=== PATIENT | male | born 1945 | race Caucasian/White ===

== ENCOUNTER 2020-02-19 07:40 | Outpatient (REF) | payer MEDICARE, SELFPAY ==
--- NOTE | 2020-02-19 | XR_ITS ---
EXAMINATION: XR CHEST CLINICAL INFORMATION: SOB on exertion COMPARISON: Chest 08/15/2019 TECHNIQUE: 2 views of the chest were obtained. FINDINGS: Lungs are well-expanded and clear of acute pneumonic process. There is mild bilateral apical pleural thickening Heart size and pulmonary vascularity is normal. There are old healed left posterior fifth and sixth rib fractures. There is mild spondylosis of dorsal spine. XR/XR chest 2V IMPRESSION: Old healed left posterior fifth and sixth rib fractures. No acute cardiopulmonary process seen.
[2020-02-19 11:13] LABS: MANUAL DIFF FLAG NO
[2020-02-19 11:17] LABS: Basophils Percent Auto 0.5 % (0-2); Eosinophils Absolute Auto 0.1 X10*3/uL (0.0-0.4); Eosinophils Percent Auto 2.2 % (0-4); Hematocrit 36.2 % (42-52); Hemoglobin 11.2 g/dl (14.0-18.0); Imm Gran Abs Auto 0.01 X10*3/uL (0.00-0.03); Imm Gran Pct Auto 0.2 % (0.0-0.4); Lymphocytes Absolute Auto 1.2 X10*3/uL (1.2-4.9); Lymphocytes Percent Auto 19.6 % (20-40); Mean Corpuscular HGB Conc 30.9 g/dl (31.0-36.0); Mean Corpuscular Hemoglobin 28.4 pg (27.0-33.0); Mean Corpuscular Volume 91.9 fL (80-98); Mean Platelet Volume 9.4 fL (9.4-12.4); Monocytes Absolute Auto 0.5 X10*3/uL (0.1-1.2); Neutrophils Absolute Auto 4.1 X10*3/uL (2.0-8.3); Neutrophils Percent Auto 69.5 % (45-73); Platelet Count 225 X10*3/uL (160-400); Red Blood Count 3.94 X10*6/uL (4.60-5.80); Red Cell Distribution Width 17.1 % (11.0-16.0); White Blood Count 5.9 X10*3/uL (4.8-10.8)
[2020-02-19 11:24] LABS: Estimated Average Glucose 111 mg/dL; Hemoglobin A1C 108.4023 umol/L; Hemoglobin A1c % 5.5 %
[2020-02-19 11:51] LABS: Glucose Urine UA NEG (NEG); Leukocyte Esterase Urine 2+ (NEG); Nitrite Urine NEG (NEG); Specific Gravity - Urine 1.025 (1.005-1.025); Urine Blood 3+ (NEG); Urine Ketones NEG (NEG); Urine Protein 2+ MG/DL (NEG-TRACE)
[2020-02-19 11:53] LABS: Appearance Urine CLOUDY; Color Urine YELLOW
[2020-02-19 12:02] LABS: Alanine Aminotransferase 26 U/L (0-40); Albumin Level 3.9 g/dL (3.5-5.0); Alkaline Phosphatase 73 U/L (39-117); Anion Gap 13 (12-20); Aspartate Amino Transferase 22 U/L (5-37); Bilirubin Total 0.3 mg/dL (0.0-1.0); Blood Urea Nitrogen 19 mg/dL (9-16); Calcium 9.6 mg/dL (8.4-10.2); Carbon Dioxide 25 mmol/L (22-29); Chloride 100 mmol/L (96-108); Cholesterol 98 mg/dL; Estimated Glomerular Filt Rate 49; Glucose Fasting 79 mg/dL (60-99); HDL Cholesterol 32 mg/dL; LDL Cholesterol Calculated 37 mg/dl; Sodium 134 mmol/L (135-145); Total Protein 6.6 g/dL (6.5-8.0); Triglycerides 149 mg/dL
[2020-02-19 12:17] LABS: PSA,Total (Free>4and<10) 3.86 ng/mL (0.00-4.00)
[2020-02-19 12:21] LABS: Bacteria Urine 2+ /LPF; Squamous Epithelial Cell Urine 1+ /LPF; WBC Urine 50-75 /HPF (0-4)
[2020-02-19 12:22] LABS: Calcium Oxalate Crystals Urine 2+ /LPF
[2020-02-19 12:24] LABS: Thyroid Stimulating Hormone 1.49 uIU/mL (0.32-4.0)
[2020-02-19 12:28] LABS: Creatinine Urine 71.49 mg/dL; Microalbum/Creatinine Ratio Ur 205.6 ug/mg cr
== END 2020-02-19 07:41 | disposition home or self-care (01) ==
LOC: HO.HMGCLDS 07:40
PROVIDERS: Absent Provider Urology; PCP Internal Medicine; Visit Provider Internal Medicine
DX: N40.1 Benign prostatic hyperplasia with lower urinary tract symptoms (principal); R97.20 Elevated prostate specific antigen [PSA]; E11.9 Type 2 diabetes mellitus without complications; E78.00 Pure hypercholesterolemia, unspecified; R06.02 Shortness of breath
CPT/HCPCS: 36415; 71046; 80053; 80061; 81001; 82043; 83036; 84153; 84443; 85025

== ENCOUNTER 2020-04-22 10:23 | Inpatient (IN) | payer MEDICARE, SELFPAY ==
[2020-04-22 10:43] VITALS: BP 108/60; BP 109/60; PULSE 111; PULSE 120; RESP 23; TEMP 36.8; O2SAT 100; BMI 25.0
--- NOTE | 2020-04-22 10:55 | ECG_ITS ---
Test Reason : WEAKNESS Blood Pressure : / mmHG Vent. Rate : 107 BPM Atrial Rate : 107 BPM P-R Int : 160 ms QRS Dur : 084 ms QT Int : 324 ms P-R-T Axes : 063 012 023 degrees QTc Int : 432 ms Sinus tachycardia Otherwise normal ECG When compared with ECG of 03-JUN-2013 10:26, No significant change was found Referred By: Lois Leija Electronically Signed By:Angus Collins
--- NOTE | 2020-04-22 10:55 | XR_ITS ---
EXAMINATION: XR CHEST CLINICAL INFORMATION: Weakness COMPARISON: Previous chest x-ray most recent January 2020 TECHNIQUE: Frontal view of the chest was obtained. FINDINGS: The cardiac and mediastinal contours are normal. The lungs are clear. There is no pleural effusion or pneumothorax. There are old left rib fractures. There are degenerative changes of the spine. XR/XR chest 1V IMPRESSION: No evidence for acute disease in the chest.
--- NOTE | 2020-04-22 10:55 | CT_ITS ---
EXAMINATION: CT HEAD WITHOUT CONTRAST CLINICAL INFORMATION: Garbled speech. COMPARISON: None TECHNIQUE: Contiguous axial imaging was performed from the skull base to vertex without intravenous administration of contrast. This CT examination was performed using dose optimization techniques as appropriate, variously including the following: *Automated exposure control *Adjustment of mA and/or kV according to patient size (this includes techniques or standardized protocols for targeted exams where dose is matched to indication/reason for exam; i.e. extremities or head) *Use of iterative reconstruction technique DLP: 281 mGy-cm FINDINGS: Limited exam due to patient motion. There is no evidence of acute intra-axial, extra-axial bleed, masses or midline shift. There is no acute cortical infarction in evolution. Small lacunar infarction seen in left basal ganglia question age. The lateral ventricles are enlarged but symmetrical and moderately enlarged. The greenwood to white matter differences is maintained normal. Bone windows reveal no calvarial abnormality. There is complete opacification of right maxillary sinus. Rest the paranasal sinuses and mastoid air cells are well-aerated. No scalp soft tissue abnormality seen. CT/CT head/brain wo con IMPRESSION: Small lacunar infarction left basal ganglia of questionable age. No acute parenchymal or extra-axial bleed. Age-related cerebral atrophy with chronic small vessel ischemic changes.
--- NOTE | 2020-04-22 10:57 | ED.WEAKNESS ---
HPI - Weakness General Chief complaint: Weakness Stated complaint: WOKE UP WITH ACUTE ONSET OF WEAKNESS Time Seen by Provider: 04/22/20 10:40 Source: patient and EMS Mode of arrival: EMS History of Present Illness HPI Narrative: 74-year-old male with a past medical history of HTN, DM, hyperlipidemia, BPH, urinary retention, BIBA for generalized weakness noted this morning upon waking up and episode garbled/difficulty speaking which resolved after about a half an hour. Last known well time 10:00 p.m. when patient went to bed. States tried to get out of his recliner but was unable to walk, slid himself out of chair onto floor. At baseline lives at home alone does not use assistive devices. Also reports exertional SOB. Denies headache, vision change, CP, abdominal pain, nausea/vomiting, numbness/tingling. MD Complaint: generalized weakness and difficulty walking Related Data Home Medications Medication Instructions Recorded Confirmed glipizide 1 tab PO BID 04/22/20 04/22/20 lisinopril 1 tab PO BEDTIME 04/22/20 04/22/20 metformin 1 tab PO BID 04/22/20 04/22/20 rosuvastatin 1 tab PO BEDTIME 04/22/20 04/22/20 tamsulosin 1 cap PO BEDTIME 04/22/20 04/22/20 Allergies Allergy/AdvReac Type Severity Reaction Status Date / Time atorvastatin [Lipitor] Allergy Unknown rash Verified 09/06/19 00:00 From LIPITOR Allergy Unknown RASH Uncoded 12/13/19 14:58 Review of Systems Review of Systems: Constitutional: No Weight loss, No Fever, No Chills, No Night Sweats, No Fatigue, No Malaise ENT/Mouth: No Sinus Pain, No Hoarseness, No sore throat, No Rhinorrhea, No Swallowing Difficulty Eyes: No Eye Pain, No Swelling, No Vision Changes Cardiovascular: No Chest Pain, No SOB, +Dyspnea on Exertion, No Orthopnea, No Edema, No Palpitations Respiratory: No Cough, No Sputum, No Dyspnea Gastrointestinal: No Nausea, No Vomiting, No Diarrhea, No Constipation, No Abdominal pain Genitourinary: No irregular bleeding, No Dysuria, No Urinary Frequency, No Hematuria, No Flank Pain, No Hesitancy Musculoskeletal: No joint pain, No Myalgias, No Joint Swelling Skin: No Skin Lesions, No rash Neuro: +Weakness, No Numbness, No Paresthesias, No Loss of Consciousness, No Dizziness, No Headache Yes all other systems are reviewed and are negative Neurologic: Denies Abnormal speech present [facility] Past Medical History Attestation statement: The following information was validated with the patient. Social History Social History Alcohol intake: current Alcohol intake frequency: holidays/special occasions only Smoking Status: Never smoker Use of substances other than those prescribed or required for medical reasons: No Advance Directives: No Advance Directives Information Provided: Yes Physical Exam Vital Signs: Vital Signs: Last Vital Signs Temp 98.2 F 04/22/20 10:43 Pulse 118 H 04/22/20 11:18 Resp 23 H 04/22/20 10:43 BP 103/51 L 04/22/20 11:18 Pulse Ox 100 04/22/20 10:43 Body Mass Index 25.0 Const: General: cooperative, healthy appearing and comfortable Orientation/consciousness: patient oriented x3 Limitations: no limitations HENMT: Head: Yes normal to inspection and Yes atraumatic Ears: hearing grossly normal bilaterally General nose exam: Normal external nose present Face and sinus: Yes normal facial exam Eyes: General: appearance normal, both eyes and all related structures Pupils: Equal, round and reactive pupils present EOM: EOMs intact bilaterally Neck: Neck: Yes normal visual inspection and Yes no meningeal signs Resp: Effort & Inspection: normal respiratory effort Auscultation: clear to auscultation bilaterally, no rales, no rhonchi and no wheezes Cardio: Rate: regular rate Heart sounds: S1 normal heart sound present and S2 normal heart sound present GI: Inspection: Yes normal to inspection Palpation (GI): Soft to palpation, nontender, no guarding and not rigid Skin: Rashes: no rashes Wounds: no wounds Neuro: General: patient oriented x3, gait normal, tone normal, moves all extremities, no meningeal signs, no focal motor deficits and CN's II-XI intact bilaterally Cranial nerves: Yes Equal, round and reactive pupils present Cognition (Neuro): normal cognition Speech: No Abnormal speech present Gait exam (Neuro): Normal gait present Motor exam (neuro): 5/5 motor strength present throughout, Pronator motor function not present and no tremor noted Coordination: [id number] test normal Extrem: General: Yes normal to inspection NIH Stroke Scale Internal: Initial- Upon Arrival Level of Consciousness: Alert Level of Consciousness Questions: Answers both questions correctly Level of Consciousness Commands: Performs both tasks correctly Best Gaze: Normal Visual: No visual loss Facial Palsy: Normal Motor Arm (Right): No drift Motor Arm (Left): No drift Motor Leg (Right): No drift Motor Leg (Left): No drift Limb Ataxia: Absent Sensory: Normal Best Language: No aphasia Dysarthia: Normal Extinction and Inattention: No abnormality Score: 0 Course Course Course Narrative: -H&H slightly lower than baseline 9.3/29, creatinine elevated at 2.1/BUN of 30. Patient's glucose was noted to be 59, is currently eating crackers/drinking juice -AST/ALT elevated. Troponin 8.3 > will obtain 3 hour repeat. CPK 987 likely contributing to renal dysfunction -CXR unremarkable. Head CT showing small lacunar infarct left basal ganglia questionable age MDM - Weakness MDM Narrative Medical decision making narrative: 74-year-old male with a past medical history of HTN, DM, hyperlipidemia, BPH, urinary retention, BIBA for generalized weakness noted this morning upon waking up and episode garbled/difficulty speaking which resolved after about a half an hour. On exam tachycardic, tachypneic, NAD/nontoxic, no focal neuro deficits, ambulating with steady gait, speech WNL. Concern for TIA vs CVA although patient out of the window for tPA, and NIHSS =0 upon arrival to ED. rule out metabolic/infectious etiology including COVID-19. Plan for admission Plan: EKG, labs, UA, CXR, head CT, admission Medical Records Attestation: I reviewed the patient's medical records. Lab Data Attestation: I reviewed the patient's lab results. Result diagrams: 04/22/20 11:10 04/22/20 11:11 Labs: Lab Results 04/22/20 04/22/20 04/22/20 Range/Units 11:05 11:10 11:10 WBC 6.6 (4.8-10.8) X10*3/uL RBC 3.17 L (4.60-5.80) X10*6/uL Hgb 9.3 L (14.0-18.0) g/dl Hct 29.6 L (42-52) % MCV 93.4 (80-98) fL MCH 29.3 (27.0-33.0) pg MCHC 31.4 (31.0-36.0) g/dl RDW 16.6 H (11.0-16.0) % Plt Count 222 (160-400) X10*3/uL MPV 9.1 L (9.4-12.4) fL Immature Gran % (Auto) 0.5 H (0.0-0.4) % Neut % (Auto) 78.8 H (45-73) % Lymph % (Auto) 12.3 L (20-40) % [place] % (Auto) 6.8 (2-11) % Eos % (Auto) 1.1 (0-4) % Baso % (Auto) 0.5 (0-2) % Lymph # (Auto) 0.8 L (1.2-4.9) X10*3/uL [place] # (Auto) 0.5 (0.1-1.2) X10*3/uL Eos # (Auto) 0.1 (0.0-0.4) X10*3/uL Baso # (Auto) 0.0 (0.0-0.2) X10*3/uL Abs Immat Gran (auto) 0.03 (0.00-0.03) X10*3/uL Absolute Neuts (auto) 5.2 (2.0-8.3) X10*3/uL Absolute Nucleated RBC 0.000 (0.0-0.012) X10*3/uL Nucleated RBC % (auto) 0.0 (0.0-0.2) /100WBC PT (10.8-13.0) SEC INR (0.9-1.1) APTT (24.1-38.0) SEC Sodium (135-145) mmol/L Potassium (3.3-5.1) mmol/l Chloride (96-108) mmol/L Carbon Dioxide (22-29) mmol/L Anion Gap (12-20) BUN (9-16) mg/dL Creatinine (0.5-1.4) mg/dL Estim Creat Clear Calc Estimated GFR POC Glucose (60-115) mg/dL Random Glucose (60-115) mg/dL Calcium (8.4-10.2) mg/dL Magnesium (1.6-2.6) mg/dL Total Bilirubin (0.0-1.0) mg/dL Direct Bilirubin (0.0-0.5) mg/dL AST (5-37) U/L ALT (0-40) U/L Alkaline Phosphatase (39-117) U/L Total Creatine Kinase (38-174) U/L Troponin I High Sens 8.3 (<3.5-35.0) ng/L B-Natriuretic Peptide (<100) pg/mL Total Protein (6.5-8.0) g/dL Albumin (3.5-5.0) g/dL COVID-19 (BHASKAR) Negative (Negative) COVID-19 Clin Com See Note 04/22/20 04/22/20 04/22/20 Range/Units 11:10 11:10 11:11 WBC (4.8-10.8) X10*3/uL RBC (4.60-5.80) X10*6/uL Hgb (14.0-18.0) g/dl Hct (42-52) % MCV (80-98) fL MCH (27.0-33.0) pg MCHC (31.0-36.0) g/dl RDW (11.0-16.0) % Plt Count (160-400) X10*3/uL MPV (9.4-12.4) fL Immature Gran % (Auto) (0.0-0.4) % Neut % (Auto) (45-73) % Lymph % (Auto) (20-40) % [place] % (Auto) (2-11) % Eos % (Auto) (0-4) % Baso % (Auto) (0-2) % Lymph # (Auto) (1.2-4.9) X10*3/uL [place] # (Auto) (0.1-1.2) X10*3/uL Eos # (Auto) (0.0-0.4) X10*3/uL Baso # (Auto) (0.0-0.2) X10*3/uL Abs Immat Gran (auto) (0.00-0.03) X10*3/uL Absolute Neuts (auto) (2.0-8.3) X10*3/uL Absolute Nucleated RBC (0.0-0.012) X10*3/uL Nucleated RBC % (auto) (0.0-0.2) /100WBC PT 12.2 (10.8-13.0) SEC INR 1.0 (0.9-1.1) APTT 35.3 (24.1-38.0) SEC Sodium 139 (135-145) mmol/L Potassium 4.4 (3.3-5.1) mmol/l Chloride 106 (96-108) mmol/L Carbon Dioxide 23 (22-29) mmol/L Anion Gap 14 (12-20) BUN 30 H D (9-16) mg/dL Creatinine 2.16 H (0.5-1.4) mg/dL Estim Creat Clear Calc 26.6 Estimated GFR 30 POC Glucose (60-115) mg/dL Random Glucose 59 L* (60-115) mg/dL Calcium 8.8 D (8.4-10.2) mg/dL Magnesium 1.9 (1.6-2.6) mg/dL Total Bilirubin 0.4 (0.0-1.0) mg/dL Direct Bilirubin 0.2 (0.0-0.5) mg/dL AST 64 H (5-37) U/L ALT 73 H (0-40) U/L Alkaline Phosphatase 88 D (39-117) U/L Total Creatine Kinase 987 H (38-174) U/L Troponin I High Sens (<3.5-35.0) ng/L B-Natriuretic Peptide < 10 (<100) pg/mL Total Protein 5.9 L (6.5-8.0) g/dL Albumin 3.4 L (3.5-5.0) g/dL COVID-19 (BHASKAR) (Negative) COVID-19 Clin Com 04/22/20 Range/Units 12:17 WBC (4.8-10.8) X10*3/uL RBC (4.60-5.80) X10*6/uL Hgb (14.0-18.0) g/dl Hct (42-52) % MCV (80-98) fL MCH (27.0-33.0) pg MCHC (31.0-36.0) g/dl RDW (11.0-16.0) % Plt Count (160-400) X10*3/uL MPV (9.4-12.4) fL Immature Gran % (Auto) (0.0-0.4) % Neut % (Auto) (45-73) % Lymph % (Auto) (20-40) % Grant % (Auto) (2-11) % Eos % (Auto) (0-4) % Baso % (Auto) (0-2) % Lymph # (Auto) (1.2-4.9) X10*3/uL [place] # (Auto) (0.1-1.2) X10*3/uL Eos # (Auto) (0.0-0.4) X10*3/uL Baso # (Auto) (0.0-0.2) X10*3/uL Abs Immat Gran (auto) (0.00-0.03) X10*3/uL Absolute Neuts (auto) (2.0-8.3) X10*3/uL Absolute Nucleated RBC (0.0-0.012) X10*3/uL Nucleated RBC % (auto) (0.0-0.2) /100WBC PT (10.8-13.0) SEC INR (0.9-1.1) APTT (24.1-38.0) SEC Sodium (135-145) mmol/L Potassium (3.3-5.1) mmol/l Chloride (96-108) mmol/L Carbon Dioxide (22-29) mmol/L Anion Gap (12-20) BUN (9-16) mg/dL Creatinine (0.5-1.4) mg/dL Estim Creat Clear Calc Estimated GFR POC Glucose 98 (60-115) mg/dL Random Glucose (60-115) mg/dL Calcium (8.4-10.2) mg/dL Magnesium (1.6-2.6) mg/dL Total Bilirubin (0.0-1.0) mg/dL Direct Bilirubin (0.0-0.5) mg/dL AST (5-37) U/L ALT (0-40) U/L Alkaline Phosphatase (39-117) U/L Total Creatine Kinase (38-174) U/L Troponin I High Sens (<3.5-35.0) ng/L B-Natriuretic Peptide (<100) pg/mL Total Protein (6.5-8.0) g/dL Albumin (3.5-5.0) g/dL COVID-19 (BHASKAR) (Negative) COVID-19 Clin Com ECG Data Attestation: I personally reviewed and interpreted this ECG as follows: ECG interpretation date: 04/22/20 ECG interpretation time: 11:12 Prior ECG tracings: available for review Interpretation: EKG sinus tachycardia. Rate 107. Nonischemic. No STEMI. Unchanged from priors Discharge Plan Discharge Clinical Impression: Lacunar infarction, SANDY (acute kidney injury) Patient Disposition: Admitted As Inpatient
[2020-04-22 11:16] VITALS: BP 115/59; PULSE 105
[2020-04-22 11:17] VITALS: BP 102/56; PULSE 110
[2020-04-22 11:18] VITALS: BP 103/51; PULSE 118
[2020-04-22 11:19] LABS: MANUAL DIFF FLAG NO
[2020-04-22 11:21] LABS: Basophils Percent Auto 0.5 % (0-2); Eosinophils Absolute Auto 0.1 X10*3/uL (0.0-0.4); Eosinophils Percent Auto 1.1 % (0-4); Hematocrit 29.6 % (42-52); Hemoglobin 9.3 g/dl (14.0-18.0); Imm Gran Abs Auto 0.03 X10*3/uL (0.00-0.03); Imm Gran Pct Auto 0.5 % (0.0-0.4); Lymphocytes Absolute Auto 0.8 X10*3/uL (1.2-4.9); Lymphocytes Percent Auto 12.3 % (20-40); Mean Corpuscular HGB Conc 31.4 g/dl (31.0-36.0); Mean Corpuscular Hemoglobin 29.3 pg (27.0-33.0); Mean Corpuscular Volume 93.4 fL (80-98); Mean Platelet Volume 9.1 fL (9.4-12.4); Monocytes Absolute Auto 0.5 X10*3/uL (0.1-1.2); Monocytes Percent Auto 6.8 % (2-11); Neutrophils Absolute Auto 5.2 X10*3/uL (2.0-8.3); Neutrophils Percent Auto 78.8 % (45-73); Platelet Count 222 X10*3/uL (160-400); Red Blood Count 3.17 X10*6/uL (4.60-5.80); Red Cell Distribution Width 16.6 % (11.0-16.0); White Blood Count 6.6 X10*3/uL (4.8-10.8)
[2020-04-22 11:27] LABS: Prothrombin Time 12.2 SEC (10.8-13.0)
[2020-04-22 11:30] LABS: Partial Thromboplastin Time 35.3 SEC (24.1-38.0)
[2020-04-22 11:45] LABS: COVID-19 Test Negative (Negative)
[2020-04-22 11:46] LABS: Alanine Aminotransferase 73 U/L (0-40); Albumin Level 3.4 g/dL (3.5-5.0); Alkaline Phosphatase 88 U/L (39-117); Anion Gap 14 (12-20); Aspartate Amino Transferase 64 U/L (5-37); Bilirubin Direct 0.2 mg/dL (0.0-0.5); Bilirubin Total 0.4 mg/dL (0.0-1.0); Blood Urea Nitrogen 30 mg/dL (9-16); Calcium 8.8 mg/dL (8.4-10.2); Carbon Dioxide 23 mmol/L (22-29); Chloride 106 mmol/L (96-108); Creatinine Clr Calc Pharmacy 26.6; Estimated Glomerular Filt Rate 30; Magnesium 1.9 mg/dL (1.6-2.6); Potassium 4.4 mmol/l (3.3-5.1); Sodium 139 mmol/L (135-145); Total Protein 5.9 g/dL (6.5-8.0)
[2020-04-22 11:47] LABS: Glucose Random 59 mg/dL (60-115)
[2020-04-22 11:52] LABS: B Type Natriuretic Peptide < 10 pg/mL (<100); Troponin-I High Sensitivity 8.3 ng/L (<3.5-35.0)
--- NOTE | 2020-04-22 12:14 | PC.NURSE ---
PT able to ambulate about 50 feet with a steady gait and no difficulties. POC low in 50s. PT given juice and snack. Repeat poc improved to 98. More crackers given upon request.
[2020-04-22 13:33] LABS: Glucose, Whole Blood 98 mg/dL (60-115)
[2020-04-22 14:00] VITALS: BP 113/69; PULSE 109; RESP 17; TEMP 35.7; O2SAT 99
[2020-04-22 14:11] LABS: Glucose Urine UA NEG (NEG); Leukocyte Esterase Urine 1+ (NEG); Nitrite Urine NEG (NEG); UACC Culture Trigger YES; Urine Blood 2+ (NEG); Urine Ketones NEG (NEG); Urine Protein 1+ MG/DL (NEG-TRACE)
[2020-04-22 14:13] LABS: Appearance Urine HAZY; Color Urine YELLOW
[2020-04-22 14:18] LABS: WBC Clumps Urine NOTED
[2020-04-22 14:19] LABS: Renal Epithelial Cells Urine 1+ /LPF; Squamous Epithelial Cell Urine 1+ /LPF; WBC Urine TNTC /HPF (0-4)
[2020-04-22 14:20] LABS: Mucus Urine 1+ /LPF
[2020-04-22] MEDS: 0.9 % Sodium Chloride 1,000 ML 999 ML IVCONT ×2 (14:25→17:16)
[2020-04-22 14:46] LABS: Troponin-I High Sensitivity 8.5 ng/L (<3.5-35.0)
--- NOTE | 2020-04-22 15:08 | PM.IMHP ---
History of Present Illness Date of Service: 04/22/20 Chief Complaint: garbled speech 74 year old man presenting with garbled speech and weakness. He reported that this morning he tried to get out of his recliner, that he was sleeping in, and he was unable to lift himself. He felt weak everywhere. He was then trying to talk and had garbled speech. He lives alone and is usually very independent so he called EMS. He denied any symptoms recently. No chest pain, shortness of breath, vision changes, headache. Brain CT showed Small lacunar infarction left basal ganglia of questionable age. He was given aspirin and statin. He will be admitted for further management of TIA vs stroke Review of Systems Review of Systems: Denies any recent fever chills or decrease in appetite respiratory denies any shortness of breath coverage production cardiovascular is adjustment of any PND or edema gastrointestinal denies any dysphagia abdominal pain nausea vomiting or diarrhea genitourinary denies any dysuria frequency or hematuria musculoskeletal denies any joint pain or swelling neuropsych SEE ABOVE all other systems reviewed are negative [facility] Medical History (Updated 04/22/20 @ 15:12 by Beatriz Weeks NP) BPH (benign prostatic hyperplasia) Diabetes mellitus H/O: HTN (hypertension) Social History (Updated 04/22/20 @ 15:13 by Beatriz Weeks NP) Alcohol intake: current Alcohol intake frequency: holidays/special occasions only Smoking Status: Former smoker Smoking Quit Date: 20 YEARS AGO Use of substances other than those prescribed or required for medical reasons: No Advance Directives: No Advance Directives Information Provided: Yes Meds Allergies Allergy/AdvReac Type Severity Reaction Status Date / Time atorvastatin [Lipitor] Allergy Unknown rash Verified 09/06/19 00:00 From LIPITOR Allergy Unknown RASH Uncoded 12/13/19 14:58 Home Medications Medication Instructions Recorded Confirmed Type glipizide 1 tab PO BID 04/22/20 04/22/20 History lisinopril 1 tab PO BEDTIME 04/22/20 04/22/20 History metformin 1 tab PO BID 04/22/20 04/22/20 History rosuvastatin 1 tab PO BEDTIME 04/22/20 04/22/20 History tamsulosin 1 cap PO BEDTIME 04/22/20 04/22/20 History Physical Exam Vital Signs and Narrative: Vital Signs: Last Vital Signs Temp 96.3 F L 04/22/20 14:00 Pulse 109 H 04/22/20 14:00 Resp 17 04/22/20 14:00 BP 113/69 04/22/20 14:00 Pulse Ox 99 04/22/20 14:00 Body Mass Index 25.0 Appearing in no acute distress head is normocephalic atraumatic eyes pupils are PERRLA sclera is anicteric mouth throat mucous membranes are intact and moist neck is supple no lymphadenopathy, no JVD noted lung sounds are clear to auscultation heart regular rate rhythm, clear S1, S2 positive bowel sounds, abdomen is soft, nontender neuro patient is alert x3, no focal deficits Results Labs CBC and Chem 7: 04/22/20 11:10 04/22/20 11:11 Labs: Laboratory Results - last 24 hr 04/22/20 04/22/20 04/22/20 11:05 11:10 11:10 MCV 93.4 MCH 29.3 MCHC 31.4 RDW 16.6 H Plt Count 222 MPV 9.1 L Immature Gran % (Auto) 0.5 H Neut % (Auto) 78.8 H Lymph % (Auto) 12.3 L [place] % (Auto) 6.8 Eos % (Auto) 1.1 Baso % (Auto) 0.5 Lymph # (Auto) 0.8 L [place] # (Auto) 0.5 Eos # (Auto) 0.1 Baso # (Auto) 0.0 Abs Immat Gran (auto) 0.03 Absolute Neuts (auto) 5.2 Absolute Nucleated RBC 0.000 Nucleated RBC % (auto) 0.0 PT INR APTT Anion Gap Estim Creat Clear Calc Estimated GFR POC Glucose Random Glucose Calcium Magnesium Total Bilirubin Direct Bilirubin AST ALT Alkaline Phosphatase Total Creatine Kinase Troponin I High Sens 8.3 B-Natriuretic Peptide Total Protein Albumin Urine Color Urine Appearance Urine pH Ur Specific [place] Urine Protein Urine Glucose (UA) Urine Ketones Urine Blood Urine Nitrite Ur Leukocyte Esterase Urine RBC Urine WBC Urine WBC Clumps Ur Squamous Epith Cells Ur Renal Epithelial Cell Urine Bacteria Granular Casts Urine Mucus COVID-19 (BHASKAR) Negative COVID-19 Clin Com See Note 04/22/20 04/22/20 04/22/20 11:10 11:10 11:11 MCV MCH MCHC RDW Plt Count MPV Immature Gran % (Auto) Neut % (Auto) Lymph % (Auto) [place] % (Auto) Eos % (Auto) Baso % (Auto) Lymph # (Auto) [place] # (Auto) Eos # (Auto) Baso # (Auto) Abs Immat Gran (auto) Absolute Neuts (auto) Absolute Nucleated RBC Nucleated RBC % (auto) PT 12.2 INR 1.0 APTT 35.3 Anion Gap 14 Estim Creat Clear Calc 26.6 Estimated GFR 30 POC Glucose Random Glucose 59 L* Calcium 8.8 D Magnesium 1.9 Total Bilirubin 0.4 Direct Bilirubin 0.2 AST 64 H ALT 73 H Alkaline Phosphatase 88 D Total Creatine Kinase 987 H Troponin I High Sens B-Natriuretic Peptide < 10 Total Protein 5.9 L Albumin 3.4 L Urine Color Urine Appearance Urine pH Ur Specific [place] Urine Protein Urine Glucose (UA) Urine Ketones Urine Blood Urine Nitrite Ur Leukocyte Esterase Urine RBC Urine WBC Urine WBC Clumps Ur Squamous Epith Cells Ur Renal Epithelial Cell Urine Bacteria Granular Casts Urine Mucus COVID-19 (BHASKAR) COVID-19 [email or web address] Com 04/22/20 04/22/20 04/22/20 12:17 14:04 14:04 MCV MCH MCHC RDW Plt Count MPV Immature Gran % (Auto) Neut % (Auto) Lymph % (Auto) [place] % (Auto) Eos % (Auto) Baso % (Auto) Lymph # (Auto) [place] # (Auto) Eos # (Auto) Baso # (Auto) Abs Immat Gran (auto) Absolute Neuts (auto) Absolute Nucleated RBC Nucleated RBC % (auto) PT INR APTT Anion Gap Estim Creat Clear Calc Estimated GFR POC Glucose 98 Random Glucose Calcium Magnesium Total Bilirubin Direct Bilirubin AST ALT Alkaline Phosphatase Total Creatine Kinase Troponin I High Sens 8.5 B-Natriuretic Peptide Total Protein Albumin Urine Color YELLOW Urine Appearance HAZY Urine pH 6.0 Ur Specific [place] 1.020 Urine Protein 1+ H Urine Glucose (UA) NEG Urine Ketones NEG Urine Blood 2+ H Urine Nitrite NEG Ur Leukocyte Esterase 1+ H Urine RBC 15-29 H Urine WBC TNTC H Urine WBC Clumps NOTED Ur Squamous Epith Cells 1+ Ur Renal Epithelial Cell 1+ Urine Bacteria NONE Granular Casts 1-4 Urine Mucus 1+ COVID-19 (BHASKAR) COVID-19 [email or web address] Com Imaging Radiologist's Impressions: Impressions Chest X-Ray 04/22/20 10:55 IMPRESSION: No evidence for acute disease in the chest. Head CT 04/22/20 10:55 IMPRESSION: Small lacunar infarction left basal ganglia of questionable age. No acute parenchymal or extra-axial bleed. Age-related cerebral atrophy with chronic small vessel ischemic changes. Assessment and Plan (1) Lacunar infarction: Status: Acute 74 year old man admitted with TIA Symptoms. CT showed Small lacunar infarction left basal ganglia of questionable age. No hx of stroke in the past. Stroke. Neurology to follow, MRI, Carotid doppler, Echo, PT/OT, aspirin, statin SANDY. Unknown etiology, maybe elevated CK contributing. Will hold Lisinopril and metformin. Fluids. Normocytic anemia. No bleeding. Check iron studies. Diabetes. Sliding scale, ADA diet, hold Metformin due to SANDY and elevated CK. HTN. Hold Lisinopril due to SANDY. Also blood pressures on the softer side. BPH. Tamsulosin. DVT prophylaxis with heparin Discussed with Dr. Torsten sherman
[2020-04-22] MEDS: Acetaminophen 325 MG TABLET 650 MG PO ×2 (15:11→20:28)
[2020-04-22] MEDS: Heparin Sodium,Porcine 5,000 UNIT/ML VIAL 5000 UNIT SUBCUT (15:12)
[2020-04-22 15:44] LABS: Iron 54 mcg/dL (45-160); Percent Iron Saturation 17 % (15-50); Total Iron Binding Capacity 309 mcg/dL (228-428); Unsaturated Iron Binding 255 ug/dL
[2020-04-22 16:03] LABS: Ferritin 37 ng/mL (20-250)
--- NOTE | 2020-04-22 16:04 | PM.EVENT ---
Event Note Date of Service: 04/23/20 Event Note: Patient seen examined case discussed with APC. 74-year-old gentleman with past medical history significant for diabetes mellitus, hypertension and BPH who came to [facility] this morning due to generalized weakness and garbled speech a CT brain showed a small left basal ganglia infarction, is labs revealed a hematocrit of 29.6 that is significantly lower than in last months ago hematocrit of 36.2 patient also found to be in acute renal failure with a creatinine of 2.16 blood sugar lowered 59 patient treated in the ER with IV fluids and aspirin now being admitted for further treatment and evaluation. On examination patient awake alert Neuro speech clear no focal deficit Lacunar infarction left basal ganglia indeterminate age Acute kidney injury Acute on chronic anemia No evidence of UTI will discontinue ceftriaxone agree with above plan.
[2020-04-22 16:28] LABS: Folate 19.5 ng/mL (> or = 4.0); Vitamin B12 206 pg/mL (200-900)
--- NOTE | 2020-04-22 17:14 | PC.NURSE ---
PATIENT'S FAMILY MEMBER CALLS AT THIS TIME TO LEAVE NUMBER FOR CONSULTATION OR TRANSPORTATION. SIGRID
[2020-04-22] MEDS: cefTRIAXone sodium 1 GM in 0.9 % Sodium Chloride 50 ML IV (17:15)
--- NOTE | 2020-04-22 17:19 | PC.NURSE ---
Pt refused MRI. Beatriz ROSEN made aware of this
[2020-04-22 18:15] LABS: Glucose, Whole Blood 192 mg/dL (60-115)
[2020-04-22] MEDS: Insulin Lispro 100 UNIT/ML 3 ML VIAL SUBCUT (18:16)
[2020-04-22] MEDS: 0.9 % Sodium Chloride 1,000 ML 75 ML IVCONT (20:15)
--- NOTE | 2020-04-22 20:45 | PC.NURSE ---
PT C/O HEAD PAIN. PT MEDICATED PER EMAR. PT AWAITING FOR BED ASSIGNMENT.
[2020-04-22] MEDS: glipiZIDE 10 MG TABLET PO (21:00)
[2020-04-22] MEDS: Tamsulosin HCL 0.4 MG CAPSULE PO (21:00)
[2020-04-23] VITALS (9 sets, daily range): BP systolic 118–139; BP diastolic 62–72; PULSE 80–102; RESP 16–20; TEMP 36.2–37.1; O2SAT 98–99
--- NOTE | 2020-04-23 | US_ITS ---
EXAMINATION: US EXTRACRANIAL CAROTID DUPLEX, BILATERAL CLINICAL INFORMATION: This is a 74-year-old male with history of CVA. Carotid artery disease. COMPARISON: None TECHNIQUE: Real-time ultrasound and Doppler techniques (integrating B-mode 2-D vascular images, Doppler spectral analysis and color-flow Doppler imaging) were utilized to interrogate the extracranial carotid arteries, the vertebral arteries and proximal subclavian arteries bilaterally. The degree of stenosis is determined by criteria similar to NASCET. FINDINGS: Right Side: 1. There is minimal atherosclerotic plaque seen in the bifurcation/proximal ICA region. 2. The common carotid artery PSV proximally is 76 cm/s and distally 82 cm/s. 3. The proximal internal carotid artery velocities are 67 cm/s systolic and 17 cm/s diastolic. 4. The proximal external carotid artery PSV is 94 cm/s. 5. The vertebral artery shows antegrade flow. 6. The subclavian artery waveforms are normal. Left Side: 1. There is minimal atherosclerotic plaque seen in the bifurcation/proximal ICA region. 2. The common carotid artery PSV proximally is 101 cm/s and distally 75 cm/s. 3. The proximal internal carotid artery velocities are 57 cm/s systolic and 18 cm/s diastolic. 4. The proximal external carotid artery PSV is 1:15 cm/s. 5. The vertebral artery shows antegrade flow. 6. The subclavian artery waveforms are normal. US/US carotid duplex BI IMPRESSION: 1. RIGHT: Minimal, non-hemodynamically significant stenosis of the proximal right internal carotid artery corresponding to a 0-49% stenosis by velocity criteria. 2. LEFT: Minimal, non-hemodynamically significant stenosis of the proximal left internal carotid artery corresponding to a 0-49% stenosis by velocity criteria.
--- NOTE | 2020-04-23 00:08 | PC.NURSE ---
pt denies any complaints.
[2020-04-23 00:17] LABS: Glucose, Whole Blood 125 mg/dL (60-115)
--- NOTE | 2020-04-23 06:46 | PC.NURSE ---
[facility] UNABLE TO TAKE REPORT AT THIS TIME.
[2020-04-23] MEDS: Heparin Sodium,Porcine 5,000 UNIT/ML VIAL 5000 UNIT SUBCUT ×2 (07:08→14:29)
[2020-04-23 07:40] LABS: Glucose, Whole Blood 98 mg/dL (60-115)
[2020-04-23 07:58] LABS: MANUAL DIFF FLAG NO
[2020-04-23 07:59] LABS: Basophils Percent Auto 0.5 % (0-2); Eosinophils Absolute Auto 0.1 X10*3/uL (0.0-0.4); Eosinophils Percent Auto 1.7 % (0-4); Hematocrit 27.4 % (42-52); Hemoglobin 8.6 g/dl (14.0-18.0); Imm Gran Abs Auto 0.02 X10*3/uL (0.00-0.03); Imm Gran Pct Auto 0.3 % (0.0-0.4); Lymphocytes Absolute Auto 0.9 X10*3/uL (1.2-4.9); Lymphocytes Percent Auto 14.1 % (20-40); Mean Corpuscular HGB Conc 31.4 g/dl (31.0-36.0); Mean Corpuscular Hemoglobin 29.3 pg (27.0-33.0); Mean Corpuscular Volume 93.2 fL (80-98); Monocytes Absolute Auto 0.4 X10*3/uL (0.1-1.2); Monocytes Percent Auto 6.8 % (2-11); Neutrophils Percent Auto 76.6 % (45-73); Platelet Count 217 X10*3/uL (160-400); Red Blood Count 2.94 X10*6/uL (4.60-5.80); Red Cell Distribution Width 16.6 % (11.0-16.0); White Blood Count 6.5 X10*3/uL (4.8-10.8)
[2020-04-23] MEDS: Acetaminophen 325 MG TABLET 650 MG PO ×2 (08:19→20:38)
[2020-04-23 08:26] LABS: Anion Gap 10 (12-20); Blood Urea Nitrogen 24 mg/dL (9-16); Calcium 8.4 mg/dL (8.4-10.2); Carbon Dioxide 23 mmol/L (22-29); Chloride 109 mmol/L (96-108); Cholesterol 89 mg/dL; Creatinine Clr Calc Pharmacy 30.8; Estimated Glomerular Filt Rate 35; Glucose Random 91 mg/dL (60-115); HDL Cholesterol 24 mg/dL; LDL Cholesterol Calculated 26 mg/dl; Potassium 4.1 mmol/l (3.3-5.1); Sodium 138 mmol/L (135-145); Triglycerides 199 mg/dL
--- NOTE | 2020-04-23 09:30 | MHC.CM.PN ---
CM met with Patient at bedside. Patient lives alone in a house and he was completely independent [employer]/CV[employer]. Patient's goal is to return home with a new referral to [facility]; CM has initiated and will follow for dc planning. IMM addressed with Patient and the original has been given to him and a copy has been placed on the chart. PCP is Dr. Claude Churchill.
[2020-04-23] MEDS: Pravastatin Sodium 40 MG TABLET PO (09:38)
[2020-04-23] MEDS: glipiZIDE 10 MG TABLET PO ×2 (09:38→20:41)
[2020-04-23] MEDS: Aspirin Enteric Coated 81 MG TABLET.DR PO (09:38)
[2020-04-23] MEDS: 0.9 % Sodium Chloride Flush 3 ML SYRINGE IVFLUSH ×2 (09:39→16:05)
[2020-04-23] MEDS: 0.9 % Sodium Chloride 1,000 ML 75 ML IVCONT (09:42)
--- NOTE | 2020-04-23 10:16 | PM.NEUROCN ---
History of Present Illness Data of Consult Service Date: 04/23/20 Primary Care Provider: Claude Churchill MD, DO 74 years old man with past medical history of hypertension and diabetes who came to hospital with an episode of garbled speech and generalized weakness. This happened yesterday. This happened when he tried to get up. There was no headache. There was no focal weakness. There was no double vision or loss of vision nausea or vomiting. Review of Systems Review of Systems: No recent cold or flu-like illness or trauma. [facility]LY [facility] Past Medical History Medical History (Updated 04/23/20 @ 10:21 by Stacie Triplett MD) BPH (benign prostatic hyperplasia) Diabetes mellitus H/O: HTN (hypertension) Social History Social History (Updated 04/22/20 @ 15:13 by Beatriz Weeks NP) Household Members: None Housing: House Do you presently have visiting nurse or other home services: No Alcohol intake: current Alcohol intake frequency: holidays/special occasions only Smoking Status: Former smoker Tobacco Type: Cigarette Smoking Quit Date: 25 years Use of substances other than those prescribed or required for medical reasons: No Have you been hit, kicked, punched, or otherwise hurt by someone within the past year? If so, by whom?: No Do you feel safe in your current relationship?: No Is there a partner from a previous relationship who is making you feel unsafe now?: No Are you made to feel afraid or neglected: No Advance Directives: No Advance Directives Information Provided: Yes Advance Directives on File: No Do you have thoughts of harming others: None Do you have a plan to hurt others: No Plan Recently lost weight without trying: Yes service: Yes Current occupational status: retired Meds Allergies Allergy/AdvReac Type Severity Reaction Status Date / Time atorvastatin [Lipitor] Allergy Unknown rash Verified 09/06/19 00:00 From LIPITOR Allergy Unknown RASH Uncoded 12/13/19 14:58 Home Medications Medication Instructions Recorded Confirmed Type glipizide 1 tab PO BID 04/22/20 04/22/20 History lisinopril 1 tab PO BEDTIME 04/22/20 04/22/20 History metformin 1 tab PO BID 04/22/20 04/22/20 History rosuvastatin 1 tab PO BEDTIME 04/22/20 04/22/20 History tamsulosin 1 cap PO BEDTIME 04/22/20 04/22/20 History Physical Exam Vital Signs: Vital Signs: Last Vital Signs Temp 98.4 F 04/23/20 08:00 Pulse 102 H 04/23/20 09:50 Resp 18 04/23/20 08:00 BP 132/66 04/23/20 09:50 Pulse Ox 99 04/23/20 09:50 Body Mass Index 25.0 He was alert and awake with normal spontaneity of speech fluency comprehension and affect. Pupils were equal reactive to light and extraocular muscles were intact. Visual beal are full. Face was symmetrical. There was no pronator drift. Deep tendon reflexes were trace to absent with flexor plantars. Affect was normal. Results Labs CBC & Chem 7: 04/23/20 07:48 04/23/20 07:48 Labs: Short CBC 04/22/20 04/23/20 Range/Units 11:10 07:48 WBC 6.6 6.5 (4.8-10.8) X10*3/uL Hgb 9.3 L 8.6 L (14.0-18.0) g/dl Hct 29.6 L 27.4 L (42-52) % Plt Count 222 217 (160-400) X10*3/uL BMP 04/22/20 04/23/20 11:11 07:48 Sodium 139 138 Potassium 4.4 4.1 Chloride 106 109 H Carbon Dioxide 23 23 BUN 30 H D 24 H Creatinine 2.16 H 1.87 H Calcium 8.8 D 8.4 Cardiac Enzymes 04/22/20 Range/Units 11:11 Total Creatine Kinase 987 H (38-174) U/L Liver Function 04/22/20 Range/Units 11:11 Total Bilirubin 0.4 (0.0-1.0) mg/dL Direct Bilirubin 0.2 (0.0-0.5) mg/dL AST 64 H (5-37) U/L ALT 73 H (0-40) U/L Alkaline Phosphatase 88 D (39-117) U/L Albumin 3.4 L (3.5-5.0) g/dL Urine 04/22/20 Range/Units 14:04 Urine Color YELLOW Urine Appearance HAZY Urine pH 6.0 (5.0-8.0) Ur Specific Stewart 1.020 (1.005-1.025) Urine Protein 1+ H (NEG-TRACE) MG/DL Urine Glucose (UA) NEG (NEG) MG/DL His noncontrast head CT revealed [id number] diffuse cerebral and cerebellar atrophy and mild microvascular ischemic changes. EKG reveals sinus rhythm. Assessment and Plan (1) Encephalopathy: Status: Acute Unclear etiology of his symptoms. Question encephalopathy from UTI. Vascular disease was a possibility but seems less likely. Other consideration would be a seizure but that also seems less likely. At this time, because of underlying microvascular disease, my recommendation is to cover him with statin and anti-platelet agent in control of the vascular risk factors. A CTA of brain and neck is recommended for evaluation of posterior circulation vasculature.
--- NOTE | 2020-04-23 10:23 | P.CNNE_ITS ---
History of Present Illness Data of Consult Service Date: 04/23/20 Primary Care Provider: Claude Churchill MD, DO Because of renal insufficiency, instead of CTA, obtain an MRI and MRA of brain without contrast and carotid ultrasound [facility] Past Medical History Medical History (Updated 04/23/20 @ 10:21 by Stacie Triplett MD) BPH (benign prostatic hyperplasia) Diabetes mellitus H/O: HTN (hypertension) Social History Social History (Updated 04/22/20 @ 15:13 by Beatriz Weeks NP) Household Members: None Housing: House Do you presently have visiting nurse or other home services: No Alcohol intake: current Alcohol intake frequency: holidays/special occasions only Smoking Status: Former smoker Tobacco Type: Cigarette Smoking Quit Date: 25 years Use of substances other than those prescribed or required for medical reasons: No Have you been hit, kicked, punched, or otherwise hurt by someone within the past year? If so, by whom?: No Do you feel safe in your current relationship?: No Is there a partner from a previous relationship who is making you feel unsafe now?: No Are you made to feel afraid or neglected: No Advance Directives: No Advance Directives Information Provided: Yes Advance Directives on File: No Do you have thoughts of harming others: None Do you have a plan to hurt others: No Plan Recently lost weight without trying: Yes service: Yes Current occupational status: retired Meds Allergies Allergy/AdvReac Type Severity Reaction Status Date / Time atorvastatin [Lipitor] Allergy Unknown rash Verified 09/06/19 00:00 From LIPITOR Allergy Unknown RASH Uncoded 12/13/19 14:58 Home Medications Medication Instructions Recorded Confirmed Type glipizide 1 tab PO BID 04/22/20 04/22/20 History lisinopril 1 tab PO BEDTIME 04/22/20 04/22/20 History metformin 1 tab PO BID 04/22/20 04/22/20 History rosuvastatin 1 tab PO BEDTIME 04/22/20 04/22/20 History tamsulosin 1 cap PO BEDTIME 04/22/20 04/22/20 History Physical Exam Vital Signs: Vital Signs: Last Vital Signs Temp 98.4 F 04/23/20 08:00 Pulse 102 H 04/23/20 09:50 Resp 18 04/23/20 08:00 BP 132/66 04/23/20 09:50 Pulse Ox 99 04/23/20 09:50 Body Mass Index 25.0 Results Labs CBC & Chem 7: 04/23/20 07:48 04/23/20 07:48 Labs: Short CBC 04/22/20 04/23/20 Range/Units 11:10 07:48 WBC 6.6 6.5 (4.8-10.8) X10*3/uL Hgb 9.3 L 8.6 L (14.0-18.0) g/dl Hct 29.6 L 27.4 L (42-52) % Plt Count 222 217 (160-400) X10*3/uL BMP 04/22/20 04/23/20 11:11 07:48 Sodium 139 138 Potassium 4.4 4.1 Chloride 106 109 H Carbon Dioxide 23 23 BUN 30 H D 24 H Creatinine 2.16 H 1.87 H Calcium 8.8 D 8.4 Cardiac Enzymes 04/22/20 Range/Units 11:11 Total Creatine Kinase 987 H (38-174) U/L Liver Function 04/22/20 Range/Units 11:11 Total Bilirubin 0.4 (0.0-1.0) mg/dL Direct Bilirubin 0.2 (0.0-0.5) mg/dL AST 64 H (5-37) U/L ALT 73 H (0-40) U/L Alkaline Phosphatase 88 D (39-117) U/L Albumin 3.4 L (3.5-5.0) g/dL Urine 04/22/20 Range/Units 14:04 Urine Color YELLOW Urine Appearance HAZY Urine pH 6.0 (5.0-8.0) Ur Specific [place] 1.020 (1.005-1.025) Urine Protein 1+ H (NEG-TRACE) MG/DL Urine Glucose (UA) NEG (NEG) MG/DL
--- NOTE | 2020-04-23 11:40 | MHC.STROKE ---
[facility] PRE-NOTIFICATION ON 04/22/20 AT 1017, ARRIVED AT 1023. HE HAD RESOLVED SLURRED SPEECH THAT LASTED 30 MINUTES. LAST KNOWN WELL WAS 04/21/20 AT 2200 WHEN HE WENT TO BED. HE WOKE AT 0600 AND NOTICED THE DIFFICULTY WITH HIS SPEECH, THIS LASTED 30 MINUTES. IT WAS RESOLVED UPON ARRIVAL TO THE ED. VITALS STABLE 109/60, HR ELEVATED AT 111. BLOOD SUGAR 59. I WAS NOTIFIED BY ED NORMA WATKINS. HE WAS EXCLUDED FROM THE STROKE PROTOCOL AND TPA BASED ON A NIHSS = 0. HE PASSED HIS SWALLOW SCREEN PRIOR TO PO AT 1221. I MET WITH HIM THIS AM. WE REVIEWED HIS SYMPTOMS, HIS RISKS FACTORS FOR STROKE. I REVIEWED THE PLAN OF CARE. A CAROTID US WAS RECOMMENDED AND ORDERED, DR MORIN THOUGHT ABOUT A CTA H/N BUT DECIDED NOT TO DO THIS DUE TO HIS ADMITTING CR 2.1. A MRA HEAD WAS RECOMMENDED BUT THE PATIENT IS ADAMANTLY REFUSING DUE TO CLAUSTROPHOBIA. I DID RELAY THIS INFORMATION TO DR GRIFFIN WHEN WE ROUNDED. I ANSWERED ALL OF HIS QUESTIONS AND I WILL CONTINUE TO FOLLOW.
[2020-04-23 12:26] LABS: Glucose, Whole Blood 142 mg/dL (60-115)
[2020-04-23] MEDS: Cyanocobalamin (Vitamin B-12) 1,000 MCG/ML VIAL 1000 MCG IM (14:29)
--- NOTE | 2020-04-23 15:05 | CA_ITS ---
Transthoracic Echocardiogram Patient (Last, First, Middle): Joshua Gutierrez A Gender: Male Date of : 1945 Age: 74 Procedure Date: 04/23/2020 Procedure Type: Transthoracic Echocardiogram Location: [place] Height: 167.64 cm Weight: 70.31 kg BSA: 1.79 m2 Heart Rate: bpm BP: 118 / 65 mmHg Church Warden: NAS Referring MD: Beatriz Weeks NP Symptoms: tia vs stroke Conclusions: - Normal left ventricular size, thickness, systolic function, and wall motion. - Normal right ventricular cavity size and systolic function. - Both atria are normal in size. There is no evidence of interatrial shunt by color Doppler. Findings Left Ventricle Normal left ventricular size, thickness, systolic function, and wall motion. The visually estimated ejection fraction is between 60-65%. Abnormal diastolic function is noted. Spectral Doppler is indicative of an impaired relaxation filling pattern. E/E prime ratio is between 8 and 15 consistent with indeterminate filling pressures. Right Ventricle Normal right ventricular cavity size and systolic function. Atria Both atria are normal in size. There is no evidence of interatrial shunt by color Doppler. Aortic Valve Normal aortic valve structure and function. There is no aortic valve stenosis. There is no aortic valve regurgitation. Mitral Valve Normal mitral valve structure and function. There is no mitral valve regurgitation. There is no mitral valve stenosis. Pulmonic Valve Normal pulmonic valve structure and function. There is trace pulmonic valve regurgitation. Tricuspid Valve Normal tricuspid valve structure and function. There is trace tricuspid valve regurgitation. Tricuspid regurgitation envelope is inadequate for calculation of right ventricular systolic pressure. Normal right atrial pressure. Great Vessels All visible segments of the aorta are normal in size. The visualized portions of the pulmonary artery and branches are normal. Venous The inferior vena cava is normal in size and collapses greater than 50% with inspiration. Pericardium/Pleural There is no evidence of pericardial effusion. Prior Study Comparison No prior study available for comparison. Measurements 2D Linear Measurements IVSd: 0.85 0.6-0.9/0.6-1.0 cm LVIDd: 4.15 3.9-5.3/4.2-5.9 cm LVIDd Index: 2.32 2.4-3.2/2.2-3.1 cm/m2 LVIDs: 2.40 2.0-3.6 cm LVPWd: 1.02 0.7-1.1 cm Ao Root: 3.10 2.1-3.5 cm LA Diam: 2.90 2.7-3.8/3.0-4.0 cm LAIDs Index: 1.62 1.5-2.3 cm/m2 LV Mass: 152.45 67-162/88-224 g LV Mass Index: 85.17 43-95/49-115 g/m2 LVOT Diam: 2.10 3.0+(-)1.3 cm 2D Systolic Function EF 4C: 58.40 >55% Mitral Valve MV Pk E: 0.90 MV PK A: 1.11 MV Decel Time: 106.00 E/A: 0.80 E'Lateral: 7.64 E'Medial: 6.77 E/E' Med: 13.20 E/E' Lat: 11.70 PHT: 31.00 MVA PHT: 7.10 Decel [place]: 8.50 Aortic Valve AoV Pk Jt: 1.11 AoV Pk Grad: 5.00 LVOT LVOT Pk Jt: 1.11 LVOT Mn Jt: 0.71 LVOT VTI: 0.24 LVOT Pk Grad: 5.00 LVOT Mn Grad: 2.00 LVOT Diam: 2.10 LVOT Area: 3.46 Diastolic Function MV Pk E: 0.90 MV Pk A: 1.11 E/A: 0.80 E'Medial: 6.77 E/E' Med: 13.20 E' Laterial: 7.64 E/E' Lat: 11.70 Tricuspid Valve TR Pk Jt: 2.19 TR Pk Grad: 19.00 RA Press: 3.00 Great Vessels Aorta Ao Root-2D: 3.10 2.0-3.7 cm Ao Asc: 3.10 2.1-3.4 cm Updated in Other Vendor System with Status of Final Angus Collins MD electronically signed on 04/23/2020 6:20:31 PM with status of Final
[2020-04-23 16:09] LABS: Glucose, Whole Blood 162 mg/dL (60-115)
--- NOTE | 2020-04-23 16:26 | HO.PM.IMPN ---
Subjective Subjective Date of Service: 04/23/20 Interval History: Patient offers no acute complaints, speech is clear denies headache no lightheadedness or dizziness, no acute issues since admission. ROS General no headache, no dizziness, no fever chills. CVS no chest pain, no palpitation. Respiratory no cough, no shortness of breath Gastrointestinal no nausea, no vomiting, no abdominal pain Physical Exam Vital Signs: Vital Signs: Last Vital Signs Temp 97.8 F 04/23/20 15:16 Pulse 93 04/23/20 15:16 Resp 20 04/23/20 15:16 BP 135/66 04/23/20 15:16 Pulse Ox 98 04/23/20 15:16 Body Mass Index 25.0 General patient resting comfortably in no acute distress. Neck is supple no JVD. CVS regular rate rhythm, Respiratory lungs clear to auscultation, no respiratory distress, no wheeze, no rhonchi. Gastrointestinal abdomen soft, nontender, bowel sounds audible, no guarding , no rigidity. Extremities no clubbing cyanosis or edema. Neuro nonfocal, patient moving all 4 extremity, speech clear. Skin no rash Objective Data Current Medications Generic Name Dose Route Start Last Admin Trade Name Freq PRN Reason Stop Dose Admin Acetaminophen 650 mg 04/22/20 15:05 04/23/20 08:19 Acetaminophen 325 Mg Tablet PO 650 mg Q6H PRN Administration Pain, Mild (Pain Scale 1-3) Aspirin 81 mg 04/23/20 09:00 04/23/20 09:38 Aspirin Enteric Coated 81 Mg Tablet. PO 81 mg DAILY TIBURCIO Administration Cyanocobalamin 1,000 mcg 04/23/20 13:20 04/23/20 14:29 Cyanocobalamin (Vitamin B-12) 1,000 Mcg/Ml Vial IM 1,000 mcg DAILY TIBURCIO Administration Glipizide 10 mg 04/22/20 21:00 04/23/20 09:38 Glipizide 10 Mg Tablet PO 10 mg BID TIBURCIO Administration Heparin Sodium (Porcine) 5,000 unit 04/22/20 15:15 04/23/20 14:29 Heparin Sodium,Porcine 5,000 Unit/Ml Vial SUBCUT 5,000 unit Q12H TIBURCIO Administration Insulin Human Lispro 0 unit 04/22/20 16:30 04/23/20 12:34 Insulin Lispro 100 Unit/Ml 3 Ml Vial SUBCUT Not Given QIDACHS [facility] Protocol Ondansetron HCl 4 mg 04/22/20 15:05 Ondansetron Hcl 4 Mg/2 Ml Vial IVPUSH Q8H PRN Nausea and Vomiting Pharmacy Consult 1 each 04/22/20 10:55 Consult Rx Perform Med Rec MISCELLANE ONCE PRN Consult order Sodium Chloride 3 ml 04/23/20 00:00 04/23/20 16:05 0.9 % Sodium Chloride Flush 3 Ml Syringe IVFLUSH 3 ml QSHIFT TIBURCIO Administration Tamsulosin HCl 0.4 mg 04/22/20 21:00 04/22/20 21:00 Tamsulosin Hcl 0.4 Mg Capsule PO 0.4 mg BEDTIME TIBURCIO Administration Labs CBC & Chem 7: 04/23/20 07:48 04/23/20 07:48 Microbiology Microbiology Results: Microbiology 04/22/20 00:00 Urine clean catch - Clean Catch Midstream Urine Culture - Final Assessment and Plan (1) Lacunar infarction: Status: Acute (2) SANDY (acute kidney injury): Status: Acute (3) Acute on chronic anemia: Status: Acute (4) B12 deficiency: Status: Acute Assessment and Plan: 74 year old man presented due to garbled speech and generalized weakness, CT brain showed Small lacunar infarction left basal ganglia of questionable age. No hx of stroke in the past. Lacunar infarction left basal ganglia of questionable age All symptoms of weakness and garbled speech resolved, patient declined MRI study due to claustrophobia, carotid ultrasound showed no significant stenosis echo is pending, LDL 26 and cholesterol of 89 Will discontinue rosuvastatin Patient seen by Physical therapy and they do not recommend PT upon discharge strongly recommend to have good blood sugar and blood pressure control SANDY. Likely pre renal creatinine is trending down status post IV fluid will continue to hold Lisinopril and metformin. Follow BMP at a.m. Elevated creatinine kinase luma due to statin now discontinued due to very low LDL of 26 Acute on chronic anemia, noted to have drop in hematocrit, iron studies stable patient noted to have low B12 of 206, intrinsic antibody obtained, report pending, patient has been started on IM B12 shot Will be discharged on by mouth B12 and will have outpatient follow-up with Hematology case discussed with Dr. Aleman. Diabetes. Blood sugars continue Sliding scale, ADA diet, hold Metformin due to SANDY and elevated CK. HTN. Blood pressure remains stable off Lisinopril , follow BP closely and resume lisinopril if AK resolves and blood pressure allows BPH. Continue Tamsulosin. DVT prophylaxis with heparin
[2020-04-23] MEDS: Insulin Lispro 100 UNIT/ML 3 ML VIAL SUBCUT ×2 (16:35→20:40)
[2020-04-23 20:24] LABS: Glucose, Whole Blood 178 mg/dL (60-115)
[2020-04-23] MEDS: Tamsulosin HCL 0.4 MG CAPSULE PO ×2 (20:39)
[2020-04-24] MEDS: 0.9 % Sodium Chloride Flush 3 ML SYRINGE IVFLUSH ×2 (00:57→07:58)
[2020-04-24] MEDS: Heparin Sodium,Porcine 5,000 UNIT/ML VIAL 5000 UNIT SUBCUT (02:31)
[2020-04-24 03:44] VITALS: BP 131/71; PULSE 98; RESP 18; TEMP 36.1; O2SAT 100
[2020-04-24] MEDS: Acetaminophen 325 MG TABLET 650 MG PO ×2 (04:39→10:51)
[2020-04-24 06:27] LABS: MANUAL DIFF FLAG NO
[2020-04-24 06:47] LABS: Basophils Percent Auto 0.5 % (0-2); Eosinophils Absolute Auto 0.1 X10*3/uL (0.0-0.4); Hematocrit 30.3 % (42-52); Hemoglobin 9.6 g/dl (14.0-18.0); Imm Gran Abs Auto 0.02 X10*3/uL (0.00-0.03); Imm Gran Pct Auto 0.3 % (0.0-0.4); Lymphocytes Absolute Auto 1.1 X10*3/uL (1.2-4.9); Mean Corpuscular HGB Conc 31.7 g/dl (31.0-36.0); Mean Corpuscular Hemoglobin 29.4 pg (27.0-33.0); Mean Corpuscular Volume 92.9 fL (80-98); Mean Platelet Volume 9.3 fL (9.4-12.4); Monocytes Absolute Auto 0.4 X10*3/uL (0.1-1.2); Monocytes Percent Auto 6.3 % (2-11); Neutrophils Absolute Auto 4.4 X10*3/uL (2.0-8.3); Neutrophils Percent Auto 72.9 % (45-73); Platelet Count 259 X10*3/uL (160-400); Red Blood Count 3.26 X10*6/uL (4.60-5.80); Red Cell Distribution Width 16.6 % (11.0-16.0); White Blood Count 6.1 X10*3/uL (4.8-10.8)
[2020-04-24 07:09] LABS: Anion Gap 14 (12-20); Blood Urea Nitrogen 25 mg/dL (9-16); Carbon Dioxide 23 mmol/L (22-29); Chloride 109 mmol/L (96-108); Creatinine Clr Calc Pharmacy 29.8; Estimated Glomerular Filt Rate 34; Glucose Random 68 mg/dL (60-115); Potassium 4.7 mmol/l (3.3-5.1); Sodium 141 mmol/L (135-145)
[2020-04-24 07:19] VITALS: BP 124/66; PULSE 96; RESP 20; TEMP 37.2; O2SAT 98
[2020-04-24 07:21] LABS: Glucose, Whole Blood 79 mg/dL (60-115)
[2020-04-24] MEDS: glipiZIDE 10 MG TABLET PO (07:52)
[2020-04-24] MEDS: Aspirin Enteric Coated 81 MG TABLET.DR PO (07:53)
[2020-04-24] MEDS: Cyanocobalamin (Vitamin B-12) 1,000 MCG/ML VIAL 1000 MCG IM (07:55)
[2020-04-24 11:02] VITALS: BP 140/73; PULSE 100; RESP 20; TEMP 36.6; O2SAT 99
[2020-04-24 11:17] LABS: Glucose, Whole Blood 228 mg/dL (60-115)
[2020-04-24] MEDS: Insulin Lispro 100 UNIT/ML 3 ML VIAL SUBCUT (11:35)
--- NOTE | 2020-04-24 12:26 | MHC.CM.PN ---
Patient has been medically cleared for dc to home today with [facility]. A referral was made to [facility], who has been made aware of today's dc. Last IMM addressed yesterday.
--- NOTE | 2020-04-24 12:36 | PM.DS ---
DS: Providers Provider Date of Service: 05/04/20 Date of admission: 04/22/20 23:13 Primary care physician: Claude Churchill MD, DO Consults: 04/22/20 15:05 Consult to Neurology Routine Consulting Provider: [facility] Reason for consultation: tia vs stroke Has provider been notified: No DS: Diagnosis Discharge Diagnosis (1) Lacunar infarction: Status: Acute (2) SANDY (acute kidney injury): Status: Resolved (3) Acute on chronic anemia: Status: Acute (4) B12 deficiency: Status: Acute DS: Medications Discharge Medications Home Medications: Home Medications Medication Instructions Recorded Confirmed glipizide 1 tab PO BID 04/22/20 04/22/20 lisinopril 1 tab PO BEDTIME 04/22/20 04/22/20 tamsulosin 1 cap PO BEDTIME 04/22/20 04/22/20 Previous Rx's Medication Instructions Recorded aspirin 81 mg PO DAILY #30 tab 04/24/20 mecobalamin (vitamin B12) 1,000 mcg PO DAILY #30 tab 04/24/20 DS: Summary Hospital Course Hospital Course: HPI 74 year old man presenting with garbled speech and weakness. He reported that this morning he tried to get out of his recliner, that he was sleeping in, and he was unable to lift himself. He felt weak everywhere. He was then trying to talk and had garbled speech. He lives alone and is usually very independent so he called EMS. He denied any symptoms recently. No chest pain, shortness of breath, vision changes, headache. Brain CT showed Small lacunar infarction left basal ganglia of questionable age. He was given aspirin and statin. He will be admitted for further management of TIA vs stroke Hospital course 74-year-old male admitted with acute CVA, patient was continued on aspirin, statins were discontinued due to low LDL and cholesterol, patient was seen by Neurology recommended medical management, carotid ultrasound shows no significant stenosis, patient refused MRI, patient was continued on aspirin For acute kidney injury lisinopril and metformin were held, patient received IV fluid, patient's creatinine improved from 2.12 to 1.9, creatinine remains stable, case discussed with nephrology Dr. Saenz, patient will follow-up Nephrology as outpatient, patient will resume his lisinopril next week, patient will have repeat BMP on 04/29/20, Patient was also treated for acute on chronic B12 deficiency anemia, patient was given B12 IM and p.o., patient will follow up Dr. Aleman as outpatient Patient was evaluated by Physical therapy recommended home physical therapy, patient has no deficit on discharge, patient was stable discharged home Time Spent with Patient Time attestation: Total time spent providing and/or coordinating discharge services: Discharge coordination time: Greater than 30 minutes Quality: Stroke Pt Provided Written Stroke Discharge Instructions: Patient given written information Physical Exam Vital Signs: Vital Signs: Last Vital Signs Temp 97.8 F 04/24/20 11:02 Pulse 100 04/24/20 11:02 Resp 20 04/24/20 11:02 BP 140/73 H 04/24/20 11:02 Pulse Ox 99 04/24/20 11:02 Body Mass Index 25.0 DS: Data Data Completed and Pending Labs on day of discharge: Laboratory Tests 04/22/20 04/22/20 04/22/20 11:05 11:10 11:10 WBC 6.6 RBC 3.17 L Hgb 9.3 L Hct 29.6 L MCV 93.4 MCH 29.3 MCHC 31.4 RDW 16.6 H Plt Count 222 MPV 9.1 L Immature Gran % (Auto) 0.5 H Neut % (Auto) 78.8 H Lymph % (Auto) 12.3 L [place] % (Auto) 6.8 Eos % (Auto) 1.1 Baso % (Auto) 0.5 Lymph # (Auto) 0.8 L [place] # (Auto) 0.5 Eos # (Auto) 0.1 Baso # (Auto) 0.0 Abs Immat Gran (auto) 0.03 Absolute Neuts (auto) 5.2 Absolute Nucleated RBC 0.000 Nucleated RBC % (auto) 0.0 PT INR APTT Sodium Potassium Chloride Carbon Dioxide Anion Gap BUN Creatinine Estim Creat Clear Calc Estimated GFR POC Glucose Random Glucose Calcium Magnesium Iron TIBC % Saturation Unsat Iron Binding Ferritin Total Bilirubin Direct Bilirubin AST ALT Alkaline Phosphatase Total Creatine Kinase Troponin I High Sens 8.3 B-Natriuretic Peptide Total Protein Albumin Triglycerides Cholesterol LDL Cholesterol, Calc HDL Cholesterol Vitamin B12 Folate Urine Color Urine Appearance Urine pH Ur Specific [place] Urine Protein Urine Glucose (UA) Urine Ketones Urine Blood Urine Nitrite Ur Leukocyte Esterase Urine RBC Urine WBC Urine WBC Clumps Ur Squamous Epith Cells Ur Renal Epithelial Cell Urine Bacteria Granular Casts Urine Mucus COVID-19 (BHASKAR) Negative COVID-19 Clin Com See Note 04/22/20 04/22/20 04/22/20 11:10 11:10 11:11 WBC RBC Hgb Hct MCV MCH MCHC RDW Plt Count MPV Immature Gran % (Auto) Neut % (Auto) Lymph % (Auto) [place] % (Auto) Eos % (Auto) Baso % (Auto) Lymph # (Auto) [place] # (Auto) Eos # (Auto) Baso # (Auto) Abs Immat Gran (auto) Absolute Neuts (auto) Absolute Nucleated RBC Nucleated RBC % (auto) PT 12.2 INR 1.0 APTT 35.3 Sodium 139 Potassium 4.4 Chloride 106 Carbon Dioxide 23 Anion Gap 14 BUN 30 H D Creatinine 2.16 H Estim Creat Clear Calc 26.6 Estimated GFR 30 POC Glucose Random Glucose 59 L* Calcium 8.8 D Magnesium 1.9 Iron 54 TIBC 309 % Saturation 17 Unsat Iron Binding 255 Ferritin 37 Total Bilirubin 0.4 Direct Bilirubin 0.2 AST 64 H ALT 73 H Alkaline Phosphatase 88 D Total Creatine Kinase 987 H Troponin I High Sens B-Natriuretic Peptide < 10 Total Protein 5.9 L Albumin 3.4 L Triglycerides Cholesterol LDL Cholesterol, Calc HDL Cholesterol Vitamin B12 Folate Urine Color Urine Appearance Urine pH Ur Specific [place] Urine Protein Urine Glucose (UA) Urine Ketones Urine Blood Urine Nitrite Ur Leukocyte Esterase Urine RBC Urine WBC Urine WBC Clumps Ur Squamous Epith Cells Ur Renal Epithelial Cell Urine Bacteria Granular Casts Urine Mucus COVID-19 (BHASKAR) COVID-19 Clin Com 04/22/20 04/22/20 04/22/20 11:11 12:17 14:04 WBC RBC Hgb Hct MCV MCH MCHC RDW Plt Count MPV Immature Gran % (Auto) Neut % (Auto) Lymph % (Auto) [place] % (Auto) Eos % (Auto) Baso % (Auto) Lymph # (Auto) [place] # (Auto) Eos # (Auto) Baso # (Auto) Abs Immat Gran (auto) Absolute Neuts (auto) Absolute Nucleated RBC Nucleated RBC % (auto) PT INR APTT Sodium Potassium Chloride Carbon Dioxide Anion Gap BUN Creatinine Estim Creat Clear Calc Estimated GFR POC Glucose 98 Random Glucose Calcium Magnesium Iron TIBC % Saturation Unsat Iron Binding Ferritin Total Bilirubin Direct Bilirubin AST ALT Alkaline Phosphatase Total Creatine Kinase Troponin I High Sens 8.5 B-Natriuretic Peptide Total Protein Albumin Triglycerides Cholesterol LDL Cholesterol, Calc HDL Cholesterol Vitamin B12 206 Folate 19.5 Urine Color Urine Appearance Urine pH Ur Specific [place] Urine Protein Urine Glucose (UA) Urine Ketones Urine Blood Urine Nitrite Ur Leukocyte Esterase Urine RBC Urine WBC Urine WBC Clumps Ur Squamous Epith Cells Ur Renal Epithelial Cell Urine Bacteria Granular Casts Urine Mucus COVID-19 (BHASKAR) COVID-19 Clin Com 04/22/20 04/22/20 04/22/20 14:04 18:11 23:43 WBC RBC Hgb Hct MCV MCH MCHC RDW Plt Count MPV Immature Gran % (Auto) Neut % (Auto) Lymph % (Auto) [place] % (Auto) Eos % (Auto) Baso % (Auto) Lymph # (Auto) [place] # (Auto) Eos # (Auto) Baso # (Auto) Abs Immat Gran (auto) Absolute Neuts (auto) Absolute Nucleated RBC Nucleated RBC % (auto) PT INR APTT Sodium Potassium Chloride Carbon Dioxide Anion Gap BUN Creatinine Estim Creat Clear Calc Estimated GFR POC Glucose 192 H 125 H Random Glucose Calcium Magnesium Iron TIBC % Saturation Unsat Iron Binding Ferritin Total Bilirubin Direct Bilirubin AST ALT Alkaline Phosphatase Total Creatine Kinase Troponin I High Sens B-Natriuretic Peptide Total Protein Albumin Triglycerides Cholesterol LDL Cholesterol, Calc HDL Cholesterol Vitamin B12 Folate Urine Color YELLOW Urine Appearance HAZY Urine pH 6.0 Ur Specific [place] 1.020 Urine Protein 1+ H Urine Glucose (UA) NEG Urine Ketones NEG Urine Blood 2+ H Urine Nitrite NEG Ur Leukocyte Esterase 1+ H Urine RBC 15-29 H Urine WBC TNTC H Urine WBC Clumps NOTED Ur Squamous Epith Cells 1+ Ur Renal Epithelial Cell 1+ Urine Bacteria NONE Granular Casts 1-4 Urine Mucus 1+ COVID-19 (BHASKAR) COVID-19 Clin Com 04/23/20 04/23/20 04/23/20 07:33 07:48 07:48 WBC 6.5 RBC 2.94 L Hgb 8.6 L Hct 27.4 L MCV 93.2 MCH 29.3 MCHC 31.4 RDW 16.6 H Plt Count 217 MPV 9.0 L Immature Gran % (Auto) 0.3 Neut % (Auto) 76.6 H Lymph % (Auto) 14.1 L [place] % (Auto) 6.8 Eos % (Auto) 1.7 Baso % (Auto) 0.5 Lymph # (Auto) 0.9 L [place] # (Auto) 0.4 Eos # (Auto) 0.1 Baso # (Auto) 0.0 Abs Immat Gran (auto) 0.02 Absolute Neuts (auto) 5.0 Absolute Nucleated RBC 0.000 Nucleated RBC % (auto) 0.0 PT INR APTT Sodium 138 Potassium 4.1 Chloride 109 H Carbon Dioxide 23 Anion Gap 10 L BUN 24 H Creatinine 1.87 H Estim Creat Clear Calc 30.8 Estimated GFR 35 POC Glucose 98 Random Glucose 91 D Calcium 8.4 Magnesium Iron TIBC % Saturation Unsat Iron Binding Ferritin Total Bilirubin Direct Bilirubin AST ALT Alkaline Phosphatase Total Creatine Kinase Troponin I High Sens B-Natriuretic Peptide Total Protein Albumin Triglycerides 199 Cholesterol 89 LDL Cholesterol, Calc 26 HDL Cholesterol 24 D Vitamin B12 Folate Urine Color Urine Appearance Urine pH Ur Specific [place] Urine Protein Urine Glucose (UA) Urine Ketones Urine Blood Urine Nitrite Ur Leukocyte Esterase Urine RBC Urine WBC Urine WBC Clumps Ur Squamous Epith Cells Ur Renal Epithelial Cell Urine Bacteria Granular Casts Urine Mucus COVID-19 (BHASKAR) COVID-19 Traka 04/23/20 04/23/20 04/23/20 12:21 16:04 20:20 WBC RBC Hgb Hct MCV MCH MCHC RDW Plt Count MPV Immature Gran % (Auto) Neut % (Auto) Lymph % (Auto) [place] % (Auto) Eos % (Auto) Baso % (Auto) Lymph # (Auto) [place] # (Auto) Eos # (Auto) Baso # (Auto) Abs Immat Gran (auto) Absolute Neuts (auto) Absolute Nucleated RBC Nucleated RBC % (auto) PT INR APTT Sodium Potassium Chloride Carbon Dioxide Anion Gap BUN Creatinine Estim Creat Clear Calc Estimated GFR POC Glucose 142 H 162 H 178 H Random Glucose Calcium Magnesium Iron TIBC % Saturation Unsat Iron Binding Ferritin Total Bilirubin Direct Bilirubin AST ALT Alkaline Phosphatase Total Creatine Kinase Troponin I High Sens B-Natriuretic Peptide Total Protein Albumin Triglycerides Cholesterol LDL Cholesterol, Calc HDL Cholesterol Vitamin B12 Folate Urine Color Urine Appearance Urine pH Ur Specific [place] Urine Protein Urine Glucose (UA) Urine Ketones Urine Blood Urine Nitrite Ur Leukocyte Esterase Urine RBC Urine WBC Urine WBC Clumps Ur Squamous Epith Cells Ur Renal Epithelial Cell Urine Bacteria Granular Casts Urine Mucus COVID-19 (BHASKAR) COVID-19 Traka 04/24/20 04/24/20 04/24/20 05:38 05:38 07:17 WBC 6.1 RBC 3.26 L Hgb 9.6 L Hct 30.3 L MCV 92.9 MCH 29.4 MCHC 31.7 RDW 16.6 H Plt Count 259 MPV 9.3 L Immature Gran % (Auto) 0.3 Neut % (Auto) 72.9 Lymph % (Auto) 18.0 L [place] % (Auto) 6.3 Eos % (Auto) 2.0 Baso % (Auto) 0.5 Lymph # (Auto) 1.1 L [place] # (Auto) 0.4 Eos # (Auto) 0.1 Baso # (Auto) 0.0 Abs Immat Gran (auto) 0.02 Absolute Neuts (auto) 4.4 Absolute Nucleated RBC 0.000 Nucleated RBC % (auto) 0.0 PT INR APTT Sodium 141 Potassium 4.7 Chloride 109 H Carbon Dioxide 23 Anion Gap 14 BUN 25 H Creatinine 1.93 H Estim Creat Clear Calc 29.8 Estimated GFR 34 POC Glucose 79 Random Glucose 68 Calcium 9.0 D Magnesium Iron TIBC % Saturation Unsat Iron Binding Ferritin Total Bilirubin Direct Bilirubin AST ALT Alkaline Phosphatase Total Creatine Kinase 363 H D Troponin I High Sens B-Natriuretic Peptide Total Protein Albumin Triglycerides Cholesterol LDL Cholesterol, Calc HDL Cholesterol Vitamin B12 Folate Urine Color Urine Appearance Urine pH Ur Specific [place] Urine Protein Urine Glucose (UA) Urine Ketones Urine Blood Urine Nitrite Ur Leukocyte Esterase Urine RBC Urine WBC Urine WBC Clumps Ur Squamous Epith Cells Ur Renal Epithelial Cell Urine Bacteria Granular Casts Urine Mucus COVID-19 (BHASKAR) COVID-19 Clin Com 04/24/20 11:13 WBC RBC Hgb Hct MCV MCH MCHC RDW Plt Count MPV Immature Gran % (Auto) Neut % (Auto) Lymph % (Auto) [place] % (Auto) Eos % (Auto) Baso % (Auto) Lymph # (Auto) [place] # (Auto) Eos # (Auto) Baso # (Auto) Abs Immat Gran (auto) Absolute Neuts (auto) Absolute Nucleated RBC Nucleated RBC % (auto) PT INR APTT Sodium Potassium Chloride Carbon Dioxide Anion Gap BUN Creatinine Estim Creat Clear Calc Estimated GFR POC Glucose 228 H Random Glucose Calcium Magnesium Iron TIBC % Saturation Unsat Iron Binding Ferritin Total Bilirubin Direct Bilirubin AST ALT Alkaline Phosphatase Total Creatine Kinase Troponin I High Sens B-Natriuretic Peptide Total Protein Albumin Triglycerides Cholesterol LDL Cholesterol, Calc HDL Cholesterol Vitamin B12 Folate Urine Color Urine Appearance Urine pH Ur Specific [place] Urine Protein Urine Glucose (UA) Urine Ketones Urine Blood Urine Nitrite Ur Leukocyte Esterase Urine RBC Urine WBC Urine WBC Clumps Ur Squamous Epith Cells Ur Renal Epithelial Cell Urine Bacteria Granular Casts Urine Mucus COVID-19 (BHASKAR) COVID-19 Clin Com Discharge Plan Discharge Anticipated Discharge Date/Time: 04/24/20 12:20 Patient Disposition: Home Health Service Referrals: [facility] [Outside] Mercedes Aleman MD [Physician] - Claude Churchill MD, [Primary Care Provider] - Sb Saenz MD [Physician] - Discharge Medications: New aspirin 81 mg Tablet,Delayed Release (Dr/Ec) 81 mg PO DAILY Qty: 30 RF: 0 mecobalamin (vitamin B12) 1,000 mcg tablet,chewable 1,000 mcg PO DAILY Qty: 30 RF: 0 Continued glipizide 10 mg tablet 1 tab PO BID RF: 0 tamsulosin 0.4 mg capsule 1 cap PO BEDTIME RF: 0 Held lisinopril 5 mg tablet 1 tab PO BEDTIME RF: 0 Hold Instructions: Resume on 05/02/20. Discontinued metformin 1,000 mg tablet 1 tab PO BID RF: 0 rosuvastatin 40 mg tablet 1 tab PO BEDTIME RF: 0 Discharge Orders: Discharge Order (Routine); Ordered 04/24/20 Ordered By: Jim Michael Diet: diabetic diet Activity on Discharge: As tolerated Stand Alone Forms: Patient Portal Discharge page Other Ambulatory Orders: Basic Metabolic Panel (Routine) Timeframe: 20200429 Facility: [facility] - Location: Laboratory Ordered By: Jim Michael Care Plan Goals: see above Health Concerns: b12 deficiency , stroke Plan of Treatment: see above Discharge Date/Time: 04/24/20 16:00
[2020-04-24 15:21] VITALS: BP 145/78; PULSE 96; RESP 18; TEMP 36.8; O2SAT 98
[2020-04-26 20:26] LABS: Intrinsic Factor Antibodies Negative (Negative)
== END 2020-04-24 16:00 | disposition home health service (06) | DRG 65 ==
LOC: HO.ED 13:10 → HO.EDOVER 23:22 → HO.IMC 04-23 06:31
PROVIDERS: Hospitalist; Nurse Practitioner Acute Care; Physician Assistant; Admitting Provider Internal Medicine; Emergency Provider Emergency Medicine; PCP Internal Medicine; Visit Provider Internal Medicine
DX: I63.81 Other cerebral infarction due to occlusion or stenosis of small artery (principal); N17.9 Acute kidney failure, unspecified; I10 Essential (primary) hypertension; N40.1 Benign prostatic hyperplasia with lower urinary tract symptoms; R29.700 NIHSS score 0; R33.8 Other retention of urine; D51.9 Vitamin B12 deficiency anemia, unspecified; E78.5 Hyperlipidemia, unspecified; Z87.891 Personal history of nicotine dependence; E11.9 Type 2 diabetes mellitus without complications; Z20.822 Contact with and (suspected) exposure to COVID-19; Z79.82 Long term (current) use of aspirin; Z79.899 Other long term (current) drug therapy
CPT/HCPCS: 36415; 70450; 71045; 80048; 80061; 80076; 81001; 81003; 82550; 82607; 82728; 82746; 82947; 83540; 83735; 83880; 84484; 85025; 85610; 85730; 86340; 87086; 87635; 93005; 93306; 93880; 96360; 97162; 97165; 99285; J0696

== ENCOUNTER 2020-05-06 12:52 | Outpatient (REF) | payer MEDICARE, SELFPAY ==
[2020-05-06 13:26] LABS: Anion Gap 11 (12-20); Blood Urea Nitrogen 17 mg/dL (9-16); Carbon Dioxide 29 mmol/L (22-29); Chloride 102 mmol/L (96-108); Estimated Glomerular Filt Rate 45; Glucose Random 206 mg/dL (60-115); Potassium 4.4 mmol/L (3.3-5.1); Sodium 138 mmol/L (135-145)
== END 2020-05-06 12:53 | disposition home or self-care (01) ==
LOC: HO.LNP 12:52
PROVIDERS: Visit Provider Internal Medicine
DX: E86.0 Dehydration (principal)
CPT/HCPCS: 80048

== ENCOUNTER 2020-05-12 14:01 | Outpatient (REF) | payer MEDICARE, SELFPAY ==
[2020-05-12 14:50] LABS: Iron 60 mcg/dL (45-160); Percent Iron Saturation 18 % (15-50); Total Iron Binding Capacity 336 mcg/dL (228-428); Unsaturated Iron Binding 276 ug/dL
== END 2020-05-12 14:02 | disposition home or self-care (01) ==
LOC: HO.LAB 14:01
PROVIDERS: PCP Internal Medicine; Visit Provider Psychiatry & Neurology Neurology
DX: D64.9 Anemia, unspecified (principal)
CPT/HCPCS: 36415; 83540

== ENCOUNTER 2020-05-28 11:21 | Outpatient (REF) | payer MEDICARE, SELFPAY ==
[2020-05-28 11:44] LABS: MANUAL DIFF FLAG NO
[2020-05-28 11:50] LABS: Basophils Absolute Auto 0.1 X10*3/uL (0.0-0.2); Basophils Percent Auto 0.8 % (0-2); Eosinophils Absolute Auto 0.2 X10*3/uL (0.0-0.4); Eosinophils Percent Auto 3.3 % (0-4); Hematocrit 32.3 % (42-52); Hemoglobin 9.9 g/dl (14.0-18.0); Imm Gran Abs Auto 0.01 X10*3/uL (0.00-0.03); Imm Gran Pct Auto 0.2 % (0.0-0.4); Lymphocytes Absolute Auto 1.5 X10*3/uL (1.2-4.9); Lymphocytes Percent Auto 24.2 % (20-40); Mean Corpuscular HGB Conc 30.7 g/dl (31.0-36.0); Mean Corpuscular Volume 94.7 fL (80-98); Mean Platelet Volume 9.6 fL (9.4-12.4); Monocytes Absolute Auto 0.5 X10*3/uL (0.1-1.2); Monocytes Percent Auto 7.3 % (2-11); Neutrophils Percent Auto 64.2 % (45-73); Platelet Count 276 X10*3/uL (160-400); Red Blood Count 3.41 X10*6/uL (4.60-5.80); Red Cell Distribution Width 15.5 % (11.0-16.0); White Blood Count 6.2 X10*3/uL (4.8-10.8)
[2020-05-28 12:03] LABS: Estimated Average Glucose 117 mg/dL; Hemoglobin A1c % 5.7 %
[2020-05-28 12:21] LABS: Alanine Aminotransferase 14 U/L (0-40); Albumin Level 3.8 g/dL (3.5-5.0); Alkaline Phosphatase 74 U/L (39-117); Anion Gap 10 (12-20); Aspartate Amino Transferase 16 U/L (5-37); Bilirubin Total 0.4 mg/dL (0.0-1.0); Blood Urea Nitrogen 15 mg/dL (9-16); Calcium 9.7 mg/dL (8.4-10.2); Carbon Dioxide 29 mmol/L (22-29); Chloride 103 mmol/L (96-108); Estimated Glomerular Filt Rate 47; Glucose Random 78 mg/dL (60-115); Potassium 4.1 mmol/L (3.3-5.1); Sodium 138 mmol/L (135-145); Total Protein 6.8 g/dL (6.5-8.0)
== END 2020-05-28 11:22 | disposition home or self-care (01) ==
LOC: HO.LAB 11:21
PROVIDERS: PCP Internal Medicine; Visit Provider Internal Medicine
DX: E11.9 Type 2 diabetes mellitus without complications (principal); D64.9 Anemia, unspecified; Z86.73 Personal history of transient ischemic attack (TIA), and cerebral infarction without residual deficits
CPT/HCPCS: 36415; 80053; 83036; 85025

== ENCOUNTER → 2020-06-27 08:53 | Outpatient (BNVA) | payer MEDICARE, SELFPAY | PROVIDERS: PCP Internal Medicine; Visit Provider Urology | DX: R97.20 Elevated prostate specific antigen [PSA] (principal); Z85.51 Personal history of malignant neoplasm of bladder | CPT/HCPCS: 52000; 81002; 99212 ==

== ENCOUNTER 2020-07-01 07:41 | Outpatient (REF) | payer MEDICARE, SELFPAY ==
--- NOTE | ~2020-07-01 | US_ITS ---
EXAMINATION: US RETROPERITONEAL LIMITED (RENAL ONLY) CLINICAL INFORMATION: Chronic kidney disease. COMPARISON: CT abdomen pelvis September 12, 2015 TECHNIQUE: Grayscale and color Doppler imaging was obtained of the bilateral kidneys. FINDINGS: RIGHT KIDNEY: 11.5 x 5.5 x 5.2 cm (SAG x AP x TRV). The kidney is normal in size, contour, and echogenicity. Renal cortical thickness is normal. No renal calculi or hydronephrosis. There is a 2.2 cm upper pole cyst which has an associated peripheral calcification. LEFT KIDNEY: 10.6 x 4.7 x 4.7 cm (SAG x AP x TRV). The kidney is normal in size, contour, and echogenicity. Renal cortical thickness is normal. 3 mm nonobstructing mid pole calculus. No hydronephrosis. US/US renal BI IMPRESSION: 1. 3 mm nonobstructing left renal calculus. No right renal calculi. No hydronephrosis bilaterally. 2. 2.2 cm right upper pole cyst which is again noted to contain some peripheral calcification.
== END 2020-07-01 07:42 | disposition home or self-care (01) ==
LOC: HO.US 07:41
PROVIDERS: Visit Provider Internal Medicine Nephrology
DX: N18.31 Chronic kidney disease, stage 3a (principal); E11.22 Type 2 diabetes mellitus with diabetic chronic kidney disease; E53.8 Deficiency of other specified B group vitamins; E78.00 Pure hypercholesterolemia, unspecified; R97.20 Elevated prostate specific antigen [PSA]; D64.9 Anemia, unspecified
CPT/HCPCS: 76775

== ENCOUNTER 2020-07-04 09:33 | Outpatient (REF) | payer MEDICARE, SELFPAY ==
[2020-07-04 10:59] LABS: MANUAL DIFF FLAG NO
[2020-07-04 11:04] LABS: Basophils Percent Auto 0.6 % (0-2); Eosinophils Absolute Auto 0.1 X10*3/uL (0.0-0.4); Eosinophils Percent Auto 2.3 % (0-4); Hematocrit 35.8 % (42-52); Hemoglobin 11.3 g/dl (14.0-18.0); Imm Gran Abs Auto 0.01 X10*3/uL (0.00-0.03); Imm Gran Pct Auto 0.2 % (0.0-0.4); Lymphocytes Absolute Auto 1.3 X10*3/uL (1.2-4.9); Lymphocytes Percent Auto 23.9 % (20-40); Mean Corpuscular HGB Conc 31.6 g/dl (31.0-36.0); Mean Corpuscular Hemoglobin 30.1 pg (27.0-33.0); Mean Corpuscular Volume 95.2 fL (80-98); Mean Platelet Volume 9.5 fL (9.4-12.4); Monocytes Absolute Auto 0.4 X10*3/uL (0.1-1.2); Monocytes Percent Auto 8.3 % (2-11); Neutrophils Absolute Auto 3.4 X10*3/uL (2.0-8.3); Neutrophils Percent Auto 64.7 % (45-73); Platelet Count 207 X10*3/uL (160-400); Red Blood Count 3.76 X10*6/uL (4.60-5.80); Red Cell Distribution Width 16.3 % (11.0-16.0); White Blood Count 5.3 X10*3/uL (4.8-10.8)
[2020-07-04 11:44] LABS: Glucose Urine UA 500 MG/DL (NEG); Leukocyte Esterase Urine 3+ (NEG); Nitrite Urine NEG (NEG); Specific Gravity - Urine 1.015 (1.005-1.025); Urine Blood TRACE (NEG); Urine Ketones NEG (NEG); Urine Protein NEG (NEG-TRACE)
[2020-07-04 11:52] LABS: Appearance Urine HAZY; Color Urine YELLOW
[2020-07-04 12:01] LABS: Anion Gap 11 (12-20); Blood Urea Nitrogen 19 mg/dL (9-16); Calcium 9.9 mg/dL (8.4-10.2); Carbon Dioxide 29 mmol/L (22-29); Chloride 103 mmol/L (96-108); Estimated Glomerular Filt Rate 43; Magnesium 2.3 mg/dL (1.6-2.6); Phosphorus 3.5 mg/dL (2.7-4.5); Potassium 4.4 mmol/L (3.3-5.1); Sodium 139 mmol/L (135-145)
[2020-07-04 12:04] LABS: Vitamin D 25-OH Total 41.1 ng/mL (>30)
[2020-07-04 12:08] LABS: Creatinine Urine 79.71 mg/dL; Microalbum/Creatinine Ratio Ur 82.8 ug/mg cr; Total Protein Urine Random 24 mg/dL (<12)
[2020-07-04 12:16] LABS: Bacteria Urine TRACE /LPF; RBC Urine 0-2 /HPF (0); Squamous Epithelial Cell Urine 1+ /LPF
[2020-07-07 13:43] LABS: Calcium (PTHI) 10.3 mg/dL (8.6-10.3); PTHI 21 pg/mL (14-64)
== END 2020-07-04 09:34 | disposition home or self-care (01) ==
LOC: HO.LAB 09:33
PROVIDERS: PCP Internal Medicine; Visit Provider Internal Medicine Nephrology
DX: E11.22 Type 2 diabetes mellitus with diabetic chronic kidney disease (principal); N18.31 Chronic kidney disease, stage 3a; E53.8 Deficiency of other specified B group vitamins; E78.00 Pure hypercholesterolemia, unspecified; R97.20 Elevated prostate specific antigen [PSA]; D64.9 Anemia, unspecified
CPT/HCPCS: 36415; 80051; 81001; 82040; 82043; 82306; 82310; 82565; 83735; 83970; 84100; 84156; 84520; 85025; 87086

== ENCOUNTER 2020-07-07 06:29 | Day surgery (SDC) | payer MEDICARE, SELFPAY ==
--- NOTE | 2020-07-03 15:10 | HO.ANESPROP2 ---
Documented by User: Liliam Pringle 07/03/20 15:12 HPI - Anesthesia Eval Consult details Narrative: 75yo M for Green light Laser Ablation Prostate with bladder stone removal 03/2020 [facility] [place] admit with CVA - no residual PMFSH Active Problems Active Problems: All Active Problems (Updated 06/10/20 @ 09:13 by Mercedes Aleman MD) Lacunar infarction (Acute) Acute on chronic anemia (Acute) B12 deficiency (Acute) Past Medical History Medical History (Updated 07/03/20 @ 15:11 by Liliam Pringle) BPH (benign prostatic hyperplasia) CVA (cerebral vascular accident) Diabetes mellitus H/O: HTN (hypertension) Family History Family History Father Lung cancer Heart attack Surgical History Surgical History H/O inguinal hernia repair Hx of knee surgery Social History Social History Household Members: None Housing: House Alcohol intake: current Alcohol intake frequency: holidays/special occasions only Smoking Status: Never smoker Tobacco Type: Cigarette Packs Per Day: 1.5 Advance Directives: No Advance Directives Information Provided: Yes service: Yes Current occupational status: retired [employer] Allergies Allergy/AdvReac Type Severity Reaction Status Date / Time atorvastatin [Lipitor] Allergy Unknown rash Verified 09/06/19 00:00 From LIPITOR Allergy Unknown RASH Uncoded 12/13/19 14:58 Home Medications Medication Instructions Recorded Confirmed Last Taken Type glipizide 1 tab PO BID 04/22/20 06/10/20 04/21/20 History tamsulosin 1 cap PO BEDTIME 04/22/20 06/10/20 04/21/20 History blood sugar diagnostic #10 ea 06/27/20 Unknown History lisinopril 5 mg tablet 5 mg PO DAILY 06/27/20 Unknown History metformin 1,000 mg tablet 1,000 mg PO BID 06/27/20 Unknown History rosuvastatin 40 mg tablet 40 mg PO DAILY 06/27/20 Unknown History Exam Exam Date and Time: July 03, 2020 1510 Pertinent Lab Results Pertinent Lab Results: Laboratory Tests 06/10/20 06/10/20 09:19 09:19 WBC 4.8 Hgb 9.9 L Hct 32.5 L Plt Count 229 Sodium 140 Potassium 4.2 Chloride 107 Carbon Dioxide 29 BUN 15 Creatinine 1.49 H Assessment and Plan Assessment Anesthesia Assessment: Chart Reviewed Documented by User: Addie Hope 07/07/20 07:25 [facility] Past Medical History Medical History (Updated 07/03/20 @ 15:11 by Liliam Pringle) BPH (benign prostatic hyperplasia) CVA (cerebral vascular accident) Diabetes mellitus H/O: HTN (hypertension) Family History Family History Father Lung cancer Heart attack Surgical History Surgical History H/O inguinal hernia repair Hx of knee surgery Social History Social History Household Members: None Housing: House Alcohol intake: current Alcohol intake frequency: holidays/special occasions only Smoking Status: Never smoker Tobacco Type: Cigarette Packs Per Day: 1.5 Advance Directives: No Advance Directives Information Provided: Yes service: Yes Current occupational status: retired Meds Allergies Allergy/AdvReac Type Severity Reaction Status Date / Time atorvastatin [Lipitor] Allergy Unknown rash Verified 09/06/19 00:00 From LIPITOR Allergy Unknown RASH Uncoded 12/13/19 14:58 Home Medications Medication Instructions Recorded Confirmed Last Taken Type glipizide 1 tab PO BID 04/22/20 06/10/20 04/21/20 History tamsulosin 1 cap PO BEDTIME 04/22/20 06/10/20 04/21/20 History blood sugar diagnostic #10 ea 06/27/20 Unknown History lisinopril 5 mg tablet 5 mg PO DAILY 06/27/20 Unknown History metformin 1,000 mg tablet 1,000 mg PO BID 06/27/20 Unknown History rosuvastatin 40 mg tablet 40 mg PO DAILY 06/27/20 Unknown History Exam Airway Mallampati Class: II (Poor dentition) TM Dist: >3cm Neck ROM: Full Heart: RrR Lungs: CTA Bl Assessment and Plan Assessment Anesthesia Assessment: Anesthesia Plan Discussed and Chart Reviewed Final Anesthetic Review NPO: Yes ASA Class: III Final Preanesthetic Review: No Changes in Pt Med Stat and Consent Obtained/Reviewed Patient Risk: Intermediate Procedure Risk: Intermediate Anesthetic Plan Anesthetic Plan: GA Disposition: Standard PACU
[2020-07-07] VITALS (7 sets, daily range): BP systolic 114–162; BP diastolic 49–82; PULSE 82–92; RESP 16; TEMP 36–36.3; O2SAT 94–98; BMI 25.8
[2020-07-07 07:41] LABS: Glucose, Whole Blood 156 mg/dL (60-115)
[2020-07-07] MEDS: Lactated Ringers 1,000 ML 100 ML IVCONT (07:48)
[2020-07-07] MEDS: levoFLOXacin 500 MG TABLET PO (07:50)
--- NOTE | 2020-07-07 08:33 | MHC.SHP ---
Pre-Procedural Eval Section B Chief Complaint: prostatic hyperplasia Details of Present Illness: Recurrent BPH with calcifications Relevant Family History (Specify if Yes): No Present Medications: see Short Stay Collaborative assessment Medical History: No relevant PMH History of Previous Operations: Relevant previous surgery/procedure and date(s) Allergies: Allergies Allergy/AdvReac Type Severity Reaction Status Date / Time atorvastatin [Lipitor] Allergy Unknown rash Verified 09/06/19 00:00 From LIPITOR Allergy Unknown RASH Uncoded 12/13/19 14:58 Review of Systems Sugical H&P ROS: Negative: Constitution, Cardiovascular, Respiratory, Neurological, Psychiatric, Hem-Onc, Allergic/Immunologic, Gastrointestinal, Genitourinary, Musculoskeletal, Integumentary, Endocrine and Eyes/Ears/Nose/Throat Exam Surgical H&P Exam: Normal: HEENT, Normal: Heart, Normal: Lungs, Normal: Extremities, Normal: Abdomen, Normal: Skin and Normal: Neurological Plan Diagnosis/Plan: Unchanged (Plan for cystoscopy with laser ablation of prostate and removal of bladder stones) I have reviewed the history and physical and performed a pertinent physical examination on my patient. No changes have occurred unless specified.
--- NOTE | 2020-07-07 10:27 | PM.OP ---
Brief Operative Note Date of Service: 07/07/20 Pre-op diagnosis: Bladder stone, recurrent BPH Post-op diagnosis: same Procedure: 1. 2 cm bladder stone litholapaxy 2. Laser enucleation of the prostate Surgeon: He Andersen MD Anesthesia: GLMA Estimated blood loss (mL): 0 Pathology: other Condition: stable Disposition: same day
--- NOTE | 2020-07-07 10:28 | P.OP_ITS ---
Operative Note Operative Note Date of Service: 07/07/20 Narrative: PreOperative Diagnosis: Bladder outlet obstruction, medium-sized bladder stone Post Operative Diagnosis: Bladder outlet obstruction, medium-sized bladder stone Procedure: GreenLight laser enucleation of the prostate, laser of 2 cm bladder stone Surgeon: Dr He Andersen Anesthesia: General Indications for procedure: History of bladder outlet obstruction. Treated with alpha-brady and other medications. Still with symptoms. On cystoscopy in office has tight bladder neck. Recommendation for prostate procedure with laser enucleation of prostate. It has been discussed. Focus was placed on development of retrograde examination which is a normal part of this procedure. Procedure: After informed consent was verified the patient was brought to the operating room and placed in a supine position. Anesthesia was administered per protocol. Patient was placed in modified dorsal lithotomy position and prepped and draped in a sterile fashion. Safety pause time-out was confirmed. Antibiotics have been given. Twenty-four Georgian laser cystoscope was inserted per urethra. No abnormalities found the anterior posterior urethra. The bladder was filled on both ureteric orifices were seen in normal position away from our area of interest. Of note the 2 cm bladder stone was clearly visible. 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 Using a GreenLight laser settings of 80 w incisions were made through the synechia to the neck of the bladder. This released the 2 lobes and there was a large lobe recurrence over to the left side. The GreenLight was used with variable settings to release this large left lateral lobe . We did recreate grooves at approximately the 6 o'clock position and the 5 o'clock position. Firstly the 05:00 o'clock groove was further developed. This was moved in the lateral position to undermine the tissue on the lateral side. Focus was then placed on the laser at the 1 o'clock position in developing a secondary groove down to the level of bladder fibers. The intervening tissue between these 2 grooves was removed with a combination of enucleation ablation working from the apex toward the bladder neck. At this point we took a 500nm holmium laser fiber. The 2 cm stone was broken into small pieces and flushed from the bladder. When this was completed debris and pieces of prostate removed from the bladder. Both ureteric orifices were reviewed again in shown to be patent in away from any areas of energy damage. The apical area was reviewed in any stray ooze was controlled. We did undermine the remaining right lateral lobe at the 6 to 5 o'clock position. We made a decision not to further ablate tissue on the right side is there was already significant enlargement to the prior channel. A 22 Georgian 30 cc balloon Caruso catheter was placed over stylet into the [facility] er. Clear efflux was obtained. 30 cc was placed in the balloon and gentle traction was placed. A snap was used to hold tension once the patient will be moved and transported. Once transportation its finish this novel be removed. A belladonna and opiate suppository was placed for postprocedure pain management. He tolerated procedure well was extubated in the operating and transferred in a stable condition to the recovery area. Pathology: Prostate tissue Drains: Caruso catheter
--- NOTE | 2020-07-07 11:29 | PC.NURSE ---
1120MONITORS AND IVF DCD ASST OOB CH STEADY IV DCD DRESSED SELF AT BS CALL RICH IN REACH, FC PATENT AND PALE PINK TINGED URINE, PLAN TO AMB TO DC AREA
== END 2020-07-07 12:02 | disposition home or self-care (01) ==
PROVIDERS: PCP Internal Medicine; Visit Provider Urology
PROC: 0V507ZZ Destruction of Prostate, Via Natural or Artificial Opening (ICD-10-PCS; CPT 52317; principal; 2020-07-07 08:20)
DX: N21.0 Calculus in bladder (principal); N40.1 Benign prostatic hyperplasia with lower urinary tract symptoms; N13.8 Other obstructive and reflux uropathy; E11.9 Type 2 diabetes mellitus without complications; Z86.73 Personal history of transient ischemic attack (TIA), and cerebral infarction without residual deficits; F17.210 Nicotine dependence, cigarettes, uncomplicated; Z79.84 Long term (current) use of oral hypoglycemic drugs; Z79.82 Long term (current) use of aspirin
CPT/HCPCS: 52317; 52648; 82947; 88305; J1100; J2250; J2405; J3010

== ENCOUNTER → 2020-07-11 08:19 | Outpatient (BNVA) | payer MEDICARE, SELFPAY | PROVIDERS: PCP Internal Medicine; Visit Provider Urology | DX: N40.0 Benign prostatic hyperplasia without lower urinary tract symptoms (principal) | CPT/HCPCS: 51700; 51798; 99212 ==

== ENCOUNTER 2020-07-17 06:11 | Outpatient (REF) | payer MEDICARE, SELFPAY ==
[2020-07-17 11:17] LABS: MANUAL DIFF FLAG NO
[2020-07-17 11:34] LABS: Glucose Urine UA NEG (NEG); Leukocyte Esterase Urine 3+ (NEG); Nitrite Urine NEG (NEG); Urine Blood 3+ (NEG); Urine Ketones NEG (NEG); Urine Protein 1+ MG/DL (NEG-TRACE)
[2020-07-17 11:38] LABS: Appearance Urine CLOUDY; Basophils Percent Auto 0.6 % (0-2); Color Urine YELLOW; Eosinophils Absolute Auto 0.2 X10*3/uL (0.0-0.4); Eosinophils Percent Auto 3.4 % (0-4); Hemoglobin 11.1 g/dl (14.0-18.0); Imm Gran Abs Auto 0.02 X10*3/uL (0.00-0.03); Imm Gran Pct Auto 0.4 % (0.0-0.4); Lymphocytes Absolute Auto 1.3 X10*3/uL (1.2-4.9); Lymphocytes Percent Auto 24.8 % (20-40); Mean Corpuscular HGB Conc 30.8 g/dl (31.0-36.0); Mean Corpuscular Hemoglobin 29.5 pg (27.0-33.0); Mean Corpuscular Volume 95.7 fL (80-98); Mean Platelet Volume 9.6 fL (9.4-12.4); Monocytes Absolute Auto 0.4 X10*3/uL (0.1-1.2); Monocytes Percent Auto 8.3 % (2-11); Neutrophils Absolute Auto 3.3 X10*3/uL (2.0-8.3); Neutrophils Percent Auto 62.5 % (45-73); Platelet Count 275 X10*3/uL (160-400); Red Blood Count 3.76 X10*6/uL (4.60-5.80); Red Cell Distribution Width 15.4 % (11.0-16.0); White Blood Count 5.3 X10*3/uL (4.8-10.8)
[2020-07-17 11:51] LABS: Estimated Average Glucose 143 mg/dL; Hemoglobin A1c % 6.6 %
[2020-07-17 12:19] LABS: Thyroid Stimulating Hormone 1.47 uIU/mL (0.32-4.0); Vitamin D 25-OH Total 44.4 ng/mL (>30)
[2020-07-17 12:24] LABS: Alanine Aminotransferase 15 U/L (0-40); Albumin Level 3.9 g/dL (3.5-5.0); Alkaline Phosphatase 77 U/L (39-117); Anion Gap 14 (12-20); Aspartate Amino Transferase 15 U/L (5-37); Bilirubin Total 0.3 mg/dL (0.0-1.0); Blood Urea Nitrogen 19 mg/dL (9-16); Carbon Dioxide 26 mmol/L (22-29); Chloride 104 mmol/L (96-108); Cholesterol 219 mg/dL; Estimated Glomerular Filt Rate 48; Glucose Fasting 130 mg/dL (60-99); HDL Cholesterol 36 mg/dL; LDL Cholesterol Calculated 141 mg/dl; Potassium 3.9 mmol/L (3.3-5.1); Sodium 140 mmol/L (135-145); Total Protein 6.8 g/dL (6.5-8.0); Triglycerides 212 mg/dL
[2020-07-17 12:26] LABS: Creatinine Urine 67.63 mg/dL; Microalbum/Creatinine Ratio Ur 329.7 ug/mg cr
[2020-07-17 12:56] LABS: Folate > 20.0 ng/mL (> or = 4.0); Vitamin B12 567 pg/mL (200-900)
[2020-07-17 13:15] LABS: Bacteria Urine 1+ /LPF; RBC Urine TNTC /HPF (0); Squamous Epithelial Cell Urine 1+ /LPF; WBC Urine TNTC /HPF (0-4)
[2020-07-17 14:25] LABS: Prostate Specific Antigen 15.47 ng/mL (<0.05-4.0)
== END 2020-07-17 06:12 | disposition home or self-care (01) ==
LOC: HO.HMGCLDS 06:11
PROVIDERS: PCP Internal Medicine; Visit Provider Internal Medicine
DX: E11.9 Type 2 diabetes mellitus without complications (principal); E78.00 Pure hypercholesterolemia, unspecified; N40.0 Benign prostatic hyperplasia without lower urinary tract symptoms; D64.9 Anemia, unspecified; N17.9 Acute kidney failure, unspecified; Z86.73 Personal history of transient ischemic attack (TIA), and cerebral infarction without residual deficits
CPT/HCPCS: 36415; 80053; 80061; 81001; 82043; 82306; 82607; 82746; 83036; 84153; 84443; 85025

== ENCOUNTER → 2020-08-22 08:54 | Outpatient (BNVA) | payer MEDICARE, SELFPAY | PROVIDERS: PCP Internal Medicine; Visit Provider Urology | DX: N40.0 Benign prostatic hyperplasia without lower urinary tract symptoms (principal) | CPT/HCPCS: 51798; 99212 ==

== ENCOUNTER 2020-10-07 06:01 | Outpatient (REF) | payer MEDICARE, SELFPAY ==
[2020-10-07 11:15] LABS: MANUAL DIFF FLAG NO
[2020-10-07 11:23] LABS: Basophils Percent Auto 0.4 % (0-2); Eosinophils Absolute Auto 0.2 X10*3/uL (0.0-0.4); Eosinophils Percent Auto 3.1 % (0-4); Hematocrit 35.6 % (42-52); Hemoglobin 11.6 g/dl (14.0-18.0); Imm Gran Abs Auto 0.01 X10*3/uL (0.00-0.03); Imm Gran Pct Auto 0.2 % (0.0-0.4); Lymphocytes Absolute Auto 1.2 X10*3/uL (1.2-4.9); Lymphocytes Percent Auto 23.8 % (20-40); Mean Corpuscular HGB Conc 32.6 g/dl (31.0-36.0); Mean Corpuscular Hemoglobin 30.5 pg (27.0-33.0); Mean Corpuscular Volume 93.7 fL (80-98); Mean Platelet Volume 10.1 fL (9.4-12.4); Monocytes Absolute Auto 0.4 X10*3/uL (0.1-1.2); Monocytes Percent Auto 7.8 % (2-11); Neutrophils Absolute Auto 3.3 X10*3/uL (2.0-8.3); Neutrophils Percent Auto 64.7 % (45-73); Platelet Count 181 X10*3/uL (160-400); Red Cell Distribution Width 14.6 % (11.0-16.0); White Blood Count 5.1 X10*3/uL (4.8-10.8)
[2020-10-07 11:44] LABS: Estimated Average Glucose 280 mg/dL; Hemoglobin A1c % 11.4 %
[2020-10-07 11:59] LABS: Creatinine Urine 72.63 mg/dL
[2020-10-07 12:01] LABS: Glucose Urine UA >=1000 MG/DL (NEG); Leukocyte Esterase Urine TRACE (NEG); Nitrite Urine NEG (NEG); Specific Gravity - Urine 1.015 (1.005-1.025); Urine Blood TRACE (NEG); Urine Ketones NEG (NEG); Urine Protein TRACE MG/DL (NEG-TRACE)
[2020-10-07 12:07] LABS: Appearance Urine CLEAR; Color Urine YELLOW
[2020-10-07 12:34] LABS: Bacteria Urine TRACE /LPF; RBC Urine 0-2 /HPF (0); WBC Clumps Urine NOTED
[2020-10-07 13:16] LABS: Alanine Aminotransferase 29 U/L (0-40); Albumin Level 3.9 g/dL (3.5-5.0); Alkaline Phosphatase 86 U/L (39-117); Anion Gap 16 (12-20); Aspartate Amino Transferase 21 U/L (5-37); Bilirubin Total 0.6 mg/dL (0.0-1.0); Blood Urea Nitrogen 14 mg/dL (9-16); Calcium 9.7 mg/dL (8.4-10.2); Carbon Dioxide 24 mmol/L (22-29); Chloride 100 mmol/L (96-108); Cholesterol 129 mg/dL; Estimated Glomerular Filt Rate 46; Glucose Fasting 385 mg/dL (60-99); HDL Cholesterol 39 mg/dL; LDL Cholesterol Calculated 53 mg/dl; Sodium 136 mmol/L (135-145); Total Protein 6.9 g/dL (6.5-8.0); Triglycerides 188 mg/dL
[2020-10-08 11:17] LABS: Free Prostate Spec Ag 1.3 ng/mL; Percent Free Prostate Spec Ag 34 % (calc) (>25); Prostate Specific Ag Total 3.8 ng/mL (< OR = 4.0)
== END 2020-10-07 06:02 | disposition home or self-care (01) ==
LOC: HO.HMGCLDS 06:01
PROVIDERS: PCP Internal Medicine; Visit Provider Internal Medicine
DX: Z12.5 Encounter for screening for malignant neoplasm of prostate (principal); E11.9 Type 2 diabetes mellitus without complications; E78.00 Pure hypercholesterolemia, unspecified; N40.0 Benign prostatic hyperplasia without lower urinary tract symptoms
CPT/HCPCS: 36415; 80053; 80061; 81001; 82043; 83036; 84154; 85025

== ENCOUNTER 2020-10-28 06:03 | Outpatient (REF) | payer MEDICARE, SELFPAY ==
[2020-10-28 12:00] LABS: Anion Gap 16 (12-20); Blood Urea Nitrogen 15 mg/dL (9-16); Calcium 9.8 mg/dL (8.4-10.2); Carbon Dioxide 24 mmol/L (22-29); Chloride 101 mmol/L (96-108); Estimated Glomerular Filt Rate 56; Glucose Random 180 mg/dL (60-115); Potassium 4.2 mmol/L (3.3-5.1); Sodium 137 mmol/L (135-145)
== END 2020-10-28 06:04 | disposition home or self-care (01) ==
LOC: HO.HMGCLDS 06:03
PROVIDERS: PCP Internal Medicine; Visit Provider Internal Medicine
DX: E11.9 Type 2 diabetes mellitus without complications (principal)
CPT/HCPCS: 36415; 80048

== ENCOUNTER 2021-01-20 06:12 | Outpatient (REF) | payer MEDICARE, SELFPAY ==
[2021-01-20 11:24] LABS: MANUAL DIFF FLAG NO
[2021-01-20 11:30] LABS: Appearance Urine CLEAR; Color Urine YELLOW; Glucose Urine UA NEG (NEG); Leukocyte Esterase Urine NEG (NEG); Nitrite Urine NEG (NEG); Urine Blood NEG (NEG); Urine Ketones NEG (NEG); Urine Protein TRACE MG/DL (NEG-TRACE)
[2021-01-20 11:32] LABS: Basophils Percent Auto 0.6 % (0-2); Eosinophils Absolute Auto 0.2 X10*3/uL (0.0-0.4); Eosinophils Percent Auto 3.7 % (0-4); Hemoglobin 11.4 g/dl (14.0-18.0); Imm Gran Abs Auto 0.02 X10*3/uL (0.00-0.03); Imm Gran Pct Auto 0.3 % (0.0-0.4); Lymphocytes Absolute Auto 1.5 X10*3/uL (1.2-4.9); Lymphocytes Percent Auto 22.9 % (20-40); Mean Corpuscular HGB Conc 30.8 g/dl (31.0-36.0); Mean Corpuscular Hemoglobin 29.5 pg (27.0-33.0); Mean Corpuscular Volume 95.6 fL (80-98); Mean Platelet Volume 9.6 fL (9.4-12.4); Monocytes Absolute Auto 0.5 X10*3/uL (0.1-1.2); Monocytes Percent Auto 7.8 % (2-11); Neutrophils Absolute Auto 4.1 X10*3/uL (2.0-8.3); Neutrophils Percent Auto 64.7 % (45-73); Platelet Count 221 X10*3/uL (160-400); Red Blood Count 3.87 X10*6/uL (4.60-5.80); Red Cell Distribution Width 15.4 % (11.0-16.0); White Blood Count 6.4 X10*3/uL (4.8-10.8)
[2021-01-20 11:51] LABS: Calcium Oxalate Crystals Urine 4+ /LPF; RBC Urine 0 /HPF (0)
[2021-01-20 11:56] LABS: Microalbum/Creatinine Ratio Ur 31.6 ug/mg cr; Total Protein Urine Random 24 mg/dL (<12)
[2021-01-20 12:06] LABS: Vitamin D 25-OH Total 59.2 ng/mL (>30)
[2021-01-20 12:12] LABS: Albumin Level 4.1 g/dL (3.5-5.0); Anion Gap 13 (12-20); Blood Urea Nitrogen 18 mg/dL (9-16); Calcium 10.2 mg/dL (8.4-10.2); Carbon Dioxide 28 mmol/L (22-29); Chloride 103 mmol/L (96-108); Estimated Glomerular Filt Rate 54; Phosphorus 3.8 mg/dL (2.7-4.5); Potassium 4.7 mmol/L (3.3-5.1); Sodium 139 mmol/L (135-145)
[2021-01-22 01:33] LABS: Calcium (PTHI) 9.9 mg/dL (8.6-10.3); PTHI 15 pg/mL (14-64)
== END 2021-01-20 06:13 | disposition home or self-care (01) ==
LOC: HO.HMGCLDS 06:12
PROVIDERS: PCP Internal Medicine; Visit Provider Internal Medicine Nephrology
DX: N18.31 Chronic kidney disease, stage 3a (principal); E11.22 Type 2 diabetes mellitus with diabetic chronic kidney disease
CPT/HCPCS: 36415; 80051; 81001; 82040; 82043; 82306; 82310; 82565; 83735; 83970; 84100; 84156; 84520; 85025; 87086

== ENCOUNTER 2021-02-02 06:00 | Outpatient (REF) | payer MEDICARE, SELFPAY ==
[2021-02-02 11:24] LABS: MANUAL DIFF FLAG NO
[2021-02-02 11:47] LABS: Basophils Percent Auto 0.3 % (0-2); Eosinophils Absolute Auto 0.2 X10*3/uL (0.0-0.4); Eosinophils Percent Auto 3.7 % (0-4); Hemoglobin 11.1 g/dl (14.0-18.0); Imm Gran Abs Auto 0.02 X10*3/uL (0.00-0.03); Imm Gran Pct Auto 0.3 % (0.0-0.4); Lymphocytes Absolute Auto 1.5 X10*3/uL (1.2-4.9); Lymphocytes Percent Auto 25.7 % (20-40); Mean Corpuscular HGB Conc 30.8 g/dl (31.0-36.0); Mean Corpuscular Hemoglobin 29.2 pg (27.0-33.0); Mean Corpuscular Volume 94.7 fL (80.0-98.0); Mean Platelet Volume 10.1 fL (9.4-12.4); Monocytes Absolute Auto 0.4 X10*3/uL (0.1-1.2); Monocytes Percent Auto 7.3 % (2-11); Neutrophils Absolute Auto 3.7 x10*3/uL (2.0-8.3); Neutrophils Percent Auto 62.7 % (45-73); Platelet Count 197 X10*3/uL (160-400); Red Cell Distribution Width 15.2 % (11.0-16.0); White Blood Count 5.9 X10*3/uL (4.8-10.8)
[2021-02-02 11:50] LABS: Appearance Urine CLEAR; Color Urine YELLOW; Glucose Urine UA NEG (NEG); Leukocyte Esterase Urine NEG (NEG); Nitrite Urine NEG (NEG); Urine Blood 2+ (NEG); Urine Ketones NEG (NEG); Urine Protein NEG (NEG-TRACE)
[2021-02-02 12:08] LABS: Estimated Average Glucose 128 mg/dL; Hemoglobin A1c % 6.1 %
[2021-02-02 12:09] LABS: Calcium Oxalate Crystals Urine 2+ /LPF; WBC Urine 0-2 /HPF (0-4)
[2021-02-02 12:12] LABS: Alanine Aminotransferase 26 U/L (0-40); Albumin Level 3.9 g/dL (3.5-5.0); Alkaline Phosphatase 57 U/L (39-117); Anion Gap 12 (12-20); Aspartate Amino Transferase 21 U/L (5-37); Bilirubin Total 0.6 mg/dL (0.0-1.0); Blood Urea Nitrogen 15 mg/dL (9-16); Calcium 9.1 mg/dL (8.4-10.2); Carbon Dioxide 26 mmol/L (22-29); Chloride 104 mmol/L (96-108); Cholesterol 97 mg/dL; Estimated Glomerular Filt Rate > 60; Glucose Fasting 93 mg/dL (60-99); HDL Cholesterol 30 mg/dL; Iron 40 mcg/dL (45-160); LDL Cholesterol Calculated 37 mg/dl; Percent Iron Saturation 12 % (15-50); Potassium 4.2 mmol/L (3.3-5.1); Sodium 138 mmol/L (135-145); Total Iron Binding Capacity 334 mcg/dL (228-428); Total Protein 6.6 g/dL (6.5-8.0); Triglycerides 152 mg/dL; Unsaturated Iron Binding 294 ug/dL
[2021-02-02 12:29] LABS: Thyroid Stimulating Hormone 2.06 uIU/mL (0.32-4.0); Vitamin D 25-OH Total 53.7 ng/mL (>30)
[2021-02-02 12:48] LABS: Folate 19.7 ng/mL (> or = 4.0); Vitamin B12 713 pg/mL (200-900)
[2021-02-02 13:35] LABS: Ferritin 27 ng/mL (20-250)
[2021-02-02 14:22] LABS: Creatinine Urine 72.41 mg/dL
[2021-02-02 14:29] LABS: Microalbum/Creatinine Ratio Ur 59.3 ug/mg cr
== END 2021-02-02 06:01 | disposition home or self-care (01) ==
LOC: HO.HMGCLDS 06:00
PROVIDERS: PCP Internal Medicine; Visit Provider Internal Medicine
DX: D64.9 Anemia, unspecified (principal); E11.9 Type 2 diabetes mellitus without complications; E78.00 Pure hypercholesterolemia, unspecified; N40.0 Benign prostatic hyperplasia without lower urinary tract symptoms
CPT/HCPCS: 36415; 80053; 80061; 81001; 82043; 82306; 82607; 82728; 82746; 83036; 83540; 84443; 85025

== ENCOUNTER 2021-02-11 09:48 | Outpatient (REF) | payer MEDICARE, SELFPAY ==
[2021-02-11 11:11] LABS: Prostate Specific Antigen 2.88 ng/mL (<0.05-4.0)
== END 2021-02-11 09:49 | disposition home or self-care (01) ==
LOC: HO.LAB 09:48
PROVIDERS: PCP Internal Medicine; Visit Provider Urology
DX: Z12.5 Encounter for screening for malignant neoplasm of prostate (principal); N40.0 Benign prostatic hyperplasia without lower urinary tract symptoms
CPT/HCPCS: 36415; 84153

== ENCOUNTER → 2021-03-06 09:03 | Outpatient (BNVA) | payer MEDICARE, SELFPAY | PROVIDERS: PCP Internal Medicine; Visit Provider Urology | DX: N40.0 Benign prostatic hyperplasia without lower urinary tract symptoms (principal); C67.9 Malignant neoplasm of bladder, unspecified | CPT/HCPCS: 51798; 99212 ==

== ENCOUNTER 2021-07-21 06:03 | Outpatient (REF) | payer MEDICARE, SELFPAY ==
[2021-07-21 11:40] LABS: MANUAL DIFF FLAG NO
[2021-07-21 11:48] LABS: Basophils Percent Auto 0.4 % (0-2); Eosinophils Absolute Auto 0.2 X10*3/uL (0.0-0.4); Hematocrit 36.9 % (42.0-52.0); Hemoglobin 11.5 g/dl (14.0-18.0); Imm Gran Abs Auto 0.02 X10*3/uL (0.00-0.03); Imm Gran Pct Auto 0.3 % (0.0-0.4); Lymphocytes Absolute Auto 1.7 X10*3/uL (1.2-4.9); Mean Corpuscular HGB Conc 31.2 g/dl (31.0-36.0); Mean Corpuscular Hemoglobin 29.6 pg (27.0-33.0); Mean Corpuscular Volume 95.1 fL (80.0-98.0); Mean Platelet Volume 9.5 fL (9.4-12.4); Monocytes Absolute Auto 0.6 X10*3/uL (0.1-1.2); Monocytes Percent Auto 8.1 % (2-11); Neutrophils Percent Auto 66.2 % (45-73); Platelet Count 194 X10*3/uL (160-400); Red Blood Count 3.88 X10*6/uL (4.60-5.80); Red Cell Distribution Width 15.9 % (11.0-16.0); White Blood Count 7.5 X10*3/uL (4.8-10.8)
[2021-07-21 11:55] LABS: Appearance Urine HAZY; Color Urine YELLOW; Glucose Urine UA NEG (NEG); Leukocyte Esterase Urine NEG (NEG); Nitrite Urine NEG (NEG); Urine Blood TRACE (NEG); Urine Ketones NEG (NEG); Urine Protein 1+ MG/DL (NEG-TRACE)
[2021-07-21 12:12] LABS: Alanine Aminotransferase 22 U/L (0-40); Albumin Level 3.8 g/dL (3.5-5.0); Alkaline Phosphatase 59 U/L (39-117); Anion Gap 12 (12-20); Aspartate Amino Transferase 21 U/L (5-37); Bilirubin Total 0.4 mg/dL (0.0-1.0); Blood Urea Nitrogen 22 mg/dL (9-16); Calcium 9.5 mg/dL (8.4-10.2); Carbon Dioxide 27 mmol/L (22-29); Chloride 104 mmol/L (96-108); Cholesterol 103 mg/dL; Estimated Glomerular Filt Rate 52; Glucose Fasting 81 mg/dL (60-99); HDL Cholesterol 31 mg/dL; LDL Cholesterol Calculated 43 mg/dl; Potassium 4.5 mmol/L (3.3-5.1); Sodium 138 mmol/L (135-145); Total Protein 6.6 g/dL (6.5-8.0); Triglycerides 146 mg/dL
[2021-07-21 12:14] LABS: Estimated Average Glucose 117 mg/dL; Hemoglobin A1C 123.3322 umol/L; Hemoglobin A1c % 5.7 %
[2021-07-21 12:22] LABS: Creatinine Urine 98.61 mg/dL; Microalbum/Creatinine Ratio Ur 82.1 ug/mg cr
[2021-07-21 12:35] LABS: Thyroid Stimulating Hormone 2.08 uIU/mL (0.32-4.0); Vitamin D 25-OH Total 62.9 ng/mL (>30)
[2021-07-21 13:11] LABS: Calcium Oxalate Crystals Urine 2+ /LPF; RBC Urine 0-2 /HPF (0); WBC Urine 0-2 /HPF (0-4)
== END 2021-07-21 06:04 | disposition home or self-care (01) ==
LOC: HO.HMGCLDS 06:03
PROVIDERS: Visit Provider Internal Medicine
DX: E11.9 Type 2 diabetes mellitus without complications (principal); E78.00 Pure hypercholesterolemia, unspecified
CPT/HCPCS: 36415; 80053; 80061; 81001; 82043; 82306; 83036; 84443; 85025

== ENCOUNTER 2021-09-01 08:46 | Outpatient (REF) | payer MEDICARE, SELFPAY ==
[2021-09-01 16:43] LABS: Urine Cytology See Pathology rpt
== END 2021-09-01 08:47 | disposition home or self-care (01) ==
LOC: HO.LAB 08:46
PROVIDERS: PCP Internal Medicine; Visit Provider Urology
DX: C67.9 Malignant neoplasm of bladder, unspecified (principal); N40.0 Benign prostatic hyperplasia without lower urinary tract symptoms
CPT/HCPCS: 52000; 88112; 99212

== ENCOUNTER 2021-09-16 06:07 | Outpatient (REF) | payer MEDICARE, SELFPAY ==
[2021-09-16 11:23] LABS: MANUAL DIFF FLAG NO
[2021-09-16 11:26] LABS: Appearance Urine HAZY; Color Urine YELLOW; Glucose Urine UA NEG (NEG); Leukocyte Esterase Urine 2+ (NEG); Nitrite Urine NEG (NEG); PH 5.5 (5.0-8.0); Specific Gravity - Urine 1.025 (1.005-1.025); Urine Blood NEG (NEG); Urine Ketones NEG (NEG); Urine Protein TRACE MG/DL (NEG-TRACE)
[2021-09-16 11:29] LABS: Basophils Percent Auto 0.6 % (0-2); Eosinophils Absolute Auto 0.1 X10*3/uL (0.0-0.4); Eosinophils Percent Auto 1.6 % (0-4); Hematocrit 35.6 % (42.0-52.0); Hemoglobin 11.1 g/dl (14.0-18.0); Imm Gran Abs Auto 0.04 X10*3/uL (0.00-0.03); Imm Gran Pct Auto 0.6 % (0.0-0.4); Lymphocytes Absolute Auto 1.3 X10*3/uL (1.2-4.9); Lymphocytes Percent Auto 18.3 % (20-40); Mean Corpuscular HGB Conc 31.2 g/dl (31.0-36.0); Mean Corpuscular Hemoglobin 29.8 pg (27.0-33.0); Mean Corpuscular Volume 95.4 fL (80.0-98.0); Mean Platelet Volume 9.2 fL (9.4-12.4); Monocytes Absolute Auto 0.5 X10*3/uL (0.1-1.2); Monocytes Percent Auto 6.5 % (2-11); Neutrophils Percent Auto 72.4 % (45-73); Platelet Count 275 X10*3/uL (160-400); Red Blood Count 3.73 X10*6/uL (4.60-5.80); Red Cell Distribution Width 15.5 % (11.0-16.0); White Blood Count 6.9 X10*3/uL (4.8-10.8)
[2021-09-16 11:48] LABS: Albumin Level 3.6 g/dL (3.5-5.0); Anion Gap 10 (12-20); Blood Urea Nitrogen 15 mg/dL (9-16); Calcium 9.5 mg/dL (8.4-10.2); Carbon Dioxide 27 mmol/L (22-29); Chloride 103 mmol/L (96-108); Estimated Glomerular Filt Rate > 60; Magnesium 1.9 mg/dL (1.6-2.6); Potassium 4.4 mmol/L (3.3-5.1); Sodium 136 mmol/L (135-145)
[2021-09-16 11:52] LABS: Bacteria Urine 2+ /LPF; Calcium Oxalate Crystals Urine 4+ /LPF; RBC Urine 0 /HPF (0)
[2021-09-16 11:57] LABS: Creatinine Urine 78.78 mg/dL; Microalbum/Creatinine Ratio Ur 57.1 ug/mg cr; Total Protein Urine Random 24 mg/dL (<12)
[2021-09-16 12:10] LABS: Vitamin D 25-OH Total 63.9 ng/mL (>30)
== END 2021-09-16 06:08 | disposition home or self-care (01) ==
LOC: HO.HMGCLDS 06:07
PROVIDERS: Visit Provider Internal Medicine Nephrology
DX: N18.31 Chronic kidney disease, stage 3a (principal); E11.22 Type 2 diabetes mellitus with diabetic chronic kidney disease; N25.0 Renal osteodystrophy; R82.71 Bacteriuria; B95.2 Enterococcus as the cause of diseases classified elsewhere
CPT/HCPCS: 36415; 80051; 81001; 82040; 82043; 82306; 82310; 82565; 83735; 84100; 84156; 84520; 85025; 87086; 87088; 87186

== ENCOUNTER 2021-10-11 06:38 | Emergency (ER) | payer MEDICARE, SELFPAY ==
--- NOTE | ~2021-10-11 | XR_ITS ---
EXAMINATION: XR CHEST CLINICAL INFORMATION: Weakness COMPARISON: 04/22/2020 TECHNIQUE: Frontal view of the chest was obtained. FINDINGS: No focal consolidation, pulmonary edema, or pleural effusion. Stable cardiomediastinal silhouette. Heavily calcified aortic arch. Remote, healed left-sided rib fractures. XR/XR chest 1V IMPRESSION: No acute cardiopulmonary findings. No change.
[2021-10-11 06:45] VITALS: BP 124/88; PULSE 116; O2SAT 98
[2021-10-11 06:58] LABS: Glucose, Whole Blood 49 mg/dL (60-115)
[2021-10-11 07:08] VITALS: BP 130/61; PULSE 107; RESP 18; TEMP 37.3; O2SAT 97; BMI 26.6
[2021-10-11 07:22] LABS: Glucose, Whole Blood 67 mg/dL (60-115)
--- NOTE | 2021-10-11 07:55 | ECG_ITS ---
Test Reason : weakness Blood Pressure : / mmHG Vent. Rate : 107 BPM Atrial Rate : 107 BPM P-R Int : 180 ms QRS Dur : 080 ms QT Int : 324 ms P-R-T Axes : 078 008 035 degrees QTc Int : 432 ms Sinus tachycardia Otherwise normal ECG When compared with ECG of 22-APR-2020 11:12, No significant change was found Referred By: Maribell Mejia Electronically Signed By:Angus Collins
--- NOTE | 2021-10-11 08:03 | ED.GENADULT ---
HPI - General Adult General Chief complaint: Weakness Stated complaint: leg weakness Time Seen by Provider: 10/11/21 07:54 Source: patient and EMS Mode of arrival: EMS Limitations: no limitations History of Present Illness HPI narrative: 76-year-old male came in by ambulance for evaluation of generalized weakness. Patient normally lives home by himself independently, patient normally sleeps on a recliner at night time when he woke up this morning he felt his legs are weak bilaterally, could not hold him, had to put himself down on the floor, patient is type 2 diabetes controlled with metformin blood sugar was low this morning when EMS checked his blood sugar, patient emergency department has no symptoms, able to move lower extremities bilaterally. Related Data Home Medications Medication Instructions Recorded Confirmed glipizide 10 mg tablet 1 tab PO BID 04/22/20 07/06/21 tamsulosin 0.4 mg capsule 1 cap PO BEDTIME 04/22/20 07/06/21 blood sugar diagnostic #10 ea 06/27/20 01/19/21 lisinopril 5 mg tablet 5 mg PO DAILY 08/22/20 07/06/21 metformin 1,000 mg tablet 1,000 mg PO BID 08/22/20 07/06/21 rosuvastatin 40 mg tablet 40 mg PO DAILY 08/22/20 07/06/21 lboueyjv-szr-bqjwn acid 300 1 tab PO DAILY 01/19/21 07/06/21 mcg-lycopene 600 mcg-lutein 300 mcg tablet (Centrum Silver Men) Previous Rx's Medication Instructions Recorded aspirin 81 mg tablet,delayed 81 mg PO DAILY #30 tabs 04/24/20 release ferrous sulfate 325 mg (65 mg 325 mg PO DAILY #60 tabs 07/06/21 iron) tablet cyanocobalamin (vitamin B-12) 1,000 mcg PO DAILY #90 tabs 07/14/21 1,000 mcg tablet (Vitamin B-12) Allergies Allergy/AdvReac Type Severity Reaction Status Date / Time atorvastatin [Lipitor] Allergy Unknown rash Verified 09/01/21 08:50 From LIPITOR Allergy Unknown RASH Uncoded 09/01/21 08:50 Review of Systems Review of Systems: All other systems are reviewed and are negative Constitutional: Reports as per HPI and Reports no additional constitutional complaints Eyes: Reports as per HPI and Reports no additional eye complaints Reports system reviewed and no additional complaints, except as documented Cardiovascular: Reports as per HPI and Reports no additional cardiovascular complaints Respiratory: Reports as per HPI and Reports no additional respiratory complaints Gastrointestinal: Reports as per HPI and Reports no additional gastrointestinal complaints Genitourinary: Reports no additional female genitourinary complaints Musculoskeletal: Reports no additional musculoskeletal complaints Skin/Breast: Reports system reviewed and no additional complaints, except as docu Psychiatric: Reports no additional psychiatric complaints Endocrine: Reports no additional endocrine complaints Hematologic/Lymphatic: Reports no additional hematologic/lymphatic complaints Allergic/Immunologic: Reports no additional allergic/immunologic complaints Reports system reviewed and no additional complaints, except as documented and Reports Abnormal speech present [facility] Past Medical History Medical History BPH (benign prostatic hyperplasia) CVA (cerebral vascular accident) Diabetes mellitus H/O: HTN (hypertension) Surgical History H/O inguinal hernia repair History of bladder surgery Hx of knee surgery Family History Family History Father Lung cancer Heart attack Social History Social History Household Members: None Housing: House Do you presently have visiting nurse or other home services: No Alcohol intake: current Alcohol intake frequency: does not drink Patient Tobacco Use Status: Former Tobacco user Quit Date: 1995 Tobacco use type: Cigarette Cigarette Packs Per Day: 1.5 Smoked in Last 30 Days: No Use of substances other than those prescribed or required for medical reasons: No Advance Directives: No Advance Directives Information Provided: No service: Yes Current occupational status: retired Physical Exam ED Vital Signs: Vital Signs - 24 hr 10/11/21 07:08 Temperature 99.2 F Pulse Rate 107 H Respiratory Rate 18 Blood Pressure 130/61 Pulse Oximetry 97 Oxygen Delivery Method Room Air BMI result Body Mass Index 26.6 Vital signs have been reviewed as appeared to be correct. Blood pressure normal. Heart rate normal. Respiration rate normal. Temperature normal. Oxygen saturation normal. Appearance: Alert. Oriented X3. No acute distress. Head: Normal external exam. Normocephalic. Atraumatic. No King signs noted. No raccoon eyes noted Eyes: PERRLA. EOMI. Conjunctiva and sclera normal. Eyelids normal. ENT: TM's Normal. Pharynx normal. Uvula midline. Moist mucous membranes. No trismus noted. No drooling noted. No muffled voice noted. Neck: Normal inspection. Neck supple. FROM. No adenopathy. Thyroid Normal. No meningeal signs. No neck mass noted. CVS: Normal heart rate and rhythm. Heart sound normal. No murmurs noted. Pulses normal throughout. Respiratory: No respiratory distress. Painless inspiration. Breath sounds normal. No wheezes/rales/rhonchi noted. Chest nontender. No accessory muscle usage noted or decreased air movement noted. Abdomen: Soft and nontender. Bowel sounds normal in all 4 quadrants. No distention noted. No organomegaly noted. No visible injury noted. Back: No CVA tenderness. Full range of motion noted. Skin: Skin warm and dry. Normal skin color. Normal skin turgor. No rashes/lesions/lacerations noted. Extremities: No lower extremity edema. Extremities exhibit normal range of motion. Extremities nontender. Neuro: Oriented X 3. Cranial nerve exam: II-XII are grossly intact No motor deficit. No sensory deficit. Reflexes normal. Course Course Course Narrative: 76-year-old male who lives home alone functional found to be hypoglycemic at home with no LOC, patient also been having generalized weakness that he could not get out of the recliner this morning, patient now is able to ambulate, unremarkable labs, unremarkable EKG mild tachycardia but no chest pain or shortness of breath. Patient live home with his dog that he takes care off. Medical Decision Making Lab Data Lab results reviewed: Yes I reviewed the patient's lab results. Result diagrams: 10/11/21 08:17 10/11/21 08:17 Labs: Lab Results 10/11/21 10/11/21 10/11/21 Range/Units 06:54 07:18 08:17 WBC 4.3 L (4.8-10.8) X10*3/uL RBC 3.49 L (4.60-5.80) X10*6/uL Hgb 10.3 L (14.0-18.0) g/dl Hct 32.4 L (42.0-52.0) % MCV 92.8 (80.0-98.0) fL MCH 29.5 (27.0-33.0) pg MCHC 31.8 (31.0-36.0) g/dl RDW 16.6 H (11.0-16.0) % Plt Count 129 L D (160-400) X10*3/uL MPV 9.0 L (9.4-12.4) fL Immature Gran % (Auto) 0.5 H (0.0-0.4) % Neut % (Auto) 79.2 H (45-73) % Lymph % (Auto) 11.7 L (20-40) % [place] % (Auto) 8.4 (2-11) % Eos % (Auto) 0.0 (0-4) % Baso % (Auto) 0.2 (0-2) % Lymph # (Auto) 0.5 L (1.2-4.9) X10*3/uL [place] # (Auto) 0.4 (0.1-1.2) X10*3/uL Eos # (Auto) 0.0 (0.0-0.4) X10*3/uL Baso # (Auto) 0.0 (0.0-0.2) X10*3/uL Abs Immat Gran (auto) 0.02 (0.00-0.03) X10*3/uL Absolute Neuts (auto) 3.4 (2.0-8.3) x10*3/uL Absolute Nucleated RBC 0.000 (0.0-0.012) X10*3/uL Nucleated RBC % (auto) 0.0 (0.0-0.2) /100WBC Sodium (135-145) mmol/L Potassium (3.3-5.1) mmol/L Chloride (96-108) mmol/L Carbon Dioxide (22-29) mmol/L Anion Gap (12-20) BUN (9-16) mg/dL Creatinine (0.5-1.4) mg/dL Estim Creat Clear Calc Estimated GFR POC Glucose 49 L* 67 (60-115) mg/dL Random Glucose (60-115) mg/dL Calcium (8.4-10.2) mg/dL Total Bilirubin (0.0-1.0) mg/dL Direct Bilirubin (0.0-0.5) mg/dL AST (5-37) U/L ALT (0-40) U/L Alkaline Phosphatase (39-117) U/L Troponin I High Sens (<3.5-35.0) ng/L B-Natriuretic Peptide (<100) pg/mL Total Protein (6.5-8.0) g/dL Albumin (3.5-5.0) g/dL Lipase (8-78) U/L 10/11/21 10/11/21 Range/Units 08:17 08:17 WBC (4.8-10.8) X10*3/uL RBC (4.60-5.80) X10*6/uL Hgb (14.0-18.0) g/dl Hct (42.0-52.0) % MCV (80.0-98.0) fL MCH (27.0-33.0) pg MCHC (31.0-36.0) g/dl RDW (11.0-16.0) % Plt Count (160-400) X10*3/uL MPV (9.4-12.4) fL Immature Gran % (Auto) (0.0-0.4) % Neut % (Auto) (45-73) % Lymph % (Auto) (20-40) % [place] % (Auto) (2-11) % Eos % (Auto) (0-4) % Baso % (Auto) (0-2) % Lymph # (Auto) (1.2-4.9) X10*3/uL [place] # (Auto) (0.1-1.2) X10*3/uL Eos # (Auto) (0.0-0.4) X10*3/uL Baso # (Auto) (0.0-0.2) X10*3/uL Abs Immat Gran (auto) (0.00-0.03) X10*3/uL Absolute Neuts (auto) (2.0-8.3) x10*3/uL Absolute Nucleated RBC (0.0-0.012) X10*3/uL Nucleated RBC % (auto) (0.0-0.2) /100WBC Sodium 131 L (135-145) mmol/L Potassium 4.3 (3.3-5.1) mmol/L Chloride 101 (96-108) mmol/L Carbon Dioxide 20 L (22-29) mmol/L Anion Gap 14 (12-20) BUN 16 (9-16) mg/dL Creatinine 1.22 (0.5-1.4) mg/dL Estim Creat Clear Calc 45.7 Estimated GFR 58 POC Glucose (60-115) mg/dL Random Glucose 192 H (60-115) mg/dL Calcium 8.4 D (8.4-10.2) mg/dL Total Bilirubin < 0.2 (0.0-1.0) mg/dL Direct Bilirubin < 0.2 (0.0-0.5) mg/dL AST 54 H (5-37) U/L ALT 54 H (0-40) U/L Alkaline Phosphatase 58 (39-117) U/L Troponin I High Sens 6.9 (<3.5-35.0) ng/L B-Natriuretic Peptide < 10 (<100) pg/mL Total Protein 5.9 L (6.5-8.0) g/dL Albumin 3.5 (3.5-5.0) g/dL Lipase 81 H (8-78) U/L Imaging Data Chest x-ray: Attestation: I personally reviewed and interpreted this imaging study as follows: Radiologist's impression: No acute cardiopulmonary finding. ECG Data Attestation: I personally reviewed and interpreted this ECG as follows: Interpretation: Sinus tachycardia at 107 beats per minutes, normal axis deviation, normal intervals no ST-T changes. Discharge Plan Discharge Clinical Impression: Hypoglycemia, Episode of generalized weakness Patient Disposition: Home, Self-Care Instructions: Hypoglycemia in Adolescents with Diabetes (ED) Prescriptions: No Action glipizide 10 mg tablet 1 tab PO BID tamsulosin 0.4 mg capsule 1 cap PO BEDTIME aspirin 81 mg Tablet,Delayed Release (Dr/Ec) 81 mg PO DAILY Qty: 30 0RF Centrum Silver Men 300-600-300 mcg Tablet 1 tab PO DAILY ferrous sulfate 325 mg (65 mg iron) Tablet 325 mg PO DAILY Qty: 60 2RF cyanocobalamin (vitamin B-12) [Vitamin B-12] 1,000 mcg Tablet 1,000 mcg PO DAILY Qty: 90 3RF (DME) blood sugar diagnostic Strip See Rx Instructions Not Applicable DAILY Qty: 10 Rx Instructions: As directed rosuvastatin 40 mg tablet 40 mg PO DAILY lisinopril 5 mg tablet 5 mg PO DAILY metformin 1,000 mg tablet 1,000 mg PO BID Referrals: Physician,Unknown J [Primary Care Provider] -
[2021-10-11 08:22] LABS: MANUAL DIFF FLAG NO
[2021-10-11 08:23] LABS: Basophils Percent Auto 0.2 % (0-2); Hematocrit 32.4 % (42.0-52.0); Hemoglobin 10.3 g/dl (14.0-18.0); Imm Gran Abs Auto 0.02 X10*3/uL (0.00-0.03); Imm Gran Pct Auto 0.5 % (0.0-0.4); Lymphocytes Absolute Auto 0.5 X10*3/uL (1.2-4.9); Lymphocytes Percent Auto 11.7 % (20-40); Mean Corpuscular HGB Conc 31.8 g/dl (31.0-36.0); Mean Corpuscular Hemoglobin 29.5 pg (27.0-33.0); Mean Corpuscular Volume 92.8 fL (80.0-98.0); Monocytes Absolute Auto 0.4 X10*3/uL (0.1-1.2); Monocytes Percent Auto 8.4 % (2-11); Neutrophils Absolute Auto 3.4 x10*3/uL (2.0-8.3); Neutrophils Percent Auto 79.2 % (45-73); Red Blood Count 3.49 X10*6/uL (4.60-5.80); Red Cell Distribution Width 16.6 % (11.0-16.0); White Blood Count 4.3 X10*3/uL (4.8-10.8)
[2021-10-11 08:44] LABS: B Type Natriuretic Peptide < 10 pg/mL (<100); Troponin-I High Sensitivity 6.9 ng/L (<3.5-35.0)
[2021-10-11 08:46] LABS: Platelet Count 129 X10*3/uL (160-400)
[2021-10-11 08:52] LABS: Alanine Aminotransferase 54 U/L (0-40); Albumin Level 3.5 g/dL (3.5-5.0); Alkaline Phosphatase 58 U/L (39-117); Anion Gap 14 (12-20); Aspartate Amino Transferase 54 U/L (5-37); Bilirubin Direct < 0.2 mg/dL (0.0-0.5); Bilirubin Total < 0.2 mg/dL (0.0-1.0); Blood Urea Nitrogen 16 mg/dL (9-16); Calcium 8.4 mg/dL (8.4-10.2); Carbon Dioxide 20 mmol/L (22-29); Chloride 101 mmol/L (96-108); Creatinine Clr Calc Pharmacy 45.7; Estimated Glomerular Filt Rate 58; Glucose Random 192 mg/dL (60-115); Lipase 81 U/L (8-78); Potassium 4.3 mmol/L (3.3-5.1); Sodium 131 mmol/L (135-145); Total Protein 5.9 g/dL (6.5-8.0)
[2021-10-11 10:25] VITALS: BP 133/64; PULSE 108; RESP 18; O2SAT 98
== END 2021-10-11 10:41 | disposition home or self-care (01) ==
PROVIDERS: Emergency Provider Emergency Medicine
DX: E11.649 Type 2 diabetes mellitus with hypoglycemia without coma (principal); R53.1 Weakness; R06.02 Shortness of breath; F17.210 Nicotine dependence, cigarettes, uncomplicated; Z71.6 Tobacco abuse counseling; Z79.899 Other long term (current) drug therapy
CPT/HCPCS: 36415; 71045; 80048; 80076; 82947; 83690; 83880; 84484; 85025; 93005; 99284

== ENCOUNTER 2022-01-20 06:08 | Outpatient (REF) | payer MEDICARE, SELFPAY ==
[2022-01-20 11:17] LABS: MANUAL DIFF FLAG NO
[2022-01-20 11:29] LABS: Appearance Urine Clear; Color Urine Yellow; Glucose Urine UA Negative (Negative); Leukocyte Esterase Urine Negative (Negative); Nitrite Urine Negative (Negative); Specific Gravity - Urine 1.015 (1.005-1.025); Urine Blood Negative (Negative); Urine Ketones Negative (Negative); Urine Protein Negative (Neg-Trace)
[2022-01-20 11:33] LABS: Basophils Percent Auto 0.8 % (0-2); Eosinophils Absolute Auto 0.2 X10*3/uL (0.0-0.4); Eosinophils Percent Auto 4.1 % (0-4); Hematocrit 37.7 % (42.0-52.0); Hemoglobin 12.2 g/dl (14.0-18.0); Imm Gran Abs Auto 0.01 X10*3/uL (0.00-0.03); Imm Gran Pct Auto 0.2 % (0.0-0.4); Lymphocytes Absolute Auto 1.3 X10*3/uL (1.2-4.9); Lymphocytes Percent Auto 26.2 % (20-40); Mean Corpuscular HGB Conc 32.4 g/dl (31.0-36.0); Mean Corpuscular Volume 92.6 fL (80.0-98.0); Mean Platelet Volume 9.6 fL (9.4-12.4); Monocytes Absolute Auto 0.4 X10*3/uL (0.1-1.2); Monocytes Percent Auto 8.2 % (2-11); Neutrophils Absolute Auto 3.1 x10*3/uL (2.0-8.3); Neutrophils Percent Auto 60.5 % (45-73); Platelet Count 152 X10*3/uL (160-400); Red Blood Count 4.07 X10*6/uL (4.60-5.80); Red Cell Distribution Width 15.7 % (11.0-16.0); White Blood Count 5.1 X10*3/uL (4.8-10.8)
[2022-01-20 11:45] LABS: Alanine Aminotransferase 22 U/L (0-40); Albumin Level 3.9 g/dL (3.5-5.0); Alkaline Phosphatase 66 U/L (39-117); Anion Gap 14 (12-20); Aspartate Amino Transferase 20 U/L (5-37); Bilirubin Total 0.3 mg/dL (0.0-1.0); Blood Urea Nitrogen 16 mg/dL (9-16); Calcium 9.3 mg/dL (8.4-10.2); Carbon Dioxide 28 mmol/L (22-29); Chloride 99 mmol/L (96-108); Cholesterol 142 mg/dL; Estimated Average Glucose 166 mg/dL; Estimated Glomerular Filt Rate > 60; Glucose Fasting 196 mg/dL (60-99); HDL Cholesterol 42 mg/dL; Hemoglobin A1c % 7.4 %; Iron 60 mcg/dL (45-160); LDL Cholesterol Calculated 63 mg/dl; Percent Iron Saturation 19 % (15-50); Potassium 4.4 mmol/L (3.3-5.1); Sodium 137 mmol/L (135-145); Total Iron Binding Capacity 318 mcg/dL (228-428); Total Protein 6.5 g/dL (6.5-8.0); Triglycerides 189 mg/dL; Unsaturated Iron Binding 258 ug/dL
[2022-01-20 11:53] LABS: Bacteria Urine None Seen (None Seen); Calcium Oxalate Crystals Urine Present; Hyaline Casts Urine 0-2 /LPF (0-2); RBC Urine 0-2 /HPF (0-2); Squamous Epithelial Cell Urine 0-2 /HPF (0-2); WBC Urine 0-5 /HPF (0-5)
[2022-01-20 12:07] LABS: Ferritin 28 ng/mL (20-250); Thyroid Stimulating Hormone 1.85 uIU/mL (0.32-4.0); Vitamin D 25-OH Total 52.2 ng/mL (>30)
[2022-01-20 12:20] LABS: Creatinine Urine 60.19 mg/dL; Microalbum/Creatinine Ratio Ur 33.2 ug/mg cr
[2022-01-20 12:45] LABS: Vitamin B12 785 pg/mL (200-900)
== END 2022-01-20 06:09 | disposition home or self-care (01) ==
LOC: HO.HMGCLDS 06:08
PROVIDERS: PCP Internal Medicine; Visit Provider Internal Medicine
DX: E11.9 Type 2 diabetes mellitus without complications (principal); E78.00 Pure hypercholesterolemia, unspecified; N40.0 Benign prostatic hyperplasia without lower urinary tract symptoms; D64.9 Anemia, unspecified; Z86.73 Personal history of transient ischemic attack (TIA), and cerebral infarction without residual deficits
CPT/HCPCS: 36415; 80053; 80061; 81001; 82043; 82306; 82607; 82728; 82746; 83036; 83540; 84443; 85025

== ENCOUNTER 2022-04-24 11:12 | Emergency (ER) | payer MEDICARE, SELFPAY ==
--- NOTE | ~2022-04-24 | XR_ITS ---
EXAMINATION: LUMBAR SPINE. PELVIS. CLINICAL INFORMATION: Trauma. COMPARISON: None TECHNIQUE: Lumbar spine 3 views. Pelvis one view. FINDINGS: Pelvis: There is normal symmetry of bilateral hip joints and SI joints. No visible fracture, dislocation or subluxation seen. The soft tissues are normal. Lumbar spine: There is normal lumbar lordosis. The vertebral heights and alignment is normal. There is loss of disc height virtually at every disc level with mild ventral spondylosis L1-L2 through L4-L5 disc level. No aggressive lytic or sclerotic process seen. The paravertebral soft tissues are normal. XR/XR pelvis 1-2V IMPRESSION: 1. Unremarkable AP pelvis exam. 2. Degenerative disc changes with ventral spondylosis throughout lumbar spine. No visible acute fracture or dislocation seen. There is no lytic or sclerotic process.
--- NOTE | ~2022-04-24 | XR_ITS ---
EXAMINATION: LUMBAR SPINE. PELVIS. CLINICAL INFORMATION: Trauma. COMPARISON: None TECHNIQUE: Lumbar spine 3 views. Pelvis one view. FINDINGS: Pelvis: There is normal symmetry of bilateral hip joints and SI joints. No visible fracture, dislocation or subluxation seen. The soft tissues are normal. Lumbar spine: There is normal lumbar lordosis. The vertebral heights and alignment is normal. There is loss of disc height virtually at every disc level with mild ventral spondylosis L1-L2 through L4-L5 disc level. No aggressive lytic or sclerotic process seen. The paravertebral soft tissues are normal. XR/XR lumbar spine 2-3V IMPRESSION: 1. Unremarkable AP pelvis exam. 2. Degenerative disc changes with ventral spondylosis throughout lumbar spine. No visible acute fracture or dislocation seen. There is no lytic or sclerotic process.
[2022-04-24 11:19] VITALS: BP 144/62; BP 175/80; PULSE 112; PULSE 113; RESP 18; TEMP 36.7; O2SAT 97; O2SAT 98; BMI 28.4
--- NOTE | 2022-04-24 11:31 | PC.NURSE ---
pt a&ox4, vss, pt reporting 10/10 pain with ambulation (right lower back radiating through right leg), 2/10 pain at rest, has been taking tylenol with positive effect, but pain was worse this morning. pt reports fall down concrete steps ~2w ago with lower back pain starting a few days after fall. denies head strike/LOC, pt didn't seek medical attention after fall. pt pending ED provider, no new orders at this time.
--- NOTE | 2022-04-24 11:47 | ED_ITS ---
HPI - Fall General Chief Complaint: Fall Stated Complaint: R BACK PAIN TO LEFT LEG S/P FALL 2 WEEKS AGO Time Seen by Provider: 04/24/22 11:42 Source: patient Mode of arrival: EMS Limitations: no limitations History of Present Illness HPI Narrative: This is a 76 years old man presented to the ED with a chief complaint of lower back pain he stated he fell about 2 weeks ago and for the last 2 days the pain is getting worse radiated to the right leg. He has history of diabetes, bladder cancer, BPH he had a lacunar infarct in the past. MD complaint: fall Onset (ago): week(s) (2) Fall from: standing Fall witnessed: no Place fall occurred: home Loss of consciousness: none Location of injury: back Quality: burning Related Data Home Medications Medication Instructions Recorded Confirmed glipizide 10 mg tablet 1 tab PO BID 04/22/20 01/13/22 tamsulosin 0.4 mg capsule 1 cap PO BEDTIME 04/22/20 01/13/22 blood sugar diagnostic #10 ea 06/27/20 01/13/22 lisinopril 5 mg tablet 5 mg PO DAILY 08/22/20 01/13/22 metformin 1,000 mg tablet 1,000 mg PO BID 08/22/20 01/13/22 rosuvastatin 40 mg tablet 40 mg PO DAILY 08/22/20 01/13/22 gccrbqsm-soi-hlqln acid 300 1 tab PO DAILY 01/19/21 01/13/22 mcg-lycopene 600 mcg-lutein 300 mcg tablet (Centrum Silver Men) Previous Rx's Medication Instructions Recorded aspirin 81 mg tablet,delayed 81 mg PO DAILY #30 tabs 04/24/20 release ferrous sulfate 325 mg (65 mg 325 mg PO DAILY #60 tabs 07/06/21 iron) tablet cyanocobalamin (vitamin B-12) 1,000 mcg PO DAILY #90 tabs 07/14/21 1,000 mcg tablet (Vitamin B-12) oxycodone 5 mg capsule 5 mg PO Q8H PRN pain #12 caps 04/24/22 Allergies Allergy/AdvReac Type Severity Reaction Status Date / Time atorvastatin [Lipitor] Allergy Unknown rash Verified 04/24/22 11:19 From LIPITOR Allergy Unknown RASH Uncoded 09/01/21 08:50 Review of Systems Review of Systems: Yes all other systems are reviewed and are negative Constitutional: Constitutional: Reports no additional constitutional complaints Cardiovascular: Cardiovascular: Reports no additional cardiovascular complaints Respiratory: Respiratory: Reports no additional respiratory complaints Neurologic: Reports system reviewed and no additional complaints, except as documented PMFSH Past Medical History Medical History BPH (benign prostatic hyperplasia) CVA (cerebral vascular accident) Diabetes mellitus H/O: HTN (hypertension) Surgical History H/O inguinal hernia repair History of bladder surgery Hx of knee surgery Family History Family History Father Lung cancer Heart attack Social History Social History Household Members: None Housing: House Do you presently have visiting nurse or other home services: No Alcohol intake: never Patient Tobacco Use Status: Former Tobacco user Quit Date: 1995 Tobacco use type: Cigarette Cigarette Packs Per Day: 1.5 Smoked in Last 30 Days: No Use of substances other than those prescribed or required for medical reasons: No Advance Directives: No service: Yes Current occupational status: retired Physical Exam Vital Signs: Vital Signs: Last Vital Signs Temp 98.1 F 04/24/22 11:19 Pulse 113 H 04/24/22 11:19 Resp 18 04/24/22 11:19 BP 144/62 H 04/24/22 11:19 Pulse Ox 97 04/24/22 11:19 O2 Del Method 04/24/22 11:19 BMI result Body Mass Index 28.4 Const: General: cooperative Nutritional Appearance: well nourished Orientation/consciousness: patient oriented x3 Limitations: no limitations HEENT: Head: Yes normal to inspection Face and sinus: Yes normal facial exam Mouth: Normal oral and palatal mucosa present Throat: Yes posterior oropharynx normal Neck: Neck: Yes full ROM Chest: Chest palpation & inspection: normal inspection of the chest Resp: Effort & Inspection: normal respiratory effort Cardio: Jugular venous distension: no JVD Rate: regular rate Rhythm: regular rhythm GI: Inspection: Yes normal to inspection Palpation (GI): Soft to palpation, not firm and nontender Back/Spine/Pelvis: Other: Tenderness in the LS spine full range of motion the hips straight leg test negative Neuro: General: patient oriented x3 Course Reevaluation(s) Reevaluation #1: reexamined able to ambulate w/o problems will d/c home, xray no fx Time: 13:11 Medications Administered Discontinued Medications Generic Name Dose Route Start Last Admin Trade Name Herman PRN Reason Stop Dose Admin Oxycodone HCl 5 mg 04/24/22 11:46 04/24/22 12:04 Oxycodone Hcl Immed Release 5 Mg Tablet PO 04/24/22 11:47 5 mg ONCE ONE Administration Medical Decision Making Medical Decision Making [facility] Narrative: Presented with fall 2 weeks ago and increasing pain with getting imaging pain control reassess Differential Diagnosis Differential Diagnoses: The differential diagnosis associated with the present ation includes fx/DJD/spasm Admission/Observation Consideration of admission/observation: Escalation of care including admissio n/observation considered Independent Interpretation I performed an independent interpretation of an: Plain X-Ray Interpretation: no fx Discharge Plan Discharge Clinical Impression: Back pain Patient Disposition: Home, Self-Care Instructions: Acute Low Back Pain (ED) Additional Instructions: Follow-up with your primary care physician, return if you worse, takes oxycodone as directed. Prescriptions: New oxycodone 5 mg capsule 5 mg PO Q8H PRN (Reason: pain) Qty: 12 0RF Rx Instructions: Partial Fill upon patient request. No Action glipizide 10 mg tablet 1 tab PO BID tamsulosin 0.4 mg capsule 1 cap PO BEDTIME aspirin 81 mg Tablet,Delayed Release (Dr/Ec) 81 mg PO DAILY Qty: 30 0RF Centrum Silver Men 300-600-300 mcg Tablet 1 tab PO DAILY ferrous sulfate 325 mg (65 mg iron) Tablet 325 mg PO DAILY Qty: 60 2RF cyanocobalamin (vitamin B-12) [Vitamin B-12] 1,000 mcg Tablet 1,000 mcg PO DAILY Qty: 90 3RF (DME) blood sugar diagnostic Strip See Rx Instructions Not Applicable DAILY Qty: 10 Rx Instructions: As directed rosuvastatin 40 mg tablet 40 mg PO DAILY lisinopril 5 mg tablet 5 mg PO DAILY metformin 1,000 mg tablet 1,000 mg PO BID Referrals: Calude Churchill DO [Primary Care Provider] - 2 days
[2022-04-24] MEDS: oxyCODONE HCl Immed Release 5 MG TABLET PO (12:04)
--- NOTE | 2022-04-24 12:04 | PC.NURSE ---
medicated per provider order, pt pending XR results.
--- NOTE | 2022-04-24 13:58 | PC.NURSE ---
attempting to coordinate Lyft transportation for pt, pt has no family who can pick him up and his friends who normally get him are out of town. nursing poultry processing supervisor contacted at [phone] - will coordinate transport.
--- NOTE | 2022-04-24 14:55 | PC.NURSE ---
per registration, pt witnessed being escorted out by staff member to [place], pt left w/o discharge paperwork, this nurse assisting w emergent pt.
--- NOTE | 2022-04-24 15:07 | PC.NURSE ---
security camera footage reviewed, pt escorted out by case management to wait for Lyft.
--- NOTE | 2022-04-24 15:22 | PC.NURSE ---
left voicemail on pts home phone reviewing discharge instructions.
--- NOTE | 2022-04-24 15:57 | MHC.CM.ED ---
Received call from RN produce department supervisor requesting assistance with pt Lyft transportation to home. She states pt does not have transportation to home and is medically cleared to leave. No CM consult ordered for pt. Lyft transport arranged: pt waiting in ED waiting lobby for [place] in a [employer]us.
== END 2022-04-24 15:09 | disposition home or self-care (01) ==
PROVIDERS: Emergency Provider Emergency Medicine; PCP Internal Medicine
DX: M54.50 Low back pain, unspecified (principal); E11.9 Type 2 diabetes mellitus without complications; I10 Essential (primary) hypertension; Z85.51 Personal history of malignant neoplasm of bladder; Z86.73 Personal history of transient ischemic attack (TIA), and cerebral infarction without residual deficits; Z87.891 Personal history of nicotine dependence; Z79.84 Long term (current) use of oral hypoglycemic drugs; Z79.899 Other long term (current) drug therapy; Z79.02 Long term (current) use of antithrombotics/antiplatelets; Z79.82 Long term (current) use of aspirin
CPT/HCPCS: 72100; 72170; 99283; 99284

== ENCOUNTER 2022-08-31 08:47 | Outpatient (REF) | payer MEDICARE, SELFPAY ==
[2022-08-31 17:19] LABS: Urine Cytology See Pathology rpt
== END 2022-08-31 08:48 | disposition home or self-care (01) ==
LOC: HO.LAB 08:47
PROVIDERS: PCP Internal Medicine; Visit Provider Urology
DX: C67.9 Malignant neoplasm of bladder, unspecified (principal); N40.0 Benign prostatic hyperplasia without lower urinary tract symptoms
CPT/HCPCS: 52000; 88112; 99212

== ENCOUNTER 2022-09-09 06:09 | Outpatient (REF) | payer MEDICARE, SELFPAY ==
[2022-09-09 09:09] LABS: MANUAL DIFF FLAG NO
[2022-09-09 09:22] LABS: Basophils Percent Auto 0.9 % (0-2); Eosinophils Absolute Auto 0.1 X10*3/uL (0.0-0.4); Eosinophils Percent Auto 1.9 % (0-4); Hematocrit 37.6 % (42.0-52.0); Hemoglobin 12.2 g/dl (14.0-18.0); Imm Gran Abs Auto 0.02 X10*3/uL (0.00-0.03); Imm Gran Pct Auto 0.4 % (0.0-0.4); Lymphocytes Absolute Auto 1.6 X10*3/uL (1.2-4.9); Lymphocytes Percent Auto 35.3 % (20-40); Mean Corpuscular HGB Conc 32.4 g/dl (31.0-36.0); Mean Corpuscular Hemoglobin 30.7 pg (27.0-33.0); Mean Corpuscular Volume 94.7 fL (80.0-98.0); Mean Platelet Volume 9.9 fL (9.4-12.4); Monocytes Absolute Auto 0.3 X10*3/uL (0.1-1.2); Monocytes Percent Auto 7.1 % (2-11); Neutrophils Absolute Auto 2.5 x10*3/uL (2.0-8.3); Neutrophils Percent Auto 54.4 % (45-73); Platelet Count 162 X10*3/uL (160-400); Red Blood Count 3.97 X10*6/uL (4.60-5.80); Red Cell Distribution Width 14.4 % (11.0-16.0); White Blood Count 4.7 X10*3/uL (4.8-10.8)
[2022-09-09 09:28] LABS: Estimated Average Glucose 174 mg/dL; Hemoglobin A1c % 7.7 %
[2022-09-09 09:39] LABS: Alanine Aminotransferase 28 U/L (0-40); Albumin Level 3.9 g/dL (3.5-5.0); Alkaline Phosphatase 64 U/L (39-117); Anion Gap 14 (12-20); Aspartate Amino Transferase 21 U/L (5-37); Bilirubin Total 0.5 mg/dL (0.0-1.0); Blood Urea Nitrogen 12 mg/dL (9-16); Calcium 9.5 mg/dL (8.4-10.2); Carbon Dioxide 26 mmol/L (22-29); Chloride 102 mmol/L (96-108); Estimated Glomerular Filt Rate > 60; Glucose Fasting 174 mg/dL (60-99); Potassium 4.5 mmol/L (3.3-5.1); Sodium 137 mmol/L (135-145); Total Protein 6.7 g/dL (6.5-8.0)
[2022-09-09 10:05] LABS: Prostate Specific Antigen 2.96 ng/mL (<0.05-4.0)
== END 2022-09-09 06:10 | disposition home or self-care (01) ==
LOC: HO.HMGCLDS 06:09
PROVIDERS: Absent Provider Urology; PCP Internal Medicine; Visit Provider Internal Medicine
DX: Z12.5 Encounter for screening for malignant neoplasm of prostate (principal); N13.8 Other obstructive and reflux uropathy; N40.1 Benign prostatic hyperplasia with lower urinary tract symptoms; E11.9 Type 2 diabetes mellitus without complications
CPT/HCPCS: 36415; 80053; 83036; 84153; 85025

== ENCOUNTER 2022-12-24 06:09 | Outpatient (REF) | payer MEDICARE, SELFPAY ==
[2022-12-24 11:09] LABS: MANUAL DIFF FLAG NO
[2022-12-24 11:33] LABS: Estimated Average Glucose 128 mg/dL; Hemoglobin A1c % 6.1 % (<6.0)
[2022-12-24 11:34] LABS: Basophils Percent Auto 0.9 % (0-2); Eosinophils Absolute Auto 0.2 X10*3/uL (0.0-0.4); Eosinophils Percent Auto 5.1 % (0-4); Hematocrit 39.9 % (42.0-52.0); Hemoglobin 12.3 g/dl (14.0-18.0); Imm Gran Abs Auto 0.01 X10*3/uL (0.00-0.03); Imm Gran Pct Auto 0.2 % (0.0-0.4); Lymphocytes Absolute Auto 1.3 X10*3/uL (1.2-4.9); Lymphocytes Percent Auto 28.1 % (20-40); Mean Corpuscular HGB Conc 30.8 g/dl (31.0-36.0); Mean Corpuscular Hemoglobin 29.9 pg (27.0-33.0); Mean Corpuscular Volume 97.1 fL (80.0-98.0); Mean Platelet Volume 9.5 fL (9.4-12.4); Monocytes Absolute Auto 0.4 X10*3/uL (0.1-1.2); Monocytes Percent Auto 7.7 % (2-11); Neutrophils Absolute Auto 2.7 x10*3/uL (2.0-8.3); Platelet Count 199 X10*3/uL (160-400); Red Blood Count 4.11 X10*6/uL (4.60-5.80); Red Cell Distribution Width 15.9 % (11.0-16.0); White Blood Count 4.7 X10*3/uL (4.8-10.8)
[2022-12-24 11:37] LABS: Alanine Aminotransferase 31 U/L (0-40); Albumin Level 3.9 g/dL (3.5-5.0); Alkaline Phosphatase 51 U/L (39-117); Anion Gap 14 (12-20); Aspartate Amino Transferase 25 U/L (5-37); Bilirubin Total 0.4 mg/dL (0.0-1.0); Blood Urea Nitrogen 12 mg/dL (9-16); Calcium 9.4 mg/dL (8.4-10.2); Carbon Dioxide 24 mmol/L (22-29); Chloride 105 mmol/L (96-108); Cholesterol 131 mg/dL (<200); Estimated Glomerular Filt Rate > 60; Glucose Fasting 141 mg/dL (60-99); HDL Cholesterol 43 mg/dL (>40); LDL Cholesterol Calculated 60 mg/dL (<100); Potassium 4.4 mmol/L (3.3-5.1); Sodium 139 mmol/L (135-145); Total Protein 6.7 g/dL (6.5-8.0); Triglycerides 140 mg/dL (<150)
[2022-12-24 11:42] LABS: Appearance Urine Clear; Color Urine Yellow; Glucose Urine UA 250 mg/dL (Negative); Leukocyte Esterase Urine Negative (Negative); Nitrite Urine Negative (Negative); PH 5.5 (5.0-9.0); Urine Blood Negative (Negative); Urine Ketones Negative (Negative); Urine Protein Trace mg/dL (Neg-Trace)
[2022-12-24 12:01] LABS: Bacteria Urine None Seen (None Seen); Calcium Oxalate Crystals Urine Present; Hyaline Casts Urine 0-2 /LPF (0-2); RBC Urine 0-2 /HPF (0-2); Squamous Epithelial Cell Urine 0-2 /HPF (0-2); WBC Urine 0-5 /HPF (0-5)
[2022-12-24 12:07] LABS: Microalbum/Creatinine Ratio Ur 24.4 ug/mg cr (<30)
== END 2022-12-24 06:10 | disposition home or self-care (01) ==
LOC: HO.HMGCLDS 06:09
PROVIDERS: PCP Internal Medicine; Visit Provider Internal Medicine
DX: E11.9 Type 2 diabetes mellitus without complications (principal); E78.00 Pure hypercholesterolemia, unspecified; N40.0 Benign prostatic hyperplasia without lower urinary tract symptoms; D64.9 Anemia, unspecified; Z86.73 Personal history of transient ischemic attack (TIA), and cerebral infarction without residual deficits
CPT/HCPCS: 36415; 80053; 80061; 81001; 82043; 82570; 83036; 85025

== ENCOUNTER 2022-12-30 09:03 | Outpatient (REF) | payer MEDICARE, SELFPAY | END 2022-12-30 09:04 | disposition home or self-care (01) | LOC: HO.HMGCX 09:03 | PROVIDERS: PCP Internal Medicine; Visit Provider Internal Medicine | DX: M23.91 Unspecified internal derangement of right knee (principal); M25.562 Pain in left knee; M79.672 Pain in left foot | CPT/HCPCS: 73560; 73630 ==

== ENCOUNTER 2023-05-11 06:02 | Outpatient (REF) | payer MEDICARE, SELFPAY ==
[2023-05-11 11:30] LABS: Appearance Urine Clear; Color Urine Yellow; Glucose Urine UA >=1000 mg/dL (Negative); Leukocyte Esterase Urine Negative (Negative); Nitrite Urine Negative (Negative); Specific Gravity - Urine >= 1.030 (1.005-1.025); UMIC TRIGGER UA YES; Urine Blood Negative (Negative); Urine Ketones Negative (Negative); Urine Protein Trace mg/dL (Neg-Trace)
[2023-05-11 11:34] LABS: Bacteria Urine None Seen (None Seen); Hyaline Casts Urine 0-2 /LPF (0-2); RBC Urine 0-2 /HPF (0-2); Squamous Epithelial Cell Urine 0-2 /HPF (0-2); WBC Urine 0-5 /HPF (0-5)
[2023-05-11 11:38] LABS: MANUAL DIFF FLAG NO
[2023-05-11 11:50] LABS: Basophils Percent Auto 0.7 % (0-2); Eosinophils Absolute Auto 0.1 X10*3/uL (0.0-0.4); Eosinophils Percent Auto 2.6 % (0-4); Hematocrit 42.5 % (42.0-52.0); Hemoglobin 14.2 g/dl (14.0-18.0); Imm Gran Abs Auto 0.01 X10*3/uL (0.00-0.03); Imm Gran Pct Auto 0.2 % (0.0-0.4); Lymphocytes Absolute Auto 1.3 X10*3/uL (1.2-4.9); Lymphocytes Percent Auto 30.8 % (20-40); Mean Corpuscular HGB Conc 33.4 g/dl (31.0-36.0); Mean Corpuscular Hemoglobin 31.6 pg (27.0-33.0); Mean Corpuscular Volume 94.7 fL (80.0-98.0); Monocytes Absolute Auto 0.4 X10*3/uL (0.1-1.2); Monocytes Percent Auto 8.2 % (2-11); Neutrophils Absolute Auto 2.5 x10*3/uL (2.0-8.3); Neutrophils Percent Auto 57.5 % (45-73); Platelet Count 160 X10*3/uL (160-400); Red Blood Count 4.49 X10*6/uL (4.60-5.80); Red Cell Distribution Width 13.9 % (11.0-16.0); White Blood Count 4.3 X10*3/uL (4.8-10.8)
[2023-05-11 11:55] LABS: Estimated Average Glucose 263 mg/dL; Hemoglobin A1c % 10.8 % (<6.0)
[2023-05-11 12:27] LABS: Alanine Aminotransferase 29 U/L (0-40); Albumin Level 3.8 g/dL (3.5-5.0); Alkaline Phosphatase 83 U/L (39-117); Anion Gap 12 (12-20); Aspartate Amino Transferase 22 U/L (5-37); Bilirubin Total 0.5 mg/dL (0.0-1.0); Blood Urea Nitrogen 20 mg/dL (9-16); Calcium 9.5 mg/dL (8.4-10.2); Carbon Dioxide 28 mmol/L (22-29); Chloride 98 mmol/L (96-108); Cholesterol 180 mg/dL (<200); Estimated Glomerular Filt Rate 49; HDL Cholesterol 36 mg/dL (>40); LDL Cholesterol Calculated 88 mg/dL (<100); Potassium 4.3 mmol/L (3.3-5.1); Sodium 134 mmol/L (135-145); Total Protein 6.8 g/dL (6.5-8.0); Triglycerides 281 mg/dL (<150)
[2023-05-11 12:29] LABS: Microalbum/Creatinine Ratio Ur 29.9 ug/mg cr (<30)
[2023-05-11 13:06] LABS: Glucose Fasting 360 mg/dL (60-99)
== END 2023-05-11 06:03 | disposition home or self-care (01) ==
LOC: HO.HMGCLDS 06:02
PROVIDERS: PCP Internal Medicine; Visit Provider Internal Medicine
DX: E11.9 Type 2 diabetes mellitus without complications (principal); E78.00 Pure hypercholesterolemia, unspecified
CPT/HCPCS: 36415; 80053; 80061; 81001; 82043; 82570; 83036; 85025

== ENCOUNTER 2023-06-20 06:01 | Outpatient (REF) | payer MEDICARE, SELFPAY ==
[2023-06-20 11:18] LABS: MANUAL DIFF FLAG NO
[2023-06-20 11:29] LABS: Basophils Percent Auto 0.7 % (0-2); Eosinophils Absolute Auto 0.1 X10*3/uL (0.0-0.4); Eosinophils Percent Auto 2.2 % (0-4); Hematocrit 42.2 % (42.0-52.0); Hemoglobin 13.7 g/dl (14.0-18.0); Imm Gran Abs Auto 0.01 X10*3/uL (0.00-0.03); Imm Gran Pct Auto 0.2 % (0.0-0.4); Lymphocytes Absolute Auto 1.7 X10*3/uL (1.2-4.9); Lymphocytes Percent Auto 30.1 % (20-40); Mean Corpuscular HGB Conc 32.5 g/dl (31.0-36.0); Mean Corpuscular Hemoglobin 31.4 pg (27.0-33.0); Mean Corpuscular Volume 96.8 fL (80.0-98.0); Mean Platelet Volume 9.3 fL (9.4-12.4); Monocytes Absolute Auto 0.4 X10*3/uL (0.1-1.2); Monocytes Percent Auto 7.2 % (2-11); Neutrophils Absolute Auto 3.3 x10*3/uL (2.0-8.3); Neutrophils Percent Auto 59.6 % (45-73); Platelet Count 173 X10*3/uL (160-400); Red Blood Count 4.36 X10*6/uL (4.60-5.80); Red Cell Distribution Width 14.3 % (11.0-16.0); White Blood Count 5.6 X10*3/uL (4.8-10.8)
[2023-06-20 11:35] LABS: Estimated Average Glucose 229 mg/dL; Hemoglobin A1c % 9.6 % (<6.0)
[2023-06-20 12:13] LABS: Appearance Urine Clear; Color Urine Yellow; Glucose Urine UA >=1000 mg/dL (Negative); Leukocyte Esterase Urine Negative (Negative); Nitrite Urine Negative (Negative); Specific Gravity - Urine >= 1.030 (1.005-1.025); UMIC TRIGGER UA YES; Urine Blood Negative (Negative); Urine Ketones Negative (Negative); Urine Protein 30 (1+) mg/dL (Neg-Trace)
[2023-06-20 12:29] LABS: Bacteria Urine None Seen (None Seen); Calcium Oxalate Crystals Urine Present; RBC Urine 0-2 /HPF (0-2); WBC Urine 0-5 /HPF (0-5)
[2023-06-20 12:49] LABS: Alanine Aminotransferase 25 U/L (0-40); Alkaline Phosphatase 72 U/L (39-117); Anion Gap 12 (12-20); Aspartate Amino Transferase 20 U/L (5-37); Bilirubin Total 0.4 mg/dL (0.0-1.0); Blood Urea Nitrogen 24 mg/dL (9-16); Carbon Dioxide 27 mmol/L (22-29); Chloride 102 mmol/L (96-108); Estimated Glomerular Filt Rate 40; Glucose Fasting 193 mg/dL (60-99); Sodium 137 mmol/L (135-145); Total Protein 6.9 g/dL (6.5-8.0)
== END 2023-06-20 06:02 | disposition home or self-care (01) ==
LOC: HO.HMGCLDS 06:01
PROVIDERS: PCP Internal Medicine; Visit Provider Internal Medicine
DX: E11.9 Type 2 diabetes mellitus without complications (principal); E78.00 Pure hypercholesterolemia, unspecified; N40.0 Benign prostatic hyperplasia without lower urinary tract symptoms; D64.9 Anemia, unspecified
CPT/HCPCS: 36415; 80053; 81001; 83036; 85025

== ENCOUNTER 2023-09-01 08:44 | Outpatient (REF) | payer MEDICARE, SELFPAY | END 2023-09-01 08:45 | disposition home or self-care (01) | LOC: HO.LAB 08:44 | PROVIDERS: PCP Internal Medicine; Visit Provider Urology | DX: C67.9 Malignant neoplasm of bladder, unspecified (principal); N40.0 Benign prostatic hyperplasia without lower urinary tract symptoms | CPT/HCPCS: 52000; 81003; 99212 ==

== ENCOUNTER 2023-09-01 08:44 | Outpatient (AMB) | payer MEDICARE, SELFPAY ==
--- NOTE | 2023-09-01 09:09 | MHC.OFFVIS ---
Intake Visit Reasons: 1Y Cysto Intake Note: Patient is Present for Cystoscopy Urology Med: None Antibiotic Allergy:None Blood Thinner: Aspirin URO- G Disposable Cystoscope lot: [id number] exp:04/28/2026 Allergies atorvastatin [Lipitor] Allergy (Unknown, Verified 09/01/23 09:10) rash From LIPITOR Allergy (Unknown, Uncoded 09/01/23 09:10) RASH HPI Comments Details: Prakash is a pleasant male. He is a patient of Dr. Churchill. He is seen for following urologic conditions - lower urinary tract symptoms - bladder cancer Here for cystoscopy Negative Has regrowth prostate 12m f/u UA 3+ glucose indicative of average sugar over 160 Bladder cancer low-grade Diagnosed in 2015 TURBT low-grade bladder cancer Cystoscopy 09/16 NAD, regrowth prostate mild - 09/17 prostatic regrowth left side, moderate to severe trabeculation, small diverticulum Continues with yearly surveillance cystoscopy Lower urinary tract symptoms Prior TURP Repeat laser prostatectomy 06/15 with removal of bladder stone Elevated PSA 2018 4.6 02/15 2.9, 09/17 3.0 PFSH Medical History CVA (cerebral vascular accident) BPH (benign prostatic hyperplasia) H/O: HTN (hypertension) Diabetes mellitus Surgical History History of bladder surgery Hx of knee surgery H/O inguinal hernia repair Family History Father Lung cancer Heart attack Social History Household Members: None Housing: House Do you presently have visiting nurse or other home services: No Alcohol intake: never Patient Tobacco Use Status: Former Tobacco user Tobacco use type: Cigarette Cigarette Packs Per Day: 1.5 service: Yes Current occupational status: retired Review of Systems Const Denies chills and Denies fever(s) Card Reports no additional complaints and Denies syncope Resp Denies cough GI Denies abdominal pain and Denies heartburn Reports as per HPI and Denies change in libido Neuro Denies syncope Psych Denies change in libido Endo Denies change in libido Physical Exam Const General: cooperative, healthy appearing, comfortable and no acute distress Orientation/consciousness: patient oriented x3 HEENT Face and sinus: Yes normal facial exam Mouth: moist mucous membranes Neck Neck: Yes normal visual inspection, Yes full ROM and Yes trachea midline Chest Chest palpation & inspection: normal inspection of the chest Resp Effort & Inspection: normal respiratory effort, able to speak in complete sentences and no respiratory distress GI Inspection: Yes normal to inspection Back/Spine/Pelvis Cervical Spine: normal cervical lordosis Thoracic/Lumbar Spine: thoracic and lumbar spine normal to inspection Skin General skin exam: no rashes or lesions noted Neuro General: patient oriented x3, gait normal, tone normal and moves all extremities Extrem General: Yes normal to inspection and Yes capillary refill normal Office Procedures Cystoscopy Consent Discussed risk and benefit or proposed procedure with the patient. Information consent for procedure given to the patient. Discussed technical aspects, risks, benefits and alternatives in full. Addressed all of the patient's questions and concerns regarding the procedure. The patient demonstrated knowledge and understanding. They wish to proceed with this procedure. Preparation The patient was prepped in the usual manner. A pipe fitter helper was present and in the room. Genitalia was prepped with betadine solution in a sterile manner. Lidocaine Jelly 2% was placed into the urethra and 16Fr flexible Olympus cystoscope was inserted into the meatus after adequate lubrication. Procedure Cystoscopy performed using a disposable Urovue digital 16 Guamanian cystoscope. Meatus circumcised Urethra anterior-posterior urethra normal Prostatic Urethra regrowth Bladder examination with retroflexion of cystoscope Bladder Orifices normal shape and position Bladder Capacity normal Trabeculations grade 2 Cellule Formation yes Diverticulum Formation - Mucosal Erythema - Bladder Tumor - 43372-Kghrupeafv DISPOSABLE SCOPE URO-G FLEXIBLE SCOPE Procedure code (CPT) selection complete Office Meds lidocaine HCl 2 % mucosal jelly in applicator Performing Provider: He Andersen MD Performing Location: [facility] Administered by: Landon Travis LPN on 09/01/23 09:27 Dose Route Admin Location Dispensed Lot Number Expiration Date [facility] Licensed Nursing Assistant 10 mL intra-urethral 10 mL nitrofurantoin monohydrate/macrocrystals 100 mg capsule Performing Provider: He Andersen MD Performing Location: [facility] Administered by: Landon Travis LPN on 09/01/23 09:27 Dose Route Admin Location Dispensed Lot Number Expiration Date [facility] Licensed Nursing Assistant 100 mg PO 1 cap naproxen 500 mg tablet Performing Provider: He Andersen MD Performing Location: [facility] Administered by: Landon Travis LPN on 09/01/23 09:27 Dose Route Admin Location Dispensed Lot Number Expiration Date [facility] Licensed Nursing Assistant 500 mg PO 1 tab Results AMB Urinalysis, Automated UA Leukoctes 0 Kathrine/uL Last Edit by NAYELI Casey on 09/01/23 09:22 UA Nitrite Negative Last Edit by NAYELI Casey on 09/01/23 09:22 UA Urobilinogen 0.2 mg/dL Last Edit by NAYELI Casey on 09/01/23 09:22 UA Protein 15 mg/dL Last Edit by NAYELI Casey on 09/01/23 09:22 UA pH 5.0 Last Edit by BIJAN CaseyA on 09/01/23 09:22 UA Blood 0 Juan R/uL Last Edit by NAYELI Casey on 09/01/23 09:22 UA Specific Alden 1.015 Last Edit by NAYELI Casey on 09/01/23 09:22 UA Ketone Negative Last Edit by NAYELI Casey on 09/01/23 09:22 UA Bilirubin 0 mg/dL Last Edit by BIJAN CaseyA on 09/01/23 09:22 UA Glucose 1000 mg/dL Last Edit by NAYELI Casey on 09/01/23 09:22 Results Reviewed Results Reviewed: Laboratory Last Values Urine pH (Auto) 5.0 09/01/23 09:10 Specific Alden (Auto) 1.015 09/01/23 09:10 Urine Protein (Auto) 15 mg/dL 09/01/23 09:10 Glucose (UA)(Auto) 1000 mg/dL 09/01/23 09:10 Urine Ketones (Auto) Negative 09/01/23 09:10 Urine Blood (Auto) 0 Juan R/uL 09/01/23 09:10 Urine Nitrite (Auto) Negative 09/01/23 09:10 Urine Bilirubin (Auto) 0 mg/dL 09/01/23 09:10 Urine Urobilinogen (Auto) 0.2 mg/dL 09/01/23 09:10 Leukocyte Esterase (Auto) 0 Kathrine/uL 09/01/23 09:10 Assessment & Plan Assessment & Plan (1) Bladder cancer: Code(s): C67.9 - Malignant neoplasm of bladder, unspecified Category: Medical (2) BPH (benign prostatic hyperplasia): Code(s): N40.0 - Benign prostatic hyperplasia without lower urinary tract symptoms Category: Medical Plan Twelve month follow-up cysto Orders: Orders AMB Urinalysis Automated Today Z13.9 - Encounter for screening, unspecified FISH Bladder Cancer Today C67.9 - Malignant neoplasm of bladder, unspecified AMB Cystoscopy Today C67.9 - Malignant neoplasm of bladder, unspecified Patient Instructions: Imaging studies, laboratory and physical exam results were discussed and reviewed in detail. No major barriers to patient understanding were identified. An opportunity to ask questions regarding the treatment plan was provided. All questions were answered. The patient expressed understanding and agreement with the above treatment plan. The patient is aware they should contact our office by phone for worsening of their current condition or the appearance of new urologic symptoms. Compliance is encouraged with any medications and followup testing that is ordered. It is a privilege to participate in the urologic care of your patient. If you have any questions or concerns regarding treatment for the above conditions, or other urologic issues, please do not hesitate to contact me. The office telephone contact is [phone]. This note is constructed using voice recognition software. While every effort has been made to ensure accuracy chief investment officer errors may have been included. Yours sincerely, Dr He Andersen MD, [facility] - Urology Providers of Expert, Compassionate Care for the Genitourinary System Coding Level of Care Code Est Pt Level 4 (67834) Diagnoses Bladder cancer C67.9 BPH (benign prostatic hyperplasia) N40.0 CPT Codes Cystoscopy - CPT: 42239-Irmgoxggow ([id number])
== END 2023-09-01 09:48 | disposition home or self-care (01) ==
PROVIDERS: PCP Internal Medicine; Visit Provider Urology
DX: C67.9 Malignant neoplasm of bladder, unspecified (principal); N40.0 Benign prostatic hyperplasia without lower urinary tract symptoms; Z13.9 Encounter for screening, unspecified
CPT/HCPCS: 52000; 99213

== ENCOUNTER 2023-09-01 09:59 | Outpatient (REF) | payer MEDICARE, SELFPAY ==
[2023-09-01 11:41] LABS: PSA,Total (Free>4and<10) 3.55 ng/mL (0.00-4.00)
== END 2023-09-01 10:00 | disposition home or self-care (01) ==
LOC: HO.10HDL 09:59
PROVIDERS: Visit Provider Urology
DX: N40.0 Benign prostatic hyperplasia without lower urinary tract symptoms (principal); C67.9 Malignant neoplasm of bladder, unspecified; Z12.5 Encounter for screening for malignant neoplasm of prostate; Z13.9 Encounter for screening, unspecified
CPT/HCPCS: 36415; 84153; 88121

== ENCOUNTER 2023-09-28 06:04 | Outpatient (REF) | payer MEDICARE, SELFPAY ==
[2023-09-28 10:17] LABS: Appearance Urine Clear; Color Urine Yellow; Glucose Urine UA >=1000 mg/dL (Negative); Leukocyte Esterase Urine Negative (Negative); Nitrite Urine Negative (Negative); Specific Gravity - Urine 1.015 (1.005-1.025); UMIC TRIGGER UA YES; Urine Blood Negative (Negative); Urine Ketones Negative (Negative); Urine Protein Negative (Neg-Trace)
[2023-09-28 10:22] LABS: Bacteria Urine None Seen (None Seen); Hyaline Casts Urine 0-2 /LPF (0-2); RBC Urine 0-2 /HPF (0-2); Squamous Epithelial Cell Urine 0-2 /HPF (0-2); WBC Urine 0-5 /HPF (0-5)
[2023-09-28 10:46] LABS: Estimated Average Glucose 309 mg/dL; Hemoglobin A1c % 12.4 % (<6.0)
[2023-09-28 11:05] LABS: Alanine Aminotransferase 25 U/L (0-40); Albumin Level 3.9 g/dL (3.5-5.0); Alkaline Phosphatase 76 U/L (39-117); Anion Gap 10 (12-20); Aspartate Amino Transferase 18 U/L (5-37); Bilirubin Total 0.5 mg/dL (0.0-1.0); Blood Urea Nitrogen 17 mg/dL (9-16); Carbon Dioxide 27 mmol/L (22-29); Chloride 99 mmol/L (96-108); Estimated Glomerular Filt Rate 51; Glucose Fasting 313 mg/dL (60-99); Potassium 4.1 mmol/L (3.3-5.1); Sodium 132 mmol/L (135-145); Total Protein 6.6 g/dL (6.5-8.0)
[2023-09-28 11:16] LABS: Creatinine Urine 72.66 mg/dL; Microalbum/Creatinine Ratio Ur 20.6 ug/mg cr (<30)
--- NOTE | 2023-10-20 14:17 | PM.CNNEP ---
History of Present Illness Reason for Consult Consult date: 10/20/23 Reason for consult: CKD 3, DM, HTN Chief Complaint Chief complaint: E11.9 History of Present Illness Narrative: [facility] renal PT that I hae been seeing for years with stable CKD 3a Full note in our office Any renal ques call my office or TTex me [facility] Past Medical History Medical History CVA (cerebral vascular accident) BPH (benign prostatic hyperplasia) H/O: HTN (hypertension) Diabetes mellitus Family History Family History Father Lung cancer Heart attack Surgical History Surgical History History of bladder surgery Hx of knee surgery H/O inguinal hernia repair Social History Social History Household Members: None Housing: House Do you presently have visiting nurse or other home services: No Alcohol intake: never Patient Tobacco Use Status: Former Tobacco user Tobacco use type: Cigarette Cigarette Packs Per Day: 1.5 service: Yes Current occupational status: retired Meds Allergies Allergy/AdvReac Type Severity Reaction Status Date / Time atorvastatin [Lipitor] Allergy Unknown rash Verified 09/01/23 09:10 From LIPITOR Allergy Unknown RASH Uncoded 09/01/23 09:10 Home Medications ?Medication ?Instructions ?Recorded ?Confirmed ?Last Taken ?Type glipizide 10 mg tablet 1 tab PO BID 04/22/20 07/14/22 04/21/20 History tamsulosin 0.4 mg capsule 1 cap PO BEDTIME 04/22/20 07/14/22 04/21/20 History blood sugar diagnostic #10 ea 06/27/20 07/14/22 Unknown History lisinopril 5 mg tablet 5 mg PO DAILY 08/22/20 07/14/22 Unknown History metformin 1,000 mg tablet 1,000 mg PO BID 08/22/20 07/14/22 Unknown History rosuvastatin 40 mg tablet 40 mg PO DAILY 08/22/20 07/14/22 Unknown History zrrqjxld-ep-ecitl 300 mcg-K 60 1 tab PO DAILY 10/25/21 04/19/23 Unknown History mcg-lycop 600 mcg-lutein 300 mcg tablet (Centrum Silver Men) Results Lab Results 09/28/23 06:21 Procedures Date of Service Date of Service: 10/20/23
== END 2023-09-28 06:05 | disposition home or self-care (01) ==
LOC: HO.HMGCLDS 06:04
PROVIDERS: PCP Internal Medicine; Visit Provider Internal Medicine
DX: E11.9 Type 2 diabetes mellitus without complications (principal)
CPT/HCPCS: 36415; 80053; 81001; 82043; 82570; 83036

== ENCOUNTER 2024-03-16 06:03 | Outpatient (REF) | payer MEDICARE, SELFPAY ==
[2024-03-16 10:54] LABS: Appearance Urine Clear; Color Urine Yellow; Glucose Urine UA 500 mg/dL (Negative); Leukocyte Esterase Urine Negative (Negative); Nitrite Urine Negative (Negative); PH 5.5 (5.0-9.0); Urine Blood Negative (Negative); Urine Ketones Negative (Negative); Urine Protein Negative (Neg-Trace)
[2024-03-16 10:55] LABS: MANUAL DIFF FLAG NO
[2024-03-16 11:03] LABS: Basophils Absolute Auto 0.1 X10*3/uL (0.0-0.2); Eosinophils Absolute Auto 0.3 X10*3/uL (0.0-0.4); Eosinophils Percent Auto 5.7 % (0-4); Hematocrit 40.7 % (42.0-52.0); Hemoglobin 12.9 g/dl (14.0-18.0); Imm Gran Abs Auto 0.01 X10*3/uL (0.00-0.03); Imm Gran Pct Auto 0.2 % (0.0-0.4); Lymphocytes Absolute Auto 1.1 X10*3/uL (1.2-4.9); Lymphocytes Percent Auto 23.2 % (20-40); Mean Corpuscular HGB Conc 31.7 g/dl (31.0-36.0); Mean Corpuscular Hemoglobin 29.5 pg (27.0-33.0); Mean Corpuscular Volume 93.1 fL (80.0-98.0); Mean Platelet Volume 9.3 fL (9.4-12.4); Monocytes Absolute Auto 0.5 X10*3/uL (0.1-1.2); Monocytes Percent Auto 9.2 % (2-11); Neutrophils Percent Auto 60.7 % (45-73); Platelet Count 199 X10*3/uL (160-400); Red Blood Count 4.37 X10*6/uL (4.60-5.80); Red Cell Distribution Width 14.9 % (11.0-16.0); White Blood Count 4.9 X10*3/uL (4.8-10.8)
[2024-03-16 11:06] LABS: Bacteria Urine None Seen (None Seen); Calcium Oxalate Crystals Urine Present; Hyaline Casts Urine 0-2 /LPF (0-2); RBC Urine 0-2 /HPF (0-2); Squamous Epithelial Cell Urine 0-2 /HPF (0-2); WBC Urine 0-5 /HPF (0-5)
[2024-03-16 11:41] LABS: Alanine Aminotransferase 36 U/L (0-40); Albumin Level 3.9 g/dL (3.5-5.0); Alkaline Phosphatase 77 U/L (39-117); Anion Gap 12 (12-20); Aspartate Amino Transferase 31 U/L (5-37); Bilirubin Total 0.5 mg/dL (0.0-1.0); Blood Urea Nitrogen 22 mg/dL (9-16); Calcium 10.1 mg/dL (8.4-10.2); Carbon Dioxide 28 mmol/L (22-29); Chloride 105 mmol/L (96-108); Cholesterol 153 mg/dL (<200); Estimated Glomerular Filt Rate 58; Glucose Fasting 155 mg/dL (60-99); HDL Cholesterol 35 mg/dL (>40); LDL Cholesterol Calculated 82 mg/dL (<100); Potassium 4.3 mmol/L (3.3-5.1); Sodium 141 mmol/L (135-145); Thyroid Stimulating Hormone 2.55 uIU/mL (0.32-4.0); Total Protein 7.2 g/dL (6.5-8.0); Triglycerides 182 mg/dL (<150)
[2024-03-16 11:53] LABS: Creatinine Urine 92.37 mg/dL; Microalbum/Creatinine Ratio Ur 18.4 ug/mg cr (<30)
[2024-03-16 12:31] LABS: Estimated Average Glucose 192 mg/dL; Hemoglobin A1C 224.8949 umol/L; Hemoglobin A1c % 8.3 % (<6.0); Total Hemoglobin (HGBA1C) 3350.1403 umol/L
== END 2024-03-16 06:04 | disposition home or self-care (01) ==
LOC: HO.HMGCLDS 06:03
PROVIDERS: PCP Internal Medicine; Visit Provider Internal Medicine
DX: E11.65 Type 2 diabetes mellitus with hyperglycemia (principal); E78.00 Pure hypercholesterolemia, unspecified; N40.0 Benign prostatic hyperplasia without lower urinary tract symptoms; Z86.73 Personal history of transient ischemic attack (TIA), and cerebral infarction without residual deficits; D64.9 Anemia, unspecified
CPT/HCPCS: 36415; 80053; 80061; 81001; 82043; 82570; 83036; 84443; 85025

== ENCOUNTER → 2024-05-02 10:29 | Outpatient (BNVA) | payer MEDICARE, SELFPAY | PROVIDERS: PCP Internal Medicine; Visit Provider Physician Assistant Medical | DX: R00.0 Tachycardia, unspecified (principal); R06.02 Shortness of breath; E11.9 Type 2 diabetes mellitus without complications; I63.81 Other cerebral infarction due to occlusion or stenosis of small artery; N40.0 Benign prostatic hyperplasia without lower urinary tract symptoms; C67.9 Malignant neoplasm of bladder, unspecified; E53.8 Deficiency of other specified B group vitamins; D64.9 Anemia, unspecified; E55.9 Vitamin D deficiency, unspecified; E78.00 Pure hypercholesterolemia, unspecified; N20.0 Calculus of kidney; K21.9 Gastro-esophageal reflux disease without esophagitis; M54.12 Radiculopathy, cervical region; M50.90 Cervical disc disorder, unspecified, unspecified cervical region; D36.9 Benign neoplasm, unspecified site | CPT/HCPCS: 99202 ==

== ENCOUNTER 2024-06-06 09:26 | Outpatient (AMB) | payer MEDICARE, SELFPAY ==
--- NOTE | 2024-06-06 09:33 | MHC.OFFWIV ---
Intake Vital Signs 06/06/24 09:34 Weight 180 lb BP 120/72 Blood Pressure Location Lt brachial Position Sitting Pulse 102 H Pulse Source Pulse Oximeter Pulse Oximetry (%) 96 Oxygen Delivery Method Room Air Intake Visit Reasons: EP-?b/l ears block Intake Note: Patient here for bilat ears blocked. Patient Tobacco Use Status: Former Tobacco user Allergies atorvastatin [Lipitor] Allergy (Unknown, Verified 06/06/24 09:45) rash From LIPITOR Allergy (Unknown, Uncoded 06/06/24 09:45) RASH Do you need a note to return to daycare/school/sports/work: No HPI HPI Comments History of Present Illness Details Pt is a 78yo M who presents with ear blockage Ongoing x weeks No pain, 0/10 Hx of cerumen impaction No other complaints Tried to since himself without relief PFSH Medical History Sinus tachycardia Shortness of breath on exertion Multiple rib fractures Cervical radiculopathy Cervical disc disease Tubular adenoma Leukopenia GERD (gastroesophageal reflux disease) Renal lithiasis Hypotestosteronism Vitamin D deficiency Mild hypercholesterolemia Type 2 diabetes mellitus CVA (cerebral vascular accident) BPH (benign prostatic hyperplasia) H/O: HTN (hypertension) Diabetes mellitus Surgical History History of bladder surgery Hx of knee surgery H/O inguinal hernia repair Family History Father Lung cancer Heart attack Social History Household Members: None Housing: House Do you presently have visiting nurse or other home services: No Alcohol intake: never Patient Tobacco Use Status: Former Tobacco user Tobacco use type: Cigarette Cigarette Packs Per Day: 1.5 service: Yes Current occupational status: retired Review of Systems Const Denies chills and Denies fever(s) ENT Denies otalgia (+ blocked), Denies nasal congestion and Denies sore throat Resp Denies cough Physical Exam Vital Signs: Last Vital Signs Pulse 102 H 06/06/24 09:34 BP 120/72 06/06/24 09:34 Pulse Ox 96 06/06/24 09:34 Oxygen Delivery Method Room Air 06/06/24 09:34 Office Procedures Cerumen Removal Details: verbal consent obtained. Curette first used to remove cerumen Then both sides were irrigated. Canals clear. Pt tolerated well without complication. No TM erythema or perforation From which ear canal was the cerumen removed: bilateral Removal: otoscope w/curette and cerumen loop/spoon Notes: patient tolerated procedure well [id number] Irrigation/Lavage Assessment & Plan Assessment & Plan (1) Impacted cerumen of both ears: Code(s): H61.23 - Impacted cerumen, bilateral Plan: see procedure note Pt tolerated well without complication We discussed monthly use of debrox to help Coding Level of Care Code Est Pt Level 3 (43911) Diagnoses Impacted cerumen of both ears H61.23 CPT Codes Office Procedure - CPT: 45624-Don Irrigation/Lavage ([id number])
[2024-06-06 09:34] VITALS: BP 120/72; PULSE 102; O2SAT 96
--- OUTSIDE RECORDS SUMMARY | 2024-06-06 10:17 | XMS_ITS | Clinical Summary ---
Author Organization [facility] Address [address] [facility] [address] [place] [address] Phone Care Team Providers Care Journeyman Carpenter Name Role Phone Claude Churchill DO Primary Care Provider Allergies Active Allergy Reactions Criticality Noted Date Comments Atorvastatin Rash,Other (see comments) Low 06/14/19 21 Medications tamsulosin (FLOMAX) 0.4 MG 24 hr capsule 1 Active rosuvastatin (CRESTOR) 40 MG tablet 1 Active metFORMIN (GLUCOPHAGE) 1000 MG tablet 2 (two) times a day with meals 1 Active lisinopril (PRINIVIL,ZESTR IL) 5 MG tablet 1 Active OneTouch Ultra test strip 1 Active glipiZIDE (GLUCOTROL) 10 MG tablet 5 mg in the morning and 5 mg in the evening. 1 Active Cyanocobalamin (B-12) 1000 MCG sublingual tablet Take 1 tablet by mouth 1 (one) time each day 1 Active aspirin (ST GUILHERME) 81 MG EC tablet Take 81 mg by mouth 1 (one) time each day Active ferrous sulfate 325 (65 Fe) MG tablet Take 325 mg by mouth 1 (one) time each day with breakfast Active Active Problems Problem Noted Date Diagnosed Date Stage 3a chronic kidney disease 10/20/2023 Type 2 diabetes mellitus without complication Dyspnea 09/29/2022 Benign prostatic hyperplasia without outflow obs truction 09/29/2022 History of cerebrovascular a ccident without residual deficits 09/29/2022 Chronic kidney disease, stage 2 (mild) 3 Renal osteodystrophy 01/28/2021 Acute nontraumatic kidney injury 06/13/2020 Anemia 06/13/2020 Vitamin B12 deficiency 06/13/2020 Type 2 diabetes mellitus wit h diabetic autonomic (poly)neuropathy 06/13/2020 Hypercholesterolemia 06/13/2020 Elevated prostate specific antigen (PSA) 021 Stage 3a chronic kidney disease 06/13/2020 Type 2 diabetes mellitus wit h diabetic chronic kidney disease 06/13/2020 Immunizations Name Administration Dates Next Due Influenza Split High Dose Pr eservative Free IM 12/18/2018,12/29/2017,12/02/2016,01/15,12/25/2014 Influenza, Quadrivalent, Pre servative Free 12/11/2019 Influenza, Unspecified 12/16/2013,2012,12/14/2011,12/24 Pfizer SARS-COV-2 08/12/2020,07/22/2020 Pneumococcal Polysaccharide 06/14/2012, 0 Td 06/14/2012 Zoster 12/31/2012 Family History Medical History Relation Comments Cancer Father Relation Status Comments Father Social History Tobacco Use Types Packs/Day Years Used Date Smoking Tobacco: Never Smokeless Tobacco: Never Tobacco Cessation:Counseling Given: Not Answered Alcohol Use Standard Drinks/Week Comments Yes 0 (1 standard drink = 0.6 oz pur e alcohol) occationally Sex and Gender Information Value Date Recorded Sex Assigned at Not on file Legal Sex Male 3:43 PM EST Gender Identity Not on file Sexual Orientation Not on file Last Filed Vital Signs Vital Sign Reading Time Taken Comments Blood Pressure 118/62 10/20/2023 11:17 AM EDT Pulse 102 10/20/2023 11:17 AM EDT Temperature - - Respiratory Rate - - Oxygen Saturation 98% 09/29/2022 12:45 PM EDT Inhaled Oxygen Concentration - - Weight 77.6 kg (171 lb) 10/20/2023 11:17 AM EDT Height - - Body Mass Index - - Plan of Treatment Upcoming Encounters Date Type Department Care Team (Late st Contact Info) Description 10/16/2024 1:00 PM EDT Office Visit [facility] [address] [address] Sb Saenz MD [address] [address] Health Maintenance Due Date Last Done Comments Pneumococcal Vaccine: 65+ Years (3 of 3 - PCV) 06/14/2013 06/14/2012, 08/03/1999 Diabetes: Hemoglobin A1C 06/13/2020 Diabetes: Ophthalmology Exam 06/13/2020 Diabetes: Pedal Pulse Checked 06/13/2020 Diabetes: Sensory Foot Exam 06/13/2020 Diabetes: Visual Foot Exam 06/13/2020 Influenza Vaccine (#1) 2023 0, 12/18/2018, 12/29/2017, Additional history exists Hepatitis B Vaccine Aged Out No longe r eligible based on patient's age to complete this topic Insurance [facility] Member Subscriber Plan / Payer (Ef fective 2020-Present) Name:Joshua Gutierrez Relation to Subscriber:Self Name:Joshua Gutierrez Payer ID:[id number] (NAIC) Type:Not on file Address: [place] [id number] [facility] MEDIC[facility] Care Teams Journeyman Carpenter Relationship Specialty Start Date End Date Claude Churchill DO [address] [place] [address] PCP - General Internal Medicine 05/01/20
--- OUTSIDE RECORDS SUMMARY | 2024-06-06 10:17 | XMS_ITS | Continuity of Care Document ---
Author Organization [facility] [address] [place] [address] Phone [phone] Care Team Providers Care Hostage Negotiator Name Role Phone Claude Churchill M.D. Care Team Information Recei francisco j [phone] Problems Active Problems Provider Date Benign prostatic hyperplasia Kaiden Retana M.D. Onset: 10/25/2023 Gastroesophageal reflux disease Kaiden anne M.D. Onset: 10/25/2023 History of malignant neoplasm of bladder Kaiden jordan M.D. Onset: 10/25/2023 Vitamin D deficiency Kaiden Retana M.D. Ons et: 10/25/2023 Type 2 diabetes mellitus Kaiden Retana M.D. Onset: 10/25/2023 Hypotestosteronism Kaiden Retana M.D. Onset : 10/25/2023 Leukopenia Kaiden Retana M.D. Onset: 0 10/25/2023 Social History Type Date Description Comments Sex Unknown ETOH Use Rarely consumes alcohol Tobacco Use Start: Unknown End: Unknown Patient is a former smoker Allergies and adverse reactions Active Allergies Criticality Reaction Severity Comments Date Lipitor Unable to assess criticality 10/25/2023 Medications Active Medications SIG Qnty Indications Ordering Provider Date Toujeo Xgajevdl932Dnws/ML Solution Pen-Inject inject 20 units under the skin once daily in am dx: e11.8 13.5ml Kaiden Retana M.D. 11/02/2023 Advocate Insulin Pen Oxly 29GX12.7mm29G X 12.7mm Misc inject daily 100units Kaiden Retana M.D. 11/02/2023 Freestyle Mirella 3/Sensor/Glucose Monitoring Pyuovd0Qseyeg Misc as directed 3units Kaiden Retana M.D. 11/02/2023 Freestyle Mirella 3/[place]/Glucose Monitoring Lnodqe5Mcjoik Device use with sensors to check blood sugar dx:e11.9 1units Kaiden Retana M.D. 11/02/2023 Timolol Maleate0.5% Solution Instill 1 Drop In Right Eye Every Morning Arvin Leung M.D Kpdyyjmnu13hb Tablets Take 1 Tablet By Mouth Twice A Day 30 Minutes Before Meals Claude Churchill M.D. Metformin RIZ2648wi Tablets Take 1 Tablet By Mouth Twice A Day With A Meal For 90 Days 180tabs Kaiden Retana M.D. Vxnljvbwkc3ob Tablets Take 1 Tablet By Mouth Every Day For 90 Days Claude Churchill M.D. Ferrous Ztgswpt798(65Fe) mg Tablets Take 1 Tablet By Mouth Every Day Ap Negron Rosuvastatin Yfrmrik28gf Tablets Anish Churchill M.D. Tamsulosin HCL0.4mg Capsules 1 cap by mouth every night 90caps Claude Churchill M.D. Vital Signs Date Vital Result Comment 10/25/2023 2:56pm BP Systolic 130 mmHg BP Diastolic 70 mmHg Height 66 inches 5'6 Weight 172.00 lb BMI (Body Mass Index) 27.8 kg/m2 Results Test Acquired Date Facility Test Result H/L Range N ote Glucose Fingerstick 10/25/2023 Inhouse Glucose Fingerstick 587 Procedures Date Code Description Status 10/25/2023 65598 Glucose Monitori ng From Interstital Tissue Fluid Minimum 72 Hours Completed Medical Devices Description No Information Available Encounters Type Date Location Provider Dx Diagnosis Office Visit 10/25/2023 3:15p Main Office Kaiden Retana M.D. E11.9 Type 2 diabetes mellitus without complications Assessments Date Code Description Provider 10/25/2023 E11.9 Type 2 diabetes mellitus without complications Kaiden Retana M.D. Plan of Treatment No Information Available Functional Status Description No Information Available Mental Status Description No Information Available Referrals Description No Information Available
--- OUTSIDE RECORDS SUMMARY | 2024-06-06 10:17 | XMS_ITS ---
Author Organization [facility] Address [address] [place] [address] Care Team Providers Care Prepress Stripper Name Role Phone Claude Churchill MD Primary Care Provider Unavail Oz Nicholson Unavailable [phone] REASON FOR VISIT same day Encounters Encounter Location Date Provider Diagnosis [facility] [address] [place] [address] 11/08/2023 Oz Poe Plan Of Treatment No Information Progress Notes * Joshua GUTIERREZ ADOB: [birth year] (78 yo M)Acc No.[id number]:11/08/2023 Patient:?Joshua Gutierrez :1945???Age:78 Y???Sex:Male Address:[address] [facility] [address] [place] [address], [address] * true * Date:? Generated for Printi parth/Lorelei/eTransmitting on:?06/06/2024 10:17 AM EDT
--- OUTSIDE RECORDS SUMMARY | 2024-06-06 10:17 | XMS_ITS ---
Author Organization [facility] Address [address] [place] [address] Care Team Providers Care Powder Mill Operator Name Role Phone Claude Churchill MD Primary Care Provider Unavail able Oz Poe Unavailable [phone] REASON FOR VISIT cx 07/20 - pt Encounters Encounter Location Date Provider Diagnosis [facility] [address] [place] [address] 05/09/2024 Oz Poe Plan Of Treatment No Information Progress Notes * Joshua PAYNE ADOB: [birth year] (78 yo M)Acc No.[id number]:05/09/2024 Patient:?Joshua PAYNE :1945???Age:78 Y???Sex:Male Address:[address] [place] [address], [address], [place], [address] * true * Date:? Generated for Holl[place] parth/Lorelei/eTransmitting on:?06/06/2024 10:17 AM EDT
--- OUTSIDE RECORDS SUMMARY | 2024-06-06 10:17 | XMS_ITS | Patient Health Record ---
Author Organization [facility] Address [address] [place] [address] Care Team Providers Care Pet Counselor Name Role Phone Claude Churchill MD Primary Care Provider Unavail able Oz Poe Unavailable [phone] Allergies Allergen (clinical drug ingredient) Drug/Non Drug Allergy documented on EMR Reaction Allergy Type Onset Date Status atorvastatin Lipitor rash Drug Allergy Acti ve Reason For Referral No Information Medications Medication SIG (Take, Route, Frequency, Duration) Notes Start Date End Date Status Advil 200 MG 1 tablet as needed Orally every 6 hrs for 30 days PRN 06/29/2011 Not-Taking Vitamin D Not-Taking Tylenol PRN Active Vitamin B12 Active Metformin & Diet Manage Prod 500 mg 3 tablets qd Active Multivitamin Active Extra Depth Orthopedic Shoes (1 Pair) with Customized Heat Molded Multidensity Innersoles (3 Pair) as directed Dx: NIDDM/Polyneuropathy (E11.42), Hammertoe Foot Deformity (M20.41,M20.42), Preulcerative Skin Lesion(s) (L85.1 11/08/2023 Active iron Active Lisinopril 5 MG 0.5 tablet Orally On ce a day for 30 day(s) Active Centrum Active Aspirin 81 Active Zocor Not-Taking Crestor 40 MG 1 tablet Orally Once a day for 30 day(s) Active Immunizations Vaccine Route Administration Date Status Comme nts Pneumococcal Unknown 05/31/2017 Refused Influenza Unknown 12/04/2014 Administered Influenza Unknown 01/12/2016 Administered Influenza Unknown 12/10/2016 Administered Influenza Unknown 12/29/2017 Administered Influenza Unknown 12/18/2018 Administered Influenza Unknown 12/04/2020 Administered Influenza Unknown 11/25/2022 Administered COVID-19 Pfizer BioNTech Vaccine Unknown 08/12/2020 Administered 1st 07/22/2020 Social History Tobacco Use: Social History Observation Description Date Details (start date - stop date) Former Smoker NA - NA Tobacco Use/Smoking Question Answer Notes Are you a: former smoker Additional Findings: Tobacco Non-User Current no n-smoker Alcohol Screen Question Answer Notes Did you have a drink containing alcohol in the p ast year? No Points 0 Interpretation Negative Tobacco use other than smoking: Question Answer Notes Are you an other tobacco user? No Problems Problem Type SNOMED Code ICD Code Onset Dates Problem Status W/U Status Risk Notes Problem Acquired hammer toe of right foot (5690974409749456 ) Other hammer toe(s) (acquired), right foot (M20.41) Active confirmed Problem Acquired hammer toe of left foot (6588393478968514 ) Other hammer toe(s) (acquired), left foot (M20.42) Active confirmed Problem Polyneuropathy due to type 2 diabetes mellitus (219030004) Type 2 diabetes mellitus with diabetic polyneuropathy (E11.42) Active confirmed Vital Signs Blood pressure diastolic 63 mm Hg 11/08/2023 Height 5 ft 6 in in 11/08/2023 Blood pressure systolic 126 mm Hg 11/08/2023 Weight 160 lbs 11/08/2023 BMI 25.82 kg/m2 11/08/2023 Procedures Procedure Date Ordered Date Performed Result Body Sit e 11744-PCLHNVB NAIL, 6 OR MORE 11/08/2023 N/A 51181-Scmiradl Plate 11/08/2023 N/A 75916-NOXD SKIN LESIONS, OVER 4 11/08/2023 N/A Encounters Encounter Location Date Provider [facility] [address] 11/08/2023 Oz Poe Type 2 diabetes mellitus with diabetic polyneuropathy E11.42 ; Onychomycosis B35.1 ; Other hammer toe(s) (acquired), right foot M20.41 ; Other hammer toe(s) (acquired), left foot M20.42 and Ingrown nail L60.[address] [address] 11/01/2023 [facility]oe [facility] [address] 11/08/2023 Oz Poe [facility] [address] [place] [address] 05/09/2024 Oz Poe Assessments Encounter Date Diagnosis (ICD Code) Assessment Notes Treatment Notes Treatment Clinical Notes Section Notes 11/08/2023 Type 2 diabetes mellitus with diabetic polyneuropathy (ICD-10 - E11.42) 11/08/2023 Onychomycosis (ICD-10 - B35.1) 11/08/2023 Other hammer toe(s) (acquired), right foot (ICD-10 - M20.41) Patient Educated with: DIABETIC FOOT CARE INSTRUCTIONS. pdf (DIABETIC FOOT CARE INSTRUCTIONS. pdf) 11/08/2023 Other hammer toe(s) (acquired), left foot (ICD-10 - M20.42) 11/08/2023 Ingrown nail (ICD-10 - L60.0) Plan Of Treatment Pending Test Test Name Order Date Hemoglobin A1c 04/29/2015 X ray : Foot, left 3V 06/29/2011 15685-NXVPZTY NAIL, 6 OR MORE 08/17/2011 15580-OHBDKZQ NAIL, 6 OR MORE 11/05/2011 75952-BSOATNW NAIL, 6 OR MORE 02/01/2012 01211-ORHNORD NAIL, 6 OR MORE 04/14/2012 37256-AEICAKR NAIL, 6 OR MORE 12/15/2010 50551-TINVRRO NAIL, 6 OR MORE 03/09/2011 74791-JAJGLNU NAIL, 6 OR MORE 05/18/2011 22011-VYDFAWB NAIL, 6 OR MORE 06/29/2011 50193-OGJKSGB NAIL, 6 OR MORE 06/30/2012 96822-BORUUXM NAIL, 6 OR MORE 10/10/2012 87927-KPYMNDS NAIL, 6 OR MORE 12/26/2012 91080-BOAZRYF NAIL, 6 OR MORE 04/10/2013 39948-ICYDGPE NAIL, 6 OR MORE 2013 02495-XWHGKKG NAIL, 6 OR MORE 10/09/2013 80836-KPNBAYS NAIL, 6 OR MORE 01/15/2014 31502-JGCUSMD NAIL, 6 OR MORE 04/19/2014 45986-ZMRIUGZ NAIL, 6 OR MORE 07/23/2014 51253-OCDEXKU NAIL, 6 OR MORE 08/05/2015 08264-LLBGBFH NAIL, 6 OR MORE 04/29/2015 65766-MZTDMLP NAIL, 6 OR MORE 10/25/2014 41437-KVBCGYW NAIL, 6 OR MORE 01/28/2015 38807-VNPOSTC NAIL, 6 OR MORE 11/04/2015 83735-BCCHAXX NAIL, 6 OR MORE 02/03/2016 57875-XLARYDE NAIL, 6 OR MORE 05/11/2016 89265-VQGMFDB NAIL, 6 OR MORE 08/17/2016 77472-SOBFAJX NAIL, 6 OR MORE 11/30/2016 37511-XTNNNXA NAIL, 6 OR MORE 03/01/2017 11862-XAGLHOY NAIL, 6 OR MORE 05/31/2017 25130-FCTKZRZ NAIL, 6 OR MORE 08/30/2017 03283-GULKECA NAIL, 6 OR MORE 12/30/2017 31988-ITZOGPK NAIL, 6 OR MORE 04/11/2018 06445-WMMEZGY NAIL, 6 OR MORE 07/11/2018 42802-CJSDHCA NAIL, 6 OR MORE 10/10/2018 65762-LNZFVXW NAIL, 6 OR MORE 01/16/2019 22141-NXOCIQE NAIL, 6 OR MORE 04/24/2019 44760-GAPVUFV NAIL, 6 OR MORE 11/23/2019 86064-HYMBCRP NAIL, 6 OR MORE 04/04/2020 86170-XCVBCDF NAIL, 6 OR MORE 07/04/2020 95117-YXONXQY NAIL, 6 OR MORE 10/07/2020 15395-WTMYUMJ NAIL, 6 OR MORE 01/06/2021 98696-GXCBPZO NAIL, 6 OR MORE 04/14/2021 83462-NKYJDJK NAIL, 6 OR MORE 07/14/2021 98197-IHTQWVY NAIL, 6 OR MORE 11/03/2021 24856-TQNKCBK NAIL, 6 OR MORE 02/02/2022 42766-BRUIRTV NAIL, 6 OR MORE 06/22/2022 31062-ZQDLOBG NAIL, 6 OR MORE 10/05/2022 87799-PBADQLJ NAIL, 6 OR MORE 01/25/2023 40576-SUMGGAA NAIL, 6 OR MORE 05/20/2023 21117-RYORLSY NAIL, 6 OR MORE 11/08/2023 78376-Rfny Destruction, 1-04/19/2014 51449-Sgju Destruction, 1-14 10/25/2014 66978-Tunb Destruction, 04-1001/28/2015 59743-Bwmw Destruction, 04-1007/23/2014 94394-Vsoj Destruction, 04-1001/15/2014 84048-Uhjq Destruction, 04-1010/09/2013 37120-Nklc Destruction, 04-1007/03/2013 01629-Ebgh Destruction, 04-1004/10/2013 59058-Saua Destruction, 04-1012/26/2012 34837-Szjv Destruction, 04-1010/10/2012 58951-Ubvx Destruction, 04-1006/30/2012 37657-Uxuv Destruction, 04-1006/29/2011 36468-Qnkc Destruction, 04-1005/18/2011 33906-Cnhd Destruction, 04-1012/15/2010 47839-Iopx Destruction, 04-1003/09/2011 11590-Hscj Destruction, 04-1004/14/2012 94426-Avil Destruction, 04-1002/01/2012 39782-Xjyr Destruction, 04-1011/05/2011 87121-Elzi Destruction, 04-1008/17/2011 31289-Cqzypnrq Plate 08/17/2011 16231-Wkbzdjro Plate 11/05/2011 96301-Mtlosiiw Plate 02/01/2012 10336-Lbkukllo Plate 04/14/2012 25305-Zzsizsma Plate 03/09/2011 04997-Hpctwnnu Plate 12/15/2010 59847-Gecvengx Plate 05/18/2011 53094-Bxkyppbs Plate 06/29/2011 70449-Pteicdar Plate 06/30/2012 59587-Dbtkeync Plate 10/10/2012 00085-Cvoakakk Plate 12/26/2012 32120-Pmoaqhdu Plate 04/10/2013 23493-Fsbzgavz Plate 10/09/2013 07981-Wuvqrdlo Plate 01/15/2014 82126-Fzdjldfl Plate 04/19/2014 69138-Jtzijapa Plate 07/23/2014 37416-Qacjizfr Plate 04/29/2015 94642-Zxmwwkas Plate 10/25/2014 67902-Bbynajht Plate 01/28/2015 48306-Voljikms Plate 03/01/2017 92482-Ozwhxmkr Plate 11/30/2016 23091-Qzygptlb Plate 05/11/2016 08715-Udifmida Plate 08/17/2016 01862-Egontluo Plate 04/24/2019 54158-Nsilkmez Plate 01/16/2019 83978-Docyujra Plate 10/10/2018 86173-Cynwyoma Plate 07/11/2018 51356-Runxalgu Plate 04/11/2018 03553-Fyeriuos Plate 12/30/2017 29591-Glqyhpec Plate 08/30/2017 61007-Vxkvigds Plate 05/31/2017 50804-Ayxyjxpb Plate 11/08/2023 04664-Tgetufxu Plate 01/25/2023 06600-Mvnldarf Plate 10/05/2022 84208-Ofcrwdmk Plate 02/02/2022 88566-Vcudwvck Plate 11/03/2021 77234-Ixhwrbmq Plate 07/14/2021 31371-Woicumrd Plate 04/14/2021 36799-Mkipkzpl Plate 01/06/2021 29267-Lmronpxo Plate 10/07/2020 39513-Cxoybrsd Plate 07/04/2020 64310-Rkpuprdu Plate 04/04/2020 53178-Aavllpdg Plate 11/23/2019 28251-Vmqsmexa Plate Each Additional 10/2020 19157-Htzkqeyi Plate Each Additional 11/2020 74795-Volmtuvi Plate Each Additional 37900-Smsyllxv Plate Each Additional 02/2021 30945-Wyvmzgax Plate Each Additional 72250-Nhcgibmv Plate Each Additional 36144-Jzkrhveo Plate Each Additional 11/2021 28903-Xsuylctf Plate Each Additional 10/2021 59680-Cczacvzb Plate Each Additional 08/2017 46375-Rngzlbul Plate Each Additional 07/2017 10359-Ybtvrwcu Plate Each Additional 07/2017 81611-Hzfhtssi Plate Each Additional 29029-Kgocxdzc Plate Each Additional 47295-Rcysisuo Plate Each Additional 40611-Wqymbqmj Plate Each Additional 45400-Oaeolwrn Plate Each Additional 15637-Xneuuclt Plate Each Additional 07/2016 95068-Yacgrfdd Plate Each Additional 07/2016 86370-Ofaobuwv Plate Each Additional 05/2014 64202-Gssvfynt Plate Each Additional 27921-Csnctxqv Plate Each Additional 04/2015 44556-Ilqtwvdd Plate Each Additional 52999-Cfphxcdw Plate Each Additional 35537-Nuqglvug Plate Each Additional 37188-Jdomjerl Plate Each Additional 62755-Aeunswgv Plate Each Additional 10991-Fyjjlfmy Plate Each Additional 03/2012 65060-Gxygkafa Plate Each Additional 49388-Cqvebivv Plate Each Additional 07/2012 98504-Ptqkvqhi Plate Each Additional 05/2011 75686-Xvmzcore Plate Each Additional 24085-Xhowqpqt Plate Each Additional 17792-Qcgawmjg Plate Each Additional 08/2011 69756-Asxaungk Plate Each Additional 12/2011 73465-Phqwtgcx Plate Each Additional 07797 I&D ABSCESS- SIMPLE,SINGLE 020 46371-KWUN SKIN LESIONS, OVER 4 11/23/19 20 29285-LQUA SKIN LESIONS, OVER 4 04/04/19 21 60228-JUND SKIN LESIONS, OVER 4 10/08/19 21 82082-QZBI SKIN LESIONS, OVER 4 07/05/19 21 13752-BUMA SKIN LESIONS, OVER 4 11/04/19 22 80096-VRYD SKIN LESIONS, OVER 4 07/15/19 22 19388-YTTH SKIN LESIONS, OVER 4 04/14/19 22 32729-RLFO SKIN LESIONS, OVER 4 01/07/20 21 89055-VCUW SKIN LESIONS, OVER 4 02/03/20 22 68236-CEYZ SKIN LESIONS, OVER 4 10/06/19 23 47792-BOUC SKIN LESIONS, OVER 4 06/23/19 23 77525-NPBO SKIN LESIONS, OVER 4 01/26/20 23 26126-OQYW SKIN LESIONS, OVER 4 05/20/19 24 14891-AWJF SKIN LESIONS, OVER 4 08/17/19 12 25977-QUSX SKIN LESIONS, OVER 4 11/08/19 24 50195-MXPO SKIN LESIONS, OVER 4 11/05/19 12 12475-NOKJ SKIN LESIONS, OVER 4 02/01/20 12 47135-IYTO SKIN LESIONS, OVER 4 04/14/19 13 73106-KCRL SKIN LESIONS, OVER 4 05/18/19 12 39864-IVTZ SKIN LESIONS, OVER 4 12/16/19 11 27587-MUUU SKIN LESIONS, OVER 4 03/09/20 11 88439-MSVM SKIN LESIONS, OVER 4 07/01/19 13 80785-NNXL SKIN LESIONS, OVER 4 10/11/19 13 09950-DELN SKIN LESIONS, OVER 4 12/27/19 13 27908-LTKS SKIN LESIONS, OVER 4 04/10/19 14 29449-JLGS SKIN LESIONS, OVER 4 07/04/19 14 28763-XONH SKIN LESIONS, OVER 4 08/05/19 16 37770-WJAY SKIN LESIONS, OVER 4 04/29/19 16 09112-ZLXB SKIN LESIONS, OVER 4 03/01/20 17 08463-WEWT SKIN LESIONS, OVER 4 12/01/19 17 02258-CXXH SKIN LESIONS, OVER 4 08/18/19 17 00650-BKHQ SKIN LESIONS, OVER 4 05/11/19 17 79161-VATP SKIN LESIONS, OVER 4 02/03/20 16 71819-IBNK SKIN LESIONS, OVER 4 11/04/19 16 47501-JZHE SKIN LESIONS, OVER 4 04/24/19 20 10471-SDWG SKIN LESIONS, OVER 4 01/17/20 19 90996-YHWB SKIN LESIONS, OVER 4 10/11/19 19 77822-OFAH SKIN LESIONS, OVER 4 07/12/19 19 78115-WSCM SKIN LESIONS, OVER 4 04/11/19 19 62652-RPIY SKIN LESIONS, OVER 4 12/31/19 18 73551-HVFB SKIN LESIONS, OVER 4 08/31/19 18 40593-IXEP SKIN LESIONS, OVER 4 06/01/19 18 25065-EYMI SKIN LESIONS, 2 TO 4 01/29/20 15 04300-JBJE SKIN LESIONS, 2 TO 4 10/26/19 15 59763-MHKG SKIN LESIONS, 2 TO 4 04/19/19 15 94467-NBOD SKIN LESIONS, 2 TO 4 10/10/19 14 10293-IBPX SKIN LESIONS, 2 TO 4 01/16/20 14 74877-MBEH SKIN LESIONS, 2 TO 4 07/24/19 15 81479-MCGD SKIN LESIONS, 2 TO 4 06/29/19 12 02767,W0442-VVB TENDON SHEATH/LIGAMENT 0 08/17/2011 Insurance Providers Payer Name Payer Address Payer Phone Subscriber Number Group Number Insured Name Patient Relationship to Insured Coverage Start Date Coverage End Date [employer] Medicare Complete [address] [address] [place] [address] [id number] Joshua chung Self - patient is the insured Medical (General) History Medical History History ICD Code mumps measles chicken pox Cholesterol hypertension type I diabetes Surgical History Surgery Date(Month/Year) knee surgery 1956 hernia repair 1977 colonoscopy 03/01/12 Hospitalization History Reason Date(Month/Year) Patient has been in [facility] ER twice for uri nary issues. 12/07,01/06 Patient went to [facility] ER for a severe cold . 06/03/2013 [facility] operation neuretha 09/2015 [facility] see for fall pt had. [facility] Fall From dog Fractured 3 ribs 2019 [facility]-Stroke 3 days 05/2020 [facility]- Low BS 55 1 day 10/25/21
--- OUTSIDE RECORDS SUMMARY | 2024-06-06 10:17 | XMS_ITS | Encounter Summary ---
Author Organization [facility] Address [address] [facility] [address] [place] [address] Phone Care Team Providers Care Credit Operations Processor Name Role Phone Claude Churchill Primary Care Provider Encounter Details Date Type Department Care Team (Late st Contact Info) Description 06/27/2020 Orders Only [facility] [address] [facility] [address] [place] [address] Sb Saenz MD [address] [address] Type 2 diabetes mellitus with diabetic chronic kidney disease (HCC); Stage 3a chronic kidney disease (HCC); Vitamin B12 deficiency; Hypercholesterolemia, not otherwise specified; Elevated prostate specific antigen (PSA); Anemia, not otherwise specified Social History Tobacco Use Types Packs/Day Years Used Date Smoking Tobacco: Never Assessed Alcohol Use Standard Drinks/Week Comments Never 0 (1 standard drink = 0.6 oz pur e alcohol) Sex and Gender Information Value Date Recorded Sex Assigned at Not on file Legal Sex Male 3:43 PM EST Gender Identity Not on file Sexual Orientation Not on file COVID-19 Exposure Response Date Recorded In the last month, have you been in contact with someone who was confirmed or suspected to have Coronavirus / COVID-19? No / Unsure 06/13/2020 2:34 PM EDT documented as of this encounter Plan of Treatment Upcoming Encounters Date Type Department Care Team (Late st Contact Info) Description 10/16/2024 1:00 PM EDT Office Visit [facility] [address] [facility] [address] [place] [address] Sb Saenz MD [address] [address] documented as of this encounter Visit Diagnoses Diagnosis Type 2 diabetes mellitus with diabetic chronic kidney disease (HCC) Stage 3a chronic kidney disease (HCC) Vitamin B12 deficiency Hypercholesterolemia, not otherwise specified Elevated prostate specific antigen (PSA) Anemia, not otherwise specified documented in this encounter Care Teams Credit Operations Processor Relationship Specialty Start Date End Date Claude Churchill DO [address] [place] [address] PCP - General Internal Medicine 05/01/20 documented as of this encounter
--- OUTSIDE RECORDS SUMMARY | 2024-06-06 10:17 | XMS_ITS ---
Author Organization [facility] [place] Address [address] [place] [address] Care Team Providers Care Dairy Products Maker Name Role Phone Claude Churchill MD Primary Care Provider Unavail able Oz Poe Unavailable [phone] Allergies Allergen (clinical drug ingredient) Drug/Non Drug Allergy documented on EMR Reaction Allergy Type Onset Date Status atorvastatin Lipitor rash Drug Allergy Acti ve REASON FOR VISIT At Risk Footcare, Toe Irritation, Ingrown Nail Medications Medication SIG (Take, Route, Frequency, Duration) Notes Start Date End Date Status Advil 200 MG 1 tablet as needed Orally every 6 hrs for 30 days PRN 06/29/2011 Not-Taking Vitamin D Not-Taking Tylenol PRN Active Vitamin B12 Active Zocor Not-Taking Metformin & Diet Manage Prod 500 mg 3 tablets qd Active Multivitamin Active Extra Depth Orthopedic Shoes (1 Pair) with Customized Heat Molded Multidensity Innersoles (3 Pair) as directed Dx: NIDDM/Polyneuropathy (E11.42), Hammertoe Foot Deformity (M20.41,M20.42), Preulcerative Skin Lesion(s) (L85.1 11/08/2023 Active iron Active Lisinopril 5 MG 0.5 tablet Orally On ce a day for 30 day(s) Active Centrum Active Aspirin 81 Active Crestor 40 MG 1 tablet Orally Once a day for 30 day(s) Active Social History Tobacco Use: Social History Observation [...] Are you an other tobacco user? No Vital Signs Height 5 ft 6 in in 11/08/2023 Weight 160 lbs 11/08/2023 BMI 25.82 kg/m2 11/08/2023 Blood pressure systolic 126 mm Hg 11/08/19 24 Blood pressure diastolic 63 mm Hg 024 Procedures Procedure Date Ordered Date Performed Result Body Sit e 42958-DDFPHLA NAIL, 6 OR MORE 11/08/2023 N/A 73336-Ynmasoeh Plate 11/08/2023 N/A 01528-QQAY SKIN LESIONS, OVER 4 11/08/2023 N/A Encounters Encounter Location Date Provider Diagnosis [facility] [place] [address] [place] [address] 11/08/2023 Oz Poe Type 2 diabetes mellitus with diabetic polyneuropathy E11.42 ; Onychomycosis B35.1 ; Other hammer toe(s) (acquired), right foot M20.41 ; Other hammer toe(s) (acquired), left foot M20.42 and Ingrown nail L60.0 Assessments Encounter Date Diagnosis (ICD Code) Assessment [...] nail (ICD-10 - L60.0) Plan Of Treatment Medication Medication Name Sig Start Date Stop Date Notes Extra Depth Orthopedic Shoes (1 Pair) with Customized Heat Molded Multidensity Innersoles (3 Pair) as directed Dx: NIDDM/Polyneuropathy (E11.42), Hammertoe Foot Deformity (M20.41,M20.42), Preulcerative Skin Lesion(s) (L85.1 11/08/2023 Treatment Notes Assessment Notes Other hammer toe(s) (acquired), right fo ot Patient Educated with: DIABETIC FOOT CARE INSTRUCTIONS.pdf (DIABETIC FOOT CARE INSTRUCTIONS.pdf) Pending Test Test Name Order Date 98476-XVISXVG NAIL, 6 OR MORE 11/08/2023 79463-Jwzhhvrl Plate 11/08/2023 24102-EAEA SKIN LESIONS, OVER 4 11/08/19 24 Next Appt Details Follow Up: prn, Reason: Procedure Notes * Category Sub-Category Detail Notes Nail Avulsion Procedure A fine sterile e levator was placed between the eponychium, nail fold, and nail plate to separate the structures. A sterile nail splitter, and/or sterile 316 blade, was then used to longitudinally section the nail along its entire length through the eponychium to the area under the nail fold. The offending portion of nail was from the nail bed with a rolling action and then removed with a hemostat. No underlying bone was identified. There was minimal bleeding as hemostasis was achieved through the temporary use of either a digital tourniquet or the aforementioned local with epinephrine. A bacitracin sterile dressing was applied. Local wound aftercare instructions were discussed and dispensed. The patient was informed of both conservative and future surgical procedures to prevent recurrence. Tylenol or Motrin was recommended for pain or discomfort (34344) , DIABETES: Pt was advised as to the risk of delayed or nonhealing due to diabetes. Pt is to call the office with any questions, concerns, or complications Anesthesia was deferred - NEURO LAURY: patient has medically documented neuropathic condition affecting sensation Location Lateral nail border, TA Debride Nail 6-10 Nail debridement Nail debridem ent performed extensively to reduce/remove overall nail length, girth, thickness, subungual debris, and necrotic tissue, by manual and electrical means through the use of a nail nipper and/or dremel, to more viable healthy nail plate or bed tissue 6-10. Silver nitrate used for any petechial bleeding as necessary. Patient chooses, no pharmaceutical tx (71357) Keratoma Treatment Parring or Cutting o f Benign Hyperkeratotic Lesion(s) 71494 ( >4 Lesions) - The Benign hyperkeratotic lesions, as described above were pared, and/or cut utilizing a sterile #15 blade, tissue nippers, and/or dremel Progress Notes * Joshua GUTIERREZ ADOB: [birth year] (78 yo M)Acc No.[id number]:11/08/2023 Progress Note Patient:?Joshua Gutierrez Provider:?Oz Poe DPM :1945???Age:78 Y???Sex:Male Samuel e:11/08/2023 Address:[address] [place], [place] [id number] Pcp:Claude Churchill MD Subjective: * Chief Complaints: * ???At Risk FootcareToe Irrit ationIngrown Nail * HPI: ???At Risk footcare:?Pt States Last PCP Visit:?Date?09/23/2023 ???Toe pain:?Location:?B/L feet.?Duration:?several years.?Course:?worse.?Aggravated by:?shoes, any pressure.?Treatments:?change in shoes.? * ROS:?General/Constitutional:?Nausea?denies.?Vomiting?denies.?Hunger Thirst?denies.?Loss appetite?denies.?Chills?denies.?Fatigue?denies.?Fever?denies.?Night Sweats?denies.?Unexplained weight loss?denies.?Ophthalmologic:?Blurred vision?denies.?Red eye?denies.?HEENTM:?Dentures?denies.?Dizziness?denies.?Glasses/contacts?admits.?Retinopathy?de nies.?Blurred/double vision?denies.?TMJ?denies.?Discharge/drainage?denies.?Implants?denies.?Hard of hearing denies.?Difficulty chewing/swallowing/speaking?denies.?Nose bleeds?denies.?Sore mouth?denies.?Swollen glands?denies.?Respiratory:?On Oxygen?denies.?Pneumonia/pleurisy?denies.?Bronchitis?denies.?Emphysema?denies.?C oughing?denies.?Cough blood?denies.?Shortness of breath?denies.?Wheezing?denies.?Cardiovascular:?Pacemaker?denies.?MVP?denies.?WPW?denies.?CHF?denies.?Heart attack?denies.?Septal defect?denies.?Rapid beat?denies.?Chest pain ?denies.?Atrial Fib.?denies.?Murmur/Palpitations?denies.?Gastrointestinal:?Hemorrhoids?denies.?Stomach/Abdominal pain?denies.?Dark blood stool?denies.?Irritable bowel ?denies.?Constipation?denies.?Diarrhea?denies.?Vomiting?denies.?Hematology:?Swelling?admits.?Bruising?admits, on aspirin.?Bleeding problem?admits, on anticoagulants.?Genitourinary:?Blood urine?denies.?Frequent/Painfu/urination/bladder control?denies.?Kidney stones?denies.?Infection (UTI)?denies.?Nephropathy?denies.?Musculoskeletal:?Hammertoes?admits.?Bunions?admits.?Scoliosis/kyphosis?denies.?Muscle cramps / walking?denies.?Generalized aches and pains?denies.?Weakness?denies.?Integ.:?Khoury?denies.?Scars?denies.?Corns/calluses?admits.?Ingrown nails?admits.?Painful nails?denies.?Rashes?denies.?Neurologic:?Difficulty sleeping?denies.?Bipolar?denies.?Brain disorder?denies.?Balance trouble?denies.?Confusion?denies.?Fainting/blackouts?denies.?Headache?denies.?Tr emors?denies.? * Medical History:? * Surgical History:?knee surge ry 2001, 1956hernia repair 1978colonoscopy 03/01/12 * Hospitalization/Major Diagno stic Procedure:?Patient has been in [facility] twice for urinary issues. 12/07,atient went to [facility] ER for a severe cold. 06/03/2013[facility] operation neuretha 09/2015[facility] see for fall pt had. 01/2018[facility] Fall From dog Fractured 3 ribs 2019[facility]-Stroke 3 days 05/2020[facility]- Low BS 55 1 day 10/25/21 * Family History:?Mother: jorge booth, foot problems, diagnosed with Family history of arthritis.?Father: , diagnosed with Other malignant neoplasm of unspecified site, Unspecified cerebral artery occlusion with cerebral infarction.? * Social History:?Tobacco Use:?Tobacco Use/Smoking?Are you a:?former smoker ?Additional Findings: Tobacco Non-User?Current non-smoker ?Tobacco use other than smoking?Are you an other tobacco user??No ???Miscellaneous:?Caffeine: yes, frequency:, 1-2 cups per day. ?Children: yes. ?Exercise: yes, walking. ?Marital status: . ?Occupation: Retired- [employer]. * Medications:?TakingAspirin 8 1 Crestor 40 MG Tablet 1 tablet Orally Once a dayCentrum iron Lisinopril 5 MG Tablet 0.5 tablet Orally Once a dayMetformin & Diet Manage Prod 500 mg 3 tablets qdMultivitamin Tylenol , Notes: PRNVitamin B12 Taking Aspirin 81 Taking Crestor 40 MG Tablet 1 tablet Orally Once a dayTaking Centrum Taking iron Taking Lisinopril 5 MG Tablet 0.5 tablet Orally Once a dayTaking Metformin & Diet Manage Prod 500 mg 3 tablets qdTaking Multivitamin Taking Tylenol , Notes: PRNTaking Vitamin B12 Not-Taking/PRNAdvil 200 MG Tablet 1 tablet as needed Orally every 6 hrs, Notes: PRNVitamin D Zocor Medication List reviewed and reconciled with the patientNot-Taking/PRN Advil 200 MG Tablet 1 tablet as needed Orally every 6 hrs, Notes: PRNNot-Taking/PRN Vitamin D Not-Taking/PRN Zocor Medication List reviewed and reconciled with the patient * Allergies:?Lipitor: rashyes[ Allergies Verified] Objective: * Vitals:?Ht: 5 ft 6 in, Wt:16 0, BMI:25.82, Shoe size:9W, BP:126/63 mm Hg, BS:400. * ???Past Orders: ???Lab:HEMOGLOBIN A1C (GLYCO HEMOGLOBIN) (Order Date - 05/20/2023) (Collection Date - 05/17/2023) ? Value Reference Range ?HEMOGLOBIN A1C % (HH) 7.0 * Examination: ???Neurological: ?SENSORY:? Neurological exam demonstrates, reduced light touch sensation, reduced sharp/dull pin prick discrimination , reduced vibration sensation, plantar aspects, B/L, 5.07 monofilament test performed at plantar aspects of 5 varied sites per foot shows sensation, reduced, B/L.?Nails: ?NAILS are:?Elongated, overgrown, dystrophic, lytic, greater than 3mm thick, discolored and friable with crumbly malodorous subungual debris, 1-5 B/L.?Ingrown Nail: ?INSPECTION:?Reveals nail incurvation, dull pain on palpation due to neuropathy, groove hypertrophy , Lateral nail border , TA.?Dermatologic: ?SKIN FINDINGS:?Skin exam reveals Keratotic lesion(s) located at, Medial plantar, IPJ, TA, Plantar, Lateral, T2, Medial plantar, IPJ, T5, SUB MET (s), 2 Right , SUB MTH (s), 3 Right, SUB MTH (s), 5 B/L, Heel(s), B/L .?Orthopedic: ?MUSCLE STRENGTH:?5/5 all groups in a symmetrical fashion , B/L.?FOOT MORPHOLOGY:?Pes Planus structure, No Charcot collapse/destruction noted at MTJ.?DIGITAL DEFORMITIES:?Digital contracture, PIPJ, 2-5 B/L, incompl- nonreducible to push-up test, no over, nor underlapping, with evidence of shoe producing skin irritation.?FOOTWEAR:?worn, OT were inspected and noted to be severely worn , in poor condition not giving proper support at the present time , shoe gear properties exacerbate patients foot/toe deformity.?Vascular: ?DP PULSES:?03/31, B/L.?PT PULSES:?05/01, B/L.?CAPILLARY FILL TIME:?4 secs. per digit, B/L.?SKIN TEMPERTURE GRADIENT OF THE LOWER EXTERMITIES:?decreased, cool to cool, proximal to distal.?HAIR GROWTH/TEXTURE/ELASTICITY/TURGOR:?decreased, B/L.?PIGMENTATION:?pale, B/L.?EDEMA:?03/31, non-pitting, without aching pain, B/L.?CLAUDICATION:?denies, B/L.?REST PAIN:?denies, B/L.?Ophthalmology Referral: ?DIABETES EYE EXAM?Diabetic Retinopathy Screening:?Yes ?Findings of Diabetic Eye Exam:?no retinopathy?General Examination: ?GENERAL APPEARANCE:?Reveals a pleasant, alert, well nourished, well- developed, well hydrated individual, who demonstrates proper attention to hygiene/body habitus, and is in no acute distress , Pt serves as own historian for office visit today.?ORIENTED:?person, place, and time.?FOOT EXAM:?Lower Extremity Neurological Exam performed:?Yes ?Footwear Evaluation?Footwear Evaluation performed:?Yes??? Assessment: * Assessment: 1.?Type 2 diabetes mellitus with diabetic polyneuropathy - E11.42 (Primary)?2.?Onychomycosis - B35.1?3.?Other hammer toe(s) (acquired), right foot - M20.41, Chronic problem, Worse (4),Rx Management (4)?4.?Other hammer toe(s) (acquired), left foot - M20.42, Chronic problem, Worse (4),Rx Management (4)?5.?Ingrown nail - L60.0, Lateral border, TA? Plan: * Treatment: 2.?Other hammer toe(s) (acqu ired), right foot? Start Extra Depth Orthopedic Shoes (1 Pair) with Customized Heat Molded Multidensity Innersoles (3 Pair), as directed, Dx: NIDDM/Polyneuropathy (E11.42), Hammertoe Foot Deformity (M20.41,M20.42), Preulcerative Skin Lesion(s) (L85.1, 1, Refills 0.?? Notes: Patient Educated with: DIABETIC FOOT CARE INSTRUCTIONS.pdf (DIABETIC FOOT CARE INSTRUCTIONS.pdf)?? 3.?Ingrown nail?Procedure: 51124-Xwflzodj Plate * Procedures:?Debride Nail 6-10:?Nail debridement?Nail debridement performed extensively to reduce/remove overall nail length, girth, thickness, subungual debris, and necrotic tissue, by manual and electrical means through the use of a nail nipper and/or dremel, to more viable healthy nail plate or bed tissue 6-10. Silver nitrate used for any petechial bleeding as necessary. Patient chooses, no pharmaceutical tx (82199) .?Keratoma Treatment:?Parring or Cutting of Benign Hyperkeratotic Lesion(s)?04467 ( >4 Lesions) - The Benign hyperkeratotic lesions, as described above were pared, and/or cut utilizing a sterile #15 blade, tissue nippers, and/or dremel.?Nail Avulsion:?Location?Lateral nail border, TA.?Anesthesia?was deferred - NEUROPATHY: patient has medically documented neuropathic condition affecting sensation.?Procedure?A fine sterile elevator was placed between the eponychium, nail fold, and nail plate to separate the structures. A sterile nail splitter, and/or sterile 316 blade, was then used to longitudinally section the nail along its entire length through the eponychium to the area under the nail fold. The offending portion of nail was from the nail bed with a rolling action and then removed with a hemostat. No underlying bone was identified. There was minimal bleeding as hemostasis was achieved through the temporary use of either a digital tourniquet or the aforementioned local with epinephrine. A bacitracin sterile dressing was applied. Local wound aftercare instructions were discussed and dispensed. The patient was informed of both conservative and future surgical procedures to prevent recurrence. Tylenol or Motrin was recommended for pain or discomfort (96524) , DIABETES: Pt was advised as to the risk of delayed or nonhealing due to diabetes. Pt is to call the office with any questions, concerns, or complications.? * Procedure Codes:?52243 DEBRI DE NAIL, 6 OR MORE, Modifiers: XS 41174 Avulsion Plate, Modifiers: XS , [id number] TRIM SKIN LESIONS, OVER 4, Modifiers: XS * Preventive Medicine:? ??Counseling:?Discussion:?-14: Office or other outpatient visit for the evaluation and management of an established patient, which required a medically appropriate history and/or examination and MODERATE level of DECISION MAKING for: 1 OR MORE CHRONIC PROBLEM(S) THATS WORSENING, 2 STABLE CHRONIC PROBLEMS, A NEWLY DIAGNOSED PROBLEM WITH UNCERTAIN PROGNOSIS, AN ACUTE COMPLICATED INJURY WITH MULTIPLE TREATMENT OPTIONS, OR AN ACUTE PROBLEM WITH ACCOMPANYING SYSTEMIC SYMPTOMS, THAT POSE(S) A MODERATE RISK OF MORBIDITY. THIS CONDITION MAY ALSO INCLUDE RX DRUG MANAGEMENT, OR A DECISON FOR MINOR SURGERY. The visit on the day of the encounter encompassed interpreting the data and educating the patient as to the nature of their condition, treatment options available according to their individual PMH, meds, allergies, and overall health/living conditions, as well as any potential risks or complications that may occur from a failure to adhere to, and participate in, the recommended course of therapy. The discussion included a complete verbal, and/or written explanation of the examination results, any x-rays taken, the proposed diagnosis, and outline of the treatment plan. A schedule for future care needs was also explained. The patient verbalized an understanding of the instructions at this time and agreed to be an active participant in their treatment. If the patient should think of any questions or concerns after the visit, I have encouraged the patient to call the office.?Digital Surgery:?Digital surgery was discussed with the patient, We elected to try conservative treatment at the present time, due to the patients medical history and increased asssociated post-operative risks.?Digital Treatment:?HT- I explained to the patient the possible etiologies of Hammertoes, including genetics/foot type/shoegear/activity level/exercise routine and the risks/benefits of all the different treatment options for their pain including: No treatment at all, Rest, Ice, New/supportive/wider/deeper Shoegear, Digital Padding/Strapping/Taping/Bracing/Gel protective sleeves, Foot/Ankle AFO Bracing, Stretching exercises, Deep Tissue Massage, Arch support/shoe inserts with splay metatarsal padding, and Custom orthoses. I insisted that any digital devices be removed daily and not worn overnight for safety. The patient is to carefully examine the toes daily for any skin irritation while using any splinting or padding device. The advantages and disadvantages of each option were discussed and the patients questions re: shoegear, padding, custom vs prefabricated inserts, activity level, and consistency in home treatment regimens for optimal success were answered to their verbally confirmed satisfaction.?Shoe Gear Counseling:?SHOE Rx - The patient was counseled in great detail on their muscoloskeletal foot and toe deformities which coincided with the dermatological presentations visualized on exam. We discussed how their deformities put the integrity of their feet at risk for potential pedal complications which makes the accomidative diabetic shoes and cutomizable inserts medically necessary. We discussed the different shoe and insert treatment types and options, as well as the important advantages for adhering to regularly wearing these accomidative devices daily. The patient was made aware of the fact that a failure to abide by these recommedations may be deleterious to their foot health as they are able to prevent many pedal complications such as skin irritation, skin ulceration, infection, and even loss of toe/foot/leg/or life. Time was also spent with the patient dispensing and discussing proper diabetic footcare techniques including daily skin moisturization, daily foot inspection for any interruption in skin integrity including open lesions, or sign of infection such as redness/malodor/drainage/swelling. Also discussed and recommended were procedures regarding daily shoe inspection for the presence of internal foreign bodies as well as any visualized irregular shoe or insert wear. Patient questions re: shoes, inserts, and self foot inspections were answered to their satisfaction as the patient verbally confirmed a full understanding of the above information. A Rx for Extra Depth Orthopedic Shoes with 3 pair of custom heat-molded inserts was dispensed.? ??Screening/Special Tests:?Fall Risk?Assessment:?Performed ?Plan of Care:?Documented ?Screening:?No falls in the past year ?FALLS: Screening for Future Fall Risk?Have you had any falls with injury in the past year??No * Follow Up:?prn * Images: * Sign off status: Completed true * Provider:?Oz Poe DPM Date:?2023 Generated for Rachel alba/Lorelei/Radhaitting on:?06/06/2024 10:17 AM EDT History and Physical Notes * HPI (History of Present Illness) Category Sub-Category Detail Notes Category Not es Toe pain Location: B/L feet Duration: several years Course: worse Aggravated by: shoes, any pressure Treatments: change in shoes At Risk footcare Pt States Last PCP Visit: Date: 4 Examination Category Sub-Category Detail Notes Category Not es Ingrown Nail INSPECTION: Reveals nail inc urvation, dull pain on palpation due to neuropathy, groove hypertrophy , Lateral nail border , TA Neurological SENSORY: Neurological exa m demonstrates, reduced light touch sensation, reduced sharp/dull pin prick discrimination , reduced vibration sensation, plantar aspects, B/L, 5.07 monofilament test performed at plantar aspects of 5 varied sites per foot shows sensation, reduced, B/L Dermatologic SKIN FINDINGS: Skin exam reveal s Keratotic lesion(s) located at, Medial plantar, IPJ, TA, Plantar, Lateral, T2, Medial plantar, IPJ, T5, SUB MET (s), 2 Right , SUB MTH (s), 3 Right, SUB MTH (s), 5 B/L, Heel(s), B/L VERRUCA: Orthopedic FOOT MORPHOLOGY: Pes Planus stru cture, No Charcot collapse/destruction noted at MTJ FOOTWEAR: worn, OT were inspec gayla and noted to be severely worn , in poor condition not giving proper support at the present time , shoe gear properties exacerbate patients foot/toe deformity DIGITAL DEFORMITIES: Digital contracture , PIPJ, 2-5 B/L, incompl-nonreducible to push-up test, no over, nor underlapping, with evidence of shoe producing skin irritation MUSCLE STRENGTH: 5/5 all groups in a symmetrical fashion , B/L General Examination GENERAL APPEARANCE: Reveals a pleasant, alert, well nourished, well-developed, well hydrated individual, who demonstrates proper attention to hygiene/body habitus, and is in no acute distress , Pt serves as own historian for office visit today FOOT EXAM: Lower Extremity Neurological Exa m performed:: Yes ORIENTED: person, place, and t charlie Footwear Evaluation Footwear Evaluation performe d:: Yes Ophthalmology Referral DIABETES EYE EXAM Diabetic Retinopa thy Screening:: Yes Findings of Diabetic Eye Exam:: no retin opathy Vascular DP PULSES (B): 1/4, B/L PT PULSES (B): 2/4, B/L CAPILLARY FILL TIME: 4 secs. per digit, B/L TEMPERTURE GRADIENT (C): decreased, cool to cool, proximal to distal TROPHIC CONDITION-TEXTURE/ELASTICITY/TURGOR/HAIR GROWTH (B): decreased, B/L EDEMA (C): 1/4, non-pitting, wi thout aching pain, B/L CLAUDICATION (C): denies, B/L REST PAIN: denies, B/L PIGMENTATION: pale, B/L Nails NAILS are: Elongated, overg rown, dystrophic, lytic, greater than 3mm thick, discolored and friable with crumbly malodorous subungual debris, 1-5 B/L
== END 2024-06-06 10:15 | disposition home or self-care (01) ==
PROVIDERS: PCP Internal Medicine; Visit Provider Physician Assistant
DX: H61.23 Impacted cerumen, bilateral (principal)

== ENCOUNTER → 2024-06-06 09:26 | Outpatient (BNVA) | payer MEDICARE, SELFPAY | PROVIDERS: PCP Internal Medicine; Visit Provider Physician Assistant | DX: H61.23 Impacted cerumen, bilateral (principal) | CPT/HCPCS: 69210; 99212 ==

== ENCOUNTER 2024-07-23 06:07 | Outpatient (REF) | payer MEDICARE, SELFPAY ==
--- OUTSIDE RECORDS SUMMARY | 2024-07-23 06:09 | XMS_ITS ---
Author Organization [facility] Address [address] [place] [address] Care Team Providers Care Roll Operator Name Role Phone Kerline PIEDRA, Claude Primary Care Provider Unavail Oz Nicholson Unavailable [phone] REASON FOR VISIT misbooked Encounters Encounter Location Date Provider Diagnosis [facility] [address] [place] [address] 07/20/2024 Oz Poe Plan Of Treatment No Information Progress Notes * Joshua GUTIERREZ ADOB: (79 yo M)Acc No.[id number]:07/20/2024 Progress Note Patient:?Joshua GUTIERREZ Provider:?Oz Peo DPM :1945???Age:79 Y???Sex:Male Samuel e:07/20/2024 Address:[address] [place] [address], [address], [place], [place] Pcp:Claude Churchill MD Subjective: * Chief Complaints: * ???1. Misbooked. * Medical History:? Objective: * Vitals:? Assessment: Plan: * Treatment: * Images: * The named appointment provid er may or may not be the originator of this progress note, and it is not deemed complete until electronically signed by the appointment provider. Sign off status: Pending * Provider:?Oz Poe DPM Date:?2024 Generated for Printi ng/Faxing/eTransmitting on:?07/23/2024 06:09 AM EDT
--- OUTSIDE RECORDS SUMMARY | 2024-07-23 06:09 | XMS_ITS | Patient Health Record ---
[facility] Organization [facility] Address [address] [place] [address] Care Team Providers Care Allergy Specialist Name Role Phone Claude Churchill MD Primary Care Provider Unavail able Oz Poe Unavailable [phone] Allergies Allergen (clinical drug ingredient) Drug/Non Drug [...] Vaccine Route Administration Date Status Comme nts COVID-19 Pfizer BioNTech Vaccine Unknown 08/12/2020 Administered 1st 07/22/2020 Influenza Unknown 12/04/2014 Administered Influenza Unknown 01/12/2016 Administered Influenza Unknown 12/10/2016 Administered Influenza Unknown 12/29/2017 Administered Influenza Unknown 12/18/2018 Administered Influenza Unknown 12/04/2020 Administered Influenza Unknown 11/25/2022 Administered Pneumococcal Unknown 05/31/2017 Refused Social History Tobacco Use: Social History Observation [...] Problem Acquired hammer toe of right foot (6826114059417139 ) Other hammer toe(s) (acquired), right foot (M20.41) Active confirmed Problem Acquired hammer toe of left foot (5729099707612553 ) Other hammer toe(s) (acquired), left foot (M20.42) Active confirmed Problem Polyneuropathy due to type 2 diabetes mellitus (791163831) Type 2 diabetes mellitus with diabetic polyneuropathy (E11.42) Active confirmed Vital Signs Blood pressure diastolic 63 mm Hg 11/08/2023 Height 5 ft 6 in in 11/08/2023 Blood pressure systolic 126 mm Hg 11/08/2023 Weight 160 lbs 11/08/2023 BMI 25.82 kg/m2 11/08/2023 Procedures Procedure Date Ordered Date Performed Result Body Sit e 26506-HSLFDAF NAIL, 6 OR MORE 11/08/2023 N/A 89252-Mdwhgufx Plate 11/08/2023 N/A 34595-IZWG SKIN LESIONS, OVER 4 11/08/2023 N/A Encounters Encounter Location Date Provider [facility] [address] 11/08/2023 Oz Poe Type 2 diabetes mellitus with diabetic polyneuropathy E11.42 ; Onychomycosis B35.1 ; Other hammer toe(s) (acquired), right foot M20.41 ; Other hammer toe(s) (acquired), left foot M20.42 and Ingrown nail L60.[address] [address] 11/01/2023 Oz Poe [facility] [address] 11/08/2023 Oz Poe [facility] [place] [address] [place] [address] 05/09/2024 Oz Poe Assessments Encounter Date Diagnosis [...] X ray : Foot, left 3V 06/29/2011 49475-PMFYUDP NAIL, 6 OR MORE 08/17/2011 05903-IUVFTTR NAIL, 6 OR MORE 11/05/2011 33342-KQEPYLL NAIL, 6 OR MORE 02/01/2012 32546-KOQQXJU NAIL, 6 OR MORE 04/14/2012 74804-DVUZTSY NAIL, 6 OR MORE 12/15/2010 15929-EHOUHAT NAIL, 6 OR MORE 03/09/2011 33637-EYSELMI NAIL, 6 OR MORE 05/18/2011 50514-ATRDQRS NAIL, 6 OR MORE 06/29/2011 99421-UJLUXGR NAIL, 6 OR MORE 06/30/2012 12582-NWFSOMF NAIL, 6 OR MORE 10/10/2012 07287-ZKYQOKO NAIL, 6 OR MORE 12/26/2012 60357-BZIWYHN NAIL, 6 OR MORE 04/10/2013 24193-QYSWINM NAIL, 6 OR MORE 2013 67645-QERGJKO NAIL, 6 OR MORE 10/09/2013 85462-ICFJUKY NAIL, 6 OR MORE 01/15/2014 39293-WWWNMET NAIL, 6 OR MORE 04/19/2014 17213-KSEBAUY NAIL, 6 OR MORE 07/23/2014 15661-LOCULCR NAIL, 6 OR MORE 08/05/2015 22627-FHCKIGB NAIL, 6 OR MORE 04/29/2015 39451-WNUIORS NAIL, 6 OR MORE 10/25/2014 04109-FTOVMRT NAIL, 6 OR MORE 01/28/2015 83190-EWENERI NAIL, 6 OR MORE 11/04/2015 72936-ZMHCKEZ NAIL, 6 OR MORE 02/03/2016 94464-UDXVCLU NAIL, 6 OR MORE 05/11/2016 06334-IDJECWE NAIL, 6 OR MORE 08/17/2016 35285-WJUPRCH NAIL, 6 OR MORE 11/30/2016 08384-EQLNWPZ NAIL, 6 OR MORE 03/01/2017 52590-RTIZDQX NAIL, 6 OR MORE 05/31/2017 62763-OWPOSWG NAIL, 6 OR MORE 08/30/2017 50759-RQSDQHI NAIL, 6 OR MORE 12/30/2017 13133-QGCMDCW NAIL, 6 OR MORE 04/11/2018 02728-FSLATCM NAIL, 6 OR MORE 07/11/2018 77602-JTZVOSI NAIL, 6 OR MORE 10/10/2018 14220-OPGSUHX NAIL, 6 OR MORE 01/16/2019 08595-OTKLHYR NAIL, 6 OR MORE 04/24/2019 95083-MJLZUXD NAIL, 6 OR MORE 11/23/2019 28512-IQVNJLR NAIL, 6 OR MORE 04/04/2020 84403-JCKGRUD NAIL, 6 OR MORE 07/04/2020 25351-TZWWFVY NAIL, 6 OR MORE 10/07/2020 69967-BNSZAYW NAIL, 6 OR MORE 01/06/2021 54212-HLMZKOD NAIL, 6 OR MORE 04/14/2021 48648-TAYYTOB NAIL, 6 OR MORE 07/14/2021 51339-KFWIUJJ NAIL, 6 OR MORE 11/03/2021 45500-CRFWKND NAIL, 6 OR MORE 02/02/2022 74857-BTKTCEE NAIL, 6 OR MORE 06/22/2022 21681-RZBKPLR NAIL, 6 OR MORE 10/05/2022 70190-XWOSPNA NAIL, 6 OR MORE 01/25/2023 87707-ICNDLYO NAIL, 6 OR MORE 05/20/2023 09487-WVABRCX NAIL, 6 OR MORE 11/08/2023 85745-Rbih Destruction, 1-04/19/2014 42052-Nnll Destruction, 1-14 10/25/2014 67378-Astt Destruction, 04-1001/28/2015 46914-Nsbr Destruction, 04-1007/23/2014 49344-Ipqa Destruction, 04-1001/15/2014 29092-Sbyj Destruction, 04-1010/09/2013 70295-Fwgr Destruction, 04-1007/03/2013 29510-Uljf Destruction, 04-1004/10/2013 53450-Yjht Destruction, 04-1012/26/2012 07690-Bsqf Destruction, 04-1010/10/2012 63951-Cozf Destruction, 04-1006/30/2012 18032-Vhcx Destruction, 04-1006/29/2011 30004-Bxhv Destruction, 04-1005/18/2011 12256-Klgh Destruction, 04-1012/15/2010 56532-Tike Destruction, 04-1003/09/2011 11012-Xkya Destruction, 04-1004/14/2012 57067-Tqau Destruction, 04-1002/01/2012 75380-Znlz Destruction, 04-1011/05/2011 00323-Nbrm Destruction, 04-1008/17/2011 75872-Bjpfgpuv Plate 08/17/2011 49849-Ankzlocw Plate 11/05/2011 34231-Bhnvqicg Plate 02/01/2012 12074-Vmgcmepn Plate 04/14/2012 66022-Kkslrcvw Plate 03/09/2011 09512-Yhnvkwjk Plate 12/15/2010 99556-Krspkdbi Plate 05/18/2011 35297-Dujoorzp Plate 06/29/2011 93143-Ilkqywom Plate 06/30/2012 90126-Hmmjutde Plate 10/10/2012 13049-Vbviqhax Plate 12/26/2012 65072-Qgyieypx Plate 04/10/2013 28133-Isdvnxed Plate 10/09/2013 33559-Cvodqqke Plate 01/15/2014 39898-Lupeirsb Plate 04/19/2014 50051-Ovwyidjo Plate 07/23/2014 36053-Qlvrizyr Plate 04/29/2015 84608-Unlbfqmb Plate 10/25/2014 40613-Arwkykge Plate 01/28/2015 65844-Qybluazr Plate 03/01/2017 27163-Visyhfjx Plate 11/30/2016 70123-Vchtzitr Plate 05/11/2016 90782-Bpwbpcjk Plate 08/17/2016 93527-Lfgsrvfp Plate 04/24/2019 04244-Mfgeapbf Plate 01/16/2019 62552-Fgtnnxte Plate 10/10/2018 74591-Wnmuacji Plate 07/11/2018 87180-Ffzpjweq Plate 04/11/2018 35740-Adgwmrjf Plate 12/30/2017 71041-Ifhahnhy Plate 08/30/2017 63793-Abongnxe Plate 05/31/2017 77272-Iulexcis Plate 11/08/2023 38516-Xfqolhch Plate 01/25/2023 83720-Napryubg Plate 10/05/2022 60197-Kytkgymt Plate 02/02/2022 07956-Jpkzgujx Plate 11/03/2021 31768-Fagdljfv Plate 07/14/2021 22013-Vzsghuoz Plate 04/14/2021 34886-Atopgddw Plate 01/06/2021 85516-Orxmptlu Plate 10/07/2020 19120-Aemlncyu Plate 07/04/2020 98554-Lavnwrmm Plate 04/04/2020 39691-Krkrofdg Plate 11/23/2019 17287-Hznyjurl Plate Each Additional 10/2020 07985-Ywfqfomz Plate Each Additional 11/2020 02919-Qaqfnmlb Plate Each Additional 68231-Ysgdgtwp Plate Each Additional 02/2021 49320-Usmwfaqf Plate Each Additional 61151-Gvapgozk Plate Each Additional 75232-Ikqhujpk Plate Each Additional 11/2021 48588-Xxjlhjev Plate Each Additional 10/2021 33609-Xgibuuds Plate Each Additional 08/2017 23858-Pwsgcglj Plate Each Additional 07/2017 24004-Ywyukemz Plate Each Additional 07/2017 13293-Oqlwqktp Plate Each Additional 20947-Gxdodkpo Plate Each Additional 07358-Vooljmrg Plate Each Additional 19457-Gyreekef Plate Each Additional 84304-Rrfatcoo Plate Each Additional 50607-Tuihwoqs Plate Each Additional 07/2016 09043-Yknvjgxd Plate Each Additional 07/2016 48288-Vushktxc Plate Each Additional 05/2014 45179-Xmqeoztn Plate Each Additional 00631-Pffxdqsw Plate Each Additional 04/2015 93987-Cooywrme Plate Each Additional 98233-Tlntcarb Plate Each Additional 65139-Jdsqgovb Plate Each Additional 53588-Zecowljm Plate Each Additional 11347-Mndnbjfh Plate Each Additional 91571-Tugdvvdm Plate Each Additional 03/2012 22509-Xafyxzxi Plate Each Additional 31145-Osixxdck Plate Each Additional 07/2012 44336-Gzomealw Plate Each Additional 05/2011 66139-Qodunuvn Plate Each Additional 36072-Uftcbmtl Plate Each Additional 35105-Ouktrejk Plate Each Additional 08/2011 79846-Jvwjmwop Plate Each Additional 12/2011 40230-Czaanosg Plate Each Additional 94311 I&D ABSCESS- SIMPLE,SINGLE 020 56934-TDYO SKIN LESIONS, OVER 4 11/23/19 20 89565-PLRJ SKIN LESIONS, OVER 4 04/04/19 21 60304-OJHA SKIN LESIONS, OVER 4 10/08/19 21 63895-ZSRP SKIN LESIONS, OVER 4 07/05/19 21 33780-AENU SKIN LESIONS, OVER 4 11/04/19 22 01954-SCGP SKIN LESIONS, OVER 4 07/15/19 22 68013-NJKI SKIN LESIONS, OVER 4 04/14/19 22 77378-SUCY SKIN LESIONS, OVER 4 01/07/20 21 05864-PYSM SKIN LESIONS, OVER 4 02/03/20 22 68522-RJQQ SKIN LESIONS, OVER 4 10/06/19 23 63316-IHXG SKIN LESIONS, OVER 4 06/23/19 23 77925-UAIW SKIN LESIONS, OVER 4 01/26/20 23 58160-CCWS SKIN LESIONS, OVER 4 05/20/19 24 53901-CFKJ SKIN LESIONS, OVER 4 08/17/19 12 90362-OHTM SKIN LESIONS, OVER 4 11/08/19 24 39362-FHWR SKIN LESIONS, OVER 4 11/05/19 12 70888-CQKP SKIN LESIONS, OVER 4 02/01/20 12 02865-EXTD SKIN LESIONS, OVER 4 04/14/19 13 64388-TZJM SKIN LESIONS, OVER 4 05/18/19 12 81424-EJOM SKIN LESIONS, OVER 4 12/16/19 11 46232-MFEU SKIN LESIONS, OVER 4 03/09/20 11 50524-AUSE SKIN LESIONS, OVER 4 07/01/19 13 15826-SUNN SKIN LESIONS, OVER 4 10/11/19 13 66835-EAEN SKIN LESIONS, OVER 4 12/27/19 13 58974-IZQX SKIN LESIONS, OVER 4 04/10/19 14 49085-TVAM SKIN LESIONS, OVER 4 07/04/19 14 14401-GXRV SKIN LESIONS, OVER 4 08/05/19 16 35904-ISXY SKIN LESIONS, OVER 4 04/29/19 16 20116-PDBP SKIN LESIONS, OVER 4 03/01/20 17 51529-BAED SKIN LESIONS, OVER 4 12/01/19 17 94578-KCHM SKIN LESIONS, OVER 4 08/18/19 17 07767-KKYY SKIN LESIONS, OVER 4 05/11/19 17 54697-OQUX SKIN LESIONS, OVER 4 02/03/20 16 97834-NGSZ SKIN LESIONS, OVER 4 11/04/19 16 26903-JKIE SKIN LESIONS, OVER 4 04/24/19 20 06151-QLUI SKIN LESIONS, OVER 4 01/17/20 19 93104-ACHG SKIN LESIONS, OVER 4 10/11/19 19 36301-JITC SKIN LESIONS, OVER 4 07/12/19 19 98295-MSFP SKIN LESIONS, OVER 4 04/11/19 19 43758-JENK SKIN LESIONS, OVER 4 12/31/19 18 22115-DHXC SKIN LESIONS, OVER 4 08/31/19 18 12936-PLSP SKIN LESIONS, OVER 4 06/01/19 18 58454-YZYY SKIN LESIONS, 2 TO 4 01/29/20 15 78289-FGTD SKIN LESIONS, 2 TO 4 10/26/19 15 53935-JPVM SKIN LESIONS, 2 TO 4 04/19/19 15 03977-JCJU SKIN LESIONS, 2 TO 4 10/10/19 14 66772-CFMN SKIN LESIONS, 2 TO 4 01/16/20 14 45554-OXVP SKIN LESIONS, 2 TO 4 07/24/19 15 25613-YTDR SKIN LESIONS, 2 TO 4 06/29/19 12 39007,D5698-TXO TENDON SHEATH/LIGAMENT 0 08/17/2011 Insurance Providers Payer Name Payer Address Payer Phone Subscriber Number Group Number Insured Name Patient Relationship to Insured Coverage Start Date Coverage End Date [employer] Medicare Complete [address] [address] [place] [address] [phone] [id number] Joshua chung Self - patient is the insured Medical (General) History Medical History History ICD Code mumps measles chicken pox Cholesterol hypertension type I diabetes Surgical History Surgery Date(Month/Year) knee surgery 1956 hernia repair 1977 colonoscopy 03/01/12 Hospitalization History Reason Date(Month/Year) Patient has been in [facility] ER twice for uri nary issues. 12/07,01/06 Patient went to [facility] ER for a severe cold . 06/03/2013 [facility] operation neuretha 09/2015 [facility] see for fall pt had. [facility] Fall From dog Fractured 3 ribs 2019 [facility]-Stroke 3 days 05/2020 [facility]- Low BS 55 1 day 10/25/21
--- OUTSIDE RECORDS SUMMARY | 2024-07-23 06:09 | XMS_ITS | Encounter Summary ---
Author Organization [facility] Address [address] [facility] [address] [place] [address] Phone Care Team Providers Care Mini Baccarat Dealer Name Role Phone Claude Churchill Primary Care Provider Encounter Details Date Type Department Care Team (Late st Contact Info) Description 06/27/2020 Orders Only [facility] [address] [facility] [address] [place] [address] Sb Saenz MD [address] [address] Type 2 diabetes mellitus with [...] Office Visit [facility] [address] [facility] [address] [place] [address] Sb Saenz MD [address] [address] documented as of this encounter Visit Diagnoses Diagnosis Type 2 diabetes mellitus with diabetic chronic kidney disease (HCC) Stage 3a chronic kidney disease (HCC) Vitamin B12 deficiency Hypercholesterolemia, not otherwise specified Elevated prostate specific antigen (PSA) Anemia, not otherwise specified documented in this encounter Care Teams Mini Baccarat Dealer Relationship Specialty Start Date End Date Claude Churchill DO [address] [place] [address] PCP - General Internal Medicine 05/01/20 documented as of this encounter
--- OUTSIDE RECORDS SUMMARY | 2024-07-23 06:09 | XMS_ITS ---
Author Organization [facility] [place] Address [address] [place] [address] Care Team Providers Care Bottom Bleacher Name Role Phone Claude Churchill MD Primary Care Provider Unavail able Oz Poe Unavailable [phone] Allergies Allergen (clinical drug ingredient) Drug/Non Drug [...] Ordered Date Performed Result Body Sit e 13302-XKYXGLR NAIL, 6 OR MORE 11/08/2023 N/A 08351-Jxcvcdwg Plate 11/08/2023 N/A 77725-GCOR SKIN LESIONS, OVER 4 11/08/2023 N/A Encounters Encounter Location Date Provider Diagnosis [facility] [address] [place] [address] 11/08/2023 Oz Poe Type 2 diabetes mellitus [...] INSTRUCTIONS.pdf) Pending Test Test Name Order Date 63215-HEDAQYX NAIL, 6 OR MORE 11/08/2023 09569-Oemogzec Plate 11/08/2023 99186-YUHO SKIN LESIONS, OVER 4 11/08/19 24 Next [...] Motrin was recommended for pain or discomfort (45659) , DIABETES: Pt was advised as to [...] as necessary. Patient chooses, no pharmaceutical tx (51842) Keratoma Treatment Parring or Cutting o f Benign Hyperkeratotic Lesion(s) 22289 ( >4 Lesions) - The Benign hyperkeratotic lesions, as described above were pared, and/or cut utilizing a sterile #15 blade, tissue nippers, and/or dremel Progress Notes * Joshua GUTIERREZ ADOB: 5 (78 yo M)Acc No.[id number]:11/08/2023 Progress Note Patient:?Joshua Gutierrez Provider:?Oz Poe DPM :1945???Age:78 Y???Sex:Male Samuel e:11/08/2023 Address:[address] [place], [place] [id number] Pcp:Claude Churchill MD Subjective: * Chief Complaints: [...] Hospitalization/Major Diagno stic Procedure:?Patient has been in [facility] twice for urinary issues. 12/07,atient went to [facility] for a severe cold. 06/03/2013[facility] operation neuretha 09/2015[facility] see for fall pt had. 01/2018[facility] Fall From dog Fractured 3 ribs 2019[facility]Stroke 3 days 05/2020[facility]- Low BS 55 1 day 10/25/21 * [...] yes, walking. ?Marital status: . 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 * Medications:?TakingAspirin 8 1 Crestor 40 MG [...] INSTRUCTIONS.pdf (DIABETIC FOOT CARE INSTRUCTIONS.pdf)?? 3.?Ingrown nail?Procedure: 49542-Puvfajdq Plate * Procedures:?Debride Nail 6-10:?Nail debridement?Nail debridement performed extensively to reduce/remove overall nail length, girth, thickness, subungual debris, and necrotic tissue, by manual and electrical means through the use of a nail nipper and/or dremel, to more viable healthy nail plate or bed tissue 6-10. Silver nitrate used for any petechial bleeding as necessary. Patient chooses, no pharmaceutical tx (26930) .?Keratoma Treatment:?Parring or Cutting of Benign Hyperkeratotic Lesion(s)?42131 ( >4 Lesions) - The Benign hyperkeratotic [...] Motrin was recommended for pain or discomfort (18082) , DIABETES: Pt was advised as to the risk of delayed or nonhealing due to diabetes. Pt is to call the office with any questions, concerns, or complications.? * Procedure Codes:?18045 DEBRI DE NAIL, 6 OR MORE, Modifiers: XS 11379 Avulsion Plate, Modifiers: XS , GR92802 TRIM SKIN LESIONS, OVER 4, Modifiers: XS [...] Poe DPM Date:?2023 Generated for Rachel alba/Lorelei/Radhaitting on:?07/23/2024 06:09 AM EDT History and Physical Notes * HPI (History of Present Illness) Category Sub-Category Detail Notes Category Not es Toe pain Location: B/L feet Duration: several years Course: worse Aggravated by: shoes, any pressure Treatments: change in shoes At Risk footcare Pt States Last PCP Visit: Date: Examination Category Sub-Category Detail Notes Category Not [...] cture, No Charcot collapse/destruction noted at [facility] FOOTWEAR EVALUATION: worn, OT were inspe cted and noted to be severely worn , [...]
--- OUTSIDE RECORDS SUMMARY | 2024-07-23 06:10 | XMS_ITS ---
Author Organization [facility] Address [address] [place] [address] Care Team Providers Care Rustic Terrazzo Setter Name Role Phone Claude Churchill MD Primary Care Provider Unavail able Oz Poe Unavailable [phone] REASON FOR VISIT cx 07/20 - pt Encounters Encounter Location Date Provider Diagnosis [facility] [address] [place] [address] 05/09/2024 Oz Poe Plan Of Treatment No Information Progress Notes * Joshua PAYNE ADOB: 5 (78 yo M)Acc No.[id number]:05/09/2024 Patient:?Joshua PAYNE :1945???Age:78 Y???Sex:Male Address:[address] [place] [address], [address], [place], [address] * true * Date:? Generated for Printi parth/Lorelei/eTransmitting on:?07/23/2024 06:09 AM EDT
--- OUTSIDE RECORDS SUMMARY | 2024-07-23 06:10 | XMS_ITS | Clinical Summary ---
Author Organization [facility] Address [address] [facility] [address] [place] [address] Phone Care Team Providers Care Senior Planning Analyst Name Role Phone Claude Churchill DO Primary [...] h diabetic chronic kidney disease 06/13/2020 Immunizations Immunization Administration Dates Next Due Influenza Split High [...] Visit [facility] P.. [address] [address] Sb Saenz MD [address] [address] Health Maintenance Due Date Last Done Comments Pneumococcal Vaccine: 50+ Years (3 of 3 - PCV) 06/14/2013 06/14/2012, 08/03/1999 Diabetes: Hemoglobin A1C 06/13/2020 Diabetes: Ophthalmology Exam 06/13/2020 Diabetes: Pedal Pulse Checked 06/13/2020 Diabetes: Sensory Foot Exam 06/13/2020 Diabetes: Visual Foot Exam 06/13/2020 Influenza Vaccine (Season Ended) 2024 12/11/2019, 12/18/2018, 12/29/2017, Additional history exists Pneumococcal Vaccine: Peds (0 to 5 Years) and At-Risk Patients (6 to 49 Years) Discontinued 06/14/2012, 08/03/1999 Hepatitis B Vaccine Aged Out No longe r eligible based on patient's age to complete this topic Insurance [facility] Medicare [facility] Medicare Care Teams Senior Planning Analyst Relationship Specialty Start Date End Date Claude Churchill DO [address] [place] [address] PCP - General Internal Medicine 05/01/20
--- OUTSIDE RECORDS SUMMARY | 2024-07-23 06:10 | XMS_ITS ---
Continuity of Care Document (CCD) Created on: July 23, 2024 Joshua Gutierrez External Reference #: [id number] : 1945 Sex: Male Author Organization [facility] [address] [place] [address] Phone [phone] Care Team Providers Care Software Engineering Project Manager Name Role Phone Claude Churchill M.D. Care Team Information Recei francisco j [phone] Problems Active Problems Provider Date Benign prostatic [...] SIG Qnty Indications Ordering Provider Date Toujeo Wcyvycxl085Pfzj/ML Solution Pen-Inject inject 20 units under the skin once daily in am dx: e11.8 13.5ml Kaiden Retana M.D. 11/02/2023 [facility] Insulin Pen [place] 29GX12.7mm29G X 12.7mm Misc inject daily 100units Kaiden Retana M.D. 11/02/2023 Freestyle Mirella 3/Sensor/Glucose Monitoring Rhszzk4Twvexy Misc as directed 3units Kaiden Retana M.D. 11/02/2023 Freestyle Mirella 3/[place]/Glucose Monitoring Fkbyju2Rlkbqm Device use with sensors to check blood sugar dx:e11.9 1units Kaiden Retana M.D. 11/02/2023 Timolol Maleate0.5% Solution Instill 1 Drop In Right Eye Every Morning Arvin Leung M.D Tqaanzeef78jv Tablets Take 1 Tablet By Mouth Twice A Day 30 Minutes Before Meals Claude Churchill M.D. Metformin PSR9973rf Tablets Take 1 Tablet By Mouth Twice A Day With A Meal For 90 Days 180tabs Kaiden Retana M.D. Njrbwhmtau6ir Tablets Take 1 Tablet By Mouth Every Day For 90 Days Claude Churchill M.D. Ferrous Lkwdrow964(65Fe) mg Tablets Take 1 Tablet By Mouth Every Day Ap Negron Rosuvastatin Cbzteyu56um Tablets Anish Churchill M.D. Tamsulosin HCL0.4mg Capsules [...] 587 Procedures Date Code Description Status 10/25/2023 48769 Glucose Monitori ng From Interstital Tissue Fluid [...]
[2024-07-23 07:53] LABS: B Type Natriuretic Peptide < 10 pg/mL (<100)
[2024-07-23 10:03] LABS: MANUAL DIFF FLAG NO
[2024-07-23 10:12] LABS: Basophils Percent Auto 0.5 % (0-2); Eosinophils Absolute Auto 0.2 X10*3/uL (0.0-0.4); Eosinophils Percent Auto 3.4 % (0-4); Hemoglobin 13.9 g/dl (14.0-18.0); Imm Gran Abs Auto 0.01 X10*3/uL (0.00-0.03); Imm Gran Pct Auto 0.2 % (0.0-0.4); Lymphocytes Absolute Auto 1.6 X10*3/uL (1.2-4.9); Lymphocytes Percent Auto 27.8 % (20-40); Mean Corpuscular HGB Conc 32.3 g/dl (31.0-36.0); Mean Corpuscular Hemoglobin 30.2 pg (27.0-33.0); Mean Corpuscular Volume 93.3 fL (80.0-98.0); Monocytes Absolute Auto 0.4 X10*3/uL (0.1-1.2); Monocytes Percent Auto 7.2 % (2-11); Neutrophils Absolute Auto 3.5 x10*3/uL (2.0-8.3); Neutrophils Percent Auto 60.9 % (45-73); Platelet Count 210 X10*3/uL (160-400); Red Blood Count 4.61 X10*6/uL (4.60-5.80); Red Cell Distribution Width 15.6 % (11.0-16.0); White Blood Count 5.8 X10*3/uL (4.8-10.8)
[2024-07-23 10:36] LABS: Alanine Aminotransferase 22 U/L (0-40); Albumin Level 3.7 g/dL (3.5-5.0); Alkaline Phosphatase 83 U/L (39-117); Anion Gap 12 (12-20); Aspartate Amino Transferase 22 U/L (5-37); Bilirubin Direct 0.1 mg/dL (0.0-0.5); Bilirubin Total 0.4 mg/dL (0.0-1.0); Blood Urea Nitrogen 17 mg/dL (9-16); Calcium 9.9 mg/dL (8.4-10.2); Carbon Dioxide 28 mmol/L (22-29); Chloride 103 mmol/L (96-108); Cholesterol 186 mg/dL (<200); Estimated Glomerular Filt Rate > 60; Glucose Fasting 154 mg/dL (60-99); HDL Cholesterol 38 mg/dL (>40); LDL Cholesterol Calculated 100 mg/dL (<100); Magnesium 1.8 mg/dL (1.6-2.6); Potassium 4.1 mmol/L (3.3-5.1); Sodium 139 mmol/L (135-145); Total Protein 7.1 g/dL (6.5-8.0); Triglycerides 241 mg/dL (<150)
[2024-07-23 10:46] LABS: Estimated Average Glucose 212 mg/dL; Hemoglobin A1C 272.6294 umol/L; Total Hemoglobin (HGBA1C) 3622.8801 umol/L
[2024-07-23 10:53] LABS: TSH reflex Free T4 1.91 uIU/mL (0.32-4.0); Vitamin D 25-OH Total 57.7 ng/mL (>30)
[2024-07-23 10:56] LABS: Folate 10.5 ng/mL (> or = 4.0); Vitamin B12 1087 pg/mL (200-900)
[2024-07-23 10:58] LABS: Creatinine Urine 128.18 mg/dL; Microalbum/Creatinine Ratio Ur 17.9 ug/mg cr (<30)
== END 2024-07-23 06:08 | disposition home or self-care (01) ==
LOC: HO.HMGCLDS 06:07
PROVIDERS: PCP Internal Medicine; Visit Provider Physician Assistant Medical
DX: Z00.00 Encounter for general adult medical examination without abnormal findings (principal); R60.0 Localized edema; E11.9 Type 2 diabetes mellitus without complications
CPT/HCPCS: 36415; 80053; 80061; 80076; 82043; 82248; 82306; 82570; 82607; 82746; 83036; 83735; 83880; 84443; 85025

== ENCOUNTER 2024-08-03 10:19 | Outpatient (AMB) | payer MEDICARE, SELFPAY ==
--- OUTSIDE RECORDS SUMMARY | 2024-08-03 10:47 | XMS_ITS | Patient Health Record ---
Author Organization [facility] Address [address] [place] [address] Care Team Providers Care Commercial Lending Assistant Name Role Phone Claude Churchill MD Primary Care Provider Unavail able Oz Poe Unavailable [phone] Allergies Allergen (clinical drug ingredient) Drug/Non Drug [...] Problem Acquired hammer toe of right foot (5268965331747085 ) Other hammer toe(s) (acquired), right foot (M20.41) Active confirmed Problem Acquired hammer toe of left foot (0383445018659946 ) Other hammer toe(s) (acquired), left foot (M20.42) Active confirmed Problem Polyneuropathy due to type 2 diabetes mellitus (760588436) Type 2 diabetes mellitus with diabetic polyneuropathy (E11.42) Active confirmed Vital Signs Blood pressure diastolic 63 mm Hg 11/08/2023 Height 5 ft 6 in in 11/08/2023 Blood pressure systolic 126 mm Hg 11/08/2023 Weight 160 lbs 11/08/2023 BMI 25.82 kg/m2 11/08/2023 Procedures Procedure Date Ordered Date Performed Result Body Sit e 51561-INVBMXT NAIL, 6 OR MORE 11/08/2023 N/A 85871-Gjgvyvjn Plate 11/08/2023 N/A 64898-IPAX SKIN LESIONS, OVER 4 11/08/2023 N/A Encounters Encounter Location Date [facility] [address] 11/08/2023 Oz Poe Type 2 diabetes mellitus with diabetic polyneuropathy E11.42 ; Onychomycosis B35.1 ; Other hammer toe(s) (acquired), right foot M20.41 ; Other hammer toe(s) (acquired), left foot M20.42 and Ingrown nail L60.[address] [address] 11/01/2023 [facility] [address] 11/08/2023 Oz Poe [facility] [address] [place] [address] 05/09/2024 Oz Poe Assessments Encounter Date Diagnosis [...] X ray : Foot, left 3V 06/29/2011 36196-MSLWEKJ NAIL, 6 OR MORE 08/17/2011 59688-SKVYOPJ NAIL, 6 OR MORE 11/05/2011 90387-PNSIFNR NAIL, 6 OR MORE 02/01/2012 51142-ENGRYRY NAIL, 6 OR MORE 04/14/2012 98938-LKJIWKD NAIL, 6 OR MORE 12/15/2010 73040-JSHGLPU NAIL, 6 OR MORE 03/09/2011 89936-NVELEYN NAIL, 6 OR MORE 05/18/2011 86693-UJOQNVD NAIL, 6 OR MORE 06/29/2011 32838-JGOTFTV NAIL, 6 OR MORE 06/30/2012 05024-SSIWWEH NAIL, 6 OR MORE 10/10/2012 42176-LZQVLTD NAIL, 6 OR MORE 12/26/2012 23845-LIQMCFA NAIL, 6 OR MORE 04/10/2013 97640-BNSTECU NAIL, 6 OR MORE 2013 95420-SDHRXWC NAIL, 6 OR MORE 10/09/2013 99137-ZPKNITW NAIL, 6 OR MORE 01/15/2014 38725-ECNMLCB NAIL, 6 OR MORE 04/19/2014 39602-PIYPKQG NAIL, 6 OR MORE 07/23/2014 48852-JQSSBXS NAIL, 6 OR MORE 08/05/2015 95033-ZLCAATQ NAIL, 6 OR MORE 04/29/2015 93748-ZVJZJCK NAIL, 6 OR MORE 10/25/2014 17627-RRTYCPB NAIL, 6 OR MORE 01/28/2015 86255-ENSEEIP NAIL, 6 OR MORE 11/04/2015 12077-NLRAAOZ NAIL, 6 OR MORE 02/03/2016 46455-MLQPQJF NAIL, 6 OR MORE 05/11/2016 98184-TLTJXWS NAIL, 6 OR MORE 08/17/2016 11913-ESKQOVG NAIL, 6 OR MORE 11/30/2016 36911-TEDIKUV NAIL, 6 OR MORE 03/01/2017 29953-HRZBPGH NAIL, 6 OR MORE 05/31/2017 20571-OAQAPAJ NAIL, 6 OR MORE 08/30/2017 61020-PQQXRDY NAIL, 6 OR MORE 12/30/2017 51805-JLHSLQP NAIL, 6 OR MORE 04/11/2018 66327-ORYCMUJ NAIL, 6 OR MORE 07/11/2018 91371-MDDJROR NAIL, 6 OR MORE 10/10/2018 05580-GOTTFID NAIL, 6 OR MORE 01/16/2019 71207-OMGHGTK NAIL, 6 OR MORE 04/24/2019 61536-LNGZXNJ NAIL, 6 OR MORE 11/23/2019 83312-HYHGDAD NAIL, 6 OR MORE 04/04/2020 51753-IILFEYE NAIL, 6 OR MORE 07/04/2020 83004-LPXZRIT NAIL, 6 OR MORE 10/07/2020 65496-DXNGMQL NAIL, 6 OR MORE 01/06/2021 43739-NAMCTVU NAIL, 6 OR MORE 04/14/2021 03502-NAMEHUR NAIL, 6 OR MORE 07/14/2021 18317-JVOWHST NAIL, 6 OR MORE 11/03/2021 44807-EAQZTTL NAIL, 6 OR MORE 02/02/2022 11371-JRJWPAS NAIL, 6 OR MORE 06/22/2022 38392-OIMYEOP NAIL, 6 OR MORE 10/05/2022 16314-KVDQKDH NAIL, 6 OR MORE 01/25/2023 56737-IPFKUYD NAIL, 6 OR MORE 05/20/2023 13289-UJPUPCD NAIL, 6 OR MORE 11/08/2023 86226-Dhbg Destruction, 1-04/19/2014 71400-Flhi Destruction, 1-14 10/25/2014 97063-Jqtk Destruction, 04-1001/28/2015 28350-Toza Destruction, 04-1007/23/2014 70162-Orlu Destruction, 04-1001/15/2014 72539-Ftde Destruction, 04-1010/09/2013 20947-Rgxx Destruction, 04-1007/03/2013 13068-Vtpt Destruction, 04-1004/10/2013 25858-Uckw Destruction, 04-1012/26/2012 65952-Qora Destruction, 04-1010/10/2012 44373-Urlo Destruction, 04-1006/30/2012 88862-Bvqi Destruction, 04-1006/29/2011 57820-Mvpj Destruction, 04-1005/18/2011 74585-Ivyv Destruction, 04-1012/15/2010 58314-Pvdr Destruction, 04-1003/09/2011 11551-Mmax Destruction, 04-1004/14/2012 57289-Pttg Destruction, 04-1002/01/2012 35926-Erpr Destruction, 04-1011/05/2011 89847-Jzsc Destruction, 04-1008/17/2011 63227-Urthfsao Plate 08/17/2011 60332-Wukvppts Plate 11/05/2011 18643-Qcwopxvr Plate 02/01/2012 59656-Vbsjymoq Plate 04/14/2012 05008-Wqjddlge Plate 03/09/2011 03707-Ovxivsjn Plate 12/15/2010 32550-Bjtxppba Plate 05/18/2011 39030-Gdovfulr Plate 06/29/2011 49101-Qnkmwzip Plate 06/30/2012 33197-Gkcqgeew Plate 10/10/2012 64954-Ihkrfhrf Plate 12/26/2012 71600-Uczbhrpb Plate 04/10/2013 35933-Kkwcpnmv Plate 10/09/2013 69700-Ttmwhtit Plate 01/15/2014 96522-Ucbzlofm Plate 04/19/2014 16549-Nomfgqkf Plate 07/23/2014 19244-Sstqghlf Plate 04/29/2015 36187-Sjhkiuwu Plate 10/25/2014 11839-Wshhqfen Plate 01/28/2015 19112-Djcifaqv Plate 03/01/2017 80891-Dajpruvn Plate 11/30/2016 39722-Bfsqdqhw Plate 05/11/2016 03867-Kvkabudy Plate 08/17/2016 88121-Ljgaevmf Plate 04/24/2019 30942-Uentwryb Plate 01/16/2019 23110-Qnlmjbsm Plate 10/10/2018 50543-Dkiilaiu Plate 07/11/2018 00400-Jrbnubko Plate 04/11/2018 16431-Poozbpqw Plate 12/30/2017 23820-Qczudzpv Plate 08/30/2017 47834-Juhiiuvx Plate 05/31/2017 70091-Izglfcra Plate 11/08/2023 35745-Ntxaqief Plate 01/25/2023 66577-Ddswvsnu Plate 10/05/2022 25589-Djmwxygs Plate 02/02/2022 03662-Tnnotoim Plate 11/03/2021 28601-Srbaupla Plate 07/14/2021 43851-Euxdgwqt Plate 04/14/2021 49567-Sssaphht Plate 01/06/2021 92735-Pdoncgzj Plate 10/07/2020 22026-Pqxdwlzb Plate 07/04/2020 15037-Mbubirfm Plate 04/04/2020 97292-Chbhhpun Plate 11/23/2019 89377-Zxpqsjcl Plate Each Additional 10/2020 03356-Wapzfviq Plate Each Additional 11/2020 52146-Itvtrxxb Plate Each Additional 46475-Maqgzcjq Plate Each Additional 02/2021 84972-Joxmkadx Plate Each Additional 77988-Jcosqqin Plate Each Additional 19162-Ffsyiduo Plate Each Additional 11/2021 74346-Crvxarci Plate Each Additional 10/2021 31791-Qhoyclpc Plate Each Additional 08/2017 57218-Udkesapz Plate Each Additional 07/2017 05520-Eevaaoye Plate Each Additional 07/2017 24179-Mnfruafr Plate Each Additional 71974-Zxaazrcd Plate Each Additional 87466-Fvuthxxk Plate Each Additional 48486-Zucgdqxm Plate Each Additional 04638-Gkxqofdi Plate Each Additional 30215-Xmgcuhvz Plate Each Additional 07/2016 36338-Llkvhmym Plate Each Additional 07/2016 90023-Uyqkdhux Plate Each Additional 05/2014 90332-Zyzhihaw Plate Each Additional 53317-Kinzpnlo Plate Each Additional 04/2015 38487-Rjahcmjy Plate Each Additional 77335-Slcgbesp Plate Each Additional 07405-Cpazzhvt Plate Each Additional 15870-Aohvhjip Plate Each Additional 55780-Zeviwzin Plate Each Additional 67807-Nhwnmkic Plate Each Additional 03/2012 20864-Djqpodal Plate Each Additional 18043-Gtgsjnpv Plate Each Additional 07/2012 77397-Jjevlxin Plate Each Additional 05/2011 68696-Emdqwqrb Plate Each Additional 21437-Bklcezga Plate Each Additional 30654-Ndluhnpa Plate Each Additional 08/2011 58305-Pcosogva Plate Each Additional 12/2011 96055-Spvnnxqw Plate Each Additional 71928 I&D ABSCESS- SIMPLE,SINGLE 020 23827-DUSB SKIN LESIONS, OVER 4 11/23/19 20 24832-YOXX SKIN LESIONS, OVER 4 04/04/19 21 15856-HUCH SKIN LESIONS, OVER 4 10/08/19 21 35008-GCXN SKIN LESIONS, OVER 4 07/05/19 21 14748-UQYW SKIN LESIONS, OVER 4 11/04/19 22 97510-YLRF SKIN LESIONS, OVER 4 07/15/19 22 21571-KAMO SKIN LESIONS, OVER 4 04/14/19 22 23338-GGPE SKIN LESIONS, OVER 4 01/07/20 21 89029-CAFV SKIN LESIONS, OVER 4 02/03/20 22 46165-POOF SKIN LESIONS, OVER 4 10/06/19 23 14220-TFDT SKIN LESIONS, OVER 4 06/23/19 23 94486-VOCU SKIN LESIONS, OVER 4 01/26/20 23 08588-KMSB SKIN LESIONS, OVER 4 05/20/19 24 73587-RSKB SKIN LESIONS, OVER 4 08/17/19 12 00584-TYHN SKIN LESIONS, OVER 4 11/08/19 24 74570-YUDW SKIN LESIONS, OVER 4 11/05/19 12 20889-BWNS SKIN LESIONS, OVER 4 02/01/20 12 94533-RBUK SKIN LESIONS, OVER 4 04/14/19 13 94199-UVDB SKIN LESIONS, OVER 4 05/18/19 12 88215-JTLI SKIN LESIONS, OVER 4 12/16/19 11 27645-IOUZ SKIN LESIONS, OVER 4 03/09/20 11 75900-LMSC SKIN LESIONS, OVER 4 07/01/19 13 11164-NVLT SKIN LESIONS, OVER 4 10/11/19 13 02910-BKZQ SKIN LESIONS, OVER 4 12/27/19 13 35237-ULLT SKIN LESIONS, OVER 4 04/10/19 14 24613-JRTS SKIN LESIONS, OVER 4 07/04/19 14 34712-NNKT SKIN LESIONS, OVER 4 08/05/19 16 72389-CFXT SKIN LESIONS, OVER 4 04/29/19 16 29104-JYDK SKIN LESIONS, OVER 4 03/01/20 17 85574-QHNH SKIN LESIONS, OVER 4 12/01/19 17 00580-PTXW SKIN LESIONS, OVER 4 08/18/19 17 02220-YEYF SKIN LESIONS, OVER 4 05/11/19 17 61772-TXYV SKIN LESIONS, OVER 4 02/03/20 16 83838-LTRW SKIN LESIONS, OVER 4 11/04/19 16 61377-AZWB SKIN LESIONS, OVER 4 04/24/19 20 90212-SOSK SKIN LESIONS, OVER 4 01/17/20 19 35535-ZGTZ SKIN LESIONS, OVER 4 10/11/19 19 64527-QSTY SKIN LESIONS, OVER 4 07/12/19 19 95940-FBJT SKIN LESIONS, OVER 4 04/11/19 19 38692-OPRW SKIN LESIONS, OVER 4 12/31/19 18 10522-RNNW SKIN LESIONS, OVER 4 08/31/19 18 31316-ZXXN SKIN LESIONS, OVER 4 06/01/19 18 40076-YMWM SKIN LESIONS, 2 TO 4 01/29/20 15 81722-DNOV SKIN LESIONS, 2 TO 4 10/26/19 15 05003-CGAP SKIN LESIONS, 2 TO 4 04/19/19 15 43474-CVVQ SKIN LESIONS, 2 TO 4 10/10/19 14 22869-QVKO SKIN LESIONS, 2 TO 4 01/16/20 14 09569-ODOF SKIN LESIONS, 2 TO 4 07/24/19 15 15655-RIXJ SKIN LESIONS, 2 TO 4 06/29/19 12 81108,G6224-BRC TENDON SHEATH/LIGAMENT 0 08/17/2011 Insurance Providers Payer Name Payer Address Payer Phone Subscriber Number Group Number Insured Name Patient Relationship to Insured Coverage Start Date Coverage End Date [employer] Medicare Complete [address] [address] [place] [address] [phone] [id number] Joshua chung Self - patient is the insured Medical (General) History Medical History History ICD Code mumps measles chicken pox Cholesterol hypertension type I diabetes Surgical History Surgery Date(Month/Year) knee surgery 1956 hernia repair 1977 colonoscopy 03/01/12 Hospitalization History Reason Date(Month/Year) Patient has been in [facility] ER twice for uri nary issues. 12/07,01/06 Patient went to [facility] ER for a severe cold . 06/03/2013 [facility] operation neuretha 09/[address] [facility] see for fall pt had. [facility] Fall From dog Fractured 3 ribs 2019 [facility]-Stroke 3 days 05/2020 [facility]- Low BS 55 1 day 10/25/21
--- OUTSIDE RECORDS SUMMARY | 2024-08-03 10:47 | XMS_ITS ---
Author Organization [facility] Address [address] [place] [address] Care Team Providers Care Nursing Center Tutor Name Role Phone Claude Churchill MD Primary Care Provider Unavail able Oz Poe Unavailable [phone] REASON FOR VISIT cx 07/20 - pt Encounters Encounter Location Date Provider Diagnosis [facility] [address] [place] [address] 05/09/2024 Oz Poe Plan Of Treatment No Information Progress Notes * Joshua PAYNE ADOB: [birth year] (78 yo M)Acc No.[id number]:05/09/2024 Patient:?Joshua PAYNE :1945???Age:78 Y???Sex:Male Address:[address] [place] [address], [address], [place], [address] * true * Date:? Generated for Hollisi parth/Lorelei/eTransmitting on:?08/03/2024 10:47 AM EDT
--- OUTSIDE RECORDS SUMMARY | 2024-08-03 10:47 | XMS_ITS | Continuity of Care Document ---
Author Organization [facility] [address] [place] [address] Phone [phone] Care Team Providers Care Corporate Security Manager Name Role Phone Claude Churchill M.D. Care Team Information Recei francisco j [phone] Problems Active Problems Provider Date Benign prostatic [...] SIG Qnty Indications Ordering Provider Date Toujeo Yggsilyj316Jdfj/ML Solution Pen-Inject inject 20 units under the skin once daily in am dx: e11.8 13.5ml Kaiden Retana M.D. 11/02/2023 Advocate Insulin Pen Brandeis 29GX12.7mm29G X 12.7mm Misc inject daily 100units Kaiden Retana M.D. 11/02/2023 Freestyle Mirella 3/Sensor/Glucose Monitoring Aidqnc8Rohzoi Misc as directed 3units Kaiden Retana M.D. 11/02/2023 Freestyle Mirella 3/Santee/Glucose Monitoring Itcbtc0Eboehj Device use with sensors to check blood sugar dx:e11.9 1units Kaiden Retana M.D. 11/02/2023 Timolol Maleate0.5% Solution Instill 1 Drop In Right Eye Every Morning Arvin Leung M.D Fxterxfsg72zs Tablets Take 1 Tablet By Mouth Twice A Day 30 Minutes Before Meals Claude Churchill M.D. Metformin JKZ6525zu Tablets Take 1 Tablet By Mouth Twice A Day With A Meal For 90 Days 180tabs Kaiden Retana M.D. Lltvpbpezb5on Tablets Take 1 Tablet By Mouth Every Day For 90 Days Claude Churchill M.D. Ferrous Qoduacf595(65Fe) mg Tablets Take 1 Tablet By Mouth Every Day Ap Negron Rosuvastatin Eliuopl59ew Tablets Anish Churchill M.D. Tamsulosin HCL0.4mg Capsules [...] 587 Procedures Date Code Description Status 10/25/2023 90858 Glucose Monitori ng From Interstital Tissue Fluid [...]
--- OUTSIDE RECORDS SUMMARY | 2024-08-03 10:47 | XMS_ITS | Clinical Summary ---
Author Organization [facility] Address [address] [facility] [address] [place] [address] Phone Care Team Providers Care Senior Living Sales Counselor Name Role Phone Claude Churchill DO Primary Care Provider [phone] Allergies Active Allergy Reactions Criticality Noted Date [...] Visit [facility] P.. [address] [address] Sb Saenz MD [address] [address] Health Maintenance Due Date Last Done Comments [...] patient's age to complete this topic Insurance [facility] Medicare [facility] Medicare Care Teams Senior Living Sales Counselor Relationship Specialty Start Date End Date Claude Churchill DO [address] [place] [address] PCP - General Internal Medicine 05/01/20
--- OUTSIDE RECORDS SUMMARY | 2024-08-03 10:47 | XMS_ITS | Encounter Summary ---
Author Organization [facility] Address [address] [facility] [address] [place] [address] Phone Care Team Providers Care Iron Assorter Name Role Phone Claude Churchill Primary Care Provider Encounter Details Date Type Department Care Team (Late st Contact Info) Description 06/27/2020 Orders Only [facility] [address] [facility] [address] [place] [address] Sb Saenz MD [address] [address] Type 2 diabetes mellitus with [...] Office Visit [facility] [address] [facility] [address] [place] [address] Sb Saenz MD [address] [address] documented as of this encounter Visit Diagnoses Diagnosis Type 2 diabetes mellitus with diabetic chronic kidney disease (HCC) Stage 3a chronic kidney disease (HCC) Vitamin B12 deficiency Hypercholesterolemia, not otherwise specified Elevated prostate specific antigen (PSA) Anemia, not otherwise specified documented in this encounter Care Teams Iron Assorter Relationship Specialty Start Date End Date Claude Churchill DO [address] [place] [address] PCP - General Internal Medicine 05/01/20 documented as of this encounter
--- OUTSIDE RECORDS SUMMARY | 2024-08-03 10:47 | XMS_ITS ---
Author Organization [facility] Address [address] [facility] [place] [address] Care Team Providers Care Civil Engineer'S Aide Name Role Phone Claude Churchill MD Primary Care Provider Unavail able Oz Poe Unavailable [phone] Allergies Allergen (clinical drug ingredient) Drug/Non Drug [...] Ordered Date Performed Result Body Sit e 29530-SDPZHKL NAIL, 6 OR MORE 11/08/2023 N/A 16813-Haocbnvh Plate 11/08/2023 N/A 90320-WFDR SKIN LESIONS, OVER 4 11/08/2023 N/A Encounters Encounter Location Date Provider Diagnosis [facility] [address] [place] [address] 11/08/2023 Oz Poe Type 2 diabetes mellitus [...] INSTRUCTIONS.pdf) Pending Test Test Name Order Date 08567-FPJDWGC NAIL, 6 OR MORE 11/08/2023 30782-Gukpwcix Plate 11/08/2023 19932-CJJS SKIN LESIONS, OVER 4 11/08/19 24 Next [...] Motrin was recommended for pain or discomfort (26156) , DIABETES: Pt was advised as to [...] as necessary. Patient chooses, no pharmaceutical tx (75907) Keratoma Treatment Parring or Cutting o f Benign Hyperkeratotic Lesion(s) 87740 ( >4 Lesions) - The Benign hyperkeratotic lesions, as described above were pared, and/or cut utilizing a sterile #15 blade, tissue nippers, and/or dremel Progress Notes * Joshua GUTIERREZ ADOB: [birth year] (78 yo M)Acc No.[id number]:11/08/2023 Progress Note Patient:?Joshua Gutierrez Provider:?Oz Poe DPM :1945???Age:78 Y???Sex:Male Samuel e:11/08/2023 Address:[address] [place], [place] [id number] Pcp:Claude Churchill MD Subjective: * Chief Complaints: [...] Hospitalization/Major Diagno stic Procedure:?Patient has been in [facility] ER twice for urinary issues. 12/07,atient went to [facility] for a severe cold. 06/03/2013[facility] operation neuretha 09/2015[facility] see for fall pt had. 01/2018[facility] Fall From dog Fractured 3 ribs 2019[facility]Stroke 3 days 05/2020[facility]- Low BS 55 1 day 10/25/21 * [...] yes, walking. ?Marital status: . 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 * Medications:?TakingAspirin 8 1 Crestor 40 MG [...] INSTRUCTIONS.pdf (DIABETIC FOOT CARE INSTRUCTIONS.pdf)?? 3.?Ingrown nail?Procedure: 41579-Fliptcaj Plate * Procedures:?Debride Nail 6-10:?Nail debridement?Nail debridement performed extensively to reduce/remove overall nail length, girth, thickness, subungual debris, and necrotic tissue, by manual and electrical means through the use of a nail nipper and/or dremel, to more viable healthy nail plate or bed tissue 6-10. Silver nitrate used for any petechial bleeding as necessary. Patient chooses, no pharmaceutical tx (11565) .?Keratoma Treatment:?Parring or Cutting of Benign Hyperkeratotic Lesion(s)?26659 ( >4 Lesions) - The Benign hyperkeratotic [...] Motrin was recommended for pain or discomfort (89230) , DIABETES: Pt was advised as to the risk of delayed or nonhealing due to diabetes. Pt is to call the office with any questions, concerns, or complications.? * Procedure Codes:?16000 DEBRI DE NAIL, 6 OR MORE, Modifiers: XS 96621 Avulsion Plate, Modifiers: XS , [id number] TRIM SKIN LESIONS, OVER 4, Modifiers: XS [...] Poe DPM Date:?2023 Generated for Rachel alba/Lorelei/Radhaitting on:?08/03/2024 10:47 AM EDT History and Physical Notes * [...]
--- OUTSIDE RECORDS SUMMARY | 2024-08-03 10:47 | XMS_ITS ---
Author Organization [facility] Address [address] [place] [address] Care Team Providers Care Fence Installer Foreman Name Role Phone Kerline PIEDRA, Claude Primary Care Provider Unavail Oz Nicholson Unavailable [phone] REASON FOR VISIT misbooked Encounters Encounter Location Date Provider Diagnosis [facility] [address] [place] [address] 07/20/2024 Oz Poe Plan Of Treatment No Information Progress Notes * Joshua GUTIERREZ ADOB: (79 yo M)Acc No.[id number]:07/20/2024 Progress Note Patient:?Joshua GUTIERREZ Provider:?Oz Poe DPM :1945???Age:79 Y???Sex:Male Samuel e:07/20/2024 Address:[address] [place] [address], [address], [place], [place] Pcp:Claude Churchill MD Subjective: * Chief Complaints: [...] Provider:?Oz Poe DPM Date:?2024 Generated for Printi ng/Faannmarieg/eTransmitting on:?08/03/2024 10:46 AM EDT
--- NOTE | 2024-08-03 10:52 | A.OFFVIS_ITS ---
Intake Vital Signs 08/03/24 10:56 Height 5 ft 4 in Weight 174 lb BMI 29.9 BP 139/62 Respiration 16 Pulse 104 H Pulse Source Pulse Oximeter Temp 97.6 F Temp Source Temporal Artery Scan Pulse Oximetry (%) 96 Oxygen Delivery Method Room Air Intake Visit Reasons: physical Personal Lines Sales Executive Required: No Accompanied by: Self / Same As Patient Allergies atorvastatin [Lipitor] Allergy (Unknown, Verified 08/03/24 11:17) rash From LIPITOR Allergy (Unknown, Uncoded 08/03/24 11:17) RASH Medication List - Last Reconciled 08/03/24 by Richelle Cason PA-C acetaminophen ER (Tylenol Arthritis Pain) 650 mg PO Q12H aspirin 81 mg PO DAILY blood sugar diagnostic (Amootoon Ultra Test strips) As directed cyanocobalamin (vitamin B-12) (Vitamin B-12) 1,000 mcg PO DAILY empagliflozin (Jardiance) 25 mg PO DAILY ferrous sulfate 325 mg PO DAILY insulin glargine U-300 conc (Toujeo SoloStar U-300 Insulin) 30 units subcut BEDTIME lisinopril 5 mg PO DAILY metformin 1,000 mg PO BID [id number] [id number] mcg (Centrum Silver Men) 1 tab PO DAILY rosuvastatin 40 mg PO DAILY tamsulosin 1 cap PO BEDTIME HPI physical HPI Details The patient is an 79-year-old male presenting for an annual physical examination with no specific complaints. He denies symptoms such as dizziness, chest pain, or abdominal discomfort. The patient does not report any significant changes in his health since his last visit, maintaining his physical and cognitive abilities typical for his age. 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 He acknowledges experiencing seasonal weight fluctuations, which are normal for him. While he has no immediate family nearby, he feels secure in his living situation. His history reflects consistent annual screenings and vaccination updates, such as the flu and shingles vaccines, completed as per guidelines. The patient prefers not to have life-prolonging interventions in severe health scenarios. Social History - Lives independently and feels safe at home. 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 - No nearby family support; no immediate family members alive. - Reports managing all ADLs and IADLs in dependently, including driving. - Prefers no CPR or intubation if life-t hreatening events occur. HPI Comments History of Present Illness Details Patient is here for an Annual Wellness Visit today. List of all patient's Health Care Provider's PCP- Dr. Esquivel Nephrologists-Dr. Saenz Urologist-Dr. Andersen Reviewed past medical history- yes Reviewed surgical / hospitalization history- yes Reviewed family history- yes Reviewed current medications- yes Review all current providers patient is actively being followed by- yes [facility] Medical History (Updated 08/03/24 @ 14:40 by Richelle Cason PA-C) Chronic anemia DNI (do not intubate) DNR (do not resuscitate) discussion Encounter for annual wellness exam in Medicare patient Sinus tachycardia Shortness of breath on exertion Multiple rib fractures Cervical radiculopathy Cervical disc disease Tubular adenoma Leukopenia GERD (gastroesophageal reflux disease) Renal lithiasis Hypotestosteronism Vitamin D deficiency Mild hypercholesterolemia Type 2 diabetes mellitus CVA (cerebral vascular accident) BPH (benign prostatic hyperplasia) H/O: HTN (hypertension) Diabetes mellitus Surgical History History of bladder surgery Hx of knee surgery H/O inguinal hernia repair Family History Father Lung cancer Heart attack Social History Household Members: None Housing: House Do you presently have visiting nurse or other home services: No Alcohol intake: never Patient Tobacco Use Status: Former Tobacco user Tobacco use type: Cigarette Cigarette Packs Per Day: 1.5 service: Yes Current occupational status: retired Questionnaire Medicare Wellness Checkup What is your age?: 79 or older What gender do you identify with?: male During the past 4 weeks, how much have you been bothered by emotional problems such as feeling anxious, depressed, irritable, sad or downhearted, and blue?: not at all During the past 4 weeks, has your physical & emotional health limited your social activities with family, friends, neighbors, or groups?: not at all During the past 4 weeks, how much bodily pain have you generally had?: very mild pain During the past 4 weeks, was someone available to help you if you needed & wanted help?: no, not at all During the past 4 weeks, what was the hardest physical activity you could do for at least 2 minutes?: light Can you get to places out of walking distance without help? (For eg., can you travel alone on buses, taxis or drive your car?): Yes Can you go shopping for groceries or clothes without someone's help?: Yes Can you prepare your own meals?: Yes Can you do your housework without help?: Yes Because of any health problems, do you need the help of another person with your personal care needs such as eating, bathing, dressing or getting around the house?: No Can you handle your own money without help?: Yes During the past 4 weeks, how would you rate your health in general?: very good During the past 4 weeks how have things been going for you?: pretty well Are you having difficulties driving your car?: no Do you always fasten your seat belt when you are in a car?: yes, usually During past 4 weeks, have you been bothered by the following: never: Falling or dizzy when standing up, Sexual problems?, Trouble eating well?, Teeth or denture problems? and Problems using the telephone? Have you fallen 2 or more times in the past year?: No Are you afraid of falling?: Yes Are you a smoker?: no During the past 4 weeks, how many drinks of wine, beer, or other alcoholic beverages did you have?: 1 drink or less per week Do you exercise for about 20 minutes 3 or more times a week?: yes, most of the time Have you been given information to help with the following?: no: Hazards in your house that might hurt you? and no: Keeping track of your medications? How often do you have trouble taking medicines the way you have been told to take them?: I always take medicine as prescribed How confident are you that you can control & manage most of your health problems?: very confident What is your race?: White Mini Mental State Exam (MMSE) Orientation What is the (year) (season) (date) (day) (month)?: year, season, date, day and month Where are we (state) (county) (town or city) (hospital) (floor)?: state, county, town or city, hospital/clinic and floor Registration Name of 3 unrelated objects clearly and slowly, then ask patient to repeat all 3 of them. (1st repeat determines score. Make sure they can repeat all three): object 1, object 2 and object 3 Attention & Calculation (CHOOSE ONE) Ask pt to begin with 100 & count backward by 7. Stop after 5 repeats. If pt cannot ask them to spell the word WORLD backward.: 93, 86, 79, 72 and 65 Spell WORLD backwards (DLROW): 5 letters Recall Ask patient to repeat the 3 items from question #3.: object 1, object 2 and object 3 Language Show patient a wristwatch & ask what it is. Repeat for pencil.: watch and pencil Ask the patient to repeat the phrase 'No ifs, ands, or buts' after you.: correct Ask the patient to 'take a piece of paper with their right hand' 'fold paper in half' 'place paper on floor': take paper in right hand, fold paper in half and place paper on floor Print the sentence 'CLOSE YOUR EYES' on a piece. If patient actually closes eyes then score.: followed written direction Give patient a blank piece of paper & ask to write a sentence. Score if it contains a noun & verb.: sentence contains subject and verb Ask patient to copy figure of intersecting pentagons exactly. Score if all 10 angles & 2 intersects are included.: all 10 angles present & 2 are intersected Score Score: 35 Activity of Daily Living Bathing - sponge bath, tub bath or shower: receives no assistance (gets in/out by self, if usual bathing means Dressing - getting clothes from closets & drawers, including inner/outer garments & fasteners.: gets clothes & gets completely dressed without help Toileting - going to the 'toilet room' for urine/bowel elimination & cleaning self/arranging clothes: goes to toilet room, cleans self, arranges clothes without help Transfer: moves in & out of bed and chair without help (may use support object) Continence: controls urination/bowel movements completely by self Feeding: feeds self without help Total Score: 0 Information obtained from: patient Using telephone: independent Traveling: independent Shopping: independent Preparing meals: independent Housework: independent Taking medicine: independent Managing money: independent PHQ-9 Over the last 2 weeks, how often have you been bothered by any of the following problems? 1. Little interest or pleasure in doing things: not at all 2. Feeling down, depressed, or hopeless: not at all 3. Trouble falling or staying asleep, or sleeping too much: not at all 4. Feeling tired or having little energy: not at all 5. Poor appetite or overeating: not at all 6. Feeling bad about yourself - or that you are a failure or have let yourself or your family down: not at all 7. Trouble concentrating on things, such as reading the newspaper or watching television: not at all 8. Moving or speaking so slowly that other people could have noticed. Or the opposite - being so fidgety or restless that you have been moving around a lot more than usual: not at all 9. Thoughts that you would be better off or of hurting yourself in some way: not at all Total score: 0 Depression Screening Interpretation: Negative Depression Screening Done: Yes 25586 - PHQ-9 Billing: Yes Source: Developed by Drs. Claude Jimenez, Lillian Farrell, Blair Sepulveda and colleagues, with an educational claudia from [employer]. Review of Systems Const Details: - Constitutional: Denies weight loss, fever, or fatigue. - Eyes: Reports regular check-ups with an eye doctor. - Cardiovascular: Denies chest pain, and no recent falls. - Respiratory: Denies shortness of breath or cough. - Gastrointestinal: Denies abdominal pain or diarrhea. - Genitourinary: Denies urinary incontinence. - Musculoskeletal: Denies joint pain or leg swelling. - Neurological: Denies dizziness or cognitive impairment. - Psychiatric: Denies depression or anxiety. - Endocrine: Seasonal weight fluctuations reported. - Hematologic/Lymphatic: No known issues reported. - Immunologic: Updated on vaccinations. All systems reviewed & are unremarkable except as noted in HPI and below Physical Exam Vital Signs: Last Vital Signs Temp 97.6 F 08/03/24 10:56 Pulse 104 H 08/03/24 10:56 Resp 16 08/03/24 10:56 BP 139/62 08/03/24 10:56 Pulse Ox 96 08/03/24 10:56 Oxygen Delivery Method Room Air 08/03/24 10:56 BMI result Body Mass Index 29.9 Const Other: Appearance: Alert. Oriented X3. No acute distress. Head: Normal external exam. Normocephalic. Atraumatic. Eyes: Pupils are equal, round, and reactive to light. Extraocular movements intact. Conjunctiva and sclera normal. Eyelids normal. Ears: External auditory canal normal. Tympanic membranes normal. No wax noted. Throat: Pharynx normal. Uvula midline. Moist mucous membranes. Neck: Normal inspection. Neck supple. Full range of motion. No adenopathy. Thyroid Normal. No meningeal signs. No neck mass noted. Cardiovascular: Normal heart rate and rhythm. Heart sound normal. No murmurs noted. Pulses normal throughout. Respiratory: No respiratory distress. Painless inspiration. Breath sounds normal. No wheezes/rales/rhonchi noted. Chest nontender. No accessory muscle usage noted or decreased air movement noted. Abdomen: Soft and nontender. Bowel sounds normal in all 4 quadrants. No distention noted. No organomegaly noted. No visible injury noted. Back: No costovertebral angle tenderness. Full range of motion noted. Skin: Skin warm and dry. Normal skin color. Normal skin turgor. No rashes/lesions/lacerations noted. Extremities: No lower extremity edema. Extremities exhibit normal range of motion. Extremities nontender. Neuro: Oriented X 3. No motor deficit. No sensory deficit. Reflexes normal. Good balance noted. No urinary incontinence. HEENT Other: Hearing screening Whisper test- normal hearing exam Eyes Other: vision screening- normal Other: urinary incontinence? Patient wears a brief/pad due to occasional dribble on himself Neuro Other: balance normal balance exam Romberg- normal Romberg test tandem walk test- normal tandem walk test walk-in turned test- normal walk and turn test rise from sit to stand- normal rise from upr-al-qmtwp test Results Reviewed Results Reviewed: - Labs: Lipid panel completed on 07/03/24. - Vaccinations: UTD with flu, shingles, and pneumococcal. - Tests: Reports having had a colonoscopy, although specific date not recalled. Assessment & Plan Assessment & Plan (1) Encounter for annual wellness exam in Medicare patient: Code(s): Z00.00 - Encounter for general adult medical examination without abnormal findings (2) DNR (do not resuscitate) discussion: Comment: Filled out on 08/03/24 Code(s): Z71.89 - Other specified counseling (3) DNI (do not intubate): Comment: Filled out on 08/03/24 Code(s): Z78.9 - Other specified health status (4) Type 2 diabetes mellitus: Code(s): E11.9 - Type 2 diabetes mellitus without complications Plan: Continue Toujeo SoloStar Solution Pen-injector, 300 UNIT/ML, 20 units, Subcutaneous, Once a day Continue OneTouch Ultra Strip, -, as directed, In Vitro, Once a day Continue metFORMIN HCl Tablet, 1000 MG, 1 tablet with a meal, Orally, Twice a day Continue glipiZIDE Tablet, 10 MG, 1 tablet 30 minutes before a meal, Orally, Twice a day Continue Lisinopril Tablet, 5 MG, 1 tablet, Orally, Once a day ? Previous HbA1c was reduced from 12.4% in September 2023 to 8.3% in February 2024 ? Condition is chronic and stable continue to monitor. (5) Lacunar infarction: Code(s): I63.81 - Other cerebral infarction due to occlusion or stenosis of small artery Plan: Patient currently on 81 mg of aspirin daily. Condition is chronic and stable continue to monitor. (6) BPH (benign prostatic hyperplasia): Code(s): N40.0 - Benign prostatic hyperplasia without lower urinary tract symptoms Plan: Patient currently on tamsulosin 0.4 mg daily. Condition is chronic and stable continue to monitor. (7) Bladder cancer: Code(s): C67.9 - Malignant neoplasm of bladder, unspecified Plan: Condition is chronic and stable continue to monitor. (8) B12 deficiency: Code(s): E53.8 - Deficiency of other specified B group vitamins Plan: Patient currently on B12 1000 mcg tablet daily. Condition is chronic and stable continue to monitor. (9) Chronic anemia: Code(s): D64.9 - Anemia, unspecified Plan: Patient currently on ferrous sulfate 325 mg daily. Condition is chronic and stable continue to monitor. (10) Mild hypercholesterolemia: Code(s): E78.00 - Pure hypercholesterolemia, unspecified Plan: Patient currently on rosuvastatin 40 mg daily. Condition is chronic and stable continue to monitor. Plan Plan Patient was informed and verbally consented to the use of an ambient scribe for clinic note documentation during this visit. During the visit, we discussed the patient's excellent current health status, confirming no acute medical issues or concerns. We reviewed his current approach to health maintenance, including managing ADLs and maintaining regular health screenings. We addressed his clear advance directives and shared his preferences for end-of-life care, including declining resuscitation and intubation. His routine check-ups with his eye care provider and updates on vaccinations were noted. We briefly discussed the importance of regular monitoring of his condition given the seasonal weight changes. Orders: Orders C Reactive Protein Today Z00.00 - Encounter for general adult medical examination without abnormal findings Erythrocyte Sedimentation Rate Today Z00.00 - Encounter for general adult medical examination without abnormal findings Magnesium Today Z00.00 - Encounter for general adult medical examination without abnormal findings Vitamin B12 and Folate Today Z00.00 - Encounter for general adult medical examination without abnormal findings TSH reflex Free T4 Today Z00.00 - Encounter for general adult medical examination without abnormal findings Complete Blood Count Auto Diff Today Z00.00 - Encounter for general adult medical examination without abnormal findings Comprehensive Bracey. Panel Fast Today Z00.00 - Encounter for general adult medical examination without abnormal findings Lipid Panel Today Z00.00 - Encounter for general adult medical examination without abnormal findings Liver Panel Today Z00.00 - Encounter for general adult medical examination without abnormal findings Vitamin D 25-OH Total Today Z00.00 - Encounter for general adult medical examination without abnormal findings PSA,Total (Free>4and<10) Today Z00.00 - Encounter for general adult medical examination without abnormal findings Hemoglobin A1c Today Z00.00 - Encounter for general adult medical examination without abnormal findings Microalbumin, Random (w Creat) Today E11.9 - Type 2 diabetes mellitus without complications Patient Instructions: - Continue with your regular health maintenance routine, including attending scheduled medical screenings. - Maintain independence with daily activities and house management. - Adhere to your vaccination schedule. - Ensure seasonal weight management if any changes occur that deviate from your normal pattern. - Keep all health directives updated as preferred. - Attend next follow-up in three months, and complete prescheduled blood work prior. Quality Reporting (2019) Depression/Bipolar (159/160/161/177) PHQ-9: Total score: 0 Coding Level of Care Code Medicare First (G0438) Est Pt Level 4 (51613) Diagnoses Encounter for annual wellness exam in Medicare patient Z00.00 DNR (do not resuscitate) discussion Z71.89 DNI (do not intubate) Z78.9 Type 2 diabetes mellitus E11.9 Lacunar infarction I63.81 BPH (benign prostatic hyperplasia) N40.0 Bladder cancer C67.9 B12 deficiency E53.8 Chronic anemia D64.9 Mild hypercholesterolemia E78.00 CPT Codes Advance Care Planning - Time spent: 1-15 minutes, on File ([id number]) Additional Codes PHQ-9 - 44062 - PHQ-9 Billing: Yes ([id number]) Time Spent (min) 60 Advance Care Planning Advance Care Planning discussion: Completed/Scanned Date of discussion: 08/03/24 Who was present: Patient, SHIRIN Leslie and Richelle Cason PA-C Forms completed: ASIM Time spent: 1-15 minutes, on File Actual minutes spent: 15 Did not discuss due to Cultural/Spiritual beliefs: No
[2024-08-03 10:56] VITALS: BP 139/62; PULSE 104; RESP 16; TEMP 36.4; O2SAT 96; BMI 29.9
== END 2024-08-03 11:40 | disposition home or self-care (01) ==
LOC: HO.HMCSH 10:19
PROVIDERS: PCP Internal Medicine; Visit Provider Physician Assistant Medical
DX: Z00.00 Encounter for general adult medical examination without abnormal findings (principal); E11.9 Type 2 diabetes mellitus without complications; I63.81 Other cerebral infarction due to occlusion or stenosis of small artery; C67.9 Malignant neoplasm of bladder, unspecified; Z71.89 Other specified counseling; Z78.9 Other specified health status; N40.0 Benign prostatic hyperplasia without lower urinary tract symptoms; E53.8 Deficiency of other specified B group vitamins; D64.9 Anemia, unspecified; E78.00 Pure hypercholesterolemia, unspecified

== ENCOUNTER → 2024-08-03 10:19 | Outpatient (BNVA) | payer MEDICARE, SELFPAY | PROVIDERS: PCP Internal Medicine; Visit Provider Physician Assistant Medical | DX: Z00.00 Encounter for general adult medical examination without abnormal findings (principal); E11.9 Type 2 diabetes mellitus without complications; I63.81 Other cerebral infarction due to occlusion or stenosis of small artery; N40.0 Benign prostatic hyperplasia without lower urinary tract symptoms; C67.9 Malignant neoplasm of bladder, unspecified; E53.8 Deficiency of other specified B group vitamins; D64.9 Anemia, unspecified; E78.00 Pure hypercholesterolemia, unspecified; Z71.89 Other specified counseling; Z78.9 Other specified health status | CPT/HCPCS: 96127; 99212 ==

== ENCOUNTER 2024-08-10 06:01 | Outpatient (REF) | payer MEDICARE, SELFPAY ==
--- OUTSIDE RECORDS SUMMARY | 2024-08-10 06:03 | XMS_ITS | Encounter Summary ---
Author Organization [facility] Address [address] [place] [address] Phone Care Team Providers Care Feed Research Aide Name Role Phone Claude Churchill Primary Care Provider Encounter Details Date Type Department Care Team (Late st Contact Info) Description 06/27/2020 Orders Only [facility] [address] [place] [address] Sb Saenz MD [address] [address] Type 2 diabetes mellitus with [...] Office Visit [facility] [address] [facility] [address] [place] [address] Sb Saenz MD [address] [address] documented as of this encounter Visit Diagnoses Diagnosis Type 2 diabetes mellitus with diabetic chronic kidney disease (HCC) Stage 3a chronic kidney disease (HCC) Vitamin B12 deficiency Hypercholesterolemia, not otherwise specified Elevated prostate specific antigen (PSA) Anemia, not otherwise specified documented in this encounter Care Teams Feed Research Aide Relationship Specialty Start Date End Date Claude Churchill DO [address] [place] [address] PCP - General Internal Medicine 05/01/20 documented as of this encounter
--- OUTSIDE RECORDS SUMMARY | 2024-08-10 06:03 | XMS_ITS | Clinical Summary ---
Author Organization [facility] Address [address] [facility] [address] [place] [address] Phone Care Team Providers Care Varnish Dipper Name Role Phone Claude Churchill DO Primary Care Provider [phone] Allergies Active Allergy Reactions Criticality Noted Date [...] Visit [facility] P.. [address] [address] Sb Saenz MD [address] [address] Health Maintenance Due Date Last Done Comments [...] patient's age to complete this topic Insurance [facility] Medicare [facility] Medicare Care Teams Varnish Dipper Relationship Specialty Start Date End Date Claude Churchill DO [address] [place] [address] PCP - General Internal Medicine 05/01/20
--- OUTSIDE RECORDS SUMMARY | 2024-08-10 06:03 | XMS_ITS | Continuity of Care Document ---
Author Organization [facility] [address] [place] [address] Phone [phone] Care Team Providers Care Director Of Business Applications Name Role Phone Claude Churchill M.D. Care Team Information Recei francisco j [phone] Problems Active Problems Provider Date Benign prostatic [...] SIG Qnty Indications Ordering Provider Date Toujeo Yesnytdb690Sucu/ML Solution Pen-Inject inject 20 units under the skin once daily in am dx: e11.8 13.5ml Kaiden Retana M.D. 11/02/2023 Advocate Insulin Pen [place] 29GX12.7mm29G X 12.7mm Misc inject daily 100units Kaiden Retana M.D. 11/02/2023 Freestyle Mirella 3/Sensor/Glucose Monitoring [id number] Misc as directed 3units Kaiden Retana M.D. 11/02/2023 Freestyle Mirella 3/[place]/Glucose Monitoring Rcqhuf0Dfkdbr Device use with sensors to check blood sugar dx:e11.9 1units Kaiden Retana M.D. 11/02/2023 Timolol Maleate0.5% Solution Instill 1 Drop In Right Eye Every Morning Arvin Leung M.D Lbfwozkmq63fu Tablets Take 1 Tablet By Mouth Twice A Day 30 Minutes Before Meals Claude Churchill M.D. Metformin INN2905eh Tablets Take 1 Tablet By Mouth Twice A Day With A Meal For 90 Days 180tabs Kaiden Retana M.D. Ljajwvkvqm6ch Tablets Take 1 Tablet By Mouth Every Day For 90 Days Claude Churchill M.D. Ferrous Bpsrzwf668(65Fe) mg Tablets Take 1 Tablet By Mouth Every Day Ap Negron Rosuvastatin Zxahxdv15xj Tablets Anish Churchill M.D. Tamsulosin HCL0.4mg Capsules [...] 587 Procedures Date Code Description Status 10/25/2023 16725 Glucose Monitori ng From Interstital Tissue Fluid [...]
[2024-08-10 10:21] LABS: MANUAL DIFF FLAG NO
[2024-08-10 10:27] LABS: Basophils Absolute Auto 0.1 X10*3/uL (0.0-0.2); Basophils Percent Auto 0.7 % (0-2); Eosinophils Absolute Auto 0.2 X10*3/uL (0.0-0.4); Eosinophils Percent Auto 2.5 % (0-4); Hematocrit 42.1 % (42.0-52.0); Hemoglobin 13.8 g/dl (14.0-18.0); Imm Gran Abs Auto 0.03 X10*3/uL (0.00-0.03); Imm Gran Pct Auto 0.4 % (0.0-0.4); Lymphocytes Absolute Auto 2.1 X10*3/uL (1.2-4.9); Lymphocytes Percent Auto 29.6 % (20-40); Mean Corpuscular HGB Conc 32.8 g/dl (31.0-36.0); Mean Corpuscular Hemoglobin 30.5 pg (27.0-33.0); Mean Corpuscular Volume 93.1 fL (80.0-98.0); Mean Platelet Volume 9.5 fL (9.4-12.4); Monocytes Absolute Auto 0.5 X10*3/uL (0.1-1.2); Monocytes Percent Auto 7.1 % (2-11); Neutrophils Absolute Auto 4.3 x10*3/uL (2.0-8.3); Neutrophils Percent Auto 59.7 % (45-73); Platelet Count 194 X10*3/uL (160-400); Red Blood Count 4.52 X10*6/uL (4.60-5.80); Red Cell Distribution Width 15.7 % (11.0-16.0); White Blood Count 7.2 X10*3/uL (4.8-10.8)
[2024-08-10 10:45] LABS: Estimated Average Glucose 197 mg/dL; Hemoglobin A1C 247.7625 umol/L; Hemoglobin A1c % 8.5 % (<6.0); Total Hemoglobin (HGBA1C) 3579.8898 umol/L
[2024-08-10 11:15] LABS: Alanine Aminotransferase 21 U/L (0-40); Albumin Level 3.9 g/dL (3.5-5.0); Alkaline Phosphatase 70 U/L (39-117); Anion Gap 12 (12-20); Aspartate Amino Transferase 26 U/L (5-37); Bilirubin Direct 0.1 mg/dL (0.0-0.5); Bilirubin Total 0.4 mg/dL (0.0-1.0); Blood Urea Nitrogen 21 mg/dL (9-16); C Reactive Protein 0.23 mg/dL (< or = 0.50); Calcium 10.2 mg/dL (8.4-10.2); Carbon Dioxide 27 mmol/L (22-29); Chloride 104 mmol/L (96-108); Cholesterol 143 mg/dL (<200); Estimated Glomerular Filt Rate > 60; Glucose Fasting 76 mg/dL (60-99); HDL Cholesterol 37 mg/dL (>40); LDL Cholesterol Calculated 71 mg/dL (<100); Magnesium 1.9 mg/dL (1.6-2.6); Sodium 139 mmol/L (135-145); Total Protein 7.2 g/dL (6.5-8.0); Triglycerides 179 mg/dL (<150)
[2024-08-10 11:18] LABS: TSH reflex Free T4 2.34 uIU/mL (0.32-4.0)
[2024-08-10 11:33] LABS: PSA,Total (Free>4and<10) 3.78 ng/mL (0.00-4.00)
[2024-08-10 11:36] LABS: Folate > 20.0 ng/mL (> or = 4.0); Vitamin B12 1204 pg/mL (200-900)
[2024-08-10 11:37] LABS: Erythrocyte Sedimentation Rate 25 MM/HR (0-15)
== END 2024-08-10 06:02 | disposition home or self-care (01) ==
LOC: HO.HMGCLDS 06:01
PROVIDERS: PCP Internal Medicine; Visit Provider Physician Assistant Medical
DX: Z00.00 Encounter for general adult medical examination without abnormal findings (principal); Z12.5 Encounter for screening for malignant neoplasm of prostate; Z13.1 Encounter for screening for diabetes mellitus; Z13.29 Encounter for screening for other suspected endocrine disorder; Z13.220 Encounter for screening for lipoid disorders; Z13.0 Encounter for screening for diseases of the blood and blood-forming organs and certain disorders involving the immune mechanism
CPT/HCPCS: 36415; 80053; 80061; 80076; 82248; 82306; 82607; 82746; 83036; 83735; 84153; 84443; 85025; 85652; 86140

== ENCOUNTER 2024-08-30 08:46 | Outpatient (AMB) | payer MEDICARE, SELFPAY ==
--- NOTE | 2024-08-30 08:53 | MHC.OFFVIS ---
Intake Visit Reasons: cysto Intake Note: Patient is present for Cystoscopy Urology Medication:VITAMIN B12,TAMSULOSIN Antibiotic Allergy:NONE Blood Thinner:ASPIRIN Lot:[id number] Exp:08/03/26 Electronic Warfare Operator Required: No Allergies atorvastatin [Lipitor] Allergy (Unknown, Verified 08/30/24 08:55) rash From LIPITOR Allergy (Unknown, Uncoded 08/30/24 08:55) RASH HPI Comments Details: Prakash is a pleasant male. He is a patient of Dr. Churchill. He is seen for following urologic conditions - lower urinary tract symptoms - bladder cancer Here for yearly cystoscopy Negative Has regrowth prostate - effective emptying 12m f/u Continues with poor sugar control UA 3+ glucose indicative of average sugar over 160 HbA1c 8.5 Bladder cancer low-grade Diagnosed in 2015 TURBT low-grade bladder cancer Cystoscopy 09/16 NAD, regrowth prostate mild - 09/17 prostatic regrowth left side, moderate to severe trabeculation, small diverticulum , 09/19 Continues with yearly surveillance cystoscopy Lower urinary tract symptoms Prior TURP Repeat laser prostatectomy 06/15 with removal of bladder stone Elevated PSA 2018 4.6 02/15 2.9, 09/17 3.0, 09/19 3.8 [facility] Medical History (Updated 08/03/24 @ 14:40 by Richelle Cason PA-C) Chronic anemia DNI (do not intubate) DNR (do not resuscitate) discussion Encounter for annual wellness exam in Medicare patient Sinus tachycardia Shortness of breath on exertion Multiple rib fractures Cervical radiculopathy Cervical disc disease Tubular adenoma Leukopenia GERD (gastroesophageal reflux disease) Renal lithiasis Hypotestosteronism Vitamin D deficiency Mild hypercholesterolemia Type 2 diabetes mellitus CVA (cerebral vascular accident) BPH (benign prostatic hyperplasia) H/O: HTN (hypertension) Diabetes mellitus Surgical History History of bladder surgery Hx of knee surgery H/O inguinal hernia repair Family History Father Lung cancer Heart attack Social History Household Members: None Housing: House Do you presently have visiting nurse or other home services: No Alcohol intake: never Patient Tobacco Use Status: Former Tobacco user Tobacco use type: Cigarette Cigarette Packs Per Day: 1.5 service: Yes Current occupational status: retired Review of Systems Const Denies chills and Denies fever(s) Card Reports no additional complaints and Denies syncope Resp Denies cough GI Denies abdominal pain and Denies heartburn Reports as per HPI and Denies change in libido Neuro Denies syncope Psych Denies change in libido Endo Denies change in libido Physical Exam Const General: cooperative, healthy appearing, comfortable and no acute distress Orientation/consciousness: patient oriented x3 HEENT Face and sinus: Yes normal facial exam Mouth: moist mucous membranes Neck Neck: Yes normal visual inspection, Yes full ROM and Yes trachea midline Chest Chest palpation & inspection: normal inspection of the chest Resp Effort & Inspection: normal respiratory effort, able to speak in complete sentences and no respiratory distress GI Inspection: Yes normal to inspection Back/Spine/Pelvis Cervical Spine: normal cervical lordosis Thoracic/Lumbar Spine: thoracic and lumbar spine normal to inspection Skin General skin exam: no rashes or lesions noted Neuro General: patient oriented x3, gait normal, tone normal and moves all extremities Extrem General: Yes normal to inspection and Yes capillary refill normal Office Procedures Cystoscopy Consent Discussed risk and benefit or proposed procedure with the patient. Information consent for procedure given to the patient. Discussed technical aspects, risks, benefits and alternatives in full. Addressed all of the patient's questions and concerns regarding the procedure. The patient demonstrated knowledge and understanding. They wish to proceed with this procedure. Preparation The patient was prepped in the usual manner. A ore crusher was present and in the room. Genitalia was prepped with betadine solution in a sterile manner. Lidocaine Jelly 2% was placed into the urethra and 16Fr flexible Olympus cystoscope was inserted into the meatus after adequate lubrication. Procedure Cystoscopy performed using a disposable Urovue digital 16 Icelandic cystoscope. Meatus circumcised Urethra anterior and posterior urethra normal Prostatic Urethra prostatic regrowth prior procedure Bladder examination with retroflexion of cystoscope Bladder Orifices normal shape and position Bladder Capacity Normal Trabeculations grade 2/3 Cellule Formation yes Diverticulum Formation multiple small posterior wall Mucosal Erythema None Bladder Tumor None [id number] DISPOSABLE SCOPE URO-G FLEXIBLE SCOPE Procedure code (CPT) selection complete Office Meds lidocaine HCl 2 % mucosal jelly in applicator Performing Provider: He Andersen MD [facility] Administered by: Maryana Isaac RN on 08/30/24 09:15 Dose Route Admin Location Dispensed Lot Number Expiration Date ND Tourist Information Assistant 10 mL intra-urethral 10 mL nitrofurantoin monohydrate/macrocrystals 100 mg capsule Performing Provider: He Andersen MD Performing Location: [facility] Administered by: Maryana Isaac RN on 08/30/24 09:15 Dose Route Admin Location Dispensed Lot Number Expiration Date ND Tourist Information Assistant 100 mg PO 1 cap Results AMB Urinalysis, Automated UA Leukoctes 0 Kathrine/uL Last Edit by MAE Cortés on 08/30/24 09:09 UA Nitrite Negative Last Edit by MAE Cortés on 08/30/24 09:09 UA Urobilinogen 0.2 mg/dL Last Edit by MAE Cortés on 08/30/24 09:09 UA Protein 0 mg/dL Last Edit by MAE Cortés on 08/30/24 09:09 UA pH 6.0 Last Edit by Phyllis Campbell CCM on 08/30/24 09:09 UA Blood 0 Juanr /uL Last Edit by MAE Cortés on 08/30/24 09:09 UA Specific [place] 1.015 Last Edit by MAE Cortés on 08/30/24 09:09 UA Ketone Negative Last Edit by MAE Cortés on 08/30/24 09:09 UA Bilirubin 0 mg/dL Last Edit by MAE Cortés on 08/30/24 09:09 UA Glucose 1000 mg/dL Last Edit by Phyllis Campbell CCM on 08/30/24 09:09 Results Reviewed Results Reviewed: Laboratory Last Values Urine pH (Auto) 6.0 08/30/24 09:09 Specific [place] (Auto) 1.015 08/30/24 09:09 Urine Protein (Auto) 0 mg/dL 08/30/24 09:09 Glucose (UA)(Auto) 1000 mg/dL 08/30/24 09:09 Urine Ketones (Auto) Negative 08/30/24 09:09 Urine Blood (Auto) 0 Juan R/uL 08/30/24 09:09 Urine Nitrite (Auto) Negative 08/30/24 09:09 Urine Bilirubin (Auto) 0 mg/dL 08/30/24 09:09 Urine Urobilinogen (Auto) 0.2 mg/dL 08/30/24 09:09 Leukocyte Esterase (Auto) 0 Kathrine/uL 08/30/24 09:09 Assessment & Plan Assessment & Plan (1) Bladder cancer: Code(s): C67.9 - Malignant neoplasm of bladder, unspecified Category: Medical (2) Elevated PSA: Code(s): R97.20 - Elevated prostate specific antigen [PSA] Category: Medical (3) BPH (benign prostatic hyperplasia): Code(s): N40.0 - Benign prostatic hyperplasia without lower urinary tract symptoms Category: Medical Plan Twelve month follow-up check cysto office Orders: Orders AMB Urinalysis Automated Today Z13.9 - Encounter for screening, unspecified AMB Cystoscopy Today C67.9 - Malignant neoplasm of bladder, unspecified FISH Bladder Cancer Today C67.9 - Malignant neoplasm of bladder, unspecified Patient Instructions: This note is constructed using voice recognition software. While every effort has been made to ensure accuracy environmental aide errors may have been included. Imaging studies, laboratory and physical exam results were discussed and reviewed in detail. No major barriers to patient understanding were identified. An opportunity to ask questions regarding the treatment plan was provided. All questions were answered. The patient expressed understanding and agreement with the above treatment plan. The patient is aware they should contact our office by phone for worsening of their current condition or the appearance of new urologic symptoms. Compliance is encouraged with any medications and followup testing that is ordered. It is a privilege to participate in the urologic care of your patient. If you have any questions or concerns regarding treatment for the above conditions, or other urologic issues, please do not hesitate to contact me. The office telephone contact is [phone]. Sincerely, Dr He Andersen MD, [facility] - Urology Compassionate Specialist Care for the Genitourinary System Coding Level of Care Code Est Pt Level 4 (40474) Complex EM visit Add On G2211 Diagnoses Bladder cancer C67.9 Elevated PSA R97.20 BPH (benign prostatic hyperplasia) N40.0 CPT Codes Cystoscopy - CPT: 06162-[id number] ([id number])
--- OUTSIDE RECORDS SUMMARY | 2024-08-30 09:17 | XMS_ITS | Encounter Summary ---
Author Organization [facility] Address [address] [facility] [address] [place] [address] Phone Care Team Providers Care Coal Getter Name Role Phone Claude Churchill Primary Care Provider Encounter Details Date Type Department Care Team (Late st Contact Info) Description 06/27/2020 Orders Only [facility] [address] [facility] [address] [place] [address] Sb Saenz MD [address] [address] Type 2 diabetes mellitus with [...] Office Visit [facility] [address] [facility] [address] [place] [address] Sb Saenz MD [address] [address] documented as of this encounter Visit Diagnoses Diagnosis Type 2 diabetes mellitus with diabetic chronic kidney disease (HCC) Stage 3a chronic kidney disease (HCC) Vitamin B12 deficiency Hypercholesterolemia, not otherwise specified Elevated prostate specific antigen (PSA) Anemia, not otherwise specified documented in this encounter Care Teams Coal Getter Relationship Specialty Start Date End Date Claude Churchill DO [address] [place] [address] PCP - General Internal Medicine 05/01/20 documented as of this encounter
== END 2024-08-30 09:30 | disposition home or self-care (01) ==
LOC: HO.HUSH 08:47
PROVIDERS: PCP Internal Medicine; Visit Provider Urology
DX: C67.9 Malignant neoplasm of bladder, unspecified (principal); R97.20 Elevated prostate specific antigen [PSA]; N40.0 Benign prostatic hyperplasia without lower urinary tract symptoms; Z13.9 Encounter for screening, unspecified
CPT/HCPCS: 52000; 99214

== ENCOUNTER 2024-08-30 08:46 | Outpatient (REF) | payer MEDICARE, SELFPAY | END 2024-08-30 08:47 | disposition home or self-care (01) | LOC: HO.LAB 08:46 | PROVIDERS: PCP Internal Medicine; Visit Provider Urology | DX: C67.9 Malignant neoplasm of bladder, unspecified (principal); R97.20 Elevated prostate specific antigen [PSA]; N40.0 Benign prostatic hyperplasia without lower urinary tract symptoms; Z13.9 Encounter for screening, unspecified | CPT/HCPCS: 52000; 81003; 88121; 99212 ==

== ENCOUNTER 2024-10-04 06:04 | Outpatient (REF) | payer MEDICARE, SELFPAY ==
--- OUTSIDE RECORDS SUMMARY | 2024-10-04 06:06 | XMS_ITS | Encounter Summary ---
Author Organization [facility] Address [address] [facility] [address] [place] [address] Phone Care Team Providers Care Java Engineer Name Role Phone Claude Churchill Primary Care Provider Encounter Details Date Type Department Care Team (Late st Contact Info) Description 06/27/2020 Orders Only [facility] [address] [facility] [address] [place] [address] Sb Saenz MD [address] [address] Type 2 diabetes mellitus with [...] Office Visit [facility] [address] [facility] [address] [place] [address] Sb Saenz MD [address] [address] documented as of this encounter Visit Diagnoses Diagnosis Type 2 diabetes mellitus with diabetic chronic kidney disease (HCC) Stage 3a chronic kidney disease (HCC) Vitamin B12 deficiency Hypercholesterolemia, not otherwise specified Elevated prostate specific antigen (PSA) Anemia, not otherwise specified documented in this encounter Care Teams Java Engineer Relationship Specialty Start Date End Date Claude Churchill DO [address] [place] [address] PCP - General Internal Medicine 05/01/20 documented as of this encounter
--- OUTSIDE RECORDS SUMMARY | 2024-10-04 06:06 | XMS_ITS | Continuity of Care Document ---
Author Organization [facility] [address] [place] [address] Phone [phone] Care Team Providers Care Line Repairer Tower Name Role Phone Claude Churchill M.D. Care Team Information Recei francisco j [phone] Problems Active Problems Provider Date Benign prostatic [...] Social History Type Date Description Comments Sex Male Sex Unknown ETOH Use Rarely consumes alcohol Tobacco Use Start: Unknown End: Unknown Patient is a former smoker Allergies and adverse reactions Active Allergies Criticality Reaction Severity Comments Date Lipitor Unable to assess criticality 10/25/2023 Medications Active Medications SIG Qnty Indications Ordering Provider Date Toujeo Tteurzsl756Orjv/ML Solution Pen-Inject inject 20 units under the skin once daily in am dx: e11.8 13.5ml Kaiden Retana M.D. 11/02/2023 Advocate Insulin Pen [place] 29GX12.7mm29G X 12.7mm Misc inject daily 100units Kaiden Retana M.D. 11/02/2023 Freestyle Mirella 3/Sensor/Glucose Monitoring Tierqh3Ldanak Misc as directed 3units Kaiden Retana M.D. 11/02/2023 Freestyle Mirella 3/[place]/Glucose Monitoring Jbsxod0Dexatz Device use with sensors to check blood sugar dx:e11.9 1units Kaiden Retana M.D. 11/02/2023 Timolol Maleate0.5% Solution Instill 1 Drop In Right Eye Every Morning Arvin Leung M.D Ueecyhfic58ue Tablets Take 1 Tablet By Mouth Twice A Day 30 Minutes Before Meals Claude Churchill M.D. Metformin [id number] Tablets Take 1 Tablet By Mouth Twice A Day With A Meal For 90 Days 180tabs Kaiden Retana M.D. Jejinvubeh1ic Tablets Take 1 Tablet By Mouth Every Day For 90 Days Claude Churchill M.D. Ferrous Juypyew975(65Fe) mg Tablets Take 1 Tablet By Mouth Every Day Ap Negron Rosuvastatin Zikpkgk67xh Tablets Anish Churchill M.D. Tamsulosin HCL0.4mg Capsules [...] 587 Procedures Date Code Description Status 10/25/2023 63096 Glucose Monitori ng From Interstital Tissue Fluid [...]
[2024-10-04 10:22] LABS: MANUAL DIFF FLAG NO
[2024-10-04 10:46] LABS: Hematocrit 43.4 % (42.0-52.0); Hemoglobin 13.7 g/dl (14.0-18.0); Imm Gran Abs Auto 0.01 X10*3/uL (0.00-0.03); Imm Gran Pct Auto 0.2 % (0.0-0.4); Lymphocytes Absolute Auto 1.5 X10*3/uL (1.2-4.9); Mean Corpuscular HGB Conc 31.6 g/dl (31.0-36.0); Mean Corpuscular Hemoglobin 29.4 pg (27.0-33.0); Mean Corpuscular Volume 93.1 fL (80.0-98.0); NRBC Abs Auto 0.000 X10*3/uL (0.0-0.012); NRBC Pct Auto 0.0 /100WBC (0.0-0.2); Platelet Count 208 X10*3/uL (160-400); Red Blood Count 4.66 X10*6/uL (4.60-5.80); White Blood Count 4.7 X10*3/uL (4.8-10.8)
[2024-10-04 11:07] LABS: Albumin Level 3.7 g/dL (3.5-5.0); Anion Gap 10 (12-20); Blood Urea Nitrogen 19 mg/dL (9-16); Calcium 9.3 mg/dL (8.4-10.2); Carbon Dioxide 28 mmol/L (22-29); Chloride 104 mmol/L (96-108); Estimated Glomerular Filt Rate > 60; Magnesium 2.0 mg/dL (1.6-2.6); Potassium 3.9 mmol/L (3.3-5.1); Sodium 138 mmol/L (135-145)
[2024-10-04 11:10] LABS: Parathyroid Hormone Intact 38.4 pg/mL (8.7-77.1)
[2024-10-04 11:42] LABS: Microalbum/Creatinine Ratio Ur 169.7 ug/mg cr (<30); Protein/Creatinine Ratio, Ur 0.43 (<0.2); Total Protein Urine Random 43 mg/dL (<12)
[2024-10-04 12:24] LABS: Appearance Urine Turbid; Glucose Urine UA >=1000 mg/dL (Negative); PH 6.0 (5.0-9.0); Specific Gravity - Urine >= 1.030 (1.005-1.025); UMIC TRIGGER UA YES
== END 2024-10-04 06:05 | disposition home or self-care (01) ==
LOC: HO.HMGCLDS 06:04
PROVIDERS: PCP Internal Medicine; Visit Provider Internal Medicine Nephrology
DX: Z13.89 Encounter for screening for other disorder (principal)
CPT/HCPCS: 36415; 80051; 81001; 82040; 82043; 82306; 82310; 82565; 82570; 83735; 83970; 84100; 84156; 84520; 85025

== ENCOUNTER 2024-11-19 13:51 | Outpatient (AMB) | payer MEDICARE, SELFPAY ==
[2024-11-19 13:52] VITALS: BP 129/64; PULSE 97; RESP 16; TEMP 36.2; O2SAT 98; BMI 29.0
--- NOTE | 2024-11-19 13:52 | A.OFFPC_ITS ---
Vital Signs 11/19/24 13:52 Height 5 ft 4 in Weight 169 lb BMI 29.0 BP 129/64 Blood Pressure Location Rt femoral Position Sitting Respiration 16 Pulse 97 Pulse Source Pulse Oximeter Temp 97.1 F Temp Source Temporal Artery Scan Pulse Oximetry (%) 98 Oxygen Delivery Method Room Air Intake Visit Reasons: 3 month f/u Oncology Physician Assistant Required: No Accompanied by: Self / Same As Patient Allergies atorvastatin (Lipitor) Allergy (Unknown, Verified 11/19/24 14:12) rash From LIPITOR Allergy (Unknown, Uncoded 11/19/24 14:12) RASH Medication List - Last Reconciled 11/19/24 by Richelle Cason PA-C acetaminophen ER (Tylenol Arthritis Pain) 650 mg PO Q12H aspirin 81 mg PO DAILY blood sugar diagnostic ([employer] Ultra Test strips) As directed cyanocobalamin (vitamin B-12) (Vitamin B-12) 1,000 mcg PO DAILY empagliflozin (Jardiance) 25 mg PO DAILY ferrous sulfate 325 mg PO DAILY insulin glargine U-300 conc (Toujeo SoloStar U-300 Insulin) 30 units (0.1 mL) subcut BEDTIME lisinopril 5 mg PO DAILY metformin 1,000 mg PO BID [id number] mcg (Centrum Silver Men) 1 tab PO DAILY rosuvastatin 40 mg PO DAILY tamsulosin 1 cap PO BEDTIME Tobacco use date assessed: 11/19/24 HPI 3 month f/u HPI Details The patient is an 79-year-old male presenting for a follow-up visit. The patient reports a history of urinary tract infection, initially treated with ciprofloxacin for six days, which provided temporary relief. However, symptoms of cloudy urine with particles returned shortly after completing the antibiotic course. He denies any fever, abdominal pain, nausea, vomiting, or hematuria. The patient has a history of type 2 diabetes mellitus, with a recent A1c increase from 8.5 to 9.2, indicating suboptimal glycemic control. He is cur rently on Jardiance, glargine, and metformin for diabetes management. The patient admits to occasional non-adherence to his medication regimen. The patient also has a history of glaucoma, managed with timolol eye drops, and hypertension, managed with lisinopril. He reports no recent changes in his vision or blood pressure control. Additionally, the patient has chronic anemia with a white blood cell count of 4.7, but no recent symptoms suggestive of acute exacerbation. Social History - Housing: Lives alone [facility] Medical History (Updated 11/19/24 @ 15:31 by Richelle Cason PA-C) Anemia Hypertension Glaucoma UTI (urinary tract infection) Dysuria Chronic anemia DNI (do not intubate) DNR (do not resuscitate) discussion Encounter for annual wellness exam in Medicare patient Sinus tachycardia Shortness of breath on exertion Multiple rib fractures Cervical radiculopathy Cervical disc disease Tubular adenoma Leukopenia GERD (gastroesophageal reflux disease) Renal lithiasis Hypotestosteronism Vitamin D deficiency Mild hypercholesterolemia Type 2 diabetes mellitus CVA (cerebral vascular accident) BPH (benign prostatic hyperplasia) H/O: HTN (hypertension) Diabetes mellitus Surgical History History of bladder surgery Hx of knee surgery H/O inguinal hernia repair Family History Father Lung cancer Heart attack Social History Household Members: None Housing: House Do you presently have visiting nurse or other home services: No Alcohol intake: never Patient Tobacco Use Status: Former Tobacco user Tobacco use type: Cigarette Cigarette Packs Per Day: 1.5 service: Yes Current occupational status: retired Questionnaire PHQ-9 Over the last 2 weeks, how often have you been bothered by any of the following problems? 1. Little interest or pleasure in doing things: not at all 2. Feeling down, depressed, or hopeless: not at all 3. Trouble falling or staying asleep, or sleeping too much: not at all 4. Feeling tired or having little energy: not at all 5. Poor appetite or overeating: not at all 6. Feeling bad about yourself - or that you are a failure or have let yourself or your family down: not at all 7. Trouble concentrating on things, such as reading the newspaper or watching television: not at all 8. Moving or speaking so slowly that other people could have noticed. Or the opposite - being so fidgety or restless that you have been moving around a lot more than usual: not at all 9. Thoughts that you would be better off or of hurting yourself in some way: not at all Total score: 0 Depression Screening Interpretation: Negative Depression Screening Done: Yes 69885 - PHQ-9 Billing: Yes Source: Developed by Drs. Claude Jimenez, Lillian Farrell, Blair Sepulveda and colleagues, with an educational claudia from [employer] Thrive Questionnaire Date Thrive assessed: 11/19/24 I am a: Patient What is your living situation today?: I have a steady place to live Within the past 12 months, did the food you bought not last and you didn't have the money to get more?: Never true Within the past 12 months, did you worry whether your food would run out before you got money to buy more?: Never true Do you have trouble paying for medicines?: No Do you have trouble getting transportation to medical appointments?: No Do you have trouble paying your heating and electricity bill?: No Do you have trouble taking care of your child, family member or friend?: No Do you have trouble with day-to-day activities such as bathing, preparing meals, shopping, managing finances, etc.?: No Are you currently unemployed and looking for a job?: No Are you interested in more education?: No Please select the resources that you would like help with: None THRIVE Score: 0 AUDIT C Alcohol Use Questionnaire (AUDIT-C) 1. How often do you have a drink containing alcohol?: Never 3. How often do you have six or more drinks on one occasion?: Never Total Score: 0 Score Reviewed/Action Taken: No ESA-7 AMB Questionnaire ESA-7 Date ESA - 7 assessed: 11/19/24 Feeling nervous, anxious, or on edge: 0 = Not at all Not being able to stop or control worryin = Not at all Worrying too much about different things: 0 = Not at all Trouble relaxin = Not at all Being so restless that it is hard to sit still: 0 = Not at all Becoming easily annoyed or irritable: 0 = Not at all Feeling afraid as if something awful might happen: 0 = Not at all Total ESA-7 score (0-4 normal; 5-9 mild; 10-14 moderate; 15-21 severe): 0 Source: Developed by Drs. Claude Jimenez, Lillian Farrell, Blair Sepulveda and colleagues, with an educational claudia from [employer], [employer]. ESA-7 Assessment Billing ESA-7 Assessment Tool: ESA-7 Assessment 45535 Review of Systems Const Details: - General: Denies fever - Gastrointestinal: Denies abdominal pain, nausea, vomiting - Genitourinary: Reports cloudy urine with particles, denies hematuria - Musculoskeletal: Denies falls All systems reviewed & are unremarkable except as noted in HPI and below Physical exam (Primary Care) Vital Signs: Last Vital Signs Temp 97.1 F 11/19/24 13:52 Pulse 97 11/19/24 13:52 Resp 16 11/19/24 13:52 BP 129/64 11/19/24 13:52 Pulse Ox 98 11/19/24 13:52 Oxygen Delivery Method Room Air 11/19/24 13:52 Care Plan Goal for BP management: <140/90 at Goal BMI result Body Mass Index 29.0 BMI Assessment/Plan discussion: High BMI High, discussed plan: lifestyle, weight reduction, dietary, physical activity, alcohol moderation and other Tobacco/Smoking Status: Tobacco use Status Tobacco use date assessed 11/19/24 11/19/24 13:54 Patient Tobacco Use Status Former Tobacco user 11/19/24 13:54 Tobacco use type Cigarette 11/19/24 13:54 PHQ-9: PHQ-9 Score PHQ-9: Total score 0 11/19/24 14:30 Depression Screening Interpretation: Negative Thrive Assessment: Date of Thrive Assessment Date Thrive assessed 11/19/24 11/19/24 13:54 Const Other: Appearance: Alert. Oriented X3. No acute distress. Head: Normal external exam. Normocephalic. Atraumatic. Eyes: Pupils are equal, round, and reactive to light. Extraocular movements intact. Conjunctiva and sclera normal. Eyelids normal. Throat: Pharynx normal. Uvula midline. Moist mucous membranes. Neck: Normal inspection. Neck supple. Full range of motion. Cardiovascular: Normal heart rate and rhythm. Heart sound normal. No murmurs noted. Pulses normal throughout. Respiratory: No respiratory distress. Painless inspiration. Breath sounds normal. No wheezes/rales/rhonchi noted. Chest nontender. No accessory muscle usage noted or decreased air movement noted. Back: Full range of motion noted. Skin: Skin warm and dry. Normal skin color. Normal skin turgor. No rashes/lesions/lacerations noted. Extremities: No lower extremity edema. Extremities exhibit normal range of motion. Neuro: Oriented X 3. No motor deficit. No sensory deficit. Reflexes normal. Results AMB Hemoglobin A1c AMB Hemoglobin A1c 9.2 % Last Edit by NAYELI Abdullahi on 11/19/24 14:31 Results Reviewed Results Reviewed: Laboratory Last Values Hgb A1c (Clinic) 9.2 % (4.0-6.0) H 11/19/24 14:22 - Labs: White blood cell count 4.7, indicating chronic low count; A1c increased from 8.5 to 9.2 - Kidney function: BUN 19, GFR 60, creatinine 1.15, indicating stable renal function Coding Level of Care Code Est Pt Level 4 (94961) Complex EM visit Add On G2211 Diagnoses UTI (urinary tract infection) N39.0 Type 2 diabetes mellitus E11.9 Glaucoma H40.9 Hypertension I10 Anemia D64.9 Additional Codes ESA-7 Assessment Billing - ESA-7 Assessment Tool: ESA-7 Assessment 73380 ([id number]) PHQ-9 - 27654 - PHQ-9 Billing: Yes ([id number]) Assessment & Plan Assessment & Plan (1) UTI (urinary tract infection): Code(s): N39.0 - Urinary tract infection, site not specified Category: Medical Plan: The patient will undergo a repeat urinalysis and urine culture to confirm the presence of a urinary tract infection and determine appropriate antibiotic therapy. Treatment with ciprofloxacin was previously administered but symptoms recurred, indicating the need for further evaluation. (2) Type 2 diabetes mellitus: Code(s): E11.9 - Type 2 diabetes mellitus without complications Category: Medical Plan: The patient's diabetes management plan includes the addition of Humalog insulin, 10 units twice daily, to improve glycemic control. The patient is advised to continue current medications, including Jardiance, glargine, and metformin, with a focus on adherence to the regimen. Follow-up in one month is recommended to assess the effectiveness of the new insulin regimen. (3) Glaucoma: Code(s): H40.9 - Unspecified glaucoma Category: Medical Plan: The patient is advised to continue using timolol eye drops daily and to follow up with the burr machine operator as scheduled. (4) Hypertension: Code(s): I10 - Essential (primary) hypertension Category: Medical Plan: The patient is to continue lisinopril 5 mg daily and monitor blood pressure regularly. (5) Anemia: Code(s): D64.9 - Anemia, unspecified Category: Medical Plan: The patient's anemia is noted, with a chronic low white blood cell count, but no acute intervention is planned at this time. Plan Plan Patient was informed and verbally consented to the use of an ambient scribe for clinic note documentation during this visit. 1. Urinary Tract Infection The patient will undergo a repeat urinalysis and urine culture to confirm the presence of a urinary tract infection and determine appropriate antibiotic therapy. Treatment with ciprofloxacin was previously administered but symptoms recurred, indicating the need for further evaluation. 2. Type 2 Diabetes Mellitus The patient's diabetes management plan includes the addition of Humalog insulin, 10 units twice daily, to improve glycemic control. The patient is advised to continue current medications, including Jardiance, glargine, and metformin, with a focus on adherence to the regimen. Follow-up in one month is recommended to assess the effectiveness of the new insulin regimen. 3. Glaucoma The patient is advised to continue using timolol eye drops daily and to follow up with the burr machine operator as scheduled. 4. Hypertension The patient is to continue lisinopril 5 mg daily and monitor blood pressure regularly. 5. Anemia The patient's anemia is noted, with a chronic low white blood cell count, but no acute intervention is planned at this time. I discussed with the patient the need for a repeat urinalysis and urine culture to evaluate the recurrence of urinary symptoms and determine the appropriate antibiotic therapy. We also reviewed the diabetes management plan, including the addition of Humalog insulin to improve glycemic control, and emphasized the importance of medication adherence. The patient was advised to continue current treatments for glaucoma and hypertension and to follow up with specialists as scheduled. Orders: Orders UA CC w/rflx Micro + Cult Today R30.0 - Dysuria AMB Hemoglobin A1c Today E11.9 - Type 2 diabetes mellitus without complications Medications: New insulin lispro (Humalog U-100 Insulin) 10 units (0.1 mL) subcut BID 18 mL 0RF 3 months E11.9 - Type 2 diabetes mellitus without complications Patient Instructions: - Go to the lab for a urine test and culture as soon as possible. - Take Humalog insulin 10 units twice daily, in the morning and afternoon. - Continue taking Jardiance, glargine, and metformin as prescribed. - Monitor blood pressure regularly and continue lisinopril. - Use timolol eye drops daily and follow up with the eye doctor as scheduled. - Return for a follow-up appointment in one month.
--- OUTSIDE RECORDS SUMMARY | 2024-11-19 15:11 | XMS_ITS | Continuity of Care Document ---
Author Organization [facility] [address] [place] [address] Phone [phone] Care Team Providers Care Mat Sewer Name Role Phone Claude Churchill M.D. Care Team Information Recei francisco j [phone] Problems Active Problems Provider Date Benign prostatic [...] SIG Qnty Indications Ordering Provider Date Toujeo [id number] Solution Pen-Inject inject 20 units under the skin once daily in am dx: e11.8 13.5ml Kaiden Retana M.D. 11/02/2023 Advocate Insulin Pen [place] [id number] X 12.7mm Misc inject daily 100units Kaiden Retana M.D. 11/02/2023 Freestyle Mirella 3/Sensor/Glucose Monitoring [id number] Misc as directed 3units Kaiden Retana M.D. 11/02/2023 Freestyle Mirella 3/Dagmar/Glucose Monitoring [id number] Device use with sensors to check blood sugar dx:e11.9 1units Kaiden Retana M.D. 11/02/2023 Timolol Maleate0.5% Solution Instill 1 Drop In Right Eye Every Morning Arvin Leung M.D [id number] Tablets Take 1 Tablet By Mouth Twice A Day 30 Minutes Before Meals Claude Churchill M.D. Metformin [id number] Tablets Take 1 Tablet By Mouth Twice A Day With A Meal For 90 Days 180tabs Kaiden Retana M.D. Dyegrnteab2ul Tablets Take 1 Tablet By Mouth Every Day For 90 Days Claude Churchill M.D. Ferrous [place]177(65Fe) mg Tablets Take 1 Tablet By Mouth Every Day Ap Negron Rosuvastatin Hmkgkmf53mm Tablets Anish Churchill M.D. Tamsulosin HCL0.4mg Capsules [...] 587 Procedures Date Code Description Status 10/25/2023 71933 Glucose Monitori ng From Interstital Tissue Fluid [...]
--- OUTSIDE RECORDS SUMMARY | 2024-11-19 15:11 | XMS_ITS | Clinical Summary ---
Author Organization [facility] Address [address] [facility] [place] [address] Phone Care Team Providers Care [employer] Name Role Phone Tim Ji MD Primary Care Provider + Allergies Active Allergy Reactions Criticality Noted Date Comments Atorvastatin Rash,Other (see comments) Low 06/14/19 21 Medications tamsulosin (FLOMAX) 0.4 MG 24 hr capsule 1 Active rosuvastatin (CRESTOR) 40 MG tablet 1 Active metFORMIN (GLUCOPHAGE) 1000 MG tablet 2 (two) times a day with meals 1 Active lisinopril (PRINIVIL,ZEST RIL) 5 MG tablet 1 Active OneTouch Ultra [...] (one) time each day with breakfast Active Toujeo SoloStar 300 UNIT/ML solution pen-injector INJECT 30 UNITS SUBCUTANEOUSLY BEDTIME 5 Active Active Problems Problem Noted Date Diagnosed Date Hyperglycemia due to type 2 diabetes mellitus Stage 3a chronic kidney disease 10/20/2023 Type [...] wit h diabetic chronic kidney disease 06/13/2020 Encounters Date Type Department Care Team Description 10/16/2024 1:00 PM EDT Office Visit [facility] P. [address] [address] Sb Saenz MD Stage 3a chronic kidney disease (HCC) (Primary Dx); Type 2 diabetes mellitus with diabetic chronic kidney disease (HCC) 10/04/2024 Orders Only [facility][1]. [address] [address] Sb Saenz MD from Last 3 Months Immunizations Immunization Administration Dates Next Due Influenza [...] Sign Reading Time Taken Comments Blood Pressure 138/80 10/16/2024 12:49 PM EDT Pulse 95 10/16/2024 12:49 PM EDT Temperature - - Respiratory Rate - - Oxygen Saturation 97% 10/16/2024 12:49 PM EDT Inhaled Oxygen Concentration - - Weight 77.4 kg (170 lb 9.6 oz) 10/16/2024 12:49 PM EDT Height - - Body Mass Index - - Plan of Treatment Upcoming Encounters Date Type Department Care Team (Late st Contact Info) Description 10/16/2025 1:15 PM EDT Office [facility] [address] [address] Sb Saenz MD [address] [address] Health Maintenance Due Date Last Done Comments Pneumococcal Vaccine: 50+ Years (3 of 3 - PCV) 06/14/2013 06/14/2012, 08/03/1999 Diabetes: Hemoglobin A1C 06/13/2020 Diabetes: Ophthalmology Exam 06/13/2020 Diabetes: Pedal Pulse Checked 06/13/2020 Diabetes: Sensory Foot Exam 06/13/2020 Diabetes: Visual Foot Exam 06/13/2020 Influenza Vaccine (#1) 2024 0, 12/18/2018, 12/29/2017, Additional history exists Pneumococcal Vaccine: Peds (0 to 5 Years) and At-Risk Patients (6 to 49 Years) Discontinued 06/14/2012, 08/03/1999 Hepatitis B Vaccine Aged Out No longe r eligible based on patient's age to complete this topic Procedures Procedure Name Priority Date/Time Associated Diagnosis Comments URINALYSIS WITH MICROSCOPIC Routine 10/04/2024 10:51 AM EDT PROTEIN / CREATININE RATIO, URINE Routine 10/04/2024 10:51 AM EDT ALBUMIN, URINE, RANDOM Routine 10/04/2024 10:51 AM EDT PTH, INTACT (HC) Routine 10/04/2024 10:2 8 AM EDT VITAMIN D 25 HYDROXY Routine 10/04/2024 10:23 AM EDT ALBUMIN Routine 10/04/2024 10:23 AM EDT MAGNESIUM Routine 10/04/2024 10:23 AM EDT PHOSPHATE ( PHOSPHORUS) Routine 10/04/2024 10:23 AM EDT CALCIUM Routine 10/04/2024 10:23 AM EDT CREATININE, BLOOD Routine 10/04/2024 10: 23 AM EDT BUN Routine 10/04/2024 10:23 AM EDT ELECTROLYTE PANEL Routine 10/04/2024 10: 23 AM EDT CBC AND DIFFERENTIAL Routine 10/04/2024 10:15 AM EDT from Last 3 Months Results * (ABNORMAL) Protein, Total, Random Urine w/Creatinine (Protein/Creat Ratio) (10/04/2024 10:51 AM EDT) Protein Urine Random 43(H) <12 mg/dL See order comments Protein/Creati nine Ratio, Urine 0.43(H) <0.2 See order comments Comment: The spot urine protein:creatinine ratio may increase to 0.3 during normal . 10/04/2024 10:5 1 AM EDT 10/04/2024 10:51 AM EDT us Sb Saenz MD LAB URINE ORDERABLES Final Re sult [place] See order comments [place] [address] * (ABNORMAL) Albumin, urine, random (10/04/2024 10:51 AM EDT) Creatinine, Urine 98.94 mg/dL Se e order comments Urine Microalbumin 168.0 mg/L See order comments Microalbumin/Crea tinine Ratio 169.7(H) <30 ug/mg cr See order comments Comment: Albumin/Creatinine Ratio Reference Ranges: Normal: < 30 ug/mg creatinine Microalbuminuria: 30 - 300 ug/mg creatinine Clinical Albuminuria: > 300 ug/mg creatinine 10/04/2024 10:5 1 AM EDT 10/04/2024 10:51 AM EDT Sb Saenz MD LAB URINE ORDERABLES Final Re sult Performing Organization Address [facility] de Phone Number [place] See order comments [place] [address] * (ABNORMAL) Urinalysis with microscopic (10/04/2024 10:51 AM EDT) Pathologist [facility] Color Urine Yellow See orde r comments Appearance Urine Turbid See order comments pH Urine 6.0 5.0 - 9.0 See order comments Glucose Urine >=1000(A) Negative mg/dL See order comments Blood, Urine Large (3+)(A) Negative See order comments Specific [place] Urine >=1.030(H) 1.005 - 1.025 See order comments Protein Urine 30 (1+)(A) Neg-Trace mg/dL See order comments Ketones, Urine Negative Negative mg/dL See order comments Nitrite, Urine Positive(A) Negative See order comments Leukocyte Esterase Urine Moderate (2+)(A) Negative See order comments RBC, Urine 3-5(A) 0 - 2 /HPF See orde r comments WBC >50(A) 0 - 5 /HPF See order comments WBC Clumps, Urine Present See order comments Squamous Epithelial, Urine 0-2 0 - 2 /HPF See order comments Bacteria, Urine 4+ None Seen See order comments Hyaline Casts, Urine 0-2 0 - 2 /LPF See order comments 10/04/2024 10:5 1 AM EDT 10/04/2024 10:51 AM EDT Sb Saenz MD LAB URINE ORDERABLES Final Re sult Performing Organization Address [facility]/ZIP Co de Phone Number [place] See order comments [place] [address] * PTH, Intact (10/04/2024 10:28 AM EDT) Parathyroid Hormone, Intact 38.4 8.7 - 77.1 pg/mL See order comments 10/04/2024 10:2 8 AM EDT 10/04/2024 10:28 AM EDT Sb Saenz MD LAB [id number] SOLICITED RESULTS Final Result Performing Organization Address [facility] de Phone Number [place] See order comments [place] [address] * Creatinine (10/04/2024 10:23 AM EDT) Creatinine Serum 1.15 0.5 - 1.4 mg/dL See order comments eGFR (Calc) >60 See orde r comments Comment: Chronic Kidney Disease: Estimated GFR < 60 mL/min/1.73m2 Severe Kidney Disease: Estimated GFR < 15 mL/min/1.73m2 10/04/2024 10:2 3 AM EDT 10/04/2024 10:23 AM EDT Sb Saenz MD LAB BLOOD ORDERABLES Final Re sult Performing Organization Address [facility] de Phone Number [place] See order comments [place] [address] * Vitamin D 25 Hydroxy (10/04/2024 10:23 AM EDT) Vitamin D, 25-Hydroxy 54.9 >30 ng/mL See order comments Comment: Health Based Reference Values* < 20 ng/mL Deficient 20-30 ng/mL Insufficient > 30 ng/mL Sufficient *Cali STONER. N Engl J Med. 2007;357:266-280 There is no well-established upper level of normal vitamin D levels. Some laboratories use 50 ng/mL as an upper limit of normal. However, toxicity is patient-dependent and may occur at any level. Careful correlation with the patient's presentation is necessary and, if there is concern for vitamin D toxicity, treatment should be considered irrespective of the serum level. Care must be taken in interpreting Vitamin D results from different laboratories and methodologies. Published data demonstrated that results from patients undergoing hemodialysis may show a negative bias when tested with various automated 25-OH vitamin D assays when compared to LC-MS/MS. When testing samples from patients whose predominant form of Vitamin D is Vitamin D2, such as patients receiving Vitamin D2 supplementation, results that are subtherapeutic should be confirmed with another method such as LC-MS/MS. 10/04/2024 10:2 3 AM EDT 10/04/2024 10:23 AM EDT us Sb Saenz MD LAB BLOOD ORDERABLES Final Re sult Performing Organization Address [facility] Phone Number [facility] See order comments [place] [address] * (ABNORMAL) BUN (10/04/2024 10:23 AM EDT) BUN 19(H) 9 - 16 mg/dL See order comments 10/04/2024 10:2 3 AM EDT 10/04/2024 10:23 AM EDT us Sb Saenz MD LAB BLOOD ORDERABLES Final Re sult Performing Organization Address [facility] Phone Number [facility] See order comments [place] [address] * Phosphorus (10/04/2024 10:23 AM EDT) Phosphorus, Serum 2.8 2.7 - 4.5 mg/dL See order comments 10/04/2024 10:2 3 AM EDT 10/04/2024 10:23 AM EDT us Sb Saenz MD LAB BLOOD ORDERABLES Final Re sult Performing Organization Address [facility] Phone Number [place] See order comments [place] [address] * Magnesium (10/04/2024 10:23 AM EDT) Magnesium 2.0 1.6 - 2.6 mg/dL See order comments 10/04/2024 10:2 3 AM EDT 10/04/2024 10:23 AM EDT us Sb Saenz MD LAB BLOOD ORDERABLES Final Re sult Performing Organization Address [facility] Phone Number [place] See order comments [place] [address] * Calcium (10/04/2024 10:23 AM EDT) Calcium 9.3 8.4 - 10.2 mg/dL See order comments 10/04/2024 10:2 3 AM EDT 10/04/2024 10:23 AM EDT us Sb Saenz MD LAB BLOOD ORDERABLES Final Re sult Performing Organization Address [facility] Phone Number [place] See order comments [place] [address] * Albumin (10/04/2024 10:23 AM EDT) Albumin 3.7 3.5 - 5.0 g/dL See order comments 10/04/2024 10:2 3 AM EDT 10/04/2024 10:23 AM EDT us Sb Saenz MD LAB BLOOD ORDERABLES Final Re sult Performing Organization Address [facility] Phone Number [place] See order comments [place] [address] * (ABNORMAL) Electrolyte panel (10/04/2024 10:23 AM EDT) Sodium 138 135 - 145 mmol/L See order comments Potassium 3.9 3.3 - 5.1 mmol/L See order comments Chloride 104 96 - 108 mmol/L See order comments Bicarbonate (CO2) 28 22 - 29 mmol/L See order comments Anion Gap 10(L) 12 - 20 See order comments 10/04/2024 10:2 3 AM EDT 10/04/2024 10:23 AM EDT us Sb Saenz MD LAB BLOOD ORDERABLES Final Re sult [place] See order comments [place] [address] * (ABNORMAL) CBC and Differential (10/04/2024 10:15 AM EDT) WBC 4.7(L) 4.8 - 10.8 X10*3/uL See order comments RBC 4.66 4.60 - 5.80 X10*6/uL See order comments Hgb 13.7(L) 14.0 - 18.0 g/dl See order comments Hematocrit 43.4 42.0 - 52.0 % See order comments MCV 93.1 80.0 - 98.0 fL See order comments MCH 29.4 27.0 - 33.0 pg See order comments MCHC 31.6 31.0 - 36.0 g/dl See order comments RDW 15.9 11.0 - 16.0 % See order comments Platelets 208 160 - 400 X10*3/uL See order comments MPV 9.5 9.4 - 12.4 fL See order comments Neutrophils % Auto 53.4 45 - 73 % See order comments Immature Granulocytes 0.2 0.0 - 0.4 % See order comments Lymphocytes Relative 32.1 20 - 40 % See order comments Monocytes 9.9 2 - 11 % See order comments Eosinophils Relative 3.6 0 - 4 % See order comments Basophils Relative 0.8 0 - 2 % See order comments nRBC Count 0.0 0.0 - 0.2 /100WBC See order comments Neutrophils Absolute 2.5 2.0 - 8.3 x10*3/uL See order comments Immature Grans (Absolute) 0.01 0.00 - 0.03 X10*3/uL See order comments Lymphocytes Absolute 1.5 1.2 - 4.9 X10*3/uL See order comments Monocytes Absolute 0.5 0.1 - 1.2 X10*3/uL See order comments Eosinophils Absolute 0.2 0.0 - 0.4 X10*3/uL See order comments Basophils Absolute 0.0 0.0 - 0.2 X10*3/uL See order comments NRBC Absolute 0.000 0.0 - 0.012 X10*3/uL See order comments 10/04/2024 10:1 5 AM EDT 10/04/2024 10:15 AM EDT us Sb Saenz MD LAB BLOOD ORDERABLES Final Re sult [place] See order comments [place] [address] from Last 3 Months Insurance [facility] Medicare [facility] Medicare Care Teams [employer] Owner Relationship Specialty Start Date End Date Tim Ji MD [address] [place] [address] [place] [address] PCP - General Internal Medicine 10/16/24
--- OUTSIDE RECORDS SUMMARY | 2024-11-19 15:11 | XMS_ITS | Encounter Summary ---
Author Organization [facility] Address [address] [facility] [address] [place] [address] Phone Care Team Providers Care Associate Producer Name Role Phone Tim Ji MD Primary Care Provider + Encounter Details Date Type Department Care Team (Late st Contact Info) Description 06/27/2020 Orders Only [facility] [address] [facility] [address] [place] [address] Sb Saenz MD [address] [address] Type 2 diabetes mellitus with [...] Visit [facility] [place] [place] [facility] [address] [facility] [address] [place] [phone] Sb Saenz MD [address] [address] documented as of this encounter Visit Diagnoses Diagnosis Type 2 diabetes mellitus with diabetic chronic kidney disease (HCC) Stage 3a chronic kidney disease (HCC) Vitamin B12 deficiency Hypercholesterolemia, not otherwise specified Elevated prostate specific antigen (PSA) Anemia, not otherwise specified documented in this encounter Care Teams Associate Producer Relationship Specialty Start Date End Date Tim Ji MD [address] [facility] [address] [place] [address] PCP - General Internal Medicine 10/16/24 documented as of this encounter
== END 2024-11-19 14:38 | disposition home or self-care (01) ==
LOC: HO.HMCSH 13:51
PROVIDERS: PCP Internal Medicine; Visit Provider Physician Assistant Medical
DX: N39.0 Urinary tract infection, site not specified (principal); E11.9 Type 2 diabetes mellitus without complications; H40.9 Unspecified glaucoma; I10 Essential (primary) hypertension; D64.9 Anemia, unspecified

== ENCOUNTER → 2024-11-19 13:51 | Outpatient (BNVA) | payer MEDICARE, SELFPAY | PROVIDERS: PCP Internal Medicine; Visit Provider Physician Assistant Medical | DX: N39.0 Urinary tract infection, site not specified (principal); E11.9 Type 2 diabetes mellitus without complications; I10 Essential (primary) hypertension; D64.9 Anemia, unspecified; H40.9 Unspecified glaucoma | CPT/HCPCS: 83036; 96127; 99212 ==

== ENCOUNTER 2024-11-20 07:57 | Outpatient (REF) | payer MEDICARE, SELFPAY ==
--- OUTSIDE RECORDS SUMMARY | 2024-11-20 08:02 | XMS_ITS | Clinical Summary ---
Author Organization [facility] Address [address] [facility] [address] [place] [address] Phone Care Team Providers Care Wheel Cutter Name Role Phone Tim Ji MD Primary [...] Office Visit [facility] P. [address] [address] Sb Saenz MD Stage 3a chronic kidney disease (HCC) (Primary Dx); Type 2 diabetes mellitus with diabetic chronic kidney disease (HCC) 10/04/2024 Orders Only [facility] [address] [address] Sb Saenz MD from Last 3 Months [...] Office [facility] [address] [address] Sb Saenz MD [address] [address] Health Maintenance Due Date Last [...] order comments [place] [address] * (ABNORMAL) Albumin, urine, random (10/04/2024 10:51 [...] ORDERABLES Final Re sult Performing Organization Address [facility] de Phone Number [place] See order comments [place] [address] * (ABNORMAL) Urinalysis with microscopic (10/04/2024 10:51 AM EDT) Pathologist [facility] Color Urine Yellow See orde r comments Appearance Urine Turbid See order comments pH Urine 6.0 5.0 - 9.0 See order comments Glucose Urine >=1000(A) Negative mg/dL See order comments Blood, Urine Large (3+)(A) Negative See order comments Specific [place] Urine >=1.030(H) 1.005 - 1.025 See order [...] ORDERABLES Final Re sult Performing Organization Address [facility]/ZIP Co de Phone Number [place] See order comments [place] [address] * PTH, Intact (10/04/2024 10:28 AM EDT) Parathyroid Hormone, Intact 38.4 8.7 - 77.1 pg/mL See order comments 10/04/2024 10:2 8 AM EDT 10/04/2024 10:28 AM EDT Sb Saenz MD LAB [id number] SOLICITED RESULTS Final Result Performing Organization Address [facility] de Phone Number [place] See order comments [place] [address] * Creatinine (10/04/2024 10:23 AM EDT) Creatinine Serum 1.15 0.5 - 1.4 mg/dL See order comments eGFR (Calc) >60 See orde r comments Comment: Chronic Kidney Disease: Estimated GFR < 60 mL/min/1.73m2 Severe Kidney Disease: Estimated GFR < 15 mL/min/1.73m2 10/04/2024 10:2 3 AM EDT 10/04/2024 10:23 AM EDT Sb Saenz MD LAB BLOOD ORDERABLES Final Re sult Performing Organization Address [facility] de Phone Number [place] See order comments [place] [address] * Vitamin D 25 Hydroxy (10/04/2024 10:23 [...] ORDERABLES Final Re sult Performing Organization Address [facility] Phone [facility] See order comments [place] [address] * (ABNORMAL) BUN (10/04/2024 10:23 AM EDT) BUN 19(H) 9 - 16 mg/dL See order comments 10/04/2024 10:2 3 AM EDT 10/04/2024 10:23 AM EDT us Sb Saenz MD LAB BLOOD ORDERABLES Final Re sult Performing Organization Address [facility] Phone Number [facility] See order comments [place] [address] * Phosphorus (10/04/2024 10:23 AM EDT) Phosphorus, Serum 2.8 2.7 - 4.5 mg/dL See order comments 10/04/2024 10:2 3 AM EDT 10/04/2024 10:23 AM EDT us Sb Saenz MD LAB BLOOD ORDERABLES Final Re sult Performing Organization Address [facility] Phone Number [place] See order comments [place] [address] * Magnesium (10/04/2024 10:23 AM EDT) Magnesium 2.0 1.6 - 2.6 mg/dL See order comments 10/04/2024 10:2 3 AM EDT 10/04/2024 10:23 AM EDT us Sb Saenz MD LAB BLOOD ORDERABLES Final Re sult Performing Organization Address [facility] Phone Number [place] See order comments [place] [address] * Calcium (10/04/2024 10:23 AM EDT) Calcium 9.3 8.4 - 10.2 mg/dL See order comments 10/04/2024 10:2 3 AM EDT 10/04/2024 10:23 AM EDT us Sb Saenz MD LAB BLOOD ORDERABLES Final Re sult Performing Organization Address [facility] Phone Number [place] See order comments [place] [address] * Albumin (10/04/2024 10:23 AM EDT) Albumin 3.7 3.5 - 5.0 g/dL See order comments 10/04/2024 10:2 3 AM EDT 10/04/2024 10:23 AM EDT us Sb Saenz MD LAB BLOOD ORDERABLES Final Re sult Performing Organization Address [facility] Phone Number [place] See order comments [place] [address] * (ABNORMAL) Electrolyte panel (10/04/2024 10:23 AM [...] order comments [place] [address] * (ABNORMAL) CBC and Differential (10/04/2024 10:15 [...] order comments [place] [address] from Last 3 Months Insurance [facility] Medicare [facility] Medicare Care Teams Wheel Cutter Relationship Specialty Start Date End Date Tim Ji MD [address] [place] [address] [place] [address] PCP - General Internal Medicine 10/16/24
--- OUTSIDE RECORDS SUMMARY | 2024-11-20 08:02 | XMS_ITS | Encounter Summary ---
Author Organization [facility] Address [address] [facility] [address] [place] [address] Phone Care Team Providers Care Ross Carrier Driver Name Role Phone Tim iJ MD Primary Care Provider + Encounter Details Date Type Department Care Team (Late Contact Info) Description 06/27/2020 Orders Only [facility] [address] [facility] [address] [place] [address] Sb Saenz MD [address] [address] Type 2 diabetes mellitus with [...] Visit [facility] [address] [facility] [address] [place] [phone] Sb Saenz MD [address] [address] documented as of this encounter Visit Diagnoses Diagnosis Type 2 diabetes mellitus with diabetic chronic kidney disease (HCC) Stage 3a chronic kidney disease (HCC) Vitamin B12 deficiency Hypercholesterolemia, not otherwise specified Elevated prostate specific antigen (PSA) Anemia, not otherwise specified documented in this encounter Care Teams Ross Carrier Driver Relationship Specialty Start Date End Date Tim Ji MD [address] [facility] [address] [place] [address] PCP - General Internal Medicine 10/16/24 documented as of this encounter
--- OUTSIDE RECORDS SUMMARY | 2024-11-20 08:02 | XMS_ITS | Continuity of Care Document ---
Author Organization [facility] [address] [place] [address] Phone [phone] Care Team Providers Care Infection Control Preventionist Name Role Phone Claude Churchill M.D. Care Team Information Recei francisco j [phone] Problems Active Problems Provider Date Benign prostatic [...] SIG Qnty Indications Ordering Provider Date Toujeo [id number]/ML Solution Pen-Inject inject 20 units under the skin once daily in am dx: e11.8 13.5ml Kaiden Retana M.D. 11/02/2023 Advocate Insulin Pen [place] 29GX12.7mm29G X 12.7mm Misc inject daily 100units Kaiden Retana M.D. 11/02/2023 Freestyle Mirella 3/Sensor/Glucose Monitoring [place]8Okekvd Misc as directed 3units Kaiden Retana M.D. 11/02/2023 Freestyle Mirella 3/[place]/Glucose Monitoring Ezhbss5Xxaoek Device use with sensors to check blood sugar dx:e11.9 1units Kaiden Retana M.D. 11/02/2023 Timolol Maleate0.5% Solution Instill 1 Drop In Right Eye Every Morning Arvin Leung M.D Edtaeohju06fv Tablets Take 1 Tablet By Mouth Twice A Day 30 Minutes Before Meals Claude Churchill M.D. Metformin [id number] Tablets Take 1 Tablet By Mouth Twice A Day With A Meal For 90 Days 180tabs Kaiden Retana M.D. Ctiwnnlkti1ax Tablets Take 1 Tablet By Mouth Every Day For 90 Days Claude Churchill M.D. Ferrous Mkhtfpg096(65Fe) mg Tablets Take 1 Tablet By Mouth Every Day Ap Negron Rosuvastatin Ofyetbv35nh Tablets Anish Churchill M.D. Tamsulosin HCL0.4mg Capsules 1 cap by mouth every night 90caps Calude Churchill M.D. Vital Signs Date Vital Result Comment 10/25/2023 2:56pm BP Systolic 130 mmHg BP Diastolic 70 mmHg Height 66 inches 5'6 Weight 172.00 lb BMI (Body Mass Index) 27.8 kg/m2 Results Test Acquired Date Facility Test Result H/L Range N ote Glucose Fingerstick 10/25/2023 Inhouse Glucose Fingerstick 587 Procedures Date Code Description Status 10/25/2023 13740 Glucose Monitori ng From Interstital Tissue Fluid [...]
[2024-11-20 10:53] LABS: Appearance Urine Turbid; Glucose Urine UA >=1000 mg/dL (Negative); PH 5.5 (5.0-9.0); Specific Gravity - Urine >= 1.030 (1.005-1.025); UMIC TRIGGER UACC YES
[2024-11-20 11:09] LABS: UACC Culture Trigger YES
[2024-11-20 11:35] LABS: Microalbum/Creatinine Ratio Ur 416.7 ug/mg cr (<30)
== END 2024-11-20 07:58 | disposition home or self-care (01) ==
LOC: HO.HMGCLDS 07:57
PROVIDERS: Visit Provider Physician Assistant Medical
DX: E11.9 Type 2 diabetes mellitus without complications (principal); R30.0 Dysuria
CPT/HCPCS: 81001; 82043; 82570; 87086

== ENCOUNTER 2025-02-02 17:34 | Inpatient (IN) | payer OTHER, SELFPAY ==
[2025-02-02] VITALS (8 sets, daily range): BP systolic 90–122; BP diastolic 44–63; PULSE 100–122; RESP 20–28; TEMP 38–38.1; O2SAT 95–97; BMI 26.9
--- NOTE | 2025-02-02 | ECG_ITS ---
Test Reason : SEPSIS ALERT Blood Pressure : */* mmHG Vent. Rate : 118 BPM Atrial Rate : 118 BPM P-R Int : 144 ms QRS Dur : 88 ms QT Int : 306 ms P-R-T Axes : 62 3 4 degrees QTcB Int : 428 ms Sinus tachycardia with frequent Premature ventricular complexes Inferior infarct , age undetermined Cannot rule out Anterior infarct , age undetermined Abnormal ECG When compared with ECG of 11-Oct-2021 09:38, Premature ventricular complexes are now Present Inferior infarct is now Present Referred By: Generic ED Physician Electronically Signed By: Angus Collins
--- NOTE | ~2025-02-02 | CT_ITS ---
CLINICAL HISTORY: fall CT cervical spine without contrast Comparison: None provided Findings: Vertebral alignment is within normal limits. No significant degenerative change. Mild osteopenia. Visualized intracranial contents are unremarkable. Soft tissues of the neck are normal. Lung apices are clear. C5-6 and C6-7: Mild DJD. IMPRESSION: 1. Mild degenerative joint disease at C5-6 and C6-7. 2. Mild osteopenia. 3. No acute osseous injury. This document has been electronically signed by: Michael Anne MD on 02/02/2025 20:23:12
--- NOTE | ~2025-02-02 | CT_ITS ---
CLINICAL HISTORY: persistent tachycardia, hypoxia, elevated d-dimer CT angiography chest with contrast. 3D Postprocessing. Comparison: None provided Findings: No central or segmental pulmonary arterial embolus. Motion degraded exam at the lung bases limits assessment for distal pulmonary arterial emboli. Normal cardiac morphology. Moderate coronary artery calcification. Aortic root calcifications. Normal aortic caliber. Mid to distal esophageal thickening. No consolidation or effusion. No pneumothorax. Lingular and left lower lobe patchy airspace opacities. Bibasilar atelectasis. Right upper lobe scarring with cystic change and surrounding ground-glass, appears chronic. Mild emphysema. No acute abnormality in the upper abdomen. Radiodensity in the gastric lumen, likely ingested material. Gynecomastia. No acute fracture or dislocation. Multilevel chronic left-sided rib fracture deformities. IMPRESSION: No central or segmental pulmonary arterial embolus. Motion degraded exam at the lung bases limits assessment for distal pulmonary arterial emboli. Mid to distal esophageal thickening, which can be seen with esophagitis, but underlying lesion not excluded. Lingular and left lower lobe patchy opacities may represent infection. Biapical emphysema and parenchymal scarring. Additional chronic changes as above. This document has been electronically signed by: Bob Israel MD on 02/08/2025 22:55:36
--- NOTE | ~2025-02-02 | CT_ITS ---
CLINICAL HISTORY: fall; uti CT abdomen and pelvis without contrast Comparison: None provided Findings: Hiatal hernia. Gynecomastia. Cholelithiasis. The liver and spleen are homogeneous in attenuation. Bilateral hydronephrosis and hydroureter. No nephroliths identified. The bladder demonstrates asymmetric mural thickening with ventral diverticula, 1.3 cm, 1.7 cm. Right renal upper pole exophytic hyperattenuating lesion with subcentimeter partly calcified rim, 1.9 cm. The pancreas is homogeneous in attenuation. No bowel obstruction, pneumoperitoneum, or pneumatosis. Calcified coronary atherosclerotic disease. Partial mineralization of the aortic valve. Moderate to severe calcified atherosclerotic disease of the abdominal aorta. The appendix is within normal limits. Diverticulosis. The prostate is hypertrophic, 5.7 cm. Bilateral inguinal hernias with adipose tissue in lumen, right 2 x 2 x 12 cm and left 1.8 x 2.4 x [address] evidence incarceration or strangulation. No acute fracture. Moderate osteopenia. IMPRESSION: 1. Bilateral hydronephrosis and hydroureter with bladder wall thickening and diverticula, suggestive of chronic bladder outlet obstruction from hypertrophic prostate. 2. Cholelithiasis. 3. Bilateral inguinal hernias, larger on the right without CT evidence incarceration or strangulation. 4. Prostatic hypertrophy. 5. Moderate to severe calcified atherosclerotic disease of the abdominal aorta. 6. Right renal upper pole exophytic 1.9 cm complex cyst. Renal ultrasound correlation suggested. This document has been electronically signed by: Michael Anne MD on 02/03/2025 00:18:37
--- NOTE | ~2025-02-02 | CT_ITS ---
CLINICAL HISTORY: fall CT head without contrast Comparison: None provided Findings: No intra-axial mass, midline shift, hydrocephalus, or acute hemorrhage. Heterogeneous low attenuation in the periventricular white matter. There is no sinus or mastoid fluid. The orbits are within normal limits. There is no acute fracture. Hyperostosis frontalis interna. IMPRESSION: 1. Periventricular white matter hypodensities, likely representing chronic small vessel ischemic changes. 2. Hyperostosis frontalis interna. 3. No acute intracranial findings. This document has been electronically signed by: Michael Anne MD on 02/02/2025 20:43:39
--- NOTE | ~2025-02-02 | XR_ITS ---
CLINICAL HISTORY: cough fever --- Additional Notes or Special Instructions: Pt getting echo @1620, will return in 45 min 1 view chest x-ray. Comparison: 02/02/2025 Findings: There appears to be mild patchy consolidative opacity within left midlung and left lung base. No other focal consolidation. No gross pleural effusions. Cardiac and mediastinal contours appear stable. Bones unremarkable. Impression: 1. Mild patchy left lung consolidative opacities. This document has been electronically signed by: Jae Galaes MD on 02/07/2025 18:25:56
--- NOTE | ~2025-02-02 | US_ITS ---
CLINICAL HISTORY: leg pain Bilateral lower extremity venous duplex ultrasound. Comparison: None Technique: Real time sonographic imaging, including color-flow imaging and spectral analysis, was performed by the instrumental music teacher. Multiple account service representative static images were saved for review. Findings: The deep venous systems of both lower extremities are fully compressible from common femoral through the proximal leg veins. There is spontaneous and phasic flow, and augmentation. Color Doppler and spectral tracings are unremarkable. No popliteal fossa cyst. Impression: 1. Bilateral lower extremity venous duplex ultrasound negative for DVT This document has been electronically signed by: Jae Galeas MD on 02/08/2025 19:07:12
[2025-02-02 18:25] LABS: MANUAL DIFF FLAG NO
[2025-02-02 18:32] LABS: Appearance Urine Turbid; Glucose Urine UA 500 mg/dL (Negative); PH 6.0 (5.0-9.0); Specific Gravity - Urine 1.020 (1.005-1.025); UMIC TRIGGER UACC YES
[2025-02-02 18:36] LABS: INTERNATIONAL NORM RATIO 1.2 (0.9-1.1); Prothrombin Time 14.4 SEC (11.2-13.5)
--- NOTE | 2025-02-02 18:40 | MHC.EDTECH ---
delay on ekg due to ekg in use on another patient. nurse aware
[2025-02-02 18:44] LABS: Anion Gap 16 (12-20); Blood Urea Nitrogen 32 mg/dL (9-16); Calcium 9.6 mg/dL (8.4-10.2); Carbon Dioxide 20 mmol/L (22-29); Chloride 102 mmol/L (96-108); Creatinine Clr Calc Pharmacy 25.3; Estimated Glomerular Filt Rate 32; Magnesium 2.2 mg/dL (1.6-2.6); Potassium 5.0 mmol/L (3.3-5.1); Sodium 133 mmol/L (135-145)
[2025-02-02 18:47] LABS: UACC Culture Trigger YES
[2025-02-02] MEDS: Lactated Ringers 1,000 ML 999 ML IV (18:50)
[2025-02-02 18:51] LABS: Troponin-I High Sensitivity 12.9 ng/L (<3.5-35.0)
--- NOTE | 2025-02-02 18:57 | ED.GENADULT ---
HPI - General Adult General Chief complaint: Fall Stated complaint: Fall, on floor for 4 hrs, back pain Time Seen by Provider: 02/02/25 18:30 Source: patient, EMS and old records reviewed Mode of arrival: EMS Limitations: no limitations History of Present Illness ED Provider: DR. Mejia HPI narrative: 79-year-old man PMHx DM, anemia, HTN, glaucoma, UTIs, chronic anemia, brought in by EMS for evaluation after a fall and remaining on the ground for 4-5 hours at home. patient normally lives home alone fully independent still drives cars, patient slipped off the recliner about 2 ft high put himself down on the ground patient remained on the ground on his back for 4-5 hours at home was not able to get himself up, patient finally was able to manage getting himself up and called 911 on arrival patient found to be febrile, no headache, no neck pain, no CP, no SOB, no coughing, no abdominal pain, no extremity pain, no back pain. Related Data Previous Rx's ?Medication ?Instructions ?Recorded acetaminophen 650 mg 650 mg PO Q12H #90 tabs 01/10/25 tablet,extended release (Tylenol Arthritis Pain) aspirin 81 mg tablet,delayed 81 mg PO DAILY #90 tabs 01/10/25 release blood sugar diagnostic (OneTouch #100 ea 01/10/25 Ultra Test strips) cyanocobalamin (vitamin B-12) 1,000 mcg PO DAILY #90 tabs 01/10/25 1,000 mcg tablet (Vitamin B-12) empagliflozin 25 mg tablet 25 mg PO DAILY #90 tabs 01/10/25 (Jardiance) ferrous sulfate 325 mg (65 mg 325 mg PO DAILY #90 tabs 01/10/25 iron) tablet insulin glargine U-300 conc 300 30 unit (0.1 mL) subcut BEDTIME 01/10/25 unit/mL (1.5 mL) subcutaneous pen #4.5 mL (Toujeo SoloStar U-300 Insulin) insulin lispro 100 unit/mL 10 unit (0.1 mL) subcut BID 3 01/10/25 subcutaneous cartridge (Humalog months #18 mL U-100 Insulin) lisinopril 5 mg tablet 5 mg PO DAILY #90 tabs 01/10/25 metformin 1,000 mg tablet 1,000 mg PO BID 90 days #180 tabs 01/10/25 uaulvcsc-dr-ywzaq 300 mcg-K 60 1 tab PO DAILY #90 tabs 01/10/25 mcg-lycop 600 mcg-lutein 300 mcg tablet (Centrum Silver Men) pen needle, diabetic 29 gauge x #100 ea 01/10/25 1/2 (Ultra-Thin II Insulin Pen [place]) rosuvastatin 40 mg tablet 40 mg PO DAILY #90 tabs 01/10/25 tamsulosin 0.4 mg capsule 0.4 mg PO BEDTIME #90 caps 01/10/25 Allergies Allergy/AdvReac Type Severity Reaction Status Date / Time atorvastatin (Lipitor) Allergy Unknown rash Verified 02/02/25 18:04 From LIPITOR Allergy Unknown RASH Uncoded 02/02/25 18:04 Review of Systems Review of Systems: All other systems are reviewed and are negative Constitutional: Reports as per HPI and Reports no additional constitutional complaints Eyes: Reports as per HPI and Reports no additional eye complaints Reports system reviewed and no additional complaints, except as documented Cardiovascular: Reports as per HPI and Reports no additional cardiovascular complaints Respiratory: Reports as per HPI and Reports no additional respiratory complaints Gastrointestinal: Reports as per HPI and Reports no additional gastrointestinal complaints Genitourinary: Reports no additional female genitourinary complaints Musculoskeletal: Reports no additional musculoskeletal complaints Skin/Breast: Reports system reviewed and no additional complaints, except as docu Psychiatric: Reports no additional psychiatric complaints Endocrine: Reports no additional endocrine complaints Hematologic/Lymphatic: Reports no additional hematologic/lymphatic complaints Allergic/Immunologic: Reports no additional allergic/immunologic complaints Reports system reviewed and no additional complaints, except as documented and Reports Abnormal speech present [facility] Past Medical History Medical History Anemia Hypertension Glaucoma UTI (urinary tract infection) Dysuria Chronic anemia DNI (do not intubate) DNR (do not resuscitate) discussion Encounter for annual wellness exam in Medicare patient Sinus tachycardia Shortness of breath on exertion Multiple rib fractures Cervical radiculopathy Cervical disc disease Tubular adenoma Leukopenia GERD (gastroesophageal reflux disease) Renal lithiasis Hypotestosteronism Vitamin D deficiency Mild hypercholesterolemia Type 2 diabetes mellitus CVA (cerebral vascular accident) BPH (benign prostatic hyperplasia) H/O: HTN (hypertension) Diabetes mellitus Surgical History History of bladder surgery Hx of knee surgery H/O inguinal hernia repair Family History Family History Father Lung cancer Heart attack Social History Social History Household Members: None Housing: House Do you presently have visiting nurse or other home services: No Alcohol intake: never Patient Tobacco Use Status: Former Tobacco user Tobacco use type: Cigarette Cigarette Packs Per Day: 1.5 Smoked in Last 30 Days: No Use of substances other than those prescribed or required for medical reasons: No Advance Directives: No Advance Directives Information Provided: No Do you have a plan to hurt others: No Plan service: Yes Current occupational status: retired Physical Exam ED Vital Signs: Vital Signs - 24 hr 02/02/25 18:00 02/02/25 18:42 02/02/25 19:38 Temperature 100.5 F H 100.5 F H 100.4 F Pulse Rate 122 H 120 H 111 H Respiratory Rate 20 20 24 H Blood Pressure 113/44 L 113/44 L 122/63 Pulse Oximetry 96 97 Oxygen Delivery Method Room Air 02/02/25 20:06 02/02/25 20:07 02/02/25 20:35 Temperature Pulse Rate 111 H 115 H 115 H Respiratory Rate 22 H 22 H 27 H Blood Pressure 112/61 116/62 120/54 L Pulse Oximetry 95 96 Oxygen Delivery Method Room Air Room Air Room Air BMI result Body Mass Index 26.9 Vital signs have been reviewed and appear to be correct. Blood pressure elevated. Heart rate Elevated. Respiratory rate normal. Temperature normal. Oxygen saturation normal. Appearance: Alert. Oriented X3. No acute distress. Head: Normal external exam. Normocephalic. Atraumatic. No King signs noted. No raccoon eyes noted Eyes: PERRLA. EOMI. Conjunctiva and sclera normal. Eyelids normal. ENT: TM's Normal. Pharynx normal. Uvula midline. Moist mucous membranes. No trismus noted. No drooling noted. No muffled voice noted. Neck: Normal inspection. Neck supple. FROM. No adenopathy. Thyroid Normal. No meningeal signs. No neck mass noted. CVS: Normal heart rate and rhythm. Heart sound normal. No murmurs noted. Pulses normal throughout. Respiratory: No respiratory distress. Painless inspiration. Breath sounds normal. No wheezes/rales/rhonchi noted. Chest nontender. No accessory muscle usage noted or decreased air movement noted. Abdomen: Soft and nontender. Bowel sounds normal in all 4 quadrants. No distention noted. No organomegaly noted. No visible injury noted. Back: No CVA tenderness. Full range of motion noted. Skin: Skin warm and dry. Normal skin color. Normal skin turgor. No rashes/lesions/lacerations noted. Extremities: No lower extremity edema. Extremities exhibit normal range of motion. Extremities nontender. Neuro: Oriented X 3. Cranial nerve exam: II-XII are grossly intact No motor deficit. No sensory deficit. Reflexes normal. Course Reevaluation(s) Reevaluation #1: 79-year-old male presented after a mechanical fall found to be in UTI and sepsis. no lactic acidosis, patient received IV fluids and ceftriaxone await for blood cultures. Negative head/ C-spine CT. No rhabdomyolysis. SANDY and mild dehydration. Time: 21:15 Medications Administered Discontinued Medications Generic Name Dose Route Start Last Admin Trade Name Freq PRN Reason Stop Dose Admin Ceftriaxone Sodium 1 gm/ 50 mls @ 100 mls/hr 02/02/25 18:43 02/02/25 19:25 Sodium Chloride IV 02/02/25 19:12 Infused ONCE ONE Infusion Lactated Ringer's 1,000 mls @ 999 mls/hr 02/02/25 18:45 02/02/25 20:06 Lr IV 02/02/25 19:45 Infused .Q1H1M TIBURCIO Infusion Medical Decision Making Differential Diagnosis Differential Diagnoses: The differential diagnosis associated with the presentation includes ( UTI, pneumonia, sepsis, mechanical fall, rhabdomyolysis, dehydration, electrolyte derangement, SANDY, severe anemia.) Admission/Observation Consideration of admission/observation: Escalation of care including admission/observation considered Consult Healthcare Provider Management of the patient was discussed with: Hospitalist ( Dr. Spring) Lab Data MDM Lab Attestation statement: I reviewed the patient's lab results. 02/02/25 18:11 02/02/25 18:11 Labs: Lab Results 02/02/25 02/02/25 Range/Units 18:11 18:24 WBC 11.1 H (4.8-10.8) X10*3/uL RBC 4.52 L (4.60-5.80) X10*6/uL Hgb 13.2 L (14.0-18.0) g/dl Hct 40.2 L (42.0-52.0) % MCV 88.9 (80.0-98.0) fL MCH 29.2 (27.0-33.0) pg MCHC 32.8 (31.0-36.0) g/dl RDW 15.9 (11.0-16.0) % Plt Count 346 D (160-400) X10*3/uL MPV 9.1 L (9.4-12.4) fL Immature Gran % (Auto) 0.5 H (0.0-0.4) % Neut % (Auto) 78.7 H (45-73) % Lymph % (Auto) 12.3 L (20-40) % [place] % (Auto) 7.4 (2-11) % Eos % (Auto) 0.4 (0-4) % Baso % (Auto) 0.7 (0-2) % Lymph # (Auto) 1.4 (1.2-4.9) X10*3/uL [place] # (Auto) 0.8 (0.1-1.2) X10*3/uL Eos # (Auto) 0.0 (0.0-0.4) X10*3/uL Baso # (Auto) 0.1 (0.0-0.2) X10*3/uL Abs Immat Gran (auto) 0.05 H (0.00-0.03) X10*3/uL Absolute Neuts (auto) 8.8 H (2.0-8.3) x10*3/uL Absolute Nucleated RBC 0.000 (0.0-0.012) X10*3/uL Nucleated RBC % (auto) 0.0 (0.0-0.2) /100WBC PT 14.4 H (11.2-13.5) SEC INR 1.2 H (0.9-1.1) Sodium 133 L (135-145) mmol/L Potassium 5.0 D (3.3-5.1) mmol/L Chloride 102 (96-108) mmol/L Carbon Dioxide 20 L (22-29) mmol/L Anion Gap 16 (12-20) BUN 32 H (9-16) mg/dL Creatinine 2.02 H (0.5-1.4) mg/dL Estim Creat Clear Calc 25.3 Estimated GFR 32 Fasting Glucose 153 H (60-99) mg/dL Lactic Acid 1.3 (0.5-2.0) mmol/L Calcium 9.6 (8.4-10.2) mg/dL Magnesium 2.2 (1.6-2.6) mg/dL Total Creatine Kinase 145 (38-174) U/L Troponin I High Sens 12.9 (<3.5-35.0) ng/L Urine Color Yellow Urine Appearance Turbid Urine pH 6.0 (5.0-9.0) Ur Specific [place] 1.020 (1.005-1.025) Urine Protein 300 (3+) H (Neg-Trace) mg/dL Urine Glucose (UA) 500 H (Negative) mg/dL Urine Ketones Negative (Negative) mg/dL Urine Blood Large (3+) H (Negative) Urine Nitrite Negative (Negative) Ur Leukocyte Esterase Large (3+) H (Negative) Urine RBC 11-20 H (0-2) /HPF Urine WBC >50 H (0-5) /HPF Ur Squamous Epith Cells 11-20 (0-2) /HPF Urine Bacteria 1+ (None Seen) Hyaline Casts 0-2 (0-2) /LPF Independent Interpretation I performed an independent interpretation of an: CT Scan ( head/C-spine: No acute intra cranial or C-spine injury.) Radiology Impression Discussion of test interpretation with radiology: I have reviewed the radiologist's reading. Critical Care Time Critical Care Time Critical Care Time: Yes Total Critical Care Time: 60 Attestation: The patient was critically ill with a high probability of imminent or life-threatening deterioration. I spent greater than 30 minutes of discontinuous time evaluating the patient, delivering critical care at the bedside, discussing evaluating data with consultants. Critical care time does not include time spent performing separately billable procedures or teaching. Time spent performing critical care was 60 minutes. Discharge Plan Discharge Clinical Impression: SANDY (acute kidney injury), Acute UTI, Sepsis, Accident due to mechanical fall without injury Patient Disposition: Admitted As Inpatient Print Language: Serbian
[2025-02-02 20:13] LABS: Hematocrit 40.2 % (42.0-52.0); Hemoglobin 13.2 g/dl (14.0-18.0); Imm Gran Abs Auto 0.05 X10*3/uL (0.00-0.03); Imm Gran Pct Auto 0.5 % (0.0-0.4); Lymphocytes Absolute Auto 1.4 X10*3/uL (1.2-4.9); Mean Corpuscular HGB Conc 32.8 g/dl (31.0-36.0); Mean Corpuscular Hemoglobin 29.2 pg (27.0-33.0); Mean Corpuscular Volume 88.9 fL (80.0-98.0); NRBC Abs Auto 0.000 X10*3/uL (0.0-0.012); NRBC Pct Auto 0.0 /100WBC (0.0-0.2); Platelet Count 346 X10*3/uL (160-400); Red Blood Count 4.52 X10*6/uL (4.60-5.80); White Blood Count 11.1 X10*3/uL (4.8-10.8)
--- OUTSIDE RECORDS SUMMARY | 2025-02-02 20:17 | XMS_ITS | Continuity of Care Document ---
Author Organization [facility] [address] [place] [address] Phone [phone] Care Team Providers Care Special Education Teaching Assistant Name Role Phone Claude Churchill M.D. Care Team Information Recei francisco j [phone] Problems Active Problems Provider Date Benign prostatic [...] SIG Qnty Indications Ordering Provider Date Toujeo [id number]/ML Solution Pen-Inject inject 20 units under the skin once daily in am dx: e11.8 13.5ml Kaiden Retana M.D. 11/02/2023 Advocate Insulin Pen [place] 29GX12.7mm29G X 12.7mm Misc inject daily 100units Kaiden Retana M.D. 11/02/2023 Freestyle Mirella 3/Sensor/Glucose Monitoring Mldofn1Mepckp Misc as directed 3units Kaiden Retana M.D. 11/02/2023 Freestyle Mirella 3/[place]/Glucose Monitoring Ipggxv6Bfrqdh Device use with sensors to check blood sugar dx:e11.9 1units Kaiden Retana M.D. 11/02/2023 Timolol Maleate0.5% Solution Instill 1 Drop In Right Eye Every Morning Arvin Leung M.D Ubdhcmuxl57pw Tablets Take 1 Tablet By Mouth Twice A Day 30 Minutes Before Meals Claude Churchill M.D. Metformin [id number] Tablets Take 1 Tablet By Mouth Twice A Day With A Meal For 90 Days 180tabs Kaiden Retana M.D. Hddetmoiej4qs Tablets Take 1 Tablet By Mouth Every Day For 90 Days Claude Churchill M.D. Ferrous Hptlmkm909(65Fe) mg Tablets Take 1 Tablet By Mouth Every Day Ap Negron Rosuvastatin Mfimdii31zh Tablets Anish Churchill M.D. Tamsulosin HCL0.4mg Capsules [...] 587 Procedures Date Code Description Status 10/25/2023 91465 Glucose Monitori ng From Interstital Tissue Fluid [...]
--- OUTSIDE RECORDS SUMMARY | 2025-02-02 20:17 | XMS_ITS ---
Author Organization Unknown ENCOUNTERS Encounter Performer Location Date Diagnosis Diagnosis Status Pre Admit [facility] [address] [place] [address] [id number] [facility] Emergency [facility] [address] [place] [address] [id number] JOHN Pre Admit [facility] [address] [place] [address] [id number] Outpatient [facility] [address] [place] [address] [id number] JOHN Emergency [facility] ED Physician [facility] [address] [place] [address] [id number] [facility] Pre Admit [facility] [address] [place] [address] [id number] *Note: Encounters from your own facility or health system may be excluded. Allergies, Adverse Reactions, Alerts Allergen Type Severity Identification Date atorvastatin drug allergy [id number] Medications Name Date Quantity Days Supplied GPI Number
--- NOTE | 2025-02-02 21:22 | PM.IMHP ---
History of Present Illness Date of Service: 02/02/25 Chief Complaint: Fall 79-year-old male with a past medical history, HLD, DM, glaucoma, anemia; presented to the hospital today with a chief complaint of fall. Patient reported that he fell off his recliner and was not able to get up; laid on the floor for 5 hours. Mentioned that baseline he is fairly independent of his ADLs. Denies any neck pain, back pain, hip pain. Patient denied any chest pain or palpitations. Review of all other systems is negative except mentioned above ER course: Per ER team, patient exam was nonfocal; musculoskeletal exam benign; EMS team noted that patient was febrile. Urinalysis abnormal presents with UTI. Given ceftriaxone. CT head and CT C-spine showed no acute findings. [facility] Medical History Anemia Hypertension Glaucoma UTI (urinary tract infection) Dysuria Chronic anemia DNI (do not intubate) DNR (do not resuscitate) discussion Encounter for annual wellness exam in Medicare patient Sinus tachycardia Shortness of breath on exertion Multiple rib fractures Cervical radiculopathy Cervical disc disease Tubular adenoma Leukopenia GERD (gastroesophageal reflux disease) Renal lithiasis Hypotestosteronism Vitamin D deficiency Mild hypercholesterolemia Type 2 diabetes mellitus CVA (cerebral vascular accident) BPH (benign prostatic hyperplasia) H/O: HTN (hypertension) Diabetes mellitus Family History Father Lung cancer Heart attack Surgical History History of bladder surgery Hx of knee surgery H/O inguinal hernia repair Social History Household Members: None Housing: House Do you presently have visiting nurse or other home services: No Alcohol intake: never Patient Tobacco Use Status: Former Tobacco user Tobacco use type: Cigarette Cigarette Packs Per Day: 1.5 Smoked in Last 30 Days: No Use of substances other than those prescribed or required for medical reasons: No Advance Directives: No Advance Directives Information Provided: No Do you have a plan to hurt others: No Plan service: Yes Current occupational status: retired Meds Allergies Allergy/AdvReac Type Severity Reaction Status Date / Time atorvastatin (Lipitor) Allergy Unknown rash Verified 02/02/25 18:04 From LIPITOR Allergy Unknown RASH Uncoded 02/02/25 18:04 Physical Exam Vital Signs and Narrative: Vital Signs: Last Vital Signs Temp 100.4 F 02/02/25 19:38 Pulse 115 H 02/02/25 20:35 Resp 27 H 02/02/25 20:35 BP 120/54 L 02/02/25 20:35 Pulse Ox 96 02/02/25 20:35 O2 Del Method Room Air 02/02/25 20:35 BMI result Body Mass Index 26.9 Gen: Appears be in no acute distress HEENT: NCAT, Moist mucosa. Pulmonary: Vesicular breath sounds, fair air entry CVS: Normal S1-S2 Abdomen: BS+, Soft, Nontender Extremities: Warm well perfused Neuro: Alert and awake. Results Labs 02/02/25 18:11 02/02/25 18:11 Labs: Laboratory Results - last 24 hr 02/02/25 02/02/25 18:11 18:24 MCV 88.9 MCH 29.2 MCHC 32.8 RDW 15.9 Plt Count 346 D MPV 9.1 L Immature Gran % (Auto) 0.5 H Neut % (Auto) 78.7 H Lymph % (Auto) 12.3 L [place] % (Auto) 7.4 Eos % (Auto) 0.4 Baso % (Auto) 0.7 Lymph # (Auto) 1.4 [place]key # (Auto) 0.8 Eos # (Auto) 0.0 Baso # (Auto) 0.1 Abs Immat Gran (auto) 0.05 H Absolute Neuts (auto) 8.8 H Absolute Nucleated RBC 0.000 Nucleated RBC % (auto) 0.0 PT 14.4 H INR 1.2 H Anion Gap 16 Estim Creat Clear Calc 25.3 Estimated GFR 32 Fasting Glucose 153 H Lactic Acid 1.3 Calcium 9.6 Magnesium 2.2 Total Creatine Kinase 145 Troponin I High Sens 12.9 Urine Color Yellow Urine Appearance Turbid Urine pH 6.0 Ur Specific [place] 1.020 Urine Protein 300 (3+) H Urine Glucose (UA) 500 H Urine Ketones Negative Urine Blood Large (3+) H Urine Nitrite Negative Ur Leukocyte Esterase Large (3+) H Urine RBC 11-20 H Urine WBC >50 H Ur Squamous Epith Cells 11-20 Urine Bacteria 1+ Hyaline Casts 0-2 Assessment and Plan (1) UTI (urinary tract infection): Qualifiers: Hematuria presence: with hematuria Urinary tract infection type: site unspecified Qualified Code(s): N39.0 - Urinary tract infection, site not specified; R31.9 - Hematuria, unspecified Status: Acute Plan 79-year-old male with a past medical history, HLD, DM, glaucoma, anemia; presented to the hospital today with a chief complaint of fall. Fall: Mechanical in nature. CT head and CT C-spine showed no acute findings P.T./OT when ready for discharge UTI: Continue ceftriaxone. Follow up cultures. CT abdomen pelvis ordered. Diabetes: Insulin sliding scale SANDY: Likely prerenal. Patient given IV fluids. Avoid nephrotoxins. Med reconsideration: Continue home medications once med rec is completed. DVT prophylaxis: Subcu heparin Code status: Full code, confirmed with the patient Quality Stroke Does the patient have a stroke diagnosis?: No VTE Prior VTE?: No VTE Risk Level:: Medical - moderate - high VTE Device Contraindication: Treatment Not Indicated VTE Drug Contraindication: N/A - Med Ordered
--- NOTE | 2025-02-02 22:42 | HO.NURTONUR ---
Pt came from home, while sitting in recliner and attempted to get up, pt slid down and was on the floor. Pt denies any precipitating event, any recent illness. Pt states he was on the floor for 4 hours when he was finally able to reach his phone and call EMS. In the ED pt noted to have a 100.2 rectal temp, and tachycardia. Pt was tx'd as a sepsis protocol secondary to uti. Pt is A&O x 4 and is able to make his needs known. Pt lives by himself without any resources, i.e. [employer]'s and has no family around.
--- NOTE | 2025-02-02 23:54 | PC.NURSE ---
report received and care assumed at 2300. pt found to be awake, alert, pleasant, and oriented without distress noted. He offers no complaints at this time. He was just assigned a bed on the 3rd floor and is awaiting transport.
[2025-02-03 01:37] VITALS: BP 132/61; PULSE 98; RESP 18; TEMP 36.3; O2SAT 96
[2025-02-03 03:29] VITALS: BP 124/55; PULSE 107; RESP 18; TEMP 36.3; O2SAT 92
[2025-02-03 04:20] LABS: Hematocrit 37.6 % (42.0-52.0); Hemoglobin 12.1 g/dl (14.0-18.0); Mean Corpuscular HGB Conc 32.2 g/dl (31.0-36.0); Mean Corpuscular Hemoglobin 28.7 pg (27.0-33.0); Mean Corpuscular Volume 89.1 fL (80.0-98.0); NRBC Abs Auto 0.000 X10*3/uL (0.0-0.012); NRBC Pct Auto 0.0 /100WBC (0.0-0.2); Platelet Count 289 X10*3/uL (160-400); Red Blood Count 4.22 X10*6/uL (4.60-5.80)
[2025-02-03 04:21] LABS: WBC ABN SCTR FOR CBC 1
[2025-02-03 04:35] LABS: Anion Gap 15 (12-20); Blood Urea Nitrogen 30 mg/dL (9-16); Calcium 9.4 mg/dL (8.4-10.2); Carbon Dioxide 20 mmol/L (22-29); Chloride 104 mmol/L (96-108); Creatinine Clr Calc Pharmacy 31.2; Estimated Glomerular Filt Rate 41; Potassium 4.6 mmol/L (3.3-5.1); Sodium 134 mmol/L (135-145)
[2025-02-03 05:26] LABS: Atypical Lymphs Percent Manual 2 % (0-6); Band Neutrophils Percent 5 % (3-5); Basophils Percent Manual 2 % (0-2); Lymphocytes Percent Manual 13 % (20-40); Monocytes Percent Manual 1 % (2-11); Neutrophils Percent Manual 77 % (45-73)
[2025-02-03 05:27] LABS: Macrocytosis 1+ (5-14) /OIF; RBC Morphology NOTED
[2025-02-03 05:28] LABS: Burr Cells 1+ (0-2) /OIF; Microcytosis 1+ (5-14) /OIF; Polychromasia 1+ (0-2) /OIF
[2025-02-03 05:29] LABS: Atypical Lymph Absolute Manual 0.2 x10*3/uL; Basophils Abs Manual 0.2 X10*3/uL (0.0-0.2); Dohle Bodies PRESENT; Lymphocytes Absolute Manual 1.3 X10*3/uL (1.2-4.9); Monocytes Absolute Manual 0.1 X10*3/uL (0.1-1.2); Neutrophils Absolute Manual 8.4 X10*3/uL (2.0-8.3); Toxic Granulation PRESENT; White Blood Count 10.3 X10*3/uL (4.8-10.8)
[2025-02-03] MEDS: Flu Vacc TS2025-26(6mo up)/PF 0.5 ML SYRINGE IM (05:56)
--- NOTE | 2025-02-03 07:43 | PHA.MEDREC ---
Pharmacy Consult ? Medication Reconciliation Pharmacy has completed the medication reconciliation.Med rec complete, spoke to patient and compared with pharmacy claims history.
[2025-02-03 07:57] LABS: Glucose, Whole Blood 82 mg/dL (60-115)
[2025-02-03 08:00] VITALS: BP 124/59; PULSE 106; RESP 16; TEMP 36; O2SAT 97
[2025-02-03] MEDS: 0.9 % Sodium Chloride Flush 3 ML SYRINGE IVFLUSH ×3 (08:24→21:19)
[2025-02-03] MEDS: Aspirin Enteric Coated 81 MG TABLET.DR PO (09:06)
[2025-02-03] MEDS: Ferrous Sulfate 324 MG TABLET.DR PO (09:07)
--- NOTE | 2025-02-03 10:53 | HO.PM.IMPN ---
Subjective Subjective Date of Service: 02/03/25 Interval History: improving Physical Exam Exam: Exam: General: AO X 3, no acute distress Resp: CTA bilateral, no accessory muscles used CVS: S1,S2,RRR GI: soft, non tender, non distended Neuro: motor grossly intact, alert Psych: appropriate affect, appropriate insight Vital Signs: Vital Signs: Last Vital Signs Temp 96.8 F 02/03/25 08:00 Pulse 106 H 02/03/25 08:00 Resp 16 02/03/25 08:00 BP 124/59 L 02/03/25 08:00 Pulse Ox 97 02/03/25 08:00 O2 Del Method Room Air 02/03/25 08:00 BMI result Body Mass Index 26.9 Objective Data Active Medications Acetaminophen (Acetaminophen 325 Mg Tablet) 650 mg PO Q6H PRN PRN Reason: Pain, Mild 1-3,fever,headache Aspirin (Aspirin Enteric Coated 81 Mg Tablet.) 81 mg PO DAILY [facility] Last Admin: 02/03/25 09:06 Dose: 81 mg Documented By: DOT Atorvastatin Calcium (Atorvastatin Calcium 80 Mg Tablet) 80 mg PO DAILY [facility] Last Admin: 02/03/25 09:06 Dose: 80 mg Documented By: DOT Calcium Carbonate (Calcium Carbonate 750 Mg Tab.Chew) 750 mg PO Q4H PRN PRN Reason: Heartburn Dextrose (Dextrose 50 % 25 Gm/50 Ml Syringe) 25 gm IVPUSH Q15M PRN; Protocol PRN Reason: per Hypoglycemia Standing Ord. Ferrous Sulfate (Ferrous Sulfate 324 Mg Tablet.) 324 mg PO DAILY [facility] Last Admin: 02/03/25 09:07 Dose: 324 mg Documented By: DOT Glucose (Glucose Gel 15 Gm Gel..Gram.) 15 gm PO Q15M PRN; Protocol PRN Reason: per Hypoglycemia Standing Ord. Heparin Sodium (Porcine) (Heparin Sodium,Porcine 5,000 Unit/Ml Vial) 5,000 unit SUBCUT Q8H [facility] Last Admin: 02/03/25 05:56 Dose: 5,000 unit Documented By: PRANAV Ceftriaxone Sodium 1 gm/ (Sodium Chloride) 50 mls @ 100 mls/hr IV Q24H [facility] Insulin Glargine (Insulin Glargine,Hum.Rec.Anlog 100 Unit/Ml 10 Ml Vial) 24 unit SUBCUT DAILY@1600 [facility] Insulin Human Lispro (Insulin Lispro 100 Unit/Ml 3 Ml Vial) 0 unit SUBCUT QIDACHS [facility]; Protocol Last Admin: 02/03/25 08:00 Dose: Not Given Documented By: DOT Non-Admin Reason: No Insulin Coverage Magnesium Hydroxide (Milk Of Magnesia 30 Ml Oral.Susp) 30 ml PO DAILY PRN PRN Reason: Constipation Melatonin (Melatonin 3 Mg Tablet) 6 mg PO BEDTIME PRN PRN Reason: Insomnia Multivitamins/Vitamin C (Multivitamin Tablet) 1 tab PO DAILY [facility] Last Admin: 02/03/25 09:06 Dose: 1 tab Documented By: DOT Sodium Chloride (0.9 % Sodium Chloride Flush 3 Ml Syringe) 3 ml IVFLUSH QSHIFT [facility] Last Admin: 02/03/25 08:24 Dose: 3 ml Documented By: DOT Tamsulosin HCl (Tamsulosin Hcl 0.4 Mg Capsule) 0.4 mg PO BEDTIME [facility] Labs 02/03/25 03:42 02/03/25 03:42 Labs: Laboratory Results - last 24 hr 02/02/25 02/02/25 02/03/25 18:11 18:24 03:42 MCV 88.9 89.1 MCH 29.2 28.7 MCHC 32.8 32.2 RDW 15.9 15.9 Plt Count 346 D 289 MPV 9.1 L 8.8 L Immature Gran % (Auto) 0.5 H Cancelled Neut % (Auto) 78.7 H Cancelled Lymph % (Auto) 12.3 L Cancelled Hall % (Auto) 7.4 Cancelled Eos % (Auto) 0.4 Cancelled Baso % (Auto) 0.7 Cancelled Lymph # (Auto) 1.4 Cancelled Hall # (Auto) 0.8 Cancelled Eos # (Auto) 0.0 Cancelled Baso # (Auto) 0.1 Cancelled Abs Immat Gran (auto) 0.05 H Cancelled Absolute Neuts (auto) 8.8 H Cancelled Absolute Nucleated RBC 0.000 0.000 Nucleated RBC % (auto) 0.0 0.0 Neutrophils % (Manual) 77 H Band Neutrophils % 5 Lymphocytes % (Manual) 13 L Atypical Lymphs % (Man) 2 Monocytes % (Manual) 1 L Basophils % (Manual) 2 Abs Neuts (Manual) 8.4 H Lymphocytes # (Manual) 1.3 Atyp Lymphs # (Manual) 0.2 Monocytes # (Manual) 0.1 Basophils # (Manual) 0.2 Toxic Granulation PRESENT Dohle Bodies PRESENT Platelet Estimate NORMAL Plt Morphology Comment NORMAL RBC Morphology NOTED Polychromasia 1+ (0-2) Microcytosis 1+ (5-14) Macrocytosis 1+ (5-14) Jesus Cells 1+ (0-2) PT 14.4 H INR 1.2 H Anion Gap 16 15 Estim Creat Clear Calc 25.3 31.2 Estimated GFR 32 41 POC Glucose Random Glucose 86 Fasting Glucose 153 H Lactic Acid 1.3 Calcium 9.6 9.4 Magnesium 2.2 Total Creatine Kinase 145 Troponin I High Sens 12.9 Urine Color Yellow Urine Appearance Turbid Urine pH 6.0 Ur Specific [place] 1.020 Urine Protein 300 (3+) H Urine Glucose (UA) 500 H Urine Ketones Negative Urine Blood Large (3+) H Urine Nitrite Negative Ur Leukocyte Esterase Large (3+) H Urine RBC 11-20 H Urine WBC >50 H Ur Squamous Epith Cells 11-20 Urine Bacteria 1+ Hyaline Casts 0-2 02/03/25 07:35 MCV MCH MCHC RDW Plt Count MPV Immature Gran % (Auto) Neut % (Auto) Lymph % (Auto) Hall % (Auto) Eos % (Auto) Baso % (Auto) Lymph # (Auto) Hall # (Auto) Eos # (Auto) Baso # (Auto) Abs Immat Gran (auto) Absolute Neuts (auto) Absolute Nucleated RBC Nucleated RBC % (auto) Neutrophils % (Manual) Band Neutrophils % Lymphocytes % (Manual) Atypical Lymphs % (Man) Monocytes % (Manual) Basophils % (Manual) Abs Neuts (Manual) Lymphocytes # (Manual) Atyp Lymphs # (Manual) Monocytes # (Manual) Basophils # (Manual) Toxic Granulation Dohle Bodies Platelet Estimate Plt Morphology Comment RBC Morphology Polychromasia Microcytosis Macrocytosis [place] Cells PT INR Anion Gap Estim Creat Clear Calc Estimated GFR POC Glucose 82 Random Glucose Fasting Glucose Lactic Acid Calcium Magnesium Total Creatine Kinase Troponin I High Sens Urine Color Urine Appearance Urine pH Ur Specific [place] Urine Protein Urine Glucose (UA) Urine Ketones Urine Blood Urine Nitrite Ur Leukocyte Esterase Urine RBC Urine WBC Ur Squamous Epith Cells Urine Bacteria Hyaline Casts Assessment and Plan (1) Diabetes mellitus: Status: Acute Plan 79M PMH DM, hld, glaucoma, anemia, presented with fall, found to have fever and uti sepsis (tachypnea, tachycardia) due to UTI rocpehin, cutlures gu eval for chronic bialteral hydro SANDY improving with ivf dm insulin dvt prophylaxis - hep sq full code reason for continued hospitalization: cultures Quality Stroke Does the patient have a stroke diagnosis?: No VTE Prior VTE?: No VTE Risk Level:: Medical - moderate - high VTE Device Contraindication: Treatment Not Indicated VTE Drug Contraindication: N/A - Med Ordered
[2025-02-03 11:33] LABS: Glucose, Whole Blood 188 mg/dL (60-115)
[2025-02-03 14:56] VITALS: BP 131/61; PULSE 65; RESP 16; TEMP 36.7; O2SAT 94
--- NOTE | 2025-02-03 15:59 | MHC.CM.PN ---
CM ATTEMPTED TO MEET PT WHO WAS UNAVAILABLE CM TO REVISIT
[2025-02-03] MEDS: Insulin Glargine,Hum.rec.anlog 100 UNIT/ML 10 ML VIAL 24 UNIT SUBCUT (16:20)
[2025-02-03 16:25] LABS: Glucose, Whole Blood 253 mg/dL (60-115)
[2025-02-03 19:39] VITALS: BP 136/63; PULSE 83; RESP 15; TEMP 36.6; O2SAT 95
[2025-02-03 20:28] LABS: Glucose, Whole Blood 128 mg/dL (60-115)
[2025-02-04 03:09] VITALS: BP 124/68; PULSE 94; RESP 16; TEMP 36.1; O2SAT 93
[2025-02-04 05:41] LABS: Hematocrit 37.1 % (42.0-52.0); Hemoglobin 12.1 g/dl (14.0-18.0); Mean Corpuscular HGB Conc 32.6 g/dl (31.0-36.0); Mean Corpuscular Hemoglobin 28.9 pg (27.0-33.0); Mean Corpuscular Volume 88.8 fL (80.0-98.0); NRBC Abs Auto 0.000 X10*3/uL (0.0-0.012); NRBC Pct Auto 0.0 /100WBC (0.0-0.2); Platelet Count 295 X10*3/uL (160-400); Red Blood Count 4.18 X10*6/uL (4.60-5.80); White Blood Count 12.6 X10*3/uL (4.8-10.8)
[2025-02-04 05:55] LABS: Anion Gap 12 (12-20); Blood Urea Nitrogen 32 mg/dL (9-16); Calcium 9.5 mg/dL (8.4-10.2); Carbon Dioxide 23 mmol/L (22-29); Chloride 102 mmol/L (96-108); Creatinine Clr Calc Pharmacy 28.3; Estimated Glomerular Filt Rate 36; Potassium 4.3 mmol/L (3.3-5.1); Sodium 133 mmol/L (135-145)
[2025-02-04 07:18] VITALS: BP 123/58; PULSE 112; RESP 16; TEMP 36.9; O2SAT 95
--- NOTE | 2025-02-04 07:45 | P.CNUR_ITS ---
History of Present Illness Consult details Consult date: 02/04/25 Narrative: CC: Bilateral hydro nephrosis, elevated creatinine 79-year-old male Admit through emergency room after fall and unable to get up from floor for 5 hours Poorly controlled diabetic On imaging shows - Bilateral hydronephrosis and hydroureter with bladder wall thickening and diverticula, suggestive of chronic bladder outlet obstruction from hypertrophic prostate Creatinine elevated to 2.0 from baseline 1.2 Known to urology Home medications include tamsulosin Would place Caruso catheter and review creatinine during hydration Add finasteride PMF Past Medical History Medical History Anemia Hypertension Glaucoma UTI (urinary tract infection) Dysuria Chronic anemia DNI (do not intubate) DNR (do not resuscitate) discussion Encounter for annual wellness exam in Medicare patient Sinus tachycardia Shortness of breath on exertion Multiple rib fractures Cervical radiculopathy Cervical disc disease Tubular adenoma Leukopenia GERD (gastroesophageal reflux disease) Renal lithiasis Hypotestosteronism Vitamin D deficiency Mild hypercholesterolemia Type 2 diabetes mellitus CVA (cerebral vascular accident) BPH (benign prostatic hyperplasia) H/O: HTN (hypertension) Diabetes mellitus Family History Family History Father Lung cancer Heart attack Surgical History Surgical History History of bladder surgery Hx of knee surgery H/O inguinal hernia repair Social History Social History Household Members: None Housing: Apartment Do you presently have visiting nurse or other home services: No Alcohol intake: never Patient Tobacco Use Status: Former Tobacco user Tobacco use type: Cigarette Cigarette Packs Per Day: 1.5 Smoked in Last 30 Days: No Use of substances other than those prescribed or required for medical reasons: No Currently Displaying Signs/Symptoms of Drug Intoxication Withdrawal: No Have you been hit, kicked, punched, or otherwise hurt by someone within the past year? If so, by whom?: No Do you feel safe in your current relationship?: No Current Relationship Is there a partner from a previous relationship who is making you feel unsafe now?: No Advance Directives: No Advance Directives Information Provided: No Do you have a plan to hurt others: No Plan Recently lost weight without trying: No Nutrition Risks: No Nutritional Risk service: Yes Current occupational status: retired Meds Allergies Allergy/AdvReac Type Severity Reaction Status Date / Time atorvastatin (Lipitor) Allergy Unknown rash Verified 02/02/25 18:04 From LIPITOR Allergy Unknown RASH Uncoded 02/02/25 18:04 Active Medications: Current Medications Acetaminophen (Acetaminophen 325 Mg Tablet) 650 mg PO Q6H PRN PRN Reason: Pain, Mild 1-3,fever,headache Aspirin (Aspirin Enteric Coated 81 Mg Tablet.) 81 mg PO DAILY [facility] Last Admin: 02/03/25 09:06 Dose: 81 mg Atorvastatin Calcium (Atorvastatin Calcium 80 Mg Tablet) 80 mg PO DAILY [facility] Last Admin: 02/03/25 09:06 Dose: 80 mg Calcium Carbonate (Calcium Carbonate 750 Mg Tab.Chew) 750 mg PO Q4H PRN PRN Reason: Heartburn Dextrose (Dextrose 50 % 25 Gm/50 Ml Syringe) 25 gm IVPUSH Q15M PRN; Protocol PRN Reason: per Hypoglycemia Standing Ord. Ferrous Sulfate (Ferrous Sulfate 324 Mg Tablet.) 324 mg PO DAILY [facility] Last Admin: 02/03/25 09:07 Dose: 324 mg Glucose (Glucose Gel 15 Gm Gel..Gram.) 15 gm PO Q15M PRN; Protocol PRN Reason: per Hypoglycemia Standing Ord. Heparin Sodium (Porcine) (Heparin Sodium,Porcine 5,000 Unit/Ml Vial) 5,000 unit SUBCUT Q8H [facility] Last Admin: 02/04/25 05:23 Dose: 5,000 unit Ceftriaxone Sodium 1 gm/ (Sodium Chloride) 50 mls @ 100 mls/hr IV Q24H [facility] Last Infusion: 02/03/25 18:01 Dose: Infused Insulin Glargine (Insulin Glargine,Hum.Rec.Anlog 100 Unit/Ml 10 Ml Vial) 24 unit SUBCUT DAILY@1600 [facility] Last Admin: 02/03/25 16:20 Dose: 24 unit Insulin Human Lispro (Insulin Lispro 100 Unit/Ml 3 Ml Vial) 0 unit SUBCUT QIDACHS [facility]; Protocol Last Admin: 02/03/25 21:16 Dose: Not Given Magnesium Hydroxide (Milk Of Magnesia 30 Ml Oral.Susp) 30 ml PO DAILY PRN PRN Reason: Constipation Melatonin (Melatonin 3 Mg Tablet) 6 mg PO BEDTIME PRN PRN Reason: Insomnia Multivitamins/Vitamin C (Multivitamin Tablet) 1 tab PO DAILY [facility] Last Admin: 02/03/25 09:06 Dose: 1 tab Sodium Chloride (0.9 % Sodium Chloride Flush 3 Ml Syringe) 3 ml IVFLUSH QSHIFT [facility] Last Admin: 02/03/25 21:19 Dose: 3 ml Tamsulosin HCl (Tamsulosin Hcl 0.4 Mg Capsule) 0.4 mg PO BEDTIME [facility] Last Admin: 02/03/25 21:17 Dose: 0.4 mg Home Medications ?Medication ?Instructions ?Recorded ?Confirmed ?Last Taken ?Type insulin glargine U-300 conc 300 30 unit subcut DAILY@1 600 02/03/25 02/03/25 Unknown History unit/mL (1.5 mL) subcutaneous pen (Toujeo SoloStar U-300 Insulin) metformin 1,000 mg tablet 1,000 mg PO BIDWM 02/03/25 1 04/05/24 02/02/25 History Physical Exam 2 Vital Signs: Vital Signs: Last Vital Signs Temp 98.5 F 02/04/25 07:18 Pulse 112 H 02/04/25 07:18 Resp 16 02/04/25 07:18 BP 123/58 L 02/04/25 07:18 Pulse Ox 95 02/04/25 07:18 O2 Del Method Room Air 02/04/25 07:18 BMI result Body Mass Index 26.9 Results Labs 02/04/25 05:06 02/04/25 05:06 Labs: Abnormal lab results 02/03/25 02/03/25 02/03/25 Range/Units 11: 16:11 20:23 WBC (4.8-10.8) X10*3/uL RBC (4.60-5.80) X10*6/uL Hgb (14.0-18.0) g/dl Hct (42.0-52.0) % MPV (9.4-12.4) fL Sodium (135-145) mmol/L BUN (9-16) mg/dL Creatinine (0.5-1.4) mg/dL POC Glucose 188 H 253 H 128 H (60-115) mg/dL 02/04/25 Range/Units 05:06 WBC 12.6 H (4.8-10.8) X10*3/uL RBC 4.18 L (4.60-5.80) X10*6/uL Hgb 12.1 L (14.0-18.0) g/dl Hct 37.1 L (42.0-52.0) % MPV 9.1 L (9.4-12.4) fL Sodium 133 L (135-145) mmol/L BUN 32 H (9-16) mg/dL Creatinine 1.81 H (0.5-1.4) mg/dL POC Glucose (60-115) mg/dL Short CBC 02/04/25 Range/Units 05:06 WBC 12.6 H (4.8-10.8) X10*3/uL Hgb 12.1 L (14.0-18.0) g/dl Hct 37.1 L (42.0-52.0) % Plt Count 295 (160-400) X10*3/uL BMP 02/04/25 05:06 Sodium 133 L Potassium 4.3 Chloride 102 Carbon Dioxide 23 BUN 32 H Creatinine 1.81 H Calcium 9.5 Urine 02/02/25 Range/Units 18:24 Urine Color Yellow Urine Appearance Turbid Urine pH 6.0 (5.0-9.0) Ur Specific [place] 1.020 (1.005-1.025) Urine Protein 300 (3+) H (Neg-Trace) mg/dL Urine Glucose (UA) 500 H (Negative) mg/dL All other labs normal. Assessment and Plan (1) BPH (benign prostatic hyperplasia): Status: Acute (2) Hydronephrosis: Status: Acute Plan Caruso catheter placement Watch creatinine Start finasteride Manage diabetes Procedures Date of Service Date of Service: 02/04/25
[2025-02-04 07:58] LABS: Glucose, Whole Blood 114 mg/dL (60-115)
--- NOTE | 2025-02-04 08:12 | P.PNIM_ITS ---
Subjective Subjective Date of Service: 02/04/25 Interval History: improving Physical Exam 2 Exam: Exam: General: AO X 3, no acute distress Resp: CTA bilateral, no accessory muscles used CVS: S1,S2,RRR GI: soft, non tender, non distended Neuro: motor grossly intact, alert Psych: appropriate affect, appropriate insight Vital Signs: Vital Signs: Last Vital Signs Temp 98.5 F 02/04/25 07:18 Pulse 112 H 02/04/25 07:18 Resp 16 02/04/25 07:18 BP 123/58 L 02/04/25 07:18 Pulse Ox 95 02/04/25 07:18 O2 Del Method Room Air 02/04/25 07:18 BMI result Body Mass Index 26.9 Objective Data Active Medications Acetaminophen (Acetaminophen 325 Mg Tablet) 650 mg PO Q6H PRN PRN Reason: Pain, Mild 1-3,fever,headache Aspirin (Aspirin Enteric Coated 81 Mg Tablet.) 81 mg PO DAILY [facility] Last Admin: 02/03/25 09:06 Dose: 81 mg Documented By: DOT Atorvastatin Calcium (Atorvastatin Calcium 80 Mg Tablet) 80 mg PO DAILY [facility] Last Admin: 02/03/25 09:06 Dose: 80 mg Documented By: DOT Calcium Carbonate (Calcium Carbonate 750 Mg Tab.Chew) 750 mg PO Q4H PRN PRN Reason: Heartburn Dextrose (Dextrose 50 % 25 Gm/50 Ml Syringe) 25 gm IVPUSH Q15M PRN; Protocol PRN Reason: per Hypoglycemia Standing Ord. Ferrous Sulfate (Ferrous Sulfate 324 Mg Tablet.) 324 mg PO DAILY [facility] Last Admin: 02/03/25 09:07 Dose: 324 mg Documented By: DOT Finasteride (Finasteride 5 Mg Tablet) 5 mg PO DAILY [facility] Glucose (Glucose Gel 15 Gm Gel..Gram.) 15 gm PO Q15M PRN; Protocol PRN Reason: per Hypoglycemia Standing Ord. Heparin Sodium (Porcine) (Heparin Sodium,Porcine 5,000 Unit/Ml Vial) 5,000 unit SUBCUT Q8H [facility] Last Admin: 02/04/25 05:23 Dose: 5,000 unit Documented By: MANUELA Ceftriaxone Sodium 1 gm/ (Sodium Chloride) 50 mls @ 100 mls/hr IV Q24H [facility] Last Infusion: 02/03/25 18:01 Dose: Infused Documented By: DOT Insulin Glargine (Insulin Glargine,Hum.Rec.Anlog 100 Unit/Ml 10 Ml Vial) 24 unit SUBCUT DAILY@1600 [facility] Last Admin: 02/03/25 16:20 Dose: 24 unit Documented By: DOT Insulin Human Lispro (Insulin Lispro 100 Unit/Ml 3 Ml Vial) 0 unit SUBCUT QIDACHS [facility]; Protocol Last Admin: 02/04/25 08:03 Dose: Not Given Documented By: ALIA Non-Admin Reason: No Insulin Coverage Magnesium Hydroxide (Milk Of Magnesia 30 Ml Oral.Susp) 30 ml PO DAILY PRN PRN Reason: Constipation Melatonin (Melatonin 3 Mg Tablet) 6 mg PO BEDTIME PRN PRN Reason: Insomnia Multivitamins/Vitamin C (Multivitamin Tablet) 1 tab PO DAILY [facility] Last Admin: 02/03/25 09:06 Dose: 1 tab Documented By: DOT Sodium Chloride (0.9 % Sodium Chloride Flush 3 Ml Syringe) 3 ml IVFLUSH QSHIFT [facility] Last Admin: 02/03/25 21:19 Dose: 3 ml Documented By: LEIGH Tamsulosin HCl (Tamsulosin Hcl 0.4 Mg Capsule) 0.4 mg PO BEDTIME [facility] Last Admin: 02/03/25 21:17 Dose: 0.4 mg Documented By: LEIGH Labs 02/04/25 05:06 02/04/25 05:06 Labs: Laboratory Results - last 24 hr 02/03/25 02/03/25 02/03/25 11:26 16:11 20:23 MCV MCH MCHC RDW Plt Count MPV Absolute Nucleated RBC Nucleated RBC % (auto) Anion Gap Estim Creat Clear Calc Estimated GFR POC Glucose 188 H 253 H 128 H Random Glucose Calcium 02/04/25 02/04/25 05:06 07:26 MCV 88.8 MCH 28.9 MCHC 32.6 RDW 15.9 Plt Count 295 MPV 9.1 L Absolute Nucleated RBC 0.000 Nucleated RBC % (auto) 0.0 Anion Gap 12 Estim Creat Clear Calc 28.3 Estimated GFR 36 POC Glucose 114 Random Glucose 110 Calcium 9.5 Microbiology Microbiology Results: Microbiology 02/02/25 18:11 Blood Culture - Preliminary Blood - Venous No growth after 24 hours. 02/02/25 18:11 Blood Culture - Preliminary Blood - Venous No growth after 24 hours. 02/02/25 18:24 Urine Culture - Preliminary Urine clean catch - Clean Catch Midstream Culture too young to evaluate. Assessment and Plan (1) Diabetes mellitus: Status: Acute Plan 79M PMH DM, hld, glaucoma, anemia, presented with fall, found to have fever and uti sepsis (tachypnea, tachycardia) due to UTI rocephin, cultures gu appreciated - chronic bialteral hydro -continue flomax, add proscar, place ramos SANDY ATN from sepsis and obstructive improving with ivf, place ramos and monitor dm insulin dvt prophylaxis - hep sq full code reason for continued hospitalization: cultures, sandy Quality Stroke Does the patient have a stroke diagnosis?: No VTE Prior VTE?: No VTE Risk Level:: Medical - moderate - high VTE Device Contraindication: Treatment Not Indicated VTE Drug Contraindication: N/A - Med Ordered
[2025-02-04] MEDS: Aspirin Enteric Coated 81 MG TABLET.DR PO (09:21)
[2025-02-04] MEDS: Ferrous Sulfate 324 MG TABLET.DR PO (09:21)
[2025-02-04] MEDS: 0.9 % Sodium Chloride Flush 3 ML SYRINGE IVFLUSH ×3 (09:23→21:14)
[2025-02-04 11:40] LABS: Glucose, Whole Blood 264 mg/dL (60-115)
--- NOTE | 2025-02-04 11:46 | MHC.CM.PN ---
[facility] DELIVERED PT LIVES ALONE AND IS FUNCTIONALLY INDEPENDENT. +DRIVES. NO DME OR SERVICES. + HCP PCP DR. DIANA DP: HOME, NO SERVICES IS THE GOAL. PT MAY NEED ASSIST WITH [facility]. CM WILL CONTINUE TO FOLLOW FOR ANY CHANGE TO DC PLAN/NEEDS.
--- NOTE | 2025-02-04 11:51 | HO.WOUND ---
Wound Consult: Initial 79yr old? male admitted to [facility] [place]- See progress notes and H&P for detailed history.? Wound consult placed for Redness to rectal area.? Patient agreeable to assessment and photo documentation.? Chart review reveals patient was down on buttock area for 5+hours after not being able to get up. Patient denies pain to the area. Sacrum Etiology: Deep Tissue Injury and MASD ??Present on Admission Measurements: 3cm x 2cm x 0.2cm Wound Bed: two open areas noted with red moist tissue and adherent slough - surrounded by maroon purple nonblanchable and slow to lorenzo moist tissue Drainage / Odor: None noted Edges: mirrored ? [place] wound: red pink tissue blanchable ? No Induration, Fluctuance or Warmth noted Pain: denies Goals of Treatment: ? Off load pressure and Triad to allow for protection and healing Triad to provide an occlusive dressing, to allow moist healing with absorption of mild exudate, to minimize contamination of urine/stool or bacteria, and to soothe and protect [place] wound skin. Recommendations: 1. Turn and Reposition every 2 hours and as needed for patient comfort.? Use pillows or wedges to support off loading positions. 2. Off Load all bony prominences with use of pillows and heel boots if needed.? Apply Preventative foams where needed. ? 3. Monitor for incontinence and moisture control, use barrier creams when needed for prevention and treatment. 4. Provide adequate and supplemental nutrition.? 5. Continue low air loss mattress. 6. When applicable maintain blood glucose levels per Providers order. Sacrum / Coccyx - Off Load Pressure with Q2 hr turns and use of pillows - Cleanse with PH balance spray or wipes, pat dry. ?Apply thin layer of Triad to wound bed - only pat and dab no scrub and rub when soiling occurs. Reapply thin layer PRN after each episode of incontinence. ? Re-consult wound care Nurse for wound deterioration or wound changes.
[2025-02-04 13:25] VITALS: BMI 26.9
--- NOTE | 2025-02-04 14:25 | MHC.CLN ---
CONSULT DIET RX: DIABETIC 2000 KCALS. SKIN WITH DTI TO SACRUM. ADDING ENSURE MAX BID TO PROMOTE WOUND HEALING. SUPPLEMENT PROVIDES 300 KCALS, 60 G PROTEIN. FOLLOW FOR PO INTAKE AND SKIN INTEGRITY. SEE CLINICAL NUTRITION ASSESSMENT.
[2025-02-04 15:34] VITALS: BP 138/82; PULSE 64; RESP 12; TEMP 36.6; O2SAT 96
[2025-02-04 16:21] LABS: Glucose, Whole Blood 137 mg/dL (60-115)
[2025-02-04] MEDS: Insulin Glargine,Hum.rec.anlog 100 UNIT/ML 10 ML VIAL 24 UNIT SUBCUT (17:08)
[2025-02-04 20:00] VITALS: BP 127/67; PULSE 115; RESP 17; TEMP 37.2; O2SAT 95
[2025-02-04 20:08] LABS: Glucose, Whole Blood 224 mg/dL (60-115)
[2025-02-04] MEDS: Milk of Magnesia 30 ML ORAL.SUSP PO (21:13)
[2025-02-05] VITALS (8 sets, daily range): BP systolic 118–143; BP diastolic 60–77; PULSE 68–110; RESP 16–20; TEMP 36.6–37.3; O2SAT 93–96
--- NOTE | 2025-02-05 | ECG_ITS ---
Test Reason : tachy Blood Pressure : */* mmHG Vent. Rate : 132 BPM Atrial Rate : 132 BPM P-R Int : 140 ms QRS Dur : 84 ms QT Int : 294 ms P-R-T Axes : 63 -8 44 degrees QTcB Int : 435 ms Sinus tachycardia with frequent Premature ventricular complexes Inferior infarct (cited on or before 02-Feb-2025) Abnormal ECG When compared with ECG of 02-Feb-2025 18:32, No significant change was found Referred By: Maicol Sorto Electronically Signed By: CARAL LYNNE MD
[2025-02-05 06:11] LABS: Hematocrit 38.7 % (42.0-52.0); Hemoglobin 12.7 g/dl (14.0-18.0); Mean Corpuscular HGB Conc 32.8 g/dl (31.0-36.0); Mean Corpuscular Hemoglobin 29.1 pg (27.0-33.0); Mean Corpuscular Volume 88.8 fL (80.0-98.0); NRBC Abs Auto 0.000 X10*3/uL (0.0-0.012); NRBC Pct Auto 0.0 /100WBC (0.0-0.2); Platelet Count 277 X10*3/uL (160-400); Red Blood Count 4.36 X10*6/uL (4.60-5.80); White Blood Count 11.0 X10*3/uL (4.8-10.8)
[2025-02-05 06:18] LABS: Anion Gap 13 (12-20); Blood Urea Nitrogen 27 mg/dL (9-16); Calcium 9.6 mg/dL (8.4-10.2); Carbon Dioxide 25 mmol/L (22-29); Chloride 98 mmol/L (96-108); Creatinine Clr Calc Pharmacy 33.2; Estimated Glomerular Filt Rate 44; Potassium 4.6 mmol/L (3.3-5.1); Sodium 131 mmol/L (135-145)
[2025-02-05 07:28] LABS: Glucose, Whole Blood 133 mg/dL (60-115)
[2025-02-05] MEDS: Aspirin Enteric Coated 81 MG TABLET.DR PO (09:06)
[2025-02-05] MEDS: Ferrous Sulfate 324 MG TABLET.DR PO (09:06)
--- NOTE | 2025-02-05 10:28 | P.DS_ITS ---
DS: Providers Provider Date of Service: 02/17/25 Date of admission: 02/02/25 21:20 Date of discharge: 02/17/25 Primary care physician: Unknown Physician Consults: 02/03/25 01:48 Consult to Wound Care Routine Consulting Provider: [facility] [place] Wound Care Management Reason for consultation: redness to rectal/butt area 02/03/25 07:21 Consult to Urology Routine Consulting Provider: [facility] [place] Urology Services Reason for consultation: uti, chronic hydro DS: Diagnosis Discharge Diagnosis (1) Diabetes mellitus: Status: Acute DS: Summary Hospital Course Hospital Course: from initial hpi: 79-year-old male with a past medical history, HLD, DM, glaucoma, anemia; presented to the hospital today with a chief complaint of fall. Patient reported that he fell off his recliner and was not able to get up; laid on the floor for 5 hours. Mentioned that baseline he is fairly independent of his ADLs. Denies any neck pain, back pain, hip pain. Patient denied any chest pain or palpitations. Review of all other systems is negative except mentioned above ER course: Per ER team, patient exam was nonfocal; musculoskeletal exam benign; EMS team noted that patient was febrile. Urinalysis abnormal presents with UTI. Given ceftriaxone. CT head and CT C-spine showed no acute findings. hospital course: Patient was admitted for sepsis due to urinary tract infection. Was treated with ceftriaxone but then cultures grew angel lusitaniae. during hospitalization completed 10 day course of rocephin and caspofungin , noted to have chronic bilateral hydronephrosis was seen by Urology recommended placing Ramos catheter continuing Flomax adding Proscar. He will follow up outpatient for voiding trial. course complicated by hematuria which has resolved. For acute kidney injury combination of ATN from sepsis and obstructive improved with IV fluids and Ramos placement. For diabetes was continued on insulin. Patient will be discharged home with VNA. jardiance held due to funguria Time Attestation Discharge Coordination Time (in mins): 34 Quality: Safe Use of Opioids Does Pt have an Active Cancer Diagnosis on the Problem List?: No Quality: Stroke Does the patient have a stroke diagnosis?: No Physical Exam Vital Signs: Vital Signs: Last Vital Signs Temp 98.5 F 02/05/25 07:10 Pulse 104 H 02/05/25 07:10 Resp 16 02/05/25 07:10 BP 131/64 11/11/25 07:10 Pulse Ox 95 02/05/25 07:10 O2 Del Method Room Air 02/05/25 07:10 BMI result Body Mass Index 26.9 DS: Data Data Completed and Pending Labs on day of discharge: Laboratory Results - last 24 hr 02/04/25 02/04/25 02/04/25 11:21 16:14 20:03 WBC RBC Hgb Hct MCV MCH MCHC RDW Plt Count MPV Absolute Nucleated RBC Nucleated RBC % (auto) Sodium Potassium Chloride Carbon Dioxide Anion Gap BUN Creatinine Estim Creat Clear Calc Estimated GFR POC Glucose 264 H 137 H 224 H Random Glucose Calcium 02/05/25 02/05/25 05:52 07:14 WBC 11.0 H RBC 4.36 L Hgb 12.7 L Hct 38.7 L MCV 88.8 MCH 29.1 MCHC 32.8 RDW 15.5 Plt Count 277 MPV 8.5 L Absolute Nucleated RBC 0.000 Nucleated RBC % (auto) 0.0 Sodium 131 L Potassium 4.6 Chloride 98 Carbon Dioxide 25 Anion Gap 13 BUN 27 H Creatinine 1.54 H Estim Creat Clear Calc 33.2 Estimated GFR 44 POC Glucose 133 H Random Glucose 126 H Calcium 9.6 Preliminary micro results at discharge 02/04/25 10:23 Urine Culture - Preliminary Urine clean catch Yeast 02/02/25 18:24 Urine Culture - Preliminary Urine clean catch - Clean Catch Midstream Yeast Coag negative Staphylococcus 02/02/25 18:11 Blood Culture - Preliminary Blood - Venous No growth after 48 hours. 02/02/25 18:11 Blood Culture - Preliminary Blood - Venous No growth after 48 hours. Discharge Plan Discharge Anticipated Discharge Date/Time: 02/05/25 10:16 Patient Disposition: Home Health Service Discharge Diagnosis: uti, fall Referrals: Sar[facility] [Outside] - 1 Week Referral Note: [facility]- A NURSE WILL CALL YOU TO SET UP FIRST VISIT He Andersen MD [Physician, Urology] - 1 Week PhysicianMario [Physician, Medical] - 1 Week Discharge Medications: New finasteride 5 mg Tablet 5 mg PO DAILY 90 Days Qty: 90 0RF metoprolol tartrate 25 mg Tablet 25 mg PO BID 90 Days Qty: 180 0RF Protocol: Hold for SBP/HR < HOLD for SBP < : 90 HOLD for HR < : 60 Continued aspirin 81 mg tablet,delayed release (DR/EC) 81 mg PO DAILY Qty: 90 3RF (DME) OneTouch Ultra Test Strip See Rx Instructions .Route Qty: 100 3RF Rx Instructions: Check glucose 3 to 4 times a day with meals ferrous sulfate 325 mg (65 mg iron) tablet 325 mg PO DAILY Qty: 90 3RF Centrum Silver Men [phone] mcg tablet 1 tab PO DAILY Qty: 90 3RF (DME) pen needle, diabetic [Ultra-Thin II Ins Pen [place]] 29 gauge x 1/2 needle See Rx Instructions .Route Qty: 100 3RF Rx Instructions: To give insulin 3 times a day before meals and at bedtime rosuvastatin 40 mg tablet 40 mg PO DAILY Qty: 90 3RF tamsulosin 0.4 mg capsule 0.4 mg PO BEDTIME Qty: 90 3RF insulin glargine U-300 conc [Toujeo SoloStar U-300 Insulin] 300 unit/mL (1.5 mL) insulin pen 30 unit subcut DAILY@1600 metformin 1,000 mg tablet 1,000 mg PO BIDWM Rx Instructions: 1 tablet with a meal twice daily Discontinued Jardiance 25 mg tablet 25 mg PO DAILY Qty: 90 3RF lisinopril 5 mg tablet 5 mg PO DAILY Qty: 90 3RF Diet: Advance to usual diet Activity on Discharge: As tolerated Stand Alone Forms: Patient Portal Discharge page Print Language: Albanian Care Plan Goals: recovery Health Concerns: urinary retention, yeast uti, paradise Plan of Treatment: keep ramos for now, conitnreji flomax, added proscar, follow up urology for eventual voiding trial may flush ramos cath with 30-60 cc sterile water as needed for blockage or increased sediment. May replace with ( size 16F) if becomes dislodged as needed and every 4 weeks routine Assessment: see above
--- NOTE | 2025-02-05 10:51 | P.F2F_ITS ---
Service Date Service Date: 02/05/25 Encounter Date of encounter: 02/05/25 Reasons for Services Signs and symptoms assessed: weakness Reason for [facility]: medication management, medication treatment, teach disease management and GI/ assessment Homebound: Leaving the home is medically contraindicated at this time without the asist of a device and/or another person due th the listed conditions above and below. Reason homebound: unsteady gait / fall risk Certification: Based on the above findings, I certify that this patient is confined to the home and needs intermittent [facility] care, physical therapy and/or speech therapy, or continues to need occupational therapy. The patient is under my care, and I have initiated the establishment of the plan of care. The patient will be followed by a physician who will periodically review the plan of care. Time Spent With Patient Time: Total time managing care of this patient today ____ minutes.
--- NOTE | 2025-02-05 11:44 | PC.NURSE ---
10:30 - ambulated patient down hallway and back with 1A and walker. Noticed patient was tachycardic for morning vital signs, HR reassessed after ambulation, HR 110, auscultated HR and irregularity auscultated. BP checked. Reached out to Provider Macario via tigerconnect, EKG ordered, provider aware of EKG results and tachycardia. IV fluids ordered. Patient asymptomatic.
[2025-02-05 11:46] LABS: Glucose, Whole Blood 195 mg/dL (60-115)
--- NOTE | 2025-02-05 11:53 | P.CDIM_ITS ---
PROVIDER RESPONSE TEXT: To clarify, the appropriate diagnosis supported by the clinical indicators: Deep Tissue Injury sacrum QUERY TEXT: PHYSICIAN'S DOCUMENTATION REQUEST Date of Query: 02/05/2025 11:41 AM EST Patient Name: Joshua Gutierrez Admit Date: 02/03/2025 Dear Maicol Sorto MD, A review of the medical record indicates additional documentation may be needed. Please review below and update the documentation accordingly. Clinical Indicators: Wound care notes 02/04/25 - Deep Tissue Injury Sacrum Two open areas noted with red moist tissue and adherent slough. Surrounded by maroon purple non blanchable and slow to lorenzo moist tissue. Off load pressure and Triad to allow for protection and healing. Triad to provide an occlusive dressing. Based on the above, could you please provide further information regarding the ulcer/wound/injury: Deep Tissue Injury sacrum Other specified Please specify the location and laterality of the ulcer/wound Other (explain) Clinically unable to determine (explain) Thank you, Ary Gabriel, CCS, CDIS Use of terms such as suspected, likely, concern for, or probable (associated with a specific diagnosis that is being evaluated, monitored, or treated as if it exists) are acceptable and can be coded in the inpatient setting, when documented at the time of discharge. Please use your independent medical judgment in providing your response. THIS QUERY IS PART OF THE PERMANENT MEDICAL RECORD
--- NOTE | 2025-02-05 12:38 | PC.NURSE ---
Patient has cloudy pink tinged/yellow urine. Dr. Sorto aware via tigerconnect. After 500mL bolus, urine does not appear cloudy and is now a clear yellow color.
--- NOTE | 2025-02-05 14:08 | P.PNIM_ITS ---
Subjective Subjective Date of Service: 02/05/25 Interval History: weakness, milky discharge from ramos Physical Exam 2 Exam: Exam: General: AO X 3, no acute distress Resp: CTA bilateral, no accessory muscles used CVS: S1,S2,RRR GI: soft, non tender, non distended Neuro: motor grossly intact, alert Psych: appropriate affect, appropriate insight Vital Signs: Vital Signs: Last Vital Signs Temp 98.7 F 02/05/25 12:52 Pulse 94 02/05/25 12:52 Resp 16 02/05/25 12:52 BP 118/64 02/05/25 12:52 Pulse Ox 95 02/05/25 12:52 O2 Del Method Room Air 02/05/25 12:52 BMI result Body Mass Index 26.9 Objective Data Active Medications Acetaminophen (Acetaminophen 325 Mg Tablet) 650 mg PO Q6H PRN PRN Reason: Pain, Mild 1-3,fever,headache Last Admin: 02/04/25 19:38 Dose: 650 mg Documented By: TRUNG Aspirin (Aspirin Enteric Coated 81 Mg Tablet.) 81 mg PO DAILY [facility] Last Admin: 02/05/25 09:06 Dose: 81 mg Documented By: ARRON Atorvastatin Calcium (Atorvastatin Calcium 80 Mg Tablet) 80 mg PO DAILY [facility] Last Admin: 02/05/25 09:06 Dose: 80 mg Documented By: ARRON Calcium Carbonate (Calcium Carbonate 750 Mg Tab.Chew) 750 mg PO Q4H PRN PRN Reason: Heartburn Dextrose (Dextrose 50 % 25 Gm/50 Ml Syringe) 25 gm IVPUSH Q15M PRN; Protocol PRN Reason: per Hypoglycemia Standing Ord. Ferrous Sulfate (Ferrous Sulfate 324 Mg Tablet.) 324 mg PO DAILY [facility] Last Admin: 02/05/25 09:06 Dose: 324 mg Documented By: ARRON Finasteride (Finasteride 5 Mg Tablet) 5 mg PO DAILY [facility] Last Admin: 02/05/25 09:06 Dose: 5 mg Documented By: ARRON Glucose (Glucose Gel 15 Gm Gel..Gram.) 15 gm PO Q15M PRN; Protocol PRN Reason: per Hypoglycemia Standing Ord. Heparin Sodium (Porcine) (Heparin Sodium,Porcine 5,000 Unit/Ml Vial) 5,000 unit SUBCUT Q8H [facility] Last Admin: 02/05/25 05:48 Dose: 5,000 unit Documented By: TRUNG Ceftriaxone Sodium 1 gm/ (Sodium Chloride) 50 mls @ 100 mls/hr IV Q24H [facility] Last Infusion: 02/04/25 17:59 Dose: Infused Documented By: ALIA Insulin Glargine (Insulin Glargine,Hum.Rec.Anlog 100 Unit/Ml 10 Ml Vial) 24 unit SUBCUT DAILY@1600 [facility] Last Admin: 02/04/25 17:08 Dose: 24 unit Documented By: ALIA Insulin Human Lispro (Insulin Lispro 100 Unit/Ml 3 Ml Vial) 0 unit SUBCUT QIDACHS [facility]; Protocol Last Admin: 02/05/25 11:56 Dose: 2 unit Documented By: ARRON Magnesium Hydroxide (Milk Of Magnesia 30 Ml Oral.Susp) 30 ml PO DAILY PRN PRN Reason: Constipation Last Admin: 02/04/25 21:13 Dose: 30 ml Documented By: TRUNG Melatonin (Melatonin 3 Mg Tablet) 6 mg PO BEDTIME PRN PRN Reason: Insomnia Multivitamins/Vitamin C (Multivitamin Tablet) 1 tab PO DAILY [facility] Last Admin: 02/05/25 09:06 Dose: 1 tab Documented By: ARRON Nystatin (Nystatin Powder 15 Gm Bottle) 1 appl TOPICAL TID [facility]; Protocol Last Admin: 02/05/25 09:11 Dose: Not Given Documented By: ARRON Non-Admin Reason: Med Not Available Sodium Chloride (0.9 % Sodium Chloride Flush 3 Ml Syringe) 3 ml IVFLUSH QSHIFT [facility] Last Admin: 02/05/25 09:08 Dose: Not Given Documented By: ARRON Non-Admin Reason: assessed Tamsulosin HCl (Tamsulosin Hcl 0.4 Mg Capsule) 0.4 mg PO BEDTIME [facility] Last Admin: 02/04/25 21:13 Dose: 0.4 mg Documented By: TRUNG Labs 02/05/25 05:52 02/05/25 05:52 Labs: Laboratory Results - last 24 hr 02/04/25 02/04/25 02/05/25 16:14 20:03 05:52 MCV 88.8 MCH 29.1 MCHC 32.8 RDW 15.5 Plt Count 277 MPV 8.5 L Absolute Nucleated RBC 0.000 Nucleated RBC % (auto) 0.0 Anion Gap 13 Estim Creat Clear Calc 33.2 Estimated GFR 44 POC Glucose 137 H 224 H Random Glucose 126 H Calcium 9.6 02/05/25 02/05/25 07:14 11:39 MCV MCH MCHC RDW Plt Count MPV Absolute Nucleated RBC Nucleated RBC % (auto) Anion Gap Estim Creat Clear Calc Estimated GFR POC Glucose 133 H 195 H Random Glucose Calcium Microbiology Microbiology Results: Microbiology 02/04/25 10:23 Urine Culture - Preliminary Urine clean catch Yeast 02/02/25 18:24 Urine Culture - Preliminary Urine clean catch - Clean Catch Midstream Yeast Coag negative Staphylococcus 02/02/25 18:11 Blood Culture - Preliminary Blood - Venous No growth after 48 hours. 02/02/25 18:11 Blood Culture - Preliminary Blood - Venous No growth after 48 hours. Assessment and Plan (1) Diabetes mellitus: Status: Acute Plan 79M PMH DM, hld, glaucoma, anemia, presented with fall, found to have fever and uti sepsis (tachypnea, tachycardia) due to UTI due to angel rocephin, will add diflucan, can do 2 weeks 200mg daily on discharge follow up final cultures gu appreciated - chronic bialteral hydro -continue flomax, added proscar, placed ramos - outpatient voiding trial SANDY ATN from sepsis and obstructive improving with ivf, and ramos dm insulin dvt prophylaxis - hep sq full code reason for continued hospitalization: tachycardia ongoing, watching for response to antifungal Quality Stroke Does the patient have a stroke diagnosis?: No VTE Prior VTE?: No VTE Risk Level:: Medical - moderate - high VTE Device Contraindication: Treatment Not Indicated VTE Drug Contraindication: N/A - Med Ordered
--- NOTE | 2025-02-05 14:22 | MHC.CM.PN ---
PT WILL NEED VNA AT HOME FOR F/C CARE/ ASSESSMENTS. [facility] ([facility]) HAS ACCEPTED. CM WILL CONTINUE TO FOLLOW FOR ANY CHANGE TO DC PLAN.
[2025-02-05 16:17] LABS: Glucose, Whole Blood 174 mg/dL (60-115)
[2025-02-05] MEDS: Insulin Glargine,Hum.rec.anlog 100 UNIT/ML 10 ML VIAL 24 UNIT SUBCUT (16:40)
[2025-02-05 20:24] LABS: Glucose, Whole Blood 163 mg/dL (60-115)
[2025-02-05] MEDS: Milk of Magnesia 30 ML ORAL.SUSP PO (21:28)
[2025-02-05] MEDS: 0.9 % Sodium Chloride Flush 3 ML SYRINGE IVFLUSH (23:17)
[2025-02-06] VITALS (9 sets, daily range): BP systolic 104–142; BP diastolic 50–74; PULSE 65–134; RESP 16–20; TEMP 36.3–39; O2SAT 92–97
--- NOTE | 2025-02-06 | ECG_ITS ---
Test Reason : tachycardia Blood Pressure : */* mmHG Vent. Rate : 137 BPM Atrial Rate : 150 BPM P-R Int : 130 ms QRS Dur : 80 ms QT Int : 282 ms P-R-T Axes : 59 14 33 degrees QTcB Int : 425 ms Sinus tachycardia with Premature supraventricular complexes and with frequent Premature ventricular complexes Otherwise normal ECG When compared with ECG of 05-Feb-2025 11:08, Premature supraventricular complexes are now Present Criteria for Inferior infarct are no longer Present Referred By: Jessica Lanza Electronically Signed By: CARLA LYNNE MD
--- NOTE | 2025-02-06 | ECG_ITS ---
Test Reason : tachycardia Blood Pressure : */* mmHG Vent. Rate : 136 BPM Atrial Rate : 136 BPM P-R Int : 146 ms QRS Dur : 72 ms QT Int : 288 ms P-R-T Axes : 59 5 21 degrees QTcB Int : 433 ms Poor data quality Possible Sinus tachycardia with Premature supraventricular complexes and with frequent , and consecutive Premature ventricular complexes with junctional escape complexes Inferior infarct , age undetermined Abnormal ECG When compared with ECG of 06-Feb-2025 17:10, Sinus rhythm is now with junctional escape complexes Inferior infarct is now Present Non-specific change in ST segment in Inferior leads ST now depressed in Lateral leads Referred By: Elly Peres Electronically Signed By: CARLA LYNNE MD
[2025-02-06 07:33] LABS: Glucose, Whole Blood 115 mg/dL (60-115)
[2025-02-06] MEDS: Ferrous Sulfate 324 MG TABLET.DR PO (09:27)
[2025-02-06] MEDS: Aspirin Enteric Coated 81 MG TABLET.DR PO (09:27)
[2025-02-06] MEDS: 0.9 % Sodium Chloride Flush 3 ML SYRINGE IVFLUSH ×3 (09:40→20:06)
--- NOTE | 2025-02-06 10:02 | PC.NURSE ---
Ambulated patient in hallway, upon return patient appeared tired and increased work of breathing, HR 145. With ambulation patient appeared a little unsteady, especially with new urinary catheter, provider aware, PT ordered. After resting for a couple minutes HR decreased to 110. Urine still remains cloudy and pink tinged. Provider Pool aware at bedside.
[2025-02-06 11:45] LABS: Glucose, Whole Blood 248 mg/dL (60-115)
--- NOTE | 2025-02-06 12:09 | MHC.CLN ---
F/U DIET RX: DIABETIC 2000 KCALS. SKIN WITH DTI TO SACRUM. ENSURE MAX BID TO PROMOTE WOUND HEALING. SUPPLEMENT PROVIDES 300 KCALS, 60 G PROTEIN. PO DOCUMENTATION SHOWS 2 MEALS X 100%. FOLLOW FOR PO INTAKE AND SKIN INTEGRITY.
--- NOTE | 2025-02-06 14:43 | MHC.CM.PN ---
EMR REVIEWED AND PER MD ROUNDS, PT WILL BE SEEN BY P.T. TO DETERMINE NEEDS. P.T. RECOMMENDS HOME WITH SERVICES. PT WILL NEED [facility] FOR NEW F/C CARE. CM WILL CONTINUE TO FOLLOW FOR ANY CHANGE TO DC PLAN/NEEDS.
[2025-02-06 16:11] LABS: Glucose, Whole Blood 180 mg/dL (60-115)
[2025-02-06] MEDS: Insulin Glargine,Hum.rec.anlog 100 UNIT/ML 10 ML VIAL 24 UNIT SUBCUT (16:27)
--- NOTE | 2025-02-06 16:36 | P.PNIM_ITS ---
Subjective Subjective Date of Service: 02/06/25 Interval History: weakness,ramos still draining cloudy urine ,tachycardia Review of Systems as above. Review of Systems: Yes all other systems are reviewed and are negative Physical Exam 2 Exam: Exam: General: AO X 3, no acute distress Resp: CTA bilateral, no accessory muscles used CVS: S1,S2,RRR GI: soft, non tender, non distended Neuro: motor grossly intact, alert Psych: appropriate affect, appropriate insight Vital Signs: Vital Signs: Last Vital Signs Temp 98.2 F 02/06/25 15:35 Pulse 65 02/06/25 16:32 Resp 20 02/06/25 15:35 BP 124/61 02/06/25 16:32 Pulse Ox 95 02/06/25 16:32 O2 Del Method Room Air 02/06/25 16:32 BMI result Body Mass Index 26.9 Objective Data Active Medications Acetaminophen (Acetaminophen 325 Mg Tablet) 650 mg PO Q6H PRN PRN Reason: Pain, Mild 1-3,fever,headache Last Admin: 02/04/25 19:38 Dose: 650 mg Documented By: TRUNG Aspirin (Aspirin Enteric Coated 81 Mg Tablet.) 81 mg PO DAILY [facility] Last Admin: 02/06/25 09:27 Dose: 81 mg Documented By: ARRON Atorvastatin Calcium (Atorvastatin Calcium 80 Mg Tablet) 80 mg PO DAILY [facility] Last Admin: 02/06/25 09:27 Dose: 80 mg Documented By: ARRON Calcium Carbonate (Calcium Carbonate 750 Mg Tab.Chew) 750 mg PO Q4H PRN PRN Reason: Heartburn Dextrose (Dextrose 50 % 25 Gm/50 Ml Syringe) 25 gm IVPUSH Q15M PRN; Protocol PRN Reason: per Hypoglycemia Standing Ord. Ferrous Sulfate (Ferrous Sulfate 324 Mg Tablet.) 324 mg PO DAILY [facility] Last Admin: 02/06/25 09:27 Dose: 324 mg Documented By: ARRON Finasteride (Finasteride 5 Mg Tablet) 5 mg PO DAILY [facility] Last Admin: 02/06/25 09:27 Dose: 5 mg Documented By: ARRON Glucose (Glucose Gel 15 Gm Gel..Gram.) 15 gm PO Q15M PRN; Protocol PRN Reason: per Hypoglycemia Standing Ord. Heparin Sodium (Porcine) (Heparin Sodium,Porcine 5,000 Unit/Ml Vial) 5,000 unit SUBCUT Q8H [facility] Last Admin: 02/06/25 14:38 Dose: 5,000 unit Documented By: ARRON Ceftriaxone Sodium 1 gm/ (Sodium Chloride) 50 mls @ 100 mls/hr IV Q24H [facility] Last Infusion: 02/05/25 18:20 Dose: Infused Documented By: ARRON Fluconazole (Diflucan) 200 mg in 100 mls @ 100 mls/hr IV Q24H [facility] Last Infusion: 02/06/25 11:01 Dose: Infused Documented By: ARRON Insulin Glargine (Insulin Glargine,Hum.Rec.Anlog 100 Unit/Ml 10 Ml Vial) 24 unit SUBCUT DAILY@1600 [facility] Last Admin: 02/06/25 16:27 Dose: 24 unit Documented By: ARRON Insulin Human Lispro (Insulin Lispro 100 Unit/Ml 3 Ml Vial) 0 unit SUBCUT QIDACHS [facility]; Protocol Last Admin: 02/06/25 16:28 Dose: 2 unit Documented By: ARRON Magnesium Hydroxide (Milk Of Magnesia 30 Ml Oral.Susp) 30 ml PO DAILY PRN PRN Reason: Constipation Last Admin: 02/05/25 21:28 Dose: 30 ml Documented By: TRUNG Melatonin (Melatonin 3 Mg Tablet) 6 mg PO BEDTIME PRN PRN Reason: Insomnia Multivitamins/Vitamin C (Multivitamin Tablet) 1 tab PO DAILY [facility] Last Admin: 02/06/25 09:27 Dose: 1 tab Documented By: ARRON Nystatin (Nystatin Powder 15 Gm Bottle) 1 appl TOPICAL TID [facility]; Protocol Last Admin: 02/06/25 14:38 Dose: 1 appl Documented By: ARRON Sodium Chloride (0.9 % Sodium Chloride Flush 3 Ml Syringe) 3 ml IVFLUSH QSHIFT [facility] Last Admin: 02/06/25 16:28 Dose: 3 ml Documented By: ARRON Tamsulosin HCl (Tamsulosin Hcl 0.4 Mg Capsule) 0.4 mg PO BEDTIME [facility] Last Admin: 02/05/25 21:19 Dose: 0.4 mg Documented By: TRUNG Labs 02/05/25 05:52 02/05/25 05:52 Labs: Laboratory Results - last 24 hr 02/05/25 02/06/25 02/06/25 20:17 07:22 11:39 POC Glucose 163 H 115 248 H 02/06/25 16:08 POC Glucose 180 H Microbiology Microbiology Results: Microbiology 02/04/25 10:23 Urine Culture - Preliminary Urine clean catch Yeast 02/02/25 18:24 Urine Culture - Final Urine clean catch - Clean Catch Midstream Angel lusitaniae Coag negative Staphylococcus Assessment and Plan (1) Sinus tachycardia: Status: Acute (2) UTI (urinary tract infection): Status: Acute Plan 79M PMH DM, hld, glaucoma, anemia, presented with fall, found to have fever and uti sepsis (tachypnea, tachycardia) due to UTI due to angel rocephin, will add diflucan, can do 2 weeks 200mg daily on discharge follow up final cultures gu appreciated - chronic bialteral hydro -continue flomax, added proscar, placed ramos - outpatient voiding trial SANDY ATN from sepsis and obstructive improving with ivf, and ramos dm insulin dvt prophylaxis - hep sq full code reason for continued hospitalization: tachycardia ongoing, watching for response to antifungal Quality Stroke Does the patient have a stroke diagnosis?: No VTE Prior VTE?: No VTE Risk Level:: Medical - moderate - high VTE Device Contraindication: Treatment Not Indicated VTE Drug Contraindication: N/A - Med Ordered
--- NOTE | 2025-02-06 16:54 | PC.NURSE ---
Patient continues to be tachycardiac 130-140's with ambulation, patient asymptomatic. Discussed tachycardia and irregular rhythm auscultated to provider in person. precision crop manager ordered, HR 134 on director social welfare, director social welfare tech reports Afib with frequent PVCs. Provider Pool notified via tigerconnect. EKG ordered.
--- NOTE | 2025-02-06 17:53 | PC.NURSE ---
Provider Pool came to bedside to check on patient, patient's resting HR remains 130-140's, NSR with frequent PVCs on cardiac catheterization technologist, verified with cardiac catheterization technologist tech. Patient asymptomatic. Labs ordered.
[2025-02-06 19:11] LABS: Anion Gap 14 (12-20); Blood Urea Nitrogen 38 mg/dL (9-16); Calcium 9.2 mg/dL (8.4-10.2); Carbon Dioxide 24 mmol/L (22-29); Chloride 98 mmol/L (96-108); Creatinine Clr Calc Pharmacy 36.3; Estimated Glomerular Filt Rate 48; Magnesium 2.0 mg/dL (1.6-2.6); Potassium 4.6 mmol/L (3.3-5.1); Sodium 131 mmol/L (135-145)
[2025-02-06 19:26] LABS: Thyroid Stimulating Hormone 0.53 uIU/mL (0.32-4.0)
[2025-02-06 19:47] LABS: Glucose, Whole Blood 233 mg/dL (60-115)
[2025-02-06 22:20] LABS: MANUAL DIFF FLAG NO
[2025-02-06 22:21] LABS: Hematocrit 36.5 % (42.0-52.0); Hemoglobin 11.7 g/dl (14.0-18.0); Imm Gran Abs Auto 0.04 X10*3/uL (0.00-0.03); Imm Gran Pct Auto 0.5 % (0.0-0.4); Lymphocytes Absolute Auto 1.3 X10*3/uL (1.2-4.9); Mean Corpuscular HGB Conc 32.1 g/dl (31.0-36.0); Mean Corpuscular Hemoglobin 28.5 pg (27.0-33.0); Mean Corpuscular Volume 89.0 fL (80.0-98.0); NRBC Abs Auto 0.000 X10*3/uL (0.0-0.012); NRBC Pct Auto 0.0 /100WBC (0.0-0.2); Platelet Count 277 X10*3/uL (160-400); Red Blood Count 4.10 X10*6/uL (4.60-5.80); White Blood Count 8.3 X10*3/uL (4.8-10.8)
--- NOTE | 2025-02-06 22:21 | PC.NURSE ---
Pt tachycardic HR-130's with PVC's Elly GREEN notified ordered to check rectal temperature. Temp-102.2 medicated with tylenol 975mg po at 2200. Labs and stat EKG ordered. EKG-sinus tachycardia with PVCs.Pt to be transfered to [facility].
[2025-02-06 22:37] LABS: Alanine Aminotransferase 34 U/L (0-40); Albumin Level 2.7 g/dL (3.5-5.0); Alkaline Phosphatase 106 U/L (39-117); Anion Gap 13 (12-20); Aspartate Amino Transferase 49 U/L (5-37); Blood Urea Nitrogen 39 mg/dL (9-16); Calcium 9.2 mg/dL (8.4-10.2); Carbon Dioxide 21 mmol/L (22-29); Chloride 101 mmol/L (96-108); Creatinine Clr Calc Pharmacy 37.6; Estimated Glomerular Filt Rate 50; Potassium 4.3 mmol/L (3.3-5.1); Sodium 131 mmol/L (135-145); Total Protein 6.4 g/dL (6.5-8.0)
[2025-02-07] VITALS (8 sets, daily range): BP systolic 107–142; BP diastolic 54–65; PULSE 74–115; RESP 16–20; TEMP 36.4–38.8; O2SAT 93–96
--- NOTE | 2025-02-07 00:38 | P.EN_ITS ---
Event Note Date of Service: 02/07/25 Event Note: pt with worsening HR in the 130s, EKR with sinus tach and frequent PVCs, rectal temp of 102.2, BP 127/60. pt given tylenol, on IVF already. transferred to [facility]. Time Spent With Patient Time: Total time managing care of this patient today ____ minutes.
--- NOTE | 2025-02-07 07:00 | CA_ITS ---
Transthoracic Echocardiogram Patient (Last, First, Middle): Joshua Gutierrez A Gender: M Date of : 1945 Age: 79 Procedure Date: 02/07/2025 Procedure Type: Transthoracic [place] [facility] [place]: 165.1 cm Weight: 27.67 kg BSA: 1.19 m2 Heart Rate: bpm BP: 124 / 59 mmHg Senior Center Manager: [place] Referring MD: Jessica Lanza MD Cylinder Press Feeder: Jean Bhagat MD Symptoms: tachycardia/frequent bugemny Study Quality: Fair, contrast ECG Rhythm: inus tachycardia with frequent ectopy Conclusions: - 1. Normal LV ejection fraction 55-60% 2. Cardiac valvular Dopplers within normal limits 3. Mildly dilated left atrium 4. No gross pericardial effusion Findings Procedure Information Contrast agent, definity, is being given per protocol without apparent complications. Left Ventricle Normal left ventricular size, thickness, and systolic function. The visually estimated ejection fraction is between 55-60%. Spectral Doppler is indicative of an impaired relaxation filling pattern. Right Ventricle Normal right ventricular cavity size and systolic function. Atria The left atrium is mildly dilated. There is no evidence of interatrial shunt. The right atrium is normal in size. Aortic Valve There is mild calcification of the aortic valve. There is no aortic valve stenosis. The mean gradient is 5 mmHg. The aortic valve area is 2.61 cm2. There is no aortic valve regurgitation. Mitral Valve There is mild anterior and posterior mitral leaflet thickening. There is no mitral valve regurgitation. There is no mitral valve stenosis. Pulmonic Valve The pulmonic valve was not well visualized. Tricuspid Valve Likely normal tricuspid valve structure and function. Tricuspid regurgitation envelope is inadequate for calculation of right ventricular systolic pressure. Normal right atrial pressure. Great Vessels All visible segments of the aorta are normal in size. The pulmonary artery was not well visualized. There is no dilatation of the ascending aorta measuring 3.10 cm. Venous The inferior vena cava is normal in size. Pericardium/Pleural There is no evidence of pericardial effusion. Prior Study Comparison No significant change compared to prior study dated: 04/23/2020. Measurements 2D Linear Measurements IVSd: 0.81 0.6-0.9/0.6-1.0 cm LVIDd: 4.03 3.9-5.3/4.2-5.9 cm LVIDd Index: 3.39 2.4-3.2/2.2-3.1 cm/m2 LVIDs: 2.80 2.0-3.6 cm LVPWd: 1.12 0.7-1.1 cm LA Diam: 3.20 2.7-3.8/3.0-4.0 cm LAIDs Index: 2.69 1.5-2.3 cm/m2 LV Mass: 151.55 67-162/88-224 g LV Mass Index: 127.36 43-95/49-115 g/m2 LVOT Diam: 2.00 3.0+(-)1.3 cm Mitral Valve MV Pk E: 0.90 MV PK A: 1.16 MV Decel Time: 121.00 E/A: 0.80 E'Lateral: 9.67 E'Medial: 8.48 E/E' Med: 10.70 E/E' Lat: 9.30 PHT: 36.00 MVA PHT: 6.11 Decel [place]: 8.40 Aortic Valve AoV Pk Jt: 1.38 AoV Mn Jt: 0.98 AoV VTI: 0.18 AoV Pk Grad: 8.00 Aov Mn Grad: 5.00 JOVITA Cont.VTI: 2.61 LVOT LVOT Pk Jt: 1.04 LVOT Mn Jt: 0.73 LVOT VTI: 0.15 LVOT Pk Grad: 4.00 LVOT Mn Grad: 3.00 LVOT Diam: 2.00 LVOT Area: 3.14 Diastolic Function MV Pk E: 0.90 MV Pk A: 1.16 E/A: 0.80 E'Medial: 8.48 E/E' Med: 10.70 E' Laterial: 9.67 E/E' Lat: 9.30 Right Ventricle TAPSE (mm): 14.60 TVS' Jt: 17.80 Tricuspid Valve RA Press: 3.00 Great Vessels Aorta Sinus of Valsalva: 3.34 2.0-3.5 cm Ao Asc: 3.10 2.1-3.4 cm Updated in Other Vendor System with Status of Final Jean Bhagat MD electronically signed on 02/07/2025 5:35:39 PM with status of Final
[2025-02-07 07:13] LABS: Glucose, Whole Blood 97 mg/dL (60-115)
[2025-02-07] MEDS: Aspirin Enteric Coated 81 MG TABLET.DR PO (08:07)
[2025-02-07] MEDS: Ferrous Sulfate 324 MG TABLET.DR PO (08:07)
--- NOTE | 2025-02-07 09:08 | P.PNUR_ITS ---
Subjective Subjective Date of Service: 02/07/25 Interval history: Initial Caruso catheter placement 600 cc Creatinine has resolved and is trending towards baseline Would leave Caruso catheter for 7 days total Physical Exam 2 Vital Signs: Vital Signs: Last Vital Signs Temp 97.7 F 02/07/25 07:15 Pulse 110 H 02/07/25 07:15 Resp 16 02/07/25 07:15 BP 124/59 L 02/07/25 07:15 Pulse Ox 94 02/07/25 07:15 O2 Del Method Room Air 02/07/25 07:15 BMI result Body Mass Index 26.9 Const: General: cooperative, healthy appearing, comfortable and no acute distress Orientation/consciousness: patient oriented x3 HEENT: Face and sinus: Yes normal facial exam Mouth: moist mucous membranes Neck: Neck: Yes normal visual inspection, Yes full ROM and Yes trachea midline Chest: Chest palpation & inspection: normal inspection of the chest Resp: Effort & Inspection: normal respiratory effort, able to speak in complete sentences and no respiratory distress GI: Inspection: Yes normal to inspection Back/Spine/Pelvis: Cervical Spine: normal cervical lordosis Thoracic/Lumbar Spine: thoracic and lumbar spine normal to inspection Skin: General skin exam: no rashes or lesions noted Neuro: General: patient oriented x3, tone normal and moves all extremities Extrem: General: Yes normal to inspection and Yes capillary refill normal Urology Results Labs 02/06/25 21:54 02/06/25 21:54 Labs: Laboratory Results - last 24 hr 02/06/25 02/06/25 02/06/25 11:39 16:08 18:47 WBC RBC Hgb Hct MCV MCH MCHC RDW Plt Count MPV Immature Gran % (Auto) Neut % (Auto) Lymph % (Auto) [place] % (Auto) Eos % (Auto) Baso % (Auto) Lymph # (Auto) [place] # (Auto) Eos # (Auto) Baso # (Auto) Abs Immat Gran (auto) Absolute Neuts (auto) Absolute Nucleated RBC Nucleated RBC % (auto) Sodium 131 L Potassium 4.6 Chloride 98 Carbon Dioxide 24 Anion Gap 14 BUN 38 H Creatinine 1.41 H Estim Creat Clear Calc 36.3 Estimated GFR 48 POC Glucose 248 H 180 H Random Glucose 218 H Lactic Acid Calcium 9.2 Magnesium 2.0 Total Bilirubin AST ALT Alkaline Phosphatase Total Protein Albumin TSH 0.53 02/06/25 02/06/25 02/06/25 18:47 19:29 21:54 WBC 8.3 RBC 4.10 L Hgb 11.7 L Hct 36.5 L MCV 89.0 MCH 28.5 MCHC 32.1 RDW 15.8 Plt Count 277 MPV 9.0 L Immature Gran % (Auto) 0.5 H Neut % (Auto) 75.9 H Lymph % (Auto) 15.3 L [place] % (Auto) 7.1 Eos % (Auto) 0.6 Baso % (Auto) 0.6 Lymph # (Auto) 1.3 [place] # (Auto) 0.6 Eos # (Auto) 0.1 Baso # (Auto) 0.1 Abs Immat Gran (auto) 0.04 H Absolute Neuts (auto) 6.3 Absolute Nucleated RBC 0.000 Nucleated RBC % (auto) 0.0 Sodium 131 L Potassium 4.3 Chloride 101 Carbon Dioxide 21 L Anion Gap 13 BUN 39 H Creatinine 1.36 Estim Creat Clear Calc 37.6 Estimated GFR 50 POC Glucose 233 H Random Glucose 159 H Lactic Acid 0.9 Calcium 9.2 Magnesium Total Bilirubin 0.2 AST 49 H ALT 34 Alkaline Phosphatase 106 Total Protein 6.4 L Albumin 2.7 L TSH Cancelled 02/07/25 07:09 WBC RBC Hgb Hct MCV MCH MCHC RDW Plt Count MPV Immature Gran % (Auto) Neut % (Auto) Lymph % (Auto) [place] % (Auto) Eos % (Auto) Baso % (Auto) Lymph # (Auto) [place] # (Auto) Eos # (Auto) Baso # (Auto) Abs Immat Gran (auto) Absolute Neuts (auto) Absolute Nucleated RBC Nucleated RBC % (auto) Sodium Potassium Chloride Carbon Dioxide Anion Gap BUN Creatinine Estim Creat Clear Calc Estimated GFR POC Glucose 97 Random Glucose Lactic Acid Calcium Magnesium Total Bilirubin AST ALT Alkaline Phosphatase Total Protein Albumin TSH Progress Note: A&P Assessment and plan (1) Urinary retention with incomplete bladder emptying: Status: Acute (2) SANDY (acute kidney injury): Status: Acute Plan Continue Caruso catheter for total 7 days then voiding trial Time Spent With Patient Time: Total time managing care of this patient today ____ minutes. Progress Note: Quality Stroke Does the patient have a stroke diagnosis?: No
[2025-02-07 11:11] LABS: Glucose, Whole Blood 182 mg/dL (60-115)
--- NOTE | 2025-02-07 14:08 | P.CONCA_ITS ---
History of Present Illness History of Present Illness Date of Service: 02/07/25 Requesting physician: Jessica Lanza Consult reason: other (Sinus tachycardia) Chief complaint: fall Narrative: I was consulted to see Yenni in cardiology consultation today for persistent sinus tachycardia. Patient is a 79-year-old male with no prior cardiac issues, came to the hospital after he fell down and could not get himself up and called 911 and came to the emergency room. Since then he has been diagnose with sepsis related to acute UTI with a acute kidney injury with urinary retention. Patient however he has noticed to have persistent sinus tachycardia. Seemingly clinically does not have any overt signs of fever or sepsis anymore. school lunch monitor shows elevated sinus heart rate but also frequent PACs. Cardiology consult was sought for % tachycardia. Patient denies any symptoms of fluttering of fast heart rate. He has never had a problem with fast heart rate in the past. Patient has prior history of hypertension. No history of atrial fibrillation. History of heart attack, congestive heart failure, cardiomyopathy. Review of Systems 2 Constitutional: Constitutional: Reports weakness Eyes: Eyes: Reports no additional eye complaints Cardiovascular: Cardiovascular: Reports no additional cardiovascular complaints Respiratory: Respiratory: Reports no additional respiratory complaints Gastrointestinal: Gastrointestinal: Reports no additional gastrointestinal complaints Genitourinary: Genitourinary: Reports no additional male genitourinary complaints Musculoskeletal: Musculoskeletal: Reports no additional musculoskeletal complaints Integumentary/Breasts: Skin/Breast: Reports system reviewed and no additional complaints, except as docu Neurologic: Reports system reviewed and no additional complaints, except as documented and Reports weakness Psychiatric: Psychiatric: Reports no additional psychiatric complaints Endocrine: Endocrine: Reports no additional endocrine complaints Hematologic/Lymphatic: Hematologic/Lymphatic: Reports no additional hematologic/lymphatic complaints [facility] Past Medical History Medical History Anemia Hypertension Glaucoma UTI (urinary tract infection) Dysuria Chronic anemia DNI (do not intubate) DNR (do not resuscitate) discussion Encounter for annual wellness exam in Medicare patient Sinus tachycardia Shortness of breath on exertion Multiple rib fractures Cervical radiculopathy Cervical disc disease Tubular adenoma Leukopenia GERD (gastroesophageal reflux disease) Renal lithiasis Hypotestosteronism Vitamin D deficiency Mild hypercholesterolemia Type 2 diabetes mellitus CVA (cerebral vascular accident) BPH (benign prostatic hyperplasia) H/O: HTN (hypertension) Diabetes mellitus Family History Family History Father Lung cancer Heart attack Surgical History Surgical History History of bladder surgery Hx of knee surgery H/O inguinal hernia repair Social History Social History Household Members: None Housing: Apartment Do you presently have visiting nurse or other home services: No Alcohol intake: never Patient Tobacco Use Status: Former Tobacco user Tobacco use type: Cigarette Cigarette Packs Per Day: 1.5 service: No Current occupational status: retired Meds Allergies Allergy/AdvReac Type Severity Reaction Status Date / Time atorvastatin (Lipitor) Allergy Unknown rash Verified 02/02/25 18:04 From LIPITOR Allergy Unknown RASH Uncoded 02/02/25 18:04 Active Medications: Current Medications Acetaminophen (Acetaminophen 325 Mg Tablet) 975 mg PO Q6H PRN PRN Reason: Pain, Mild 1-3,fever,headache Last Admin: 02/06/25 21:54 Dose: 975 mg Aspirin (Aspirin Enteric Coated 81 Mg Tablet.) 81 mg PO DAILY [facility] Last Admin: 02/07/25 08:07 Dose: 81 mg Atorvastatin Calcium (Atorvastatin Calcium 80 Mg Tablet) 80 mg PO DAILY [facility] Last Admin: 02/07/25 08:07 Dose: 80 mg Calcium Carbonate (Calcium Carbonate 750 Mg Tab.Chew) 750 mg PO Q4H PRN PRN Reason: Heartburn Dextrose (Dextrose 50 % 25 Gm/50 Ml Syringe) 25 gm IVPUSH Q15M PRN; Protocol PRN Reason: per Hypoglycemia Standing Ord. Ferrous Sulfate (Ferrous Sulfate 324 Mg Tablet.) 324 mg PO DAILY [facility] Last Admin: 02/07/25 08:07 Dose: 324 mg Finasteride (Finasteride 5 Mg Tablet) 5 mg PO DAILY [facility] Last Admin: 02/07/25 08:07 Dose: 5 mg Glucose (Glucose Gel 15 Gm Gel..Gram.) 15 gm PO Q15M PRN; Protocol PRN Reason: per Hypoglycemia Standing Ord. Heparin Sodium (Porcine) (Heparin Sodium,Porcine 5,000 Unit/Ml Vial) 5,000 unit SUBCUT Q8H [facility] Last Admin: 02/07/25 06:17 Dose: 5,000 unit Ceftriaxone Sodium 1 gm/ (Sodium Chloride) 50 mls @ 100 mls/hr IV Q24H [facility] Last Infusion: 02/06/25 18:08 Dose: Infused Fluconazole (Diflucan) 200 mg in 100 mls @ 100 mls/hr IV Q24H [facility] Last Infusion: 02/07/25 09:10 Dose: Infused Sodium Chloride (Ns) 1,000 mls @ 100 mls/hr IVCONT .Q10H [facility] Last Admin: 02/07/25 03:18 Dose: 100 mls/hr Insulin Glargine (Insulin Glargine,Hum.Rec.Anlog 100 Unit/Ml 10 Ml Vial) 24 unit SUBCUT DAILY@1600 [facility] Last Admin: 02/06/25 16:27 Dose: 24 unit Insulin Human Lispro (Insulin Lispro 100 Unit/Ml 3 Ml Vial) 0 unit SUBCUT QIDACHS [facility]; Protocol Last Admin: 02/07/25 12:02 Dose: 2 unit Magnesium Hydroxide (Milk Of Magnesia 30 Ml Oral.Susp) 30 ml PO DAILY PRN PRN Reason: Constipation Last Admin: 02/05/25 21:28 Dose: 30 ml Melatonin (Melatonin 3 Mg Tablet) 6 mg PO BEDTIME PRN PRN Reason: Insomnia Metoprolol Tartrate (Metoprolol Tartrate 12.5 Mg Halftab) 12.5 mg PO TID [facility]; Protocol Multivitamins/Vitamin C (Multivitamin Tablet) 1 tab PO DAILY [facility] Last Admin: 02/07/25 08:07 Dose: 1 tab Nystatin (Nystatin Powder 15 Gm Bottle) 1 appl TOPICAL TID [facility]; Protocol Last Admin: 02/07/25 08:10 Dose: 1 appl Sodium Chloride (0.9 % Sodium Chloride Flush 3 Ml Syringe) 3 ml IVFLUSH QSHIFT [facility] Last Admin: 02/07/25 08:10 Dose: Not Given Tamsulosin HCl (Tamsulosin Hcl 0.4 Mg Capsule) 0.4 mg PO BEDTIME [facility] Last Admin: 02/06/25 20:06 Dose: 0.4 mg Home Medications ?Medication ?Instructions ?Recorded ?Confirmed ?Last Taken ?Type insulin glargine U-300 conc 300 30 unit subcut DAILY@1 600 02/03/25 02/03/25 Unknown History unit/mL (1.5 mL) subcutaneous pen (Toumargaritao SoloStar U-300 Insulin) metformin 1,000 mg tablet 1,000 mg PO BIDWM 02/03/25 1 04/05/24 02/02/25 History Physical Exam 2 Vital Signs: Vital Signs: Last Vital Signs Temp 98.6 F 02/07/25 11:21 Pulse 115 H 02/07/25 11:21 Resp 20 02/07/25 11:21 BP 142/65 H 02/07/25 11:21 Pulse Ox 96 02/07/25 11:21 O2 Del Method Room Air 02/07/25 11:21 BMI result Body Mass Index 26.9 Const: General: cooperative, comfortable, no acute distress, alert, awake and tired appearing Nutritional Appearance: average body habitus O rientation/consciousness: patient oriented x3 HEENT: Head: Yes normocephalic and Yes atraumatic Neck: Neck: Yes trachea midline, Yes supple and Yes no JVD Resp: Effort & Inspection: normal respiratory effort Auscultation: no rales, no wheezes and bronchovesicular breath sounds on the left Cardio: Jugular venous distension: no JVD Rate: tachycardic Rhythm: a bnormal rhythm with ectopic beats Heart sounds: S1 normal heart sound present, S2 normal heart sound present, no click, no gallops and no murmurs GI: Auscultation: normal bowel sounds Skin: General skin exam: no rashes or lesions noted Neuro: General: patient oriented x3 and no focal motor deficits Extrem: General: Yes no clubbing, cyanosis or edema Objective Labs and Meds 02/06/25 21:54 02/06/25 21:54 Lab results: Laboratory Results - last 24 hr 02/06/25 02/06/25 02/06/25 16:08 18:47 18:47 WBC RBC Hgb Hct MCV MCH MCHC RDW Plt Count MPV Immature Gran % (Auto) Neut % (Auto) Lymph % (Auto) [place] % (Auto) Eos % (Auto) Baso % (Auto) Lymph # (Auto) [place] # (Auto) Eos # (Auto) Baso # (Auto) Abs Immat Gran (auto) Absolute Neuts (auto) Absolute Nucleated RBC Nucleated RBC % (auto) Sodium 131 L Potassium 4.6 Chloride 98 Carbon Dioxide 24 Anion Gap 14 BUN 38 H Creatinine 1.41 H Estim Creat Clear Calc 36.3 Estimated GFR 48 POC Glucose 180 H Random Glucose 218 H Lactic Acid Calcium 9.2 Magnesium 2.0 Total Bilirubin AST ALT Alkaline Phosphatase Total Protein Albumin TSH 0.53 Cancelled 02/06/25 02/06/25 02/07/25 19:29 21:54 07:09 WBC 8.3 RBC 4.10 L Hgb 11.7 L Hct 36.5 L MCV 89.0 MCH 28.5 MCHC 32.1 RDW 15.8 Plt Count 277 MPV 9.0 L Immature Gran % (Auto) 0.5 H Neut % (Auto) 75.9 H Lymph % (Auto) 15.3 L [place] % (Auto) 7.1 Eos % (Auto) 0.6 Baso % (Auto) 0.6 Lymph # (Auto) 1.3 [place] # (Auto) 0.6 Eos # (Auto) 0.1 Baso # (Auto) 0.1 Abs Immat Gran (auto) 0.04 H Absolute Neuts (auto) 6.3 Absolute Nucleated RBC 0.000 Nucleated RBC % (auto) 0.0 Sodium 131 L Potassium 4.3 Chloride 101 Carbon Dioxide 21 L Anion Gap 13 BUN 39 H Creatinine 1.36 Estim Creat Clear Calc 37.6 Estimated GFR 50 POC Glucose 233 H 97 Random Glucose 159 H Lactic Acid 0.9 Calcium 9.2 Magnesium Total Bilirubin 0.2 AST 49 H ALT 34 Alkaline Phosphatase 106 Total Protein 6.4 L Albumin 2.7 L TSH 02/07/25 11:08 WBC RBC Hgb Hct MCV MCH MCHC RDW Plt Count MPV Immature Gran % (Auto) Neut % (Auto) Lymph % (Auto) [place] % (Auto) Eos % (Auto) Baso % (Auto) Lymph # (Auto) [place] # (Auto) Eos # (Auto) Baso # (Auto) Abs Immat Gran (auto) Absolute Neuts (auto) Absolute Nucleated RBC Nucleated RBC % (auto) Sodium Potassium Chloride Carbon Dioxide Anion Gap BUN Creatinine Estim Creat Clear Calc Estimated GFR POC Glucose 182 H Random Glucose Lactic Acid Calcium Magnesium Total Bilirubin AST ALT Alkaline Phosphatase Total Protein Albumin TSH Assessment and Plan (1) Cardiac arrhythmia: Status: Acute Patient with frequent PACs and short runs of atrial arrhythmias with sinus tachycardia has underlying rhythm. Unclear as to why he has sinus tachycardia. He is currently not on any inhaler therapy and no other obvious clinical reason for him to have sinus tachycardia. He is completely asymptomatic from that perspective. Possibility include deconditioning more likely relative hypovolemia, he is currently being hydrated for the same. Venous thromboembolic disease needs to be ruled out. Will be checked by hospitalist team. Will obtain an echocardiogram. Meanwhile I would treat his cardiac arrhythmias with low-dose metoprolol 12.5 mg q.6 hours. He does not appear particularly anxious and this is probably not contributing to his tachycardia. Also does not seem to be in lot of pain. At this point time management will be conservative and with medical therapy. Continue full disclosure cardiac telemetry. Will follow with you Procedures Date of Service Date of Service: 02/07/25
[2025-02-07] MEDS: Metoprolol Tartrate 12.5 MG HALFTAB PO ×2 (14:23→19:52)
--- NOTE | 2025-02-07 16:12 | P.PNIM_ITS ---
Subjective Subjective Date of Service: 02/07/25 Interval History: Overnight event noted. Patient is still having fevers, urine is cloudy but somewhat clearing, has cough Overnight also received fluid, Tylenol, also blood culture was sent. Review of Systems Review of Systems: Yes all other systems are reviewed and are negative Physical Exam 2 Exam: Exam: General: AO X 3, no acute distress Resp: air netry fair , no rales or wheezing CVS: S1,S2,RRR GI: soft, non tender, non distended Neuro: motor grossly intact, alert Psych: appropriate affect, appropriate insight Vital Signs: Vital Signs: Last Vital Signs Temp 101.9 F H 02/07/25 16:00 Pulse 92 02/07/25 16:00 Resp 20 02/07/25 16:00 BP 123/56 L 02/07/25 16:00 Pulse Ox 95 02/07/25 16:00 O2 Del Method Room Air 02/07/25 16:00 BMI result Body Mass Index 26.9 Objective Data Active Medications Acetaminophen (Acetaminophen 325 Mg Tablet) 975 mg PO Q6H PRN PRN Reason: Pain, Mild 1-3,fever,headache Last Admin: 02/07/25 15:37 Dose: 975 mg Documented By: SONI Aspirin (Aspirin Enteric Coated 81 Mg Tablet.) 81 mg PO DAILY [facility] Last Admin: 02/07/25 08:07 Dose: 81 mg Documented By: SONI Atorvastatin Calcium (Atorvastatin Calcium 80 Mg Tablet) 80 mg PO DAILY [facility] Last Admin: 02/07/25 08:07 Dose: 80 mg Documented By: SONI Calcium Carbonate (Calcium Carbonate 750 Mg Tab.Chew) 750 mg PO Q4H PRN PRN Reason: Heartburn Dextrose (Dextrose 50 % 25 Gm/50 Ml Syringe) 25 gm IVPUSH Q15M PRN; Protocol PRN Reason: per Hypoglycemia Standing Ord. Ferrous Sulfate (Ferrous Sulfate 324 Mg Tablet.) 324 mg PO DAILY [facility] Last Admin: 02/07/25 08:07 Dose: 324 mg Documented By: SONI Finasteride (Finasteride 5 Mg Tablet) 5 mg PO DAILY [facility] Last Admin: 02/07/25 08:07 Dose: 5 mg Documented By: SONI Glucose (Glucose Gel 15 Gm Gel..Gram.) 15 gm PO Q15M PRN; Protocol PRN Reason: per Hypoglycemia Standing Ord. Heparin Sodium (Porcine) (Heparin Sodium,Porcine 5,000 Unit/Ml Vial) 5,000 unit SUBCUT Q8H [facility] Last Admin: 02/07/25 14:23 Dose: 5,000 unit Documented By: SONI Ceftriaxone Sodium 1 gm/ (Sodium Chloride) 50 mls @ 100 mls/hr IV Q24H [facility] Last Infusion: 02/06/25 18:08 Dose: Infused Documented By: ARRON Fluconazole (Diflucan) 200 mg in 100 mls @ 100 mls/hr IV Q24H [facility] Last Infusion: 02/07/25 09:10 Dose: Infused Documented By: SONI Sodium Chloride (Ns) 1,000 mls @ 100 mls/hr IVCONT .Q10H [facility] Last Admin: 02/07/25 14:23 Dose: 100 mls/hr Documented By: SONI Insulin Glargine (Insulin Glargine,Hum.Rec.Anlog 100 Unit/Ml 10 Ml Vial) 24 unit SUBCUT DAILY@1600 [facility] Last Admin: 02/06/25 16:27 Dose: 24 unit Documented By: ARRON Insulin Human Lispro (Insulin Lispro 100 Unit/Ml 3 Ml Vial) 0 unit SUBCUT QIDACHS [facility]; Protocol Last Admin: 02/07/25 12:02 Dose: 2 unit Documented By: SONI Magnesium Hydroxide (Milk Of Magnesia 30 Ml Oral.Susp) 30 ml PO DAILY PRN PRN Reason: Constipation Last Admin: 02/05/25 21:28 Dose: 30 ml Documented By: TRUNG Melatonin (Melatonin 3 Mg Tablet) 6 mg PO BEDTIME PRN PRN Reason: Insomnia Metoprolol Tartrate (Metoprolol Tartrate 12.5 Mg Halftab) 12.5 mg PO TID [facility]; Protocol Last Admin: 02/07/25 14:23 Dose: 12.5 mg Documented By: SONI Multivitamins/Vitamin C (Multivitamin Tablet) 1 tab PO DAILY [facility] Last Admin: 02/07/25 08:07 Dose: 1 tab Documented By: SONI Nystatin (Nystatin Powder 15 Gm Bottle) 1 appl TOPICAL TID [facility]; Protocol Last Admin: 02/07/25 14:27 Dose: 1 appl Documented By: SONI Sodium Chloride (0.9 % Sodium Chloride Flush 3 Ml Syringe) 3 ml IVFLUSH QSHIFT [facility] Last Admin: 02/07/25 15:39 Dose: Not Given Documented By: SONI Non-Admin Reason: IV Running Tamsulosin HCl (Tamsulosin Hcl 0.4 Mg Capsule) 0.4 mg PO BEDTIME [facility] Last Admin: 02/06/25 20:06 Dose: 0.4 mg Documented By: PRANAV Labs 02/06/25 21:54 02/06/25 21:54 Labs: Laboratory Results - last 24 hr 02/06/25 02/06/25 02/06/25 16:08 18:47 18:47 MCV MCH MCHC RDW Plt Count MPV Immature Gran % (Auto) Neut % (Auto) Lymph % (Auto) Randall % (Auto) Eos % (Auto) Baso % (Auto) Lymph # (Auto) Randall # (Auto) Eos # (Auto) Baso # (Auto) Abs Immat Gran (auto) Absolute Neuts (auto) Absolute Nucleated RBC Nucleated RBC % (auto) Anion Gap 14 Estim Creat Clear Calc 36.3 Estimated GFR 48 POC Glucose 180 H Random Glucose 218 H Lactic Acid Calcium 9.2 Magnesium 2.0 Total Bilirubin AST ALT Alkaline Phosphatase Total Protein Albumin TSH 0.53 Cancelled 02/06/25 02/06/25 02/07/25 19:29 21:54 07:09 MCV 89.0 MCH 28.5 MCHC 32.1 RDW 15.8 Plt Count 277 MPV 9.0 L Immature Gran % (Auto) 0.5 H Neut % (Auto) 75.9 H Lymph % (Auto) 15.3 L Randall % (Auto) 7.1 Eos % (Auto) 0.6 Baso % (Auto) 0.6 Lymph # (Auto) 1.3 Randall # (Auto) 0.6 Eos # (Auto) 0.1 Baso # (Auto) 0.1 Abs Immat Gran (auto) 0.04 H Absolute Neuts (auto) 6.3 Absolute Nucleated RBC 0.000 Nucleated RBC % (auto) 0.0 Anion Gap 13 Estim Creat Clear Calc 37.6 Estimated GFR 50 POC Glucose 233 H 97 Random Glucose 159 H Lactic Acid 0.9 Calcium 9.2 Magnesium Total Bilirubin 0.2 AST 49 H ALT 34 Alkaline Phosphatase 106 Total Protein 6.4 L Albumin 2.7 L TSH 02/07/25 11:08 MCV MCH MCHC RDW Plt Count MPV Immature Gran % (Auto) Neut % (Auto) Lymph % (Auto) Randall % (Auto) Eos % (Auto) Baso % (Auto) Lymph # (Auto) Randall # (Auto) Eos # (Auto) Baso # (Auto) Abs Immat Gran (auto) Absolute Neuts (auto) Absolute Nucleated RBC Nucleated RBC % (auto) Anion Gap Estim Creat Clear Calc Estimated GFR POC Glucose 182 H Random Glucose Lactic Acid Calcium Magnesium Total Bilirubin AST ALT Alkaline Phosphatase Total Protein Albumin TSH Microbiology Microbiology Results: Microbiology 02/04/25 10:23 Urine Culture - Final Urine clean catch Angel lusitaniae Assessment and Plan (1) Sinus tachycardia: Status: Acute (2) UTI (urinary tract infection): Status: Acute Plan 79M PMH DM, hld, glaucoma, anemia, presented with fall, found to have fever and uti sepsis (tachypnea, tachycardia) due to UTI due to angel has fevers, tachycardia Overnight also received fluid, Tylenol, also blood culture was sent. plan: rocephin, diflucan added res panel,cxr since has cough (previous cxr-seems negative) follow up final cultures gu appreciated - chronic bialteral hydro -continue flomax, added proscar, placed ramos for 1 week- outpatient voiding trial. ID eval sinus tachycardia -multifactorial (see above-fever ,spsis ) given ivf ,tylenol not hypoxic currently has cough -will check cxr added echo if does not improve or sob or hypoxia -may need further workup . SANDY ATN from sepsis and obstructive improving with ivf, and ramos dm insulin dvt prophylaxis - hep sq full code reason for continued hospitalization: sandy,tachycardia ongoing, watching for response to antifungal Quality Stroke Does the patient have a stroke diagnosis?: No VTE Prior VTE?: No VTE Risk Level:: Medical - moderate - high VTE Device Contraindication: Treatment Not Indicated VTE Drug Contraindication: N/A - Med Ordered
[2025-02-07 16:17] LABS: Glucose, Whole Blood 168 mg/dL (60-115)
[2025-02-07] MEDS: Insulin Glargine,Hum.rec.anlog 100 UNIT/ML 10 ML VIAL 24 UNIT SUBCUT (17:14)
[2025-02-07 21:02] LABS: Glucose, Whole Blood 148 mg/dL (60-115)
[2025-02-07] MEDS: 0.9 % Sodium Chloride Flush 3 ML SYRINGE IVFLUSH (21:11)
[2025-02-08] VITALS (7 sets, daily range): BP systolic 102–141; BP diastolic 55–69; PULSE 66–137; RESP 16–32; TEMP 36.7–39.3; O2SAT 83–99
[2025-02-08 07:26] LABS: Glucose, Whole Blood 98 mg/dL (60-115)
[2025-02-08 09:44] LABS: Hematocrit 34.3 % (42.0-52.0); Hemoglobin 11.2 g/dl (14.0-18.0); Mean Corpuscular HGB Conc 32.7 g/dl (31.0-36.0); Mean Corpuscular Hemoglobin 28.9 pg (27.0-33.0); Mean Corpuscular Volume 88.4 fL (80.0-98.0); NRBC Abs Auto 0.000 X10*3/uL (0.0-0.012); NRBC Pct Auto 0.0 /100WBC (0.0-0.2); Platelet Count 260 X10*3/uL (160-400); Red Blood Count 3.88 X10*6/uL (4.60-5.80); White Blood Count 7.1 X10*3/uL (4.8-10.8)
[2025-02-08] MEDS: Ferrous Sulfate 324 MG TABLET.DR PO (09:47)
[2025-02-08] MEDS: Metoprolol Tartrate 12.5 MG HALFTAB PO ×2 (09:47→16:40)
[2025-02-08] MEDS: Aspirin Enteric Coated 81 MG TABLET.DR PO (09:47)
[2025-02-08] MEDS: 0.9 % Sodium Chloride Flush 3 ML SYRINGE IVFLUSH ×2 (09:49→18:22)
--- NOTE | 2025-02-08 09:52 | PM.PNCARD ---
Subjective Subjective Date of Service: 02/08/25 Principal diagnosis: Atrial arrhythmias, sinus tachycardia Interval history: Patient remains with sinus tachycardia with do not see much more atrial arrhythmias on metoprolol therapy. Blood pressure is on the lower side. Denies any cardiac symptoms. Denies any palpitations. Has significant blood in his urinary catheter and the back. He denies any belly pain. No fever or chills. Echocardiogram yesterday shows preserved EF Review of Systems Constitutional: Reports lethargy and Reports weakness Reports system reviewed and no additional complaints, except as documented Cardiovascular: Reports no additional cardiovascular complaints Respiratory: Reports no additional respiratory complaints Gastrointestinal: Reports no additional gastrointestinal complaints Genitourinary: Reports hematuria Reports weakness Physical Exam Vital Signs: Last Vital Signs Temp 98.0 F 02/08/25 08:00 Pulse 109 H 02/08/25 08:00 Resp 22 H 02/08/25 08:00 BP 102/57 L 02/08/25 08:00 Pulse Ox 94 02/08/25 08:00 O2 Del Method Room Air 02/08/25 08:00 BMI result Body Mass Index 26.9 Const General: cooperative, comfortable, no acute distress, alert, awake and tired appearing Nutritional Appearance: average body habitus Orientation/consciousness: patient oriented x3 HEENT Head: Yes normocephalic and Yes atraumatic Neck Neck: Yes trachea midline, Yes supple and Yes no JVD Resp Effort & Inspection: normal respiratory effort Auscultation: no rales, no wheezes and bronchovesicular breath sounds on the left Cardio Jugular venous distension: no JVD Rate: tachycardic Heart sounds: S1 normal heart sound present, S2 normal heart sound present, no click, no gallops and no murmurs GI Auscultation: normal bowel sounds Skin General skin exam: no rashes or lesions noted Neuro General: patient oriented x3 and no focal motor deficits Extrem General: Yes no clubbing, cyanosis or edema Objective Labs and Meds 02/08/25 09:28 02/06/25 21:54 Lab results: Laboratory Results - last 24 hr 02/07/25 02/07/25 02/07/25 11:08 16:12 20:58 WBC RBC Hgb Hct MCV MCH MCHC RDW Plt Count MPV Absolute Nucleated RBC Nucleated RBC % (auto) POC Glucose 182 H 168 H 148 H 02/08/25 02/08/25 07:22 09:28 WBC 7.1 RBC 3.88 L Hgb 11.2 L Hct 34.3 L MCV 88.4 MCH 28.9 MCHC 32.7 RDW 16.1 H Plt Count 260 MPV 8.7 L Absolute Nucleated RBC 0.000 Nucleated RBC % (auto) 0.0 POC Glucose 98 Progress Note: A&P Assessment and plan (1) Sinus tachycardia: Status: Acute Assessment and Plan: Sinus tachycardia to me appears to be unclear etiology. Will continue to evaluate for medical causes. It usually secondary to underlying other issues. He does have hematuria but his hematocrit rhythm missed to be stable. Does not appear to be very anxious or in any pain. Not sure if he has ongoing sepsis or infection or other causes including venous thromboembolic disease. Will evaluate from your perspective. Inappropriate sinus tachycardia is likely but other organic causes need to be ruled out. (2) Cardiac arrhythmia: Status: Acute Assessment and Plan: Cardiac arrhythmias with atrial arrhythmias having subsided on current metoprolol dose. He continues to have recurrent atrial arrhythmias can use digoxin as he has low blood pressure at this point time. Avoidance of stimulants was discussed. Will sign of the case. Thank you for allowing me to partake in his care Time Spent With Patient Time: Total time managing care of this patient today ____ minutes. Progress Note: Quality Stroke Does the patient have a stroke diagnosis?: No Procedures Date of Service Date of Service: 02/08/25
[2025-02-08 09:58] LABS: Anion Gap 13 (12-20); Blood Urea Nitrogen 36 mg/dL (9-16); Calcium 8.9 mg/dL (8.4-10.2); Carbon Dioxide 19 mmol/L (22-29); Chloride 105 mmol/L (96-108); Creatinine Clr Calc Pharmacy 42.0; Estimated Glomerular Filt Rate 57; Potassium 4.1 mmol/L (3.3-5.1); Sodium 133 mmol/L (135-145)
--- NOTE | 2025-02-08 10:20 | MHC.CM.PN ---
Per ROUNDS discussion, Patient is not yet medically cleared for dc (still septic); home with services is the goal and CM will continue to follow.
[2025-02-08 10:34] LABS: Chlamydia pneumoniae PCR Not Detected (Not Detect.); Coronavirus 229E PCR Not Detected (Not Detect.); Coronavirus HKU1 PCR Not Detected (Not Detect.); Coronavirus NL63 PCR Not Detected (Not Detect.); Coronavirus OC43 PCR Not Detected (Not Detect.); Influenza A H1-2009 PCR Detected (Not Detect.); RSV PCR Not Detected (Not Detect.); Rhino/Enterovirus PCR Not Detected (Not Detect.)
[2025-02-08 10:38] LABS: Influenza A H1 PCR Not Detected (Not Detect.); Influenza A H3 PCR Not Detected (Not Detect.); SARS-CoV-2 PCR Not Detected (Not Detect.)
[2025-02-08 11:16] LABS: Glucose, Whole Blood 133 mg/dL (60-115)
--- NOTE | 2025-02-08 12:07 | MHC.CLN ---
F/U PO INTAKE 100% DIET RX: DIABETIC 2000 KCALS ENSURE MAX BID IN PLACE PROVIDES 300 KCALS, 60 G PROTEIN SUPPLEMENT TO PROMOTE WOUND HEALING CONTINUE TO MONITOR PO INTAKE AND ENCOURAGE SUPPLEMENTS
--- NOTE | 2025-02-08 13:01 | W.PM.IDCN ---
History of Present Illness Data of Consult Service Date: 02/08/25 Requesting physician: Jessica Lanza Primary Care Provider: Tim Ji MD HPI Reason for consult: angel lusitanae urine culture He presents with fall on 02/02. He was on floor for 4-5 hours. He has two cultures angel lusitanae urine. Review of Systems Review of Systems: sleepy,no communication PMFSH Past Medical History Medical History Anemia Hypertension Glaucoma UTI (urinary tract infection) Dysuria Chronic anemia DNI (do not intubate) DNR (do not resuscitate) discussion Encounter for annual wellness exam in Medicare patient Sinus tachycardia Shortness of breath on exertion Multiple rib fractures Cervical radiculopathy Cervical disc disease Tubular adenoma Leukopenia GERD (gastroesophageal reflux disease) Renal lithiasis Hypotestosteronism Vitamin D deficiency Mild hypercholesterolemia Type 2 diabetes mellitus CVA (cerebral vascular accident) BPH (benign prostatic hyperplasia) H/O: HTN (hypertension) Diabetes mellitus Family History Family History Father Lung cancer Heart attack Family history: reviewed and not pertinent Surgical History Surgical History History of bladder surgery Hx of knee surgery H/O inguinal hernia repair Social History Social History Household Members: None Housing: Apartment Do you presently have visiting nurse or other home services: No Alcohol intake: never Patient Tobacco Use Status: Former Tobacco user Tobacco use type: Cigarette Cigarette Packs Per Day: 1.5 service: No Current occupational status: retired Meds Allergies Allergy/AdvReac Type Severity Reaction Status Date / Time atorvastatin (Lipitor) Allergy Unknown rash Verified 02/02/25 18:04 From LIPITOR Allergy Unknown RASH Uncoded 02/02/25 18:04 Active Medications: Current Medications Acetaminophen (Acetaminophen 325 Mg Tablet) 975 mg PO Q6H PRN PRN Reason: Pain, Mild 1-3,fever,headache Last Admin: 02/07/25 15:37 Dose: 975 mg Aspirin (Aspirin Enteric Coated 81 Mg Tablet.) 81 mg PO DAILY [facility] Last Admin: 02/08/25 09:47 Dose: 81 mg Atorvastatin Calcium (Atorvastatin Calcium 80 Mg Tablet) 80 mg PO DAILY [facility] Last Admin: 02/08/25 09:47 Dose: 80 mg Calcium Carbonate (Calcium Carbonate 750 Mg Tab.Chew) 750 mg PO Q4H PRN PRN Reason: Heartburn Dextrose (Dextrose 50 % 25 Gm/50 Ml Syringe) 25 gm IVPUSH Q15M PRN; Protocol PRN Reason: per Hypoglycemia Standing Ord. Ferrous Sulfate (Ferrous Sulfate 324 Mg Tablet.Dr) 324 mg PO DAILY [facility] Last Admin: 02/08/25 09:47 Dose: 324 mg Finasteride (Finasteride 5 Mg Tablet) 5 mg PO DAILY [facility] Last Admin: 02/08/25 09:47 Dose: 5 mg Glucose (Glucose Gel 15 Gm Gel..Gram.) 15 gm PO Q15M PRN; Protocol PRN Reason: per Hypoglycemia Standing Ord. Heparin Sodium (Porcine) (Heparin Sodium,Porcine 5,000 Unit/Ml Vial) 5,000 unit SUBCUT Q8H [facility] On Hold: 02/08/25 08:53 Last Admin: 02/08/25 05:27 Dose: Not Given Ceftriaxone Sodium 1 gm/ (Sodium Chloride) 50 mls @ 100 mls/hr IV Q24H [facility] Last Infusion: 02/07/25 17:45 Dose: Infused Caspofungin 50 mg/ Sodium (Chloride) 250 mls @ 250 mls/hr IV Q24H [facility] Insulin Glargine (Insulin Glargine,Hum.Rec.Anlog 100 Unit/Ml 10 Ml Vial) 24 unit SUBCUT DAILY@1600 [facility] Last Admin: 02/07/25 17:14 Dose: 24 unit Insulin Human Lispro (Insulin Lispro 100 Unit/Ml 3 Ml Vial) 0 unit SUBCUT QIDACHS [facility]; Protocol Last Admin: 02/08/25 11:27 Dose: Not Given Magnesium Hydroxide (Milk Of Magnesia 30 Ml Oral.Susp) 30 ml PO DAILY PRN PRN Reason: Constipation Last Admin: 02/05/25 21:28 Dose: 30 ml Melatonin (Melatonin 3 Mg Tablet) 6 mg PO BEDTIME PRN PRN Reason: Insomnia Metoprolol Tartrate (Metoprolol Tartrate 12.5 Mg Halftab) 12.5 mg PO TID [facility]; Protocol Last Admin: 02/08/25 09:47 Dose: 12.5 mg Multivitamins/Vitamin C (Multivitamin Tablet) 1 tab PO DAILY [facility] Last Admin: 02/08/25 09:47 Dose: 1 tab Nystatin (Nystatin Powder 15 Gm Bottle) 1 appl TOPICAL TID [facility]; Protocol Last Admin: 02/08/25 09:52 Dose: 1 appl Sodium Chloride (0.9 % Sodium Chloride Flush 3 Ml Syringe) 3 ml IVFLUSH QSHIFT [facility] Last Admin: 02/08/25 09:49 Dose: 3 ml Tamsulosin HCl (Tamsulosin Hcl 0.4 Mg Capsule) 0.4 mg PO BEDTIME [facility] Last Admin: 02/07/25 19:52 Dose: 0.4 mg Home Medications ?Medication ?Instructions ?Recorded ?Confirmed ?Last Taken ?Type insulin glargine U-300 conc 300 30 unit subcut DAILY@1600 02/03/25 02/03/25 Unknown History unit/mL (1.5 mL) subcutaneous pen ([email or web address] [email or web address] U-300 Insulin) metformin 1,000 mg tablet 1,000 mg PO BIDWM 02/03/25 02/03/25 02/02/25 History Physical Exam Vital Signs: Vital Signs: Last Vital Signs Temp 98.5 F 02/08/25 11:53 Pulse 97 02/08/25 11:53 Resp 20 02/08/25 11:53 BP 105/55 L 02/08/25 11:53 Pulse Ox 95 02/08/25 11:53 O2 Del Method Room Air 02/08/25 11:53 BMI result Body Mass Index 26.9 Const: General: cooperative HEENT: Head: Yes normal to inspection Face and sinus: Yes normal facial exam Mouth: Normal oral and palatal mucosa present Teeth and gingiva: dentition normal Eyes: General: appearance normal, both eyes and all related structures Pupils: Equal, round and reactive pupils present Resp: Effort & Inspection: normal respiratory effort Cardio: Rate: regular rate Rhythm: regular rhythm GI: Palpation (GI): Soft to palpation and nontender : General: Yes no CVA tenderness Back/Spine/Pelvis: Back: no CVA tenderness Skin: General skin exam: no rashes or lesions noted Neuro: General: moves all extremities Cranial nerves: Yes Equal, round and reactive pupils present Extrem: General: Yes normal to inspection Psych: Other: sleepy Results Labs 02/08/25 09:28 02/08/25 09:28 Labs: Short CBC 02/08/25 Range/Units 09:28 WBC 7.1 (4.8-10.8) X10*3/uL Hgb 11.2 L (14.0-18.0) g/dl Hct 34.3 L (42.0-52.0) % Plt Count 260 (160-400) X10*3/uL BMP 02/08/25 09:28 Sodium 133 L Potassium 4.1 Chloride 105 Carbon Dioxide 19 L BUN 36 H Creatinine 1.22 Calcium 8.9 Microbiology Microbiology Results: Microbiology 02/06/25 22:02 Blood - Venous Blood Culture - Preliminary No growth after 24 hours. 02/06/25 21:54 Blood - Venous Blood Culture - Preliminary No growth after 24 hours. 02/02/25 18:11 Blood - Venous Blood Culture - Final No growth after 5 days. 02/02/25 18:11 Blood - Venous Blood Culture - Final No growth after 5 days. 02/04/25 10:23 Urine clean catch Urine Culture - Final Angel lusitaniae 02/02/25 18:24 Urine clean catch - Clean Catch Midstream Urine Culture - Final Angel lusitaniae Coag negative Staphylococcus Assessment and Plan (1) UTI (urinary tract infection): Qualifiers: Urinary tract infection type: site unspecified Hematuria presence: with hematuria Qualified Code(s): N39.0 - Urinary tract infection, site not specified; R31.9 - Hematuria, unspecified Status: Acute (2) BPH (benign prostatic hyperplasia): Status: Acute Plan Angel lusitanae probable real and responds to echinocandins not fluconazole. Would continue caspofungin IV for 10 days. Would switch to po cephalosporin when more alert possible underlying prostate infection 14 -21 d
[2025-02-08] MEDS: Lidocaine HCl 2 % Urojet 10 ML JEL.PF.APP 20 ML TOPICAL (14:38)
--- NOTE | 2025-02-08 14:56 | P.PNIM_ITS ---
Subjective Subjective Date of Service: 02/08/25 Interval History: UTI, hematuria with clots. Review of Systems Fever is improving Patient has started to have gross hematuria last night, also has blood clots Trying to place CBI. Physical Exam 2 Exam: Exam: General: AO X 3, no acute distress Resp: air netry fair , no rales or wheezing CVS: S1,S2,RRR GI: soft, non tender, non distended Neuro: motor grossly intact, alert Psych: appropriate affect, appropriate insight Vital Signs: Vital Signs: Last Vital Signs Temp 98.5 F 02/08/25 11:53 Pulse 97 02/08/25 11:53 Resp 20 02/08/25 11:53 BP 105/55 L 02/08/25 11:53 Pulse Ox 95 02/08/25 11:53 O2 Del Method Room Air 02/08/25 11:53 BMI result Body Mass Index 26.9 Objective Data Active Medications Acetaminophen (Acetaminophen 325 Mg Tablet) 975 mg PO Q6H PRN PRN Reason: Pain, Mild 1-3,fever,headache Last Admin: 02/07/25 15:37 Dose: 975 mg Documented By: SONI Aspirin (Aspirin Enteric Coated 81 Mg Tablet.) 81 mg PO DAILY [facility] Last Admin: 02/08/25 09:47 Dose: 81 mg Documented By: TOMEKA Atorvastatin Calcium (Atorvastatin Calcium 80 Mg Tablet) 80 mg PO DAILY [facility] Last Admin: 02/08/25 09:47 Dose: 80 mg Documented By: TOMEKA Calcium Carbonate (Calcium Carbonate 750 Mg Tab.Chew) 750 mg PO Q4H PRN PRN Reason: Heartburn Dextrose (Dextrose 50 % 25 Gm/50 Ml Syringe) 25 gm IVPUSH Q15M PRN; Protocol PRN Reason: per Hypoglycemia Standing Ord. Ferrous Sulfate (Ferrous Sulfate 324 Mg Tablet.) 324 mg PO DAILY [facility] Last Admin: 02/08/25 09:47 Dose: 324 mg Documented By: TOMEKA Finasteride (Finasteride 5 Mg Tablet) 5 mg PO DAILY [facility] Last Admin: 02/08/25 09:47 Dose: 5 mg Documented By: TOMEKA Glucose (Glucose Gel 15 Gm Gel..Gram.) 15 gm PO Q15M PRN; Protocol PRN Reason: per Hypoglycemia Standing Ord. Heparin Sodium (Porcine) (Heparin Sodium,Porcine 5,000 Unit/Ml Vial) 5,000 unit SUBCUT Q8H [facility] On Hold: 02/08/25 08:53 Last Admin: 02/08/25 05:27 Dose: Not Given Documented By: HOLLY Non-Admin Reason: Physician Held Med Ceftriaxone Sodium 1 gm/ (Sodium Chloride) 50 mls @ 100 mls/hr IV Q24H [facility] Last Infusion: 02/07/25 17:45 Dose: Infused Documented By: SONI Caspofungin 50 mg/ Sodium (Chloride) 250 mls @ 250 mls/hr IV Q24H [facility] Insulin Glargine (Insulin Glargine,Hum.Rec.Anlog 100 Unit/Ml 10 Ml Vial) 24 unit SUBCUT DAILY@1600 [facility] Last Admin: 02/07/25 17:14 Dose: 24 unit Documented By: SONI Insulin Human Lispro (Insulin Lispro 100 Unit/Ml 3 Ml Vial) 0 unit SUBCUT QIDACHS [facility]; Protocol Last Admin: 02/08/25 11:27 Dose: Not Given Documented By: TOMEKA Non-Admin Reason: No Insulin Coverage Magnesium Hydroxide (Milk Of Magnesia 30 Ml Oral.Susp) 30 ml PO DAILY PRN PRN Reason: Constipation Last Admin: 02/05/25 21:28 Dose: 30 ml Documented By: TRUNG Melatonin (Melatonin 3 Mg Tablet) 6 mg PO BEDTIME PRN PRN Reason: Insomnia Metoprolol Tartrate (Metoprolol Tartrate 12.5 Mg Halftab) 12.5 mg PO TID [facility]; Protocol Last Admin: 02/08/25 09:47 Dose: 12.5 mg Documented By: TOMEKA Multivitamins/Vitamin C (Multivitamin Tablet) 1 tab PO DAILY [facility] Last Admin: 02/08/25 09:47 Dose: 1 tab Documented By: TOMEKA Nystatin (Nystatin Powder 15 Gm Bottle) 1 appl TOPICAL TID [facility]; Protocol Last Admin: 02/08/25 09:52 Dose: 1 appl Documented By: TOMEKA Sodium Chloride (0.9 % Sodium Chloride Flush 3 Ml Syringe) 3 ml IVFLUSH QSHIFT [facility] Last Admin: 02/08/25 09:49 Dose: 3 ml Documented By: TOMEKA Tamsulosin HCl (Tamsulosin Hcl 0.4 Mg Capsule) 0.4 mg PO BEDTIME [facility] Last Admin: 02/07/25 19:52 Dose: 0.4 mg Documented By: HOLLY Labs 02/08/25 09:28 02/08/25 09:28 Labs: Laboratory Results - last 24 hr 02/07/25 02/07/25 02/07/25 16:12 17:54 20:58 MCV MCH MCHC RDW Plt Count MPV Absolute Nucleated RBC Nucleated RBC % (auto) Anion Gap Estim Creat Clear Calc Estimated GFR POC Glucose 168 H 148 H Random Glucose Calcium Respiratory Panel Chua See Note Adenovirus (Rapid PCR) Not Detected B.pert (TEM-PCR) Not Detected B.parapertussis DNA PCR Not Detected C. pneumoniae DNA (PCR) Not Detected Coronavirus OC43 (PCR) Not Detected Coronavirus HKU1 (PCR) Not Detected Coronavirus 229E (PCR) Not Detected Coronavirus NL63 (PCR) Not Detected Human Metapneumovir PCR Not Detected Influenza A (RT-PCR) Detected A Influenza A (H1) PCR Not Detected Influ A (H1/09) PCR Detected A Influenza A (H3) PCR Not Detected Influenza B (RT-PCR) Not Detected M. pneumoniae (PCR) Not Detected Parainfluenza 1 (PCR) Not Detected Parainfluenza 2 (PCR) Not Detected Parainfluenza 3 (PCR) Not Detected Parainfluenza 4 (PCR) Not Detected RSV (PCR) Not Detected Entero/Rhino (PCR) Not Detected SARS-CoV-2 RNA (RT-PCR) Not Detected 02/08/25 02/08/25 02/08/25 07:22 09:28 11:09 MCV 88.4 MCH 28.9 MCHC 32.7 RDW 16.1 H Plt Count 260 MPV 8.7 L Absolute Nucleated RBC 0.000 Nucleated RBC % (auto) 0.0 Anion Gap 13 Estim Creat Clear Calc 42.0 Estimated GFR 57 POC Glucose 98 133 H Random Glucose 131 H Calcium 8.9 Respiratory Panel Chua Adenovirus (Rapid PCR) B.pert (TEM-PCR) B.parapertussis DNA PCR C. pneumoniae DNA (PCR) Coronavirus OC43 (PCR) Coronavirus HKU1 (PCR) Coronavirus 229E (PCR) Coronavirus NL63 (PCR) Human Metapneumovir PCR Influenza A (RT-PCR) Influenza A (H1) PCR Influ A (H1/09) PCR Influenza A (H3) PCR Influenza B (RT-PCR) M. pneumoniae (PCR) Parainfluenza 1 (PCR) Parainfluenza 2 (PCR) Parainfluenza 3 (PCR) Parainfluenza 4 (PCR) RSV (PCR) Entero/Rhino (PCR) SARS-CoV-2 RNA (RT-PCR) Microbiology Microbiology Results: Microbiology 02/06/25 22:02 Blood Culture - Preliminary Blood - Venous No growth after 24 hours. 02/06/25 21:54 Blood Culture - Preliminary Blood - Venous No growth after 24 hours. 02/02/25 18:11 Blood Culture - Final Blood - Venous No growth after 5 days. 02/02/25 18:11 Blood Culture - Final Blood - Venous No growth after 5 days. Assessment and Plan (1) Hematuria: Status: Acute Plan 79M PMH DM, hld, glaucoma, anemia, presented with fall, found to have fever and uti sepsis (tachypnea, tachycardia) due to UTI due to angel has fevers, tachycardia Overnight also received fluid, Tylenol, also blood culture was sent. plan: rocephin, diflucan added res panel,cxr since has cough (previous cxr-seems negative) follow up final cultures gu appreciated - chronic bialteral hydro -continue flomax, added proscar, placed ramos for 1 week- outpatient voiding trial. ID eval: Recommended to continue caspofungin for 10 days Continue cephalosporin for 14-21 days. Gross hematuria with blood clots: Hold heparin CBI We will continue to monitor Creatinine so far seems stable around 1.2 range sinus tachycardia -multifactorial (see above-fever ,spsis ) Seems improving not hypoxic currently uti as above cxr:1. Mild patchy left lung consolidative opacities. echo : 1. Normal LV ejection fraction 55-60% 2. Cardiac valvular Dopplers within normal limits 3. Mildly dilated left atrium 4. No gross pericardial effusion plan: continue caspofungin/ceftriaxone Tachycardia improving, Continue to monitor on tele [place] [facility] from sepsis and obstructive Creatinine 1.2 range, of fluids dm insulin dvt prophylaxis - hep sq full code reason for continued hospitalization: sandy,tachycardia ongoing, watching for response to antifungal, has gross hematuria-need CBI and monitoring until resolution of hematuria, as well as H and H monitoring. Quality Stroke Does the patient have a stroke diagnosis?: No VTE Prior VTE?: No VTE Risk Level:: Medical - moderate - high VTE Device Contraindication: Treatment Not Indicated VTE Drug Contraindication: N/A - Med Ordered
[2025-02-08 17:31] LABS: Glucose, Whole Blood 146 mg/dL (60-115)
[2025-02-08] MEDS: Insulin Glargine,Hum.rec.anlog 100 UNIT/ML 10 ML VIAL 24 UNIT SUBCUT (18:05)
[2025-02-08 18:14] LABS: Hematocrit 38.8 % (42.0-52.0); Hemoglobin 12.2 g/dl (14.0-18.0)
[2025-02-08 18:30] LABS: Anion Gap 15 (12-20); Blood Urea Nitrogen 35 mg/dL (9-16); Calcium 9.4 mg/dL (8.4-10.2); Carbon Dioxide 20 mmol/L (22-29); Chloride 106 mmol/L (96-108); Creatinine Clr Calc Pharmacy 37.9; Estimated Glomerular Filt Rate 51; Magnesium 1.8 mg/dL (1.6-2.6); Potassium 4.9 mmol/L (3.3-5.1); Sodium 136 mmol/L (135-145)
--- NOTE | 2025-02-08 19:59 | PC.NURSE ---
pt having increased hemituria and clots overnight into AM. Dr luna aware. order CBI plced and larger gauge, 3 way cath to be inserted per dr pitts. 1245: Lidia RN attempted ramos insertion, unsuccessful d/t unable to advance past prostate. Dr pitts made aware of this as this RN asked if MD could place ramos cath. dr pitts stated get 2 urojets. 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 and im in my office seeing pts. ask dairy processing supervisor for help Dr luna made aware. 1415 [place] RN inserted 26G [address] cath and began CBI. ramos not patent nor draining. attempted to irrigate 2x which was unsuccessful. aware 1500 this RN attempted to irrigate CBI again and was unsuccessful. ~1000mL had gone in with only ~[address] the ramos bag. Dr. luna aware, stated dr. pitts would see pt after office. 1600. Dr pitts at bedside. MD had to use guide wire to re-insert ramos cath. several large clots expelled. ramos patent/draining, hemituria with sm clots. during procedure, pt became tachypneic, tachycardiac ST with bigeminy, audible wheeze, pale looking, hypoxic in mid 80s. pt placed on 2L NC and give schedule metoprolol per MAY. Dr. luna notified. MD at bedside, see new orders.
[2025-02-08 20:35] LABS: Glucose, Whole Blood 141 mg/dL (60-115)
--- NOTE | 2025-02-08 22:09 | PM.EVENT ---
Event Note Date of Service: 02/08/25 Event Note: 7 42 pm - temp 102.8, HR 130s. BP stable. On evalaution, pt lying in bed comfortable and no distress. Nasal cannula in place. Denied SOB or CP. Lungs auscultation remarkable for bilat crackles but no wheezing or rhonchi. Indwelling urinary catheter bag - pink clear urine noted. D-dimer noted to be significantly elevated. Chest CTA for PE obtained and awaiting results. TTE reviewed - no vegetations. HR now in the low 100s (temp dropped to 98). Time Spent With Patient Time: Total time managing care of this patient today ____ minutes.
[2025-02-09] VITALS (9 sets, daily range): BP systolic 103–117; BP diastolic 55–61; PULSE 91–99; RESP 18–22; TEMP 36.2–36.4; O2SAT 95–100
[2025-02-09] MEDS: 0.9 % Sodium Chloride Flush 3 ML SYRINGE IVFLUSH ×4 (02:42→20:12)
[2025-02-09 07:14] LABS: Glucose, Whole Blood 82 mg/dL (60-115)
[2025-02-09] MEDS: Ferrous Sulfate 324 MG TABLET.DR PO (08:59)
[2025-02-09] MEDS: Metoprolol Tartrate 12.5 MG HALFTAB PO ×3 (08:59→21:21)
[2025-02-09] MEDS: Aspirin Enteric Coated 81 MG TABLET.DR PO (09:00)
[2025-02-09 09:39] LABS: Hematocrit 35.3 % (42.0-52.0); Hemoglobin 11.1 g/dl (14.0-18.0); Mean Corpuscular HGB Conc 31.4 g/dl (31.0-36.0); Mean Corpuscular Hemoglobin 28.7 pg (27.0-33.0); Mean Corpuscular Volume 91.2 fL (80.0-98.0); NRBC Abs Auto 0.000 X10*3/uL (0.0-0.012); NRBC Pct Auto 0.0 /100WBC (0.0-0.2); Platelet Count 204 X10*3/uL (160-400); Red Blood Count 3.87 X10*6/uL (4.60-5.80); White Blood Count 7.0 X10*3/uL (4.8-10.8)
[2025-02-09 09:53] LABS: Anion Gap 17 (12-20); Blood Urea Nitrogen 28 mg/dL (9-16); Calcium 8.8 mg/dL (8.4-10.2); Carbon Dioxide 19 mmol/L (22-29); Chloride 107 mmol/L (96-108); Creatinine Clr Calc Pharmacy 44.5; Estimated Glomerular Filt Rate > 60; Potassium 4.5 mmol/L (3.3-5.1); Sodium 138 mmol/L (135-145)
[2025-02-09 11:05] LABS: Magnesium 1.9 mg/dL (1.6-2.6)
[2025-02-09 11:23] LABS: Glucose, Whole Blood 161 mg/dL (60-115)
--- NOTE | 2025-02-09 15:43 | P.PNIM_ITS ---
Subjective Subjective Date of Service: 02/09/25 Interval History: Hematuria, UTI, influenza a Review of Systems Patient says shortness of breath and cough is improving Tachycardia also improving Review of Systems: Yes all other systems are reviewed and are negative Physical Exam 2 Exam: Exam: Appearance: Alert.? Oriented X3.? cvs: [id number], [id number] , no murmur res: air entry improving , no rales , mild rhonchi abd: no rebound or guarding ,nt, bs present. ext pulses present , no cyanosis . : hematuria improving -more pinkish urine neuro: axo3 , nonfocal. Vital Signs: Vital Signs: Last Vital Signs Temp 97.5 F 02/09/25 11: Pulse 99 02/09/25 11: Resp 18 02/09/25 11:25 BP 112/58 L 02/09/25 11:25 Pulse Ox 96 02/09/25 11:25 O2 Del Method Room Air 02/09/25 11: O2 Flow Rate 2 02/09/25 07:07 BMI result Body Mass Index 26.9 Objective Data Active Medications Acetaminophen (Acetaminophen 325 Mg Tablet) 975 mg PO Q6H PRN PRN Reason: Pain, Mild 1-3,fever,headache Last Admin: 02/07/25 15:37 Dose: 975 mg Documented By: SONI Aspirin (Aspirin Enteric Coated 81 Mg Tablet.) 81 mg PO DAILY [facility] Last Admin: 02/09/25 09:00 Dose: 81 mg Documented By: TOMEKA Atorvastatin Calcium (Atorvastatin Calcium 80 Mg Tablet) 80 mg PO DAILY [facility] Last Admin: 02/09/25 08:59 Dose: 80 mg Documented By: TOMEKA Calcium Carbonate (Calcium Carbonate 750 Mg Tab.Chew) 750 mg PO Q4H PRN PRN Reason: Heartburn Dextrose (Dextrose 50 % 25 Gm/50 Ml Syringe) 25 gm IVPUSH Q15M PRN; Protocol PRN Reason: per Hypoglycemia Standing Ord. Ferrous Sulfate (Ferrous Sulfate 324 Mg Tablet.) 324 mg PO DAILY [facility] Last Admin: 02/09/25 08:59 Dose: 324 mg Documented By: TOMEKA Finasteride (Finasteride 5 Mg Tablet) 5 mg PO DAILY [facility] Last Admin: 02/09/25 09:00 Dose: 5 mg Documented By: TOMEKA Glucose (Glucose Gel 15 Gm Gel..Gram.) 15 gm PO Q15M PRN; Protocol PRN Reason: per Hypoglycemia Standing Ord. Heparin Sodium (Porcine) (Heparin Sodium,Porcine 5,000 Unit/Ml Vial) 5,000 unit SUBCUT Q8H [facility] On Hold: 02/08/25 08:53 Last Admin: 02/08/25 05:27 Dose: Not Given Documented By: HOLLY Non-Admin Reason: Physician Held Med Ceftriaxone Sodium 1 gm/ (Sodium Chloride) 50 mls @ 100 mls/hr IV Q24H [facility] Last Infusion: 02/08/25 18:34 Dose: Infused Documented By: QUAN Caspofungin 50 mg/ Sodium (Chloride) 250 mls @ 250 mls/hr IV Q24H [facility] Last Infusion: 02/09/25 00:00 Dose: Infused Documented By: QUAN Insulin Glargine (Insulin Glargine,Hum.Rec.Anlog 100 Unit/Ml 10 Ml Vial) 24 unit SUBCUT DAILY@1600 [facility] Last Admin: 02/08/25 18:05 Dose: 24 unit Documented By: TOMEKA Insulin Human Lispro (Insulin Lispro 100 Unit/Ml 3 Ml Vial) 0 unit SUBCUT QIDACHS [facility]; Protocol Last Admin: 02/09/25 11:22 Dose: 2 unit Documented By: TOMEKA Levalbuterol HCl (Levalbuterol Hcl 1.25 Mg/3 Ml Vial.Neb) 1.25 mg INHALE RTID [facility] Last Admin: 02/09/25 15:43 Dose: Not Given Documented By: JULIO CESAR Non-Admin Reason: Patient Refused Magnesium Hydroxide (Milk Of Magnesia 30 Ml Oral.Susp) 30 ml PO DAILY PRN PRN Reason: Constipation Last Admin: 02/05/25 21:28 Dose: 30 ml Documented By: TRUNG Melatonin (Melatonin 3 Mg Tablet) 6 mg PO BEDTIME PRN PRN Reason: Insomnia Metoprolol Tartrate (Metoprolol Tartrate 12.5 Mg Halftab) 12.5 mg PO TID [facility]; Protocol Last Admin: 02/09/25 08:59 Dose: 12.5 mg Documented By: TOMEKA Multivitamins/Vitamin C (Multivitamin Tablet) 1 tab PO DAILY [facility] Last Admin: 02/09/25 08:59 Dose: 1 tab Documented By: TOMEKA Nystatin (Nystatin Powder 15 Gm Bottle) 1 appl TOPICAL TID [facility]; Protocol Last Admin: 02/09/25 09:02 Dose: 1 appl Documented By: TOMEKA Oseltamivir Phosphate (Oseltamivir Phosphate 30 Mg Capsule) 30 mg PO BID [facility] Stop: 02/13/25 21:01 Sodium Chloride (0.9 % Sodium Chloride Flush 3 Ml Syringe) 3 ml IVFLUSH QSHIFT [facility] Last Admin: 02/09/25 09:00 Dose: 3 ml Documented By: TOMEKA Tamsulosin HCl (Tamsulosin Hcl 0.4 Mg Capsule) 0.4 mg PO BEDTIME [facility] Last Admin: 02/08/25 23:18 Dose: Not Given Documented By: QUAN Non-Admin Reason: per dr. conway Labs 02/09/25 09:19 02/09/25 09:19 Labs: Laboratory Results - last 24 hr 02/08/25 02/08/25 02/08/25 17:24 18:06 20:32 MCV MCH MCHC RDW Plt Count MPV Absolute Nucleated RBC Nucleated RBC % (auto) D-Dimer High Sensitivty 59700 Anion Gap 15 Estim Creat Clear Calc 37.9 Estimated GFR 51 POC Glucose 146 H 141 H Random Glucose 150 H Calcium 9.4 Magnesium 1.8 Blood Type A Positive Antibody Screen NEGATIVE 02/09/25 02/09/25 02/09/25 07:10 09:19 11:19 MCV 91.2 MCH 28.7 MCHC 31.4 RDW 16.1 H Plt Count 204 MPV 8.7 L Absolute Nucleated RBC 0.000 Nucleated RBC % (auto) 0.0 D-Dimer High Sensitivty Anion Gap 17 Estim Creat Clear Calc 44.5 Estimated GFR > 60 POC Glucose 82 161 H Random Glucose 148 H Calcium 8.8 D Magnesium 1.9 Blood Type Antibody Screen Microbiology Microbiology Results: Microbiology 02/06/25 21:54 Blood Culture - Preliminary Blood - Venous No growth after 48 hours. 02/06/25 22:02 Blood Culture - Preliminary Blood - Venous No growth after 48 hours. Assessment and Plan (1) Hematuria: Status: Acute Plan 79M PMH DM, hld, glaucoma, anemia, presented with fall, found to have fever and uti sepsis (tachypnea, tachycardia) due to UTI due to angel has fevers, tachycardia Overnight also received fluid, Tylenol, also blood culture was sent. plan: rocephin, diflucan,tamiflu added res panel,cxr since has cough (previous cxr-seems negative) repeat blood cultures pending gu appreciated - chronic bialteral hydro -continue flomax, added proscar, placed ramos for 1 week- outpatient voiding trial. ID eval: Recommended to continue caspofungin for 10 days Continue cephalosporin for 14-21 days. Gross hematuria with blood clots: Hold heparin CBI We will continue to monitor Creatinine so far seems stable around 1.2 range sinus tachycardia -multifactorial (see above-fever ,spsis ) Seems improving not hypoxic currently uti as above cxr:1. Mild patchy left lung consolidative opacities. echo : 1. Normal LV ejection fraction 55-60% 2. Cardiac valvular Dopplers within normal limits 3. Mildly dilated left atrium 4. No gross pericardial effusion plan: continue caspofungin/ceftriaxone Tachycardia improving, Continue to monitor on tele [place] [facility] from sepsis and obstructive Creatinine 1.2 range, of fluids dm insulin dvt prophylaxis - hep sq full code reason for continued hospitalization: [place],tachycardia ongoing, watching for response to antifungal, has gross hematuria-need CBI and monitoring until resolution of hematuria, as well as H and H monitoring. Quality Stroke Does the patient have a stroke diagnosis?: No VTE Prior VTE?: No VTE Risk Level:: Medical - moderate - high VTE Device Contraindication: Treatment Not Indicated VTE Drug Contraindication: N/A - Med Ordered
[2025-02-09 15:57] LABS: Glucose, Whole Blood 196 mg/dL (60-115)
[2025-02-09] MEDS: Insulin Glargine,Hum.rec.anlog 100 UNIT/ML 10 ML VIAL 24 UNIT SUBCUT (16:39)
[2025-02-09 20:37] LABS: Glucose, Whole Blood 233 mg/dL (60-115)
[2025-02-10] VITALS (12 sets, daily range): BP systolic 106–123; BP diastolic 52–61; PULSE 95–117; RESP 18–20; TEMP 36.1–36.8; O2SAT 94–98
[2025-02-10 07:19] LABS: Glucose, Whole Blood 106 mg/dL (60-115)
[2025-02-10] MEDS: Metoprolol Tartrate 12.5 MG HALFTAB PO (09:22)
[2025-02-10] MEDS: Aspirin Enteric Coated 81 MG TABLET.DR PO (09:22)
[2025-02-10] MEDS: Ferrous Sulfate 324 MG TABLET.DR PO (09:22)
[2025-02-10] MEDS: 0.9 % Sodium Chloride Flush 3 ML SYRINGE IVFLUSH ×3 (09:24→20:58)
[2025-02-10 09:37] LABS: Hematocrit 33.7 % (42.0-52.0); Hemoglobin 10.6 g/dl (14.0-18.0)
[2025-02-10 09:40] LABS: Anion Gap 14 (12-20); Blood Urea Nitrogen 25 mg/dL (9-16); Calcium 9.0 mg/dL (8.4-10.2); Carbon Dioxide 20 mmol/L (22-29); Chloride 107 mmol/L (96-108); Creatinine Clr Calc Pharmacy 46.1; Estimated Glomerular Filt Rate > 60; Potassium 4.1 mmol/L (3.3-5.1); Sodium 137 mmol/L (135-145)
[2025-02-10 11:18] LABS: Glucose, Whole Blood 125 mg/dL (60-115)
--- NOTE | 2025-02-10 12:37 | P.PNIM_ITS ---
Subjective Subjective Date of Service: 02/10/25 Interval History: Hematuria Review of Systems Still has pinkish urine, no clots No fever Review of Systems: Yes all other systems are reviewed and are negative Physical Exam 2 Exam: Exam: Appearance: Alert.? Oriented X3.? cvs: [id number], [id number] , no murmur res: air entry improving , no rales , mild rhonchi abd: no rebound or guarding ,nt, bs present. ext pulses present , no cyanosis . : hematuria improving -more pinkish urine neuro: axo3 , nonfocal. Vital Signs: Vital Signs: Last Vital Signs Temp 97.0 F 02/10/25 11:12 Pulse 95 02/10/25 11:12 Resp 18 02/10/25 11:12 BP 111/59 L 02/10/25 11:12 Pulse Ox 97 02/10/25 11:12 O2 Del Method Room Air 02/10/25 11:12 O2 Flow Rate 2 02/09/25 07:07 BMI result Body Mass Index 26.9 Objective Data Active Medications Acetaminophen (Acetaminophen 325 Mg Tablet) 975 mg PO Q6H PRN PRN Reason: Pain, Mild 1-3,fever,headache Last Admin: 02/07/25 15:37 Dose: 975 mg Documented By: SONI Aspirin (Aspirin Enteric Coated 81 Mg Tablet.) 81 mg PO DAILY [facility] Last Admin: 02/10/25 09:22 Dose: 81 mg Documented By: TOMEKA Atorvastatin Calcium (Atorvastatin Calcium 80 Mg Tablet) 80 mg PO DAILY [facility] Last Admin: 02/10/25 09:22 Dose: 80 mg Documented By: TOMEKA Benzonatate (Benzonatate 100 Mg Capsule) 100 mg PO TID PRN PRN Reason: Cough Last Admin: 02/10/25 12:22 Dose: 100 mg Documented By: TOMEKA Calcium Carbonate (Calcium Carbonate 750 Mg Tab.Chew) 750 mg PO Q4H PRN PRN Reason: Heartburn Dextrose (Dextrose 50 % 25 Gm/50 Ml Syringe) 25 gm IVPUSH Q15M PRN; Protocol PRN Reason: per Hypoglycemia Standing Ord. Ferrous Sulfate (Ferrous Sulfate 324 Mg Tablet.) 324 mg PO DAILY [facility] Last Admin: 02/10/25 09:22 Dose: 324 mg Documented By: TOMEKA Finasteride (Finasteride 5 Mg Tablet) 5 mg PO DAILY [facility] Last Admin: 02/10/25 09:22 Dose: 5 mg Documented By: TOMEKA Glucose (Glucose Gel 15 Gm Gel..Gram.) 15 gm PO Q15M PRN; Protocol PRN Reason: per Hypoglycemia Standing Ord. Heparin Sodium (Porcine) (Heparin Sodium,Porcine 5,000 Unit/Ml Vial) 5,000 unit SUBCUT Q8H [facility] On Hold: 02/08/25 08:53 Last Admin: 02/08/25 05:27 Dose: Not Given Documented By: HOLLY Non-Admin Reason: Physician Held Med Ceftriaxone Sodium 1 gm/ (Sodium Chloride) 50 mls @ 100 mls/hr IV Q24H [facility] Last Infusion: 02/09/25 18:51 Dose: Infused Documented By: TOMEKA Caspofungin 50 mg/ Sodium (Chloride) 250 mls @ 250 mls/hr IV Q24H [facility] Last Infusion: 02/09/25 22:21 Dose: Infused Documented By: QUAN Insulin Glargine (Insulin Glargine,Hum.Rec.Anlog 100 Unit/Ml 10 Ml Vial) 24 unit SUBCUT DAILY@1600 [facility] Last Admin: 02/09/25 16:39 Dose: 24 unit Documented By: TOMEKA Insulin Human Lispro (Insulin Lispro 100 Unit/Ml 3 Ml Vial) 0 unit SUBCUT QIDACHS [facility]; Protocol Last Admin: 02/10/25 11:25 Dose: Not Given Documented By: TOMEKA Non-Admin Reason: No Insulin Coverage Levalbuterol HCl (Levalbuterol Hcl 1.25 Mg/3 Ml Vial.Neb) 1.25 mg INHALE RTID [facility] Last Admin: 02/10/25 07:41 Dose: 1.25 mg Documented By: JULIO CESAR Magnesium Hydroxide (Milk Of Magnesia 30 Ml Oral.Susp) 30 ml PO DAILY PRN PRN Reason: Constipation Last Admin: 02/05/25 21:28 Dose: 30 ml Documented By: TRUNG Melatonin (Melatonin 3 Mg Tablet) 6 mg PO BEDTIME PRN PRN Reason: Insomnia Metoprolol Tartrate (Metoprolol Tartrate 25 Mg Tablet) 25 mg PO BID [facility]; Protocol Multivitamins/Vitamin C (Multivitamin Tablet) 1 tab PO DAILY [facility] Last Admin: 02/10/25 09:22 Dose: 1 tab Documented By: TOMEKA Nystatin (Nystatin Powder 15 Gm Bottle) 1 appl TOPICAL TID [facility]; Protocol Last Admin: 02/10/25 09:24 Dose: 1 appl Documented By: TOMEKA Oseltamivir Phosphate (Oseltamivir Phosphate 30 Mg Capsule) 30 mg PO BID [facility] Stop: 02/13/25 21:01 Last Admin: 02/10/25 09:22 Dose: 30 mg Documented By: TOMEKA Sodium Chloride (0.9 % Sodium Chloride Flush 3 Ml Syringe) 3 ml IVFLUSH QSHIFT [facility] Last Admin: 02/10/25 09:24 Dose: 3 ml Documented By: TOMEKA Tamsulosin HCl (Tamsulosin Hcl 0.4 Mg Capsule) 0.4 mg PO BEDTIME [facility] Last Admin: 02/09/25 20:11 Dose: 0.4 mg Documented By: HERBERTHSU Labs 02/10/25 09:07 02/10/25 09:07 Labs: Laboratory Results - last 24 hr 02/09/25 02/09/25 02/10/25 15:51 20:33 07:14 Anion Gap Estim Creat Clear Calc Estimated GFR POC Glucose 196 H 233 H 106 Random Glucose Calcium 02/10/25 02/10/25 09:07 11:14 Anion Gap 14 Estim Creat Clear Calc 46.1 Estimated GFR > 60 POC Glucose 125 H Random Glucose 141 H Calcium 9.0 Microbiology Microbiology Results: Microbiology 02/08/25 20:38 Blood Culture - Preliminary Blood - Venous No growth after 24 hours. 02/08/25 20:38 Blood Culture - Preliminary Blood - Venous No growth after 24 hours. Assessment and Plan (1) Hematuria: Status: Acute Plan 79M PMH DM, hld, glaucoma, anemia, presented with fall, found to have fever and uti sepsis (tachypnea, tachycardia) due to UTI due to angel has fevers, tachycardia Overnight also received fluid, Tylenol, also blood culture was sent. plan: rocephin, diflucan,tamiflu added res panel,cxr since has cough (previous cxr-seems negative) repeat blood cultures pending gu appreciated - chronic bialteral hydro -continue flomax, added proscar, placed ramos for 1 week- outpatient voiding trial. ID eval: Recommended to continue caspofungin for 10 days Continue cephalosporin for day 7/14-21 days. Gross hematuria with blood clots: Hold heparin CBI We will continue to monitor Creatinine so far seems stable around 1.2 range sinus tachycardia -multifactorial (see above-fever ,spsis ) Seems improving not hypoxic currently uti as above cxr:1. Mild patchy left lung consolidative opacities. echo : 1. Normal LV ejection fraction 55-60% 2. Cardiac valvular Dopplers within normal limits 3. Mildly dilated left atrium 4. No gross pericardial effusion plan: continue caspofungin/ceftriaxone Tachycardia improving, Continue to monitor on tele [place] [facility] from sepsis and obstructive Creatinine 1.2 range, of fluids dm insulin dvt prophylaxis - hep sq full code reason for continued hospitalization: [place],tachycardia ongoing, watching for response to antifungal, has gross hematuria-need CBI and monitoring until resolution of hematuria, as well as H and H monitoring. Quality Stroke Does the patient have a stroke diagnosis?: No VTE Prior VTE?: No VTE Risk Level:: Medical - moderate - high VTE Device Contraindication: Treatment Not Indicated VTE Drug Contraindication: N/A - Med Ordered
[2025-02-10 15:34] LABS: Glucose, Whole Blood 158 mg/dL (60-115)
[2025-02-10] MEDS: Insulin Glargine,Hum.rec.anlog 100 UNIT/ML 10 ML VIAL 24 UNIT SUBCUT (16:19)
[2025-02-10 20:34] LABS: Glucose, Whole Blood 167 mg/dL (60-115)
[2025-02-11] VITALS (9 sets, daily range): BP systolic 113–130; BP diastolic 56–66; PULSE 78–108; RESP 16–18; TEMP 36.3–37; O2SAT 96–100
[2025-02-11 07:06] LABS: Glucose, Whole Blood 83 mg/dL (60-115)
[2025-02-11 07:34] LABS: Hematocrit 31.1 % (42.0-52.0); Hemoglobin 9.8 g/dl (14.0-18.0)
[2025-02-11 07:50] LABS: Anion Gap 10 (12-20); Blood Urea Nitrogen 21 mg/dL (9-16); Calcium 8.8 mg/dL (8.4-10.2); Carbon Dioxide 23 mmol/L (22-29); Chloride 109 mmol/L (96-108); Creatinine Clr Calc Pharmacy 51.7; Estimated Glomerular Filt Rate > 60; Potassium 4.1 mmol/L (3.3-5.1); Sodium 138 mmol/L (135-145)
[2025-02-11] MEDS: Ferrous Sulfate 324 MG TABLET.DR PO (08:52)
[2025-02-11] MEDS: Aspirin Enteric Coated 81 MG TABLET.DR PO (08:52)
[2025-02-11] MEDS: 0.9 % Sodium Chloride Flush 3 ML SYRINGE IVFLUSH ×3 (08:53→21:43)
--- NOTE | 2025-02-11 10:36 | MHC.CM.PN ---
Per ROUNDS discussion, Patient is not yet medically cleared for dc (Still having Hematuria); PT is recommending home with services and CM will continue to follow.
--- NOTE | 2025-02-11 11:11 | MHC.CLN ---
F/U PO INTAKE 75-100% DIET RX: 2000 KCALS DM ENSURE MAX BID IN PLACE PROVIDES 300 KCALS, 60G PROTEIN SUPPLEMENT TO PROMOTE WOUND HEALING MONITOR PO INTAKE AND ENCOURAGE SUPPLEMENTS
[2025-02-11 11:17] LABS: Glucose, Whole Blood 179 mg/dL (60-115)
--- NOTE | 2025-02-11 13:04 | P.PNID_ITS ---
Subjective Subjective Date of Service: 02/11/25 Critical Care Time (minutes): 15 Comment: He is on Ceftriaxone and Caspofungin,day 4/10 as well as Tamiflu. Would switch to po cephalosporin for total 10 d and finish course of caspofungin and tamiflu. Objective Data Labs 02/11/25 07:04 02/11/25 07:04 Labs: Laboratory Results - last 24 hr 02/10/25 02/10/25 02/11/25 15:29 19:45 06:59 Hgb Hct Sodium Potassium Chloride Carbon Dioxide Anion Gap BUN Creatinine Estim Creat Clear Calc Estimated GFR POC Glucose 158 H 167 H 83 Random Glucose Calcium 02/11/25 02/11/25 07:04 11:13 Hgb 9.8 L Hct 31.1 L Sodium 138 Potassium 4.1 Chloride 109 H Carbon Dioxide 23 Anion Gap 10 L BUN 21 H Creatinine 0.99 Estim Creat Clear Calc 51.7 Estimated GFR > 60 POC Glucose 179 H Random Glucose 82 Calcium 8.8 Microbiology Microbiology Results: Microbiology 02/08/25 20:38 Blood - Venous Blood Culture - Preliminary No growth after 48 hours. 02/08/25 20:38 Blood - Venous Blood Culture - Preliminary No growth after 48 hours. 02/06/25 21:54 Blood - Venous Blood Culture - Preliminary No growth after 48 hours. 02/06/25 22:02 Blood - Venous Blood Culture - Preliminary No growth after 48 hours. 02/02/25 18:11 Blood - Venous Blood Culture - Final No growth after 5 days. 02/02/25 18:11 Blood - Venous Blood Culture - Final No growth after 5 days. 02/04/25 10:23 Urine clean catch Urine Culture - Final Becky lusitaniae 02/02/25 18:24 Urine clean catch - Clean Catch Midstream Urine Culture - Final Becky lusitaniae Coag negative Staphylococcus Physical Exam 2 Vital Signs: Vital Signs: Last Vital Signs Temp 97.4 F 02/11/25 11:58 Pulse 91 02/11/25 13:03 Resp 18 02/11/25 13:03 BP 123/57 L 02/11/25 11:58 Pulse Ox 97 02/11/25 11:58 O2 Del Method Room Air 02/11/25 11:58 O2 Flow Rate 2 02/09/25 07:07 BMI result Body Mass Index 26.9 Assessment and Plan Time Spent With Patient Time: Total time managing care of this patient today ____ minutes.
--- NOTE | 2025-02-11 14:37 | P.PNID_ITS ---
Subjective Subjective Date of Service: 02/13/25 Critical Care Time (minutes): 15 Comment: He has no complaints Objective Data Labs 02/12/25 18:20 02/13/25 06:38 Labs: Laboratory Results - last 24 hr 02/10/25 02/10/25 02/11/25 15:29 19:45 06:59 Hgb Hct Sodium Potassium Chloride Carbon Dioxide Anion Gap BUN Creatinine Estim Creat Clear Calc Estimated GFR POC Glucose 158 H 167 H 83 Random Glucose Calcium 02/11/25 02/11/25 07:04 11:13 Hgb 9.8 L Hct 31.1 L Sodium 138 Potassium 4.1 Chloride 109 H Carbon Dioxide 23 Anion Gap 10 L BUN 21 H Creatinine 0.99 Estim Creat Clear Calc 51.7 Estimated GFR > 60 POC Glucose 179 H Random Glucose 82 Calcium 8.8 Microbiology Microbiology Results: Microbiology 02/08/25 20:38 Blood - Venous Blood Culture - Preliminary No growth after 48 hours. 02/08/25 20:38 Blood - Venous Blood Culture - Preliminary No growth after 48 hours. 02/06/25 21:54 Blood - Venous Blood Culture - Preliminary No growth after 48 hours. 02/06/25 22:02 Blood - Venous Blood Culture - Preliminary No growth after 48 hours. 02/02/25 18:11 Blood - Venous Blood Culture - Final No growth after 5 days. 02/02/25 18:11 Blood - Venous Blood Culture - Final No growth after 5 days. 02/04/25 10:23 Urine clean catch Urine Culture - Final Becky lusitaniae 02/02/25 18:24 Urine clean catch - Clean Catch Midstream Urine Culture - Final Becky lusitaniae Coag negative Staphylococcus Physical Exam 2 Vital Signs: Vital Signs: Last Vital Signs Temp 97.4 F 02/11/25 11:58 Pulse 91 02/11/25 13:03 Resp 18 02/11/25 13:03 BP 123/57 L 02/11/25 11:58 Pulse Ox 97 02/11/25 11:58 O2 Del Method Room Air 02/11/25 11:58 O2 Flow Rate 2 02/09/25 07:07 BMI result Body Mass Index 26.9 Const: General: cooperative HEENT: Head: Yes normal to inspection Face and sinus: Yes normal facial exam Mouth: Normal oral and palatal mucosa present Teeth and gingiva: d entition normal Eyes: General: appearance normal, both eyes and all related structures P upils: Equal, round and reactive pupils present Resp: Effort & Inspection: normal respiratory effort Cardio: Rate: regular rate Rhythm: regular rhythm GI: Palpation (GI): Soft to palpation and nontender : General: Yes no CVA tenderness Back/Spine/Pelvis: Back: no CVA tenderness Skin: General skin exam: no rashes or lesions noted Neuro: General: moves all extremities Cranial nerves: Yes Equal, round and reactive pupils present Extrem: General: Yes normal to inspection Psych: Appearance: grossly normal Assessment and Plan Assessment and plan (1) Urinary retention with incomplete bladder emptying: Problem details: He is feeling better Status: Acute Assessment and Plan: He is done 10 d CTX today. Finish Caspfungin on 02/17 (2) UTI (urinary tract infection): Status: Acute Time Spent With Patient Time: Total time managing care of this patient today ____ minutes.
--- NOTE | 2025-02-11 14:56 | HO.PM.IMPN ---
Subjective Subjective Date of Service: 02/11/25 Interval History: Hematuria Review of Systems Still has pinkish urine, no clots no new events Review of Systems: Yes all other systems are reviewed and are negative Physical Exam Exam: Exam: Appearance: Alert.? Oriented X3.? cvs: rrr, [id number] , no murmur res: air entry improving , no rales , mild rhonchi abd: no rebound or guarding ,nt, bs present. ext pulses present , no cyanosis . : hematuria improving -more pinkish urine neuro: axo3 , nonfocal. Vital Signs: Vital Signs: Last Vital Signs Temp 97.4 F 02/11/25 11:58 Pulse 91 02/11/25 13:03 Resp 18 02/11/25 13:03 BP 123/57 L 02/11/25 11:58 Pulse Ox 97 02/11/25 11:58 O2 Del Method Room Air 02/11/25 11:58 O2 Flow Rate 2 02/09/25 07:07 BMI result Body Mass Index 26.9 Objective Data Active Medications Acetaminophen (Acetaminophen 325 Mg Tablet) 975 mg PO Q6H PRN PRN Reason: Pain, Mild 1-3,fever,headache Last Admin: 02/07/25 15:37 Dose: 975 mg Documented By: SONI Aspirin (Aspirin Enteric Coated 81 Mg Tablet.) 81 mg PO DAILY [facility] Last Admin: 02/11/25 08:52 Dose: 81 mg Documented By: DALE Atorvastatin Calcium (Atorvastatin Calcium 80 Mg Tablet) 80 mg PO DAILY [facility] Last Admin: 02/11/25 08:52 Dose: 80 mg Documented By: DALE Benzonatate (Benzonatate 100 Mg Capsule) 100 mg PO TID PRN PRN Reason: Cough Last Admin: 02/10/25 20:57 Dose: 100 mg Documented By: GARY Comments: requested for cough Calcium Carbonate (Calcium Carbonate 750 Mg Tab.Chew) 750 mg PO Q4H PRN PRN Reason: Heartburn Dextrose (Dextrose 50 % 25 Gm/50 Ml Syringe) 25 gm IVPUSH Q15M PRN; Protocol PRN Reason: per Hypoglycemia Standing Ord. Ferrous Sulfate (Ferrous Sulfate 324 Mg Tablet.) 324 mg PO DAILY [facility] Last Admin: 02/11/25 08:52 Dose: 324 mg Documented By: DALE Finasteride (Finasteride 5 Mg Tablet) 5 mg PO DAILY [facility] Last Admin: 02/11/25 08:52 Dose: 5 mg Documented By: DALE Glucose (Glucose Gel 15 Gm Gel..Gram.) 15 gm PO Q15M PRN; Protocol PRN Reason: per Hypoglycemia Standing Ord. Heparin Sodium (Porcine) (Heparin Sodium,Porcine 5,000 Unit/Ml Vial) 5,000 unit SUBCUT Q8H [facility] On Hold: 02/08/25 08:53 Last Admin: 02/08/25 05:27 Dose: Not Given Documented By: HOLLY Non-Admin Reason: Physician Held Med Ceftriaxone Sodium 1 gm/ (Sodium Chloride) 50 mls @ 100 mls/hr IV Q24H [facility] Last Infusion: 02/10/25 18:43 Dose: Infused Documented By: TOMEKA Caspofungin 50 mg/ Sodium (Chloride) 250 mls @ 250 mls/hr IV Q24H [facility] Last Infusion: 02/10/25 21:57 Dose: Infused Documented By: GARY Insulin Glargine (Insulin Glargine,Hum.Rec.Anlog 100 Unit/Ml 10 Ml Vial) 24 unit SUBCUT DAILY@1600 [facility] Last Admin: 02/10/25 16:19 Dose: 24 unit Documented By: TOMEKA Insulin Human Lispro (Insulin Lispro 100 Unit/Ml 3 Ml Vial) 0 unit SUBCUT QIDACHS [facility]; Protocol Last Admin: 02/11/25 11:25 Dose: 2 unit Documented By: DALE Levalbuterol HCl (Levalbuterol Hcl 1.25 Mg/3 Ml Vial.Neb) 1.25 mg INHALE RTID [facility] Last Admin: 02/11/25 13:01 Dose: 1.25 mg Documented By: SHASHI Magnesium Hydroxide (Milk Of Magnesia 30 Ml Oral.Susp) 30 ml PO DAILY PRN PRN Reason: Constipation Last Admin: 02/05/25 21:28 Dose: 30 ml Documented By: TRUNG Melatonin (Melatonin 3 Mg Tablet) 6 mg PO BEDTIME PRN PRN Reason: Insomnia Metoprolol Tartrate (Metoprolol Tartrate 25 Mg Tablet) 25 mg PO BID [facility]; Protocol Last Admin: 02/11/25 08:52 Dose: 25 mg Documented By: DALE Multivitamins/Vitamin C (Multivitamin Tablet) 1 tab PO DAILY [facility] Last Admin: 02/11/25 08:52 Dose: 1 tab Documented By: DALE Nystatin (Nystatin Powder 15 Gm Bottle) 1 appl TOPICAL TID [facility]; Protocol Last Admin: 02/10/25 20:58 Dose: 1 appl Documented By: GARY Oseltamivir Phosphate (Oseltamivir Phosphate 30 Mg Capsule) 30 mg PO BID [facility] Stop: 02/13/25 21:01 Last Admin: 02/11/25 08:52 Dose: 30 mg Documented By: DALE Sodium Chloride (0.9 % Sodium Chloride Flush 3 Ml Syringe) 3 ml IVFLUSH QSHIFT [facility] Last Admin: 02/11/25 08:53 Dose: 3 ml Documented By: DALE Tamsulosin HCl (Tamsulosin Hcl 0.4 Mg Capsule) 0.4 mg PO BEDTIME [facility] Last Admin: 02/10/25 20:56 Dose: 0.4 mg Documented By: GARY Labs 02/11/25 07:04 02/11/25 07:04 Labs: Laboratory Results - last 24 hr 02/10/25 02/10/25 02/11/25 15:29 19:45 06:59 Anion Gap Estim Creat Clear Calc Estimated GFR POC Glucose 158 H 167 H 83 Random Glucose Calcium 02/11/25 02/11/25 07:04 11:13 Anion Gap 10 L Estim Creat Clear Calc 51.7 Estimated GFR > 60 POC Glucose 179 H Random Glucose 82 Calcium 8.8 Microbiology Microbiology Results: Microbiology 02/08/25 20:38 Blood Culture - Preliminary Blood - Venous No growth after 48 hours. 02/08/25 20:38 Blood Culture - Preliminary Blood - Venous No growth after 48 hours. Assessment and Plan (1) Hematuria: Status: Acute Plan 79M PMH DM, hld, glaucoma, anemia, presented with fall, found to have fever and uti sepsis (tachypnea, tachycardia) due to UTI due to angel has fevers, tachycardia Overnight also received fluid, Tylenol, also blood culture was sent. plan: rocephin, diflucan,tamiflu added res panel,cxr since has cough (previous cxr-seems negative) repeat blood cultures pending gu appreciated - chronic bialteral hydro -continue flomax, added proscar, placed ramos for 1 week- outpatient voiding trial. ID eval: Recommended to continue caspofungin for 10 days Continue cephalosporin for day 7/14-21 days. Gross hematuria with blood clots: Hold heparin CBI We will continue to monitor Creatinine so far seems stable around 1.2 range sinus tachycardia -multifactorial (see above-fever ,spsis ) Seems improving not hypoxic currently uti as above cxr:1. Mild patchy left lung consolidative opacities. echo : 1. Normal LV ejection fraction 55-60% 2. Cardiac valvular Dopplers within normal limits 3. Mildly dilated left atrium 4. No gross pericardial effusion plan: continue caspofungin/ceftriaxone Tachycardia improving, Continue to monitor on tele SANDY ATN from sepsis and obstructive Creatinine 1.2 range, of fluids dm insulin dvt prophylaxis - hep sq full code reason for continued hospitalization: hematuria-need CBI and monitoring until resolution of hematuria, h/h , renal function electrolyte monitoring . Quality Stroke Does the patient have a stroke diagnosis?: No VTE Prior VTE?: No VTE Risk Level:: Medical - moderate - high VTE Device Contraindication: Treatment Not Indicated VTE Drug Contraindication: N/A - Med Ordered
[2025-02-11 16:19] LABS: Glucose, Whole Blood 167 mg/dL (60-115)
[2025-02-11] MEDS: Insulin Glargine,Hum.rec.anlog 100 UNIT/ML 10 ML VIAL 24 UNIT SUBCUT (16:33)
--- NOTE | 2025-02-11 17:27 | PC.NURSE ---
Received a total of 9 bags of NS for CBI, clear to light pink noted. Per attending CBI was clamped at 1700
[2025-02-11 20:28] LABS: Glucose, Whole Blood 207 mg/dL (60-115)
[2025-02-12] VITALS (8 sets, daily range): BP systolic 103–134; BP diastolic 53–71; PULSE 75–112; RESP 16–20; TEMP 36.3–36.8; O2SAT 94–100
[2025-02-12 07:08] LABS: Glucose, Whole Blood 143 mg/dL (60-115)
[2025-02-12] MEDS: Aspirin Enteric Coated 81 MG TABLET.DR PO (08:40)
[2025-02-12] MEDS: Ferrous Sulfate 324 MG TABLET.DR PO (08:40)
[2025-02-12] MEDS: Milk of Magnesia 30 ML ORAL.SUSP PO (08:44)
[2025-02-12] MEDS: 0.9 % Sodium Chloride Flush 3 ML SYRINGE IVFLUSH ×2 (08:49→20:37)
[2025-02-12 11:06] LABS: Glucose, Whole Blood 177 mg/dL (60-115)
--- NOTE | 2025-02-12 11:09 | PC.NURSE ---
pt still has hematuria this morning. Dr Lanza seen and eval pt this morning. messeage sent to DR Andersen per Dr Lanza request regarding hematuria. Awaiting for Dr Andersen response. [address] Caruso still intact, pt has mild pinching pain t R groin, cold pack applied and prn tylenol given per may w improvement.
--- NOTE | 2025-02-12 12:11 | PC.NURSE ---
Addendum entered by Melina Mckenzie RN 02/12/25 14:58: picture sent to Dr Andersen- Looks ok. No real clots. Leave clamped . thus, cont to monitor and keeps CDI clamped Addendum entered by Melina Mckenzie RN 02/12/25 13:34: CBI clamped at 1320. red tinged/punch color. Dr Andersen stopped by and eval pt. CBI clamped per urologist verbal order, Dr Lanza made aware. will send a picture via tiger text later for his urine color to Dr Andersen. Original Note: MD Lanza ok to resume CBI now, 1st bag hung
--- NOTE | 2025-02-12 15:49 | HO.WOUND ---
Wound Consult: Follow up 79yr old? [place] [facility] [place] See progress notes and H&P for detailed history.? Wound consult follow up for Redness to rectal area.? Patient agreeable to assessment and photo documentation.? Chart review reveals prior to admission patient was down on buttock area for 5+hours after not being able to get up. Patient denies pain to the area. Sacrum 02/04/25 Sacrum 02/12/25 Etiology: REsolved DTI continues with resolving MASD - Previously Deep Tissue Injury and MASD ??Present on Admission Wound Bed: dark red light purple intact blanchable tissue with mirrored edges consistent with chronic MASD noted. Of note patient was incontinent of small loose stool trapped with in the gluteal fold - care provided - patient unaware of the leaked stool. Drainage / Odor: None noted Edges: mirrored ? [place] wound: Intact No Induration, Fluctuance or Warmth noted Pain: denies Goals of Treatment: ? Off load pressure and Triad to allow for protection and healing - Waffle cushion in use Triad to provide an occlusive dressing, to allow moist healing with absorption of mild exudate, to minimize contamination of urine/stool or bacteria, and to soothe and protect [place] wound skin. No new topical recommendations needed. Recommendations: 1. Turn and Reposition every 2 hours and as needed for patient comfort.? Use pillows or wedges to support off loading positions. 2. Off Load all bony prominences with use of pillows and heel boots if needed.? Apply Preventative foams where needed. ? 3. Monitor for incontinence and moisture control, use barrier creams when needed for prevention and treatment. 4. Provide adequate and supplemental nutrition.? 5. Continue low air loss mattress. 6. When applicable maintain blood glucose levels per Providers order. Sacrum / Coccyx - Off Load Pressure with Q2 hr turns and use of pillows - Cleanse with PH balance spray or wipes, pat dry. ?Apply thin layer of Triad to wound bed - only pat and dab no scrub and rub when soiling occurs. Reapply thin layer PRN after each episode of incontinence. ? Re-consult wound care Nurse for wound deterioration or wound changes.
--- NOTE | 2025-02-12 16:03 | P.PNUR_ITS ---
Subjective Subjective Date of Service: 02/12/25 Interval history: ATSP: Hematuria Reviewed Minimal clots Did have difficulty with Caruso catheter placement Remains on aspirin and heparin Would leave CBI clamped Physical Exam 2 Vital Signs: Vital Signs: Last Vital Signs Temp 97.6 F 02/12/25 15:35 Pulse 101 H 02/12/25 15:35 Resp 20 02/12/25 15:35 BP 109/57 L 02/12/25 15:35 Pulse Ox 100 02/12/25 15:35 O2 Del Method Room Air 02/12/25 15:35 O2 Flow Rate 2 02/09/25 07:07 BMI result Body Mass Index 26.9 Const: General: cooperative, healthy appearing, comfortable and no acute distress Orientation/consciousness: patient oriented x3 HEENT: Face and sinus: Yes normal facial exam Mouth: moist mucous membranes Neck: Neck: Yes normal visual inspection, Yes full ROM and Yes trachea midline Chest: Chest palpation & inspection: normal inspection of the chest Resp: Effort & Inspection: normal respiratory effort, able to speak in complete sentences and no respiratory distress GI: Inspection: Yes normal to inspection Back/Spine/Pelvis: Cervical Spine: normal cervical lordosis Thoracic/Lumbar Spine: thoracic and lumbar spine normal to inspection Skin: General skin exam: no rashes or lesions noted Neuro: General: patient oriented x3, tone normal and moves all extremities Extrem: General: Yes normal to inspection and Yes capillary refill normal Urology Results Labs 02/11/25 07:04 02/11/25 07:04 Labs: Laboratory Results - last 24 hr 02/11/25 02/11/25 02/12/25 16:13 20:23 07:03 POC Glucose 167 H 207 H 143 H 02/12/25 11:03 POC Glucose 177 H Progress Note: A&P Assessment and plan (1) Bladder cancer: Status: Acute (2) Hydronephrosis: Status: Acute (3) Hematuria: Status: Acute Plan Voiding trial next week Time Spent With Patient Time: Total time managing care of this patient today ____ minutes. Progress Note: Quality Stroke Does the patient have a stroke diagnosis?: No
--- NOTE | 2025-02-12 16:17 | HO.PM.IMPN ---
Subjective Subjective Date of Service: 02/14/25 Interval History: Hematuria Review of Systems Somewhat hematuria clearing, clamped by urology this afternoon no fevers Review of Systems: Yes all other systems are reviewed and are negative Physical Exam Vital Signs: Vital Signs: Last Vital Signs Temp 97.6 F 02/12/25 15:35 Pulse 101 H 02/12/25 15:35 Resp 20 02/12/25 15:35 BP 109/57 L 02/12/25 15:35 Pulse Ox 100 02/12/25 15:35 O2 Del Method Room Air 02/12/25 15:35 O2 Flow Rate 2 02/09/25 07:07 BMI result Body Mass Index 26.9 Objective Data Active Medications Acetaminophen (Acetaminophen 325 Mg Tablet) 975 mg PO Q6H PRN PRN Reason: Pain, Mild 1-3,fever,headache Last Admin: 02/12/25 08:40 Dose: 975 mg Documented By: SONI Aspirin (Aspirin Enteric Coated 81 Mg Tablet.) 81 mg PO DAILY [facility] Last Admin: 02/12/25 08:40 Dose: 81 mg Documented By: SONI Atorvastatin Calcium (Atorvastatin Calcium 80 Mg Tablet) 80 mg PO DAILY [facility] Last Admin: 02/12/25 08:40 Dose: 80 mg Documented By: SONI Benzonatate (Benzonatate 100 Mg Capsule) 100 mg PO TID PRN PRN Reason: Cough Last Admin: 02/10/25 20:57 Dose: 100 mg Documented By: GARY Comments: requested for cough Calcium Carbonate (Calcium Carbonate 750 Mg Tab.Chew) 750 mg PO Q4H PRN PRN Reason: Heartburn Dextrose (Dextrose 50 % 25 Gm/50 Ml Syringe) 25 gm IVPUSH Q15M PRN; Protocol PRN Reason: per Hypoglycemia Standing Ord. Ferrous Sulfate (Ferrous Sulfate 324 Mg Tablet.) 324 mg PO DAILY [facility] Last Admin: 02/12/25 08:40 Dose: 324 mg Documented By: SONI Finasteride (Finasteride 5 Mg Tablet) 5 mg PO DAILY [facility] Last Admin: 02/12/25 08:40 Dose: 5 mg Documented By: SONI Glucose (Glucose Gel 15 Gm Gel..Gram.) 15 gm PO Q15M PRN; Protocol PRN Reason: per Hypoglycemia Standing Ord. Heparin Sodium (Porcine) (Heparin Sodium,Porcine 5,000 Unit/Ml Vial) 5,000 unit SUBCUT Q8H [facility] On Hold: 02/08/25 08:53 Last Admin: 02/08/25 05:27 Dose: Not Given Documented By: HOLLY Non-Admin Reason: Physician Held Med Ceftriaxone Sodium 1 gm/ (Sodium Chloride) 50 mls @ 100 mls/hr IV Q24H [facility] Last Infusion: 02/11/25 18:47 Dose: Infused Documented By: DALE Caspofungin 50 mg/ Sodium (Chloride) 250 mls @ 250 mls/hr IV Q24H [facility] Last Infusion: 02/11/25 22:30 Dose: Infused Documented By: LISA Insulin Glargine (Insulin Glargine,Hum.Rec.Anlog 100 Unit/Ml 10 Ml Vial) 24 unit SUBCUT DAILY@1600 [facility] Last Admin: 02/11/25 16:33 Dose: 24 unit Documented By: DALE Insulin Human Lispro (Insulin Lispro 100 Unit/Ml 3 Ml Vial) 0 unit SUBCUT QIDACHS [facility]; Protocol Last Admin: 02/12/25 12:05 Dose: 2 unit Documented By: SONI Levalbuterol HCl (Levalbuterol Hcl 1.25 Mg/3 Ml Vial.Neb) 1.25 mg INHALE RTID [facility] Last Admin: 02/12/25 13:05 Dose: 1.25 mg Documented By: SHASHI Magnesium Hydroxide (Milk Of Magnesia 30 Ml Oral.Susp) 30 ml PO DAILY PRN PRN Reason: Constipation Last Admin: 02/12/25 08:44 Dose: 30 ml Documented By: SONI Melatonin (Melatonin 3 Mg Tablet) 6 mg PO BEDTIME PRN PRN Reason: Insomnia Metoprolol Tartrate (Metoprolol Tartrate 25 Mg Tablet) 25 mg PO BID [facility]; Protocol Last Admin: 02/12/25 08:40 Dose: 25 mg Documented By: SONI Multivitamins/Vitamin C (Multivitamin Tablet) 1 tab PO DAILY [facility] Last Admin: 02/12/25 08:40 Dose: 1 tab Documented By: SONI Nystatin (Nystatin Powder 15 Gm Bottle) 1 appl TOPICAL TID [facility]; Protocol Last Admin: 02/12/25 08:52 Dose: 1 appl Documented By: SONI Oseltamivir Phosphate (Oseltamivir Phosphate 30 Mg Capsule) 30 mg PO BID [facility] Stop: 02/13/25 21:01 Last Admin: 02/12/25 08:40 Dose: 30 mg Documented By: SONI Sodium Chloride (0.9 % Sodium Chloride Flush 3 Ml Syringe) 3 ml IVFLUSH QSHIFT [facility] Last Admin: 02/12/25 08:49 Dose: 3 ml Documented By: SONI Tamsulosin HCl (Tamsulosin Hcl 0.4 Mg Capsule) 0.4 mg PO BEDTIME [facility] Last Admin: 02/11/25 21:28 Dose: 0.4 mg Documented By: RENÉSJU Labs 02/14/25 06:20 02/14/25 06:20 Labs: Laboratory Results - last 24 hr 02/11/25 02/11/25 02/12/25 16:13 20:23 07:03 POC Glucose 167 H 207 H 143 H 02/12/25 11:03 POC Glucose 177 H Microbiology Microbiology Results: Microbiology 02/06/25 21:54 Blood Culture - Final Blood - Venous No growth after 5 days. 02/06/25 22:02 Blood Culture - Final Blood - Venous No growth after 5 days. Assessment and Plan (1) Hematuria: Status: Acute Plan 79M PMH DM, hld, glaucoma, anemia, presented with fall, found to have fever and uti sepsis (tachypnea, tachycardia) due to UTI due to angel Fever improved, tachycardia improving Repeat Fluid culture negative at 48 hours Positive for flu A plan: ceftin , caspofungin,tamiflu gu appreciated - chronic bialteral hydro -continue flomax, added proscar, placed ramos for 1 week- outpatient voiding trial. ID eval: Recommended to continue caspofungin for day 5/10. Continue cephalosporin for day 9/?( intial id note says 14-21 days ,last note recomeneded for 10 days). Tamiflu dose /. Gross hematuria with blood clots: Hold heparin CBI We will continue to monitor Creatinine so far seems stable around 1.2 range sinus tachycardia -multifactorial (see above-fever ,spsis ) Seems improving not hypoxic currently uti as above cxr:1. Mild patchy left lung consolidative opacities. echo : 1. Normal LV ejection fraction 55-60% 2. Cardiac valvular Dopplers within normal limits 3. Mildly dilated left atrium 4. No gross pericardial effusion plan: continue caspofungin/ceftriaxone Tachycardia improving, Continue to monitor on tele [place]Y ATN from sepsis and obstructive Creatinine 1.2 range, of fluids dm insulin dvt prophylaxis - hep sq full code reason for continued hospitalization: hematuria-need CBI and monitoring until resolution of hematuria, h/h , renal function electrolyte monitoring Quality Stroke Does the patient have a stroke diagnosis?: No VTE Prior VTE?: No VTE Risk Level:: Medical - moderate - high VTE Device Contraindication: Treatment Not Indicated VTE Drug Contraindication: N/A - Med Ordered
[2025-02-12 16:39] LABS: Glucose, Whole Blood 174 mg/dL (60-115)
[2025-02-12] MEDS: Insulin Glargine,Hum.rec.anlog 100 UNIT/ML 10 ML VIAL 24 UNIT SUBCUT (17:04)
[2025-02-12 19:02] LABS: Hematocrit 31.3 % (42.0-52.0); Hemoglobin 9.7 g/dl (14.0-18.0); Mean Corpuscular HGB Conc 31.0 g/dl (31.0-36.0); Mean Corpuscular Hemoglobin 28.4 pg (27.0-33.0); Mean Corpuscular Volume 91.5 fL (80.0-98.0); NRBC Abs Auto 0.000 X10*3/uL (0.0-0.012); NRBC Pct Auto 0.0 /100WBC (0.0-0.2); Platelet Count 249 X10*3/uL (160-400); Red Blood Count 3.42 X10*6/uL (4.60-5.80); White Blood Count 6.7 X10*3/uL (4.8-10.8)
[2025-02-12 20:38] LABS: Glucose, Whole Blood 158 mg/dL (60-115)
[2025-02-13] VITALS (8 sets, daily range): BP systolic 111–125; BP diastolic 56–65; PULSE 71–107; RESP 16–18; TEMP 36.3–36.8; O2SAT 95–97
[2025-02-13 07:15] LABS: Glucose, Whole Blood 117 mg/dL (60-115)
[2025-02-13 07:28] LABS: Anion Gap 11 (12-20); Blood Urea Nitrogen 27 mg/dL (9-16); Calcium 9.2 mg/dL (8.4-10.2); Carbon Dioxide 21 mmol/L (22-29); Chloride 108 mmol/L (96-108); Creatinine Clr Calc Pharmacy 53.3; Estimated Glomerular Filt Rate > 60; Potassium 4.3 mmol/L (3.3-5.1); Sodium 136 mmol/L (135-145)
[2025-02-13] MEDS: Aspirin Enteric Coated 81 MG TABLET.DR PO (08:10)
[2025-02-13] MEDS: Milk of Magnesia 30 ML ORAL.SUSP PO (08:10)
[2025-02-13] MEDS: Ferrous Sulfate 324 MG TABLET.DR PO (08:10)
[2025-02-13] MEDS: 0.9 % Sodium Chloride Flush 3 ML SYRINGE IVFLUSH ×2 (08:12→15:39)
--- NOTE | 2025-02-13 10:13 | MHC.CLN ---
F/U PO INTAKE 75-100% DIET RX: 2000 DM ENSURE MAX BID IN PLACE PROVIDES 300 KCALS, 60G PROTEIN SUPPLEMENT TO PROMOTE WOUND HEALING CONTINUE TO MONITOR PO INTAKE AND ENCOURAGE SUPPLEMENTS
[2025-02-13 11:01] LABS: Glucose, Whole Blood 224 mg/dL (60-115)
--- NOTE | 2025-02-13 11:10 | MHC.CM.PN ---
PT is recommending Home with services. Patient is not yet medically cleared for dc (I4 more days of IV Caspofungin and still having Hematuria);CM will continue to follow.
--- NOTE | 2025-02-13 11:11 | HO.PM.IMPN ---
Subjective Subjective Date of Service: 02/13/25 Interval History: hematuria Physical Exam Vital Signs: Vital Signs: Last Vital Signs Temp 98.3 F 02/13/25 10:51 Pulse 103 H 02/13/25 10:51 Resp 16 02/13/25 10:51 BP 112/56 L 02/13/25 10:51 Pulse Ox 96 02/13/25 10:51 O2 Del Method Room Air 02/13/25 10:51 O2 Flow Rate 2 02/09/25 07:07 BMI result Body Mass Index 26.9 Const: General: cooperative, healthy appearing, comfortable and no acute distress Orientation/consciousness: patient oriented x3 HEENT: Face and sinus: Yes normal facial exam Mouth: moist mucous membranes Neck: Neck: Yes normal visual inspection, Yes full ROM and Yes trachea midline Chest: Chest palpation & inspection: normal inspection of the chest Resp: Effort & Inspection: normal respiratory effort, able to speak in complete sentences and no respiratory distress GI: Inspection: Yes normal to inspection Back/Spine/Pelvis: Cervical Spine: normal cervical lordosis Thoracic/Lumbar Spine: thoracic and lumbar spine normal to inspection Skin: General skin exam: no rashes or lesions noted Neuro: General: patient oriented x3, tone normal and moves all extremities Extrem: General: Yes normal to inspection and Yes capillary refill normal Objective Data Active Medications Acetaminophen (Acetaminophen 325 Mg Tablet) 975 mg PO Q6H PRN PRN Reason: Pain, Mild 1-3,fever,headache Last Admin: 02/13/25 02:01 Dose: 975 mg Documented By: MIGUEL Aspirin (Aspirin Enteric Coated 81 Mg Tablet.) 81 mg PO DAILY [facility] Last Admin: 02/13/25 08:10 Dose: 81 mg Documented By: SONI Atorvastatin Calcium (Atorvastatin Calcium 80 Mg Tablet) 80 mg PO DAILY [facility] Last Admin: 02/13/25 08:13 Dose: 80 mg Documented By: SONI Benzonatate (Benzonatate 100 Mg Capsule) 100 mg PO TID PRN PRN Reason: Cough Last Admin: 02/10/25 20:57 Dose: 100 mg Documented By: GARY Comments: requested for cough Calcium Carbonate (Calcium Carbonate 750 Mg Tab.Chew) 750 mg PO Q4H PRN PRN Reason: Heartburn Dextrose (Dextrose 50 % 25 Gm/50 Ml Syringe) 25 gm IVPUSH Q15M PRN; Protocol PRN Reason: per Hypoglycemia Standing Ord. Ferrous Sulfate (Ferrous Sulfate 324 Mg Tablet.) 324 mg PO DAILY [facility] Last Admin: 02/13/25 08:10 Dose: 324 mg Documented By: SONI Finasteride (Finasteride 5 Mg Tablet) 5 mg PO DAILY [facility] Last Admin: 02/13/25 08:10 Dose: 5 mg Documented By: SONI Glucose (Glucose Gel 15 Gm Gel..Gram.) 15 gm PO Q15M PRN; Protocol PRN Reason: per Hypoglycemia Standing Ord. Heparin Sodium (Porcine) (Heparin Sodium,Porcine 5,000 Unit/Ml Vial) 5,000 unit SUBCUT Q8H [facility] On Hold: 02/08/25 08:53 Last Admin: 02/08/25 05:27 Dose: Not Given Documented By: HOLLY Non-Admin Reason: Physician Held Med Ceftriaxone Sodium 1 gm/ (Sodium Chloride) 50 mls @ 100 mls/hr IV Q24H [facility] Last Infusion: 02/12/25 17:35 Dose: Infused Documented By: SONI Caspofungin 50 mg/ Sodium (Chloride) 250 mls @ 250 mls/hr IV Q24H [facility] Last Infusion: 02/12/25 21:36 Dose: Infused Documented By: MIGUEL Insulin Glargine (Insulin Glargine,Hum.Rec.Anlog 100 Unit/Ml 10 Ml Vial) 24 unit SUBCUT DAILY@1600 [facility] Last Admin: 02/12/25 17:04 Dose: 24 unit Documented By: SONI Insulin Human Lispro (Insulin Lispro 100 Unit/Ml 3 Ml Vial) 0 unit SUBCUT QIDACHS [facility]; Protocol Last Admin: 02/13/25 07:22 Dose: Not Given Documented By: SONI Non-Admin Reason: No Insulin Coverage Levalbuterol HCl (Levalbuterol Hcl 1.25 Mg/3 Ml Vial.Neb) 1.25 mg INHALE RTID [facility] Last Admin: 02/13/25 07:49 Dose: 1.25 mg Documented By: ROSEANNA Magnesium Hydroxide (Milk Of Magnesia 30 Ml Oral.Susp) 30 ml PO DAILY PRN PRN Reason: Constipation Last Admin: 02/13/25 08:10 Dose: 30 ml Documented By: SONI Melatonin (Melatonin 3 Mg Tablet) 6 mg PO BEDTIME PRN PRN Reason: Insomnia Last Admin: 02/13/25 02:03 Dose: 6 mg Documented By: MIGUEL Metoprolol Tartrate (Metoprolol Tartrate 25 Mg Tablet) 25 mg PO BID [facility]; Protocol Last Admin: 02/13/25 08:10 Dose: 25 mg Documented By: SONI Multivitamins/Vitamin C (Multivitamin Tablet) 1 tab PO DAILY [facility] Last Admin: 02/13/25 08:10 Dose: 1 tab Documented By: SONI Nystatin (Nystatin Powder 15 Gm Bottle) 1 appl TOPICAL TID [facility]; Protocol Last Admin: 02/13/25 08:12 Dose: 1 appl Documented By: SONI Oseltamivir Phosphate (Oseltamivir Phosphate 30 Mg Capsule) 30 mg PO BID [facility] Stop: 02/13/25 21:01 Last Admin: 02/13/25 08:10 Dose: 30 mg Documented By: SONI Sodium Chloride (0.9 % Sodium Chloride Flush 3 Ml Syringe) 3 ml IVFLUSH QSHIFT [facility] Last Admin: 02/13/25 08:12 Dose: 3 ml Documented By: SONI Tamsulosin HCl (Tamsulosin Hcl 0.4 Mg Capsule) 0.4 mg PO BEDTIME [facility] Last Admin: 02/12/25 20:35 Dose: 0.4 mg Documented By: MIGUEL Labs 02/12/25 18:20 02/13/25 06:38 Labs: Laboratory Results - last 24 hr 02/12/25 02/12/25 02/12/25 16:34 18:20 20:34 MCV 91.5 MCH 28.4 MCHC 31.0 RDW 16.1 H Plt Count 249 MPV 8.9 L Absolute Nucleated RBC 0.000 Nucleated RBC % (auto) 0.0 Anion Gap Estim Creat Clear Calc Estimated GFR POC Glucose 174 H 158 H Random Glucose Calcium 02/13/25 02/13/25 02/13/25 06:38 07:11 10:55 MCV MCH MCHC RDW Plt Count MPV Absolute Nucleated RBC Nucleated RBC % (auto) Anion Gap 11 L Estim Creat Clear Calc 53.3 Estimated GFR > 60 POC Glucose 117 H 224 H Random Glucose 112 Calcium 9.2 Assessment and Plan (1) Hematuria: Status: Acute Plan 79M PMH DM, hld, glaucoma, anemia, presented with fall, found to have fever and uti sepsis due to UTI due to angel lusitaniae continue caspofungin, plan for 10 days total to be completed 02/17/25 continue empiric ceftriaxone day 01/04 flu A completed tamiflu course 02/09/25 -02/13/25 Gross hematuria with blood clots: Holding heparin monitor, improving sinus tachycardia -multifactorial (see above-fever ,spsis ) Seems improving SANDY ATN from sepsis and obstructive resolved dm insulin dvt prophylaxis - mechanical due to hematuria full code reason for continued hospitalization: hematuria, iv caspofungin Quality Stroke Does the patient have a stroke diagnosis?: No VTE Prior VTE?: No VTE Risk Level:: Medical - moderate - high VTE Device Contraindication: Treatment Not Indicated VTE Drug Contraindication: N/A - Med Ordered
[2025-02-13 16:07] LABS: Glucose, Whole Blood 161 mg/dL (60-115)
[2025-02-13] MEDS: Insulin Glargine,Hum.rec.anlog 100 UNIT/ML 10 ML VIAL 24 UNIT SUBCUT (17:09)
[2025-02-13 20:15] LABS: Glucose, Whole Blood 184 mg/dL (60-115)
[2025-02-14] VITALS (12 sets, daily range): BP systolic 105–142; BP diastolic 55–71; PULSE 90–107; RESP 14–18; TEMP 36.3–37; O2SAT 94–99
[2025-02-14 07:11] LABS: Hematocrit 31.7 % (42.0-52.0); Hemoglobin 9.7 g/dl (14.0-18.0); Mean Corpuscular HGB Conc 30.6 g/dl (31.0-36.0); Mean Corpuscular Hemoglobin 28.1 pg (27.0-33.0); Mean Corpuscular Volume 91.9 fL (80.0-98.0); NRBC Abs Auto 0.000 X10*3/uL (0.0-0.012); NRBC Pct Auto 0.0 /100WBC (0.0-0.2); Platelet Count 301 X10*3/uL (160-400); Red Blood Count 3.45 X10*6/uL (4.60-5.80); White Blood Count 6.3 X10*3/uL (4.8-10.8)
[2025-02-14 07:24] LABS: Glucose, Whole Blood 111 mg/dL (60-115)
[2025-02-14 07:40] LABS: Anion Gap 11 (12-20); Blood Urea Nitrogen 21 mg/dL (9-16); Calcium 9.3 mg/dL (8.4-10.2); Carbon Dioxide 27 mmol/L (22-29); Chloride 107 mmol/L (96-108); Creatinine Clr Calc Pharmacy 54.5; Estimated Glomerular Filt Rate > 60; Magnesium 2.0 mg/dL (1.6-2.6); Potassium 3.9 mmol/L (3.3-5.1); Sodium 141 mmol/L (135-145)
[2025-02-14] MEDS: 0.9 % Sodium Chloride Flush 3 ML SYRINGE IVFLUSH ×3 (08:49→21:16)
[2025-02-14] MEDS: Aspirin Enteric Coated 81 MG TABLET.DR PO (08:49)
[2025-02-14] MEDS: Ferrous Sulfate 324 MG TABLET.DR PO (08:49)
--- NOTE | 2025-02-14 09:43 | P.PNIM_ITS ---
Subjective Subjective Date of Service: 02/14/25 Interval History: hematuria improving Physical Exam 2 Vital Signs: Vital Signs: Last Vital Signs Temp 98.4 F 02/14/25 07:05 Pulse 103 H 02/14/25 07:47 Resp 16 02/14/25 07:47 BP 124/64 02/14/25 07:05 Pulse Ox 96 02/14/25 07:05 O2 Del Method Room Air 02/14/25 07:05 O2 Flow Rate 2 02/09/25 07:07 BMI result Body Mass Index 26.9 Const: General: cooperative, healthy appearing, comfortable and no acute distress Orientation/consciousness: patient oriented x3 HEENT: Face and sinus: Yes normal facial exam Mouth: moist mucous membranes Neck: Neck: Yes normal visual inspection, Yes full ROM and Yes trachea midline Chest: Chest palpation & inspection: normal inspection of the chest Resp: Effort & Inspection: normal respiratory effort, able to speak in complete sentences and no respiratory distress GI: Inspection: Yes normal to inspection Back/Spine/Pelvis: Cervical Spine: normal cervical lordosis Thoracic/Lumbar Spine: thoracic and lumbar spine normal to inspection Skin: General skin exam: no rashes or lesions noted Neuro: General: patient oriented x3, tone normal and moves all extremities Extrem: General: Yes normal to inspection and Yes capillary refill normal Objective Data Active Medications Acetaminophen (Acetaminophen 325 Mg Tablet) 975 mg PO Q6H PRN PRN Reason: Pain, Mild 1-3,fever,headache Last Admin: 02/13/25 23:29 Dose: 975 mg Documented By: MALORIE Aspirin (Aspirin Enteric Coated 81 Mg Tablet.) 81 mg PO DAILY [facility] Last Admin: 02/14/25 08:49 Dose: 81 mg Documented By: JAI Atorvastatin Calcium (Atorvastatin Calcium 80 Mg Tablet) 80 mg PO DAILY [facility] Last Admin: 02/14/25 08:49 Dose: 80 mg Documented By: JAI Benzonatate (Benzonatate 100 Mg Capsule) 100 mg PO TID PRN PRN Reason: Cough Last Admin: 02/10/25 20:57 Dose: 100 mg Documented By: GARY Comments: requested for cough Calcium Carbonate (Calcium Carbonate 750 Mg Tab.Chew) 750 mg PO Q4H PRN PRN Reason: Heartburn Dextrose (Dextrose 50 % 25 Gm/50 Ml Syringe) 25 gm IVPUSH Q15M PRN; Protocol PRN Reason: per Hypoglycemia Standing Ord. Ferrous Sulfate (Ferrous Sulfate 324 Mg Tablet.) 324 mg PO DAILY [facility] Last Admin: 02/14/25 08:49 Dose: 324 mg Documented By: JAI Finasteride (Finasteride 5 Mg Tablet) 5 mg PO DAILY [facility] Last Admin: 02/14/25 08:49 Dose: 5 mg Documented By: JAI Glucose (Glucose Gel 15 Gm Gel..Gram.) 15 gm PO Q15M PRN; Protocol PRN Reason: per Hypoglycemia Standing Ord. Heparin Sodium (Porcine) (Heparin Sodium,Porcine 5,000 Unit/Ml Vial) 5,000 unit SUBCUT Q8H [facility] On Hold: 02/08/25 08:53 Last Admin: 02/08/25 05:27 Dose: Not Given Documented By: HOLLY Non-Admin Reason: Physician Held Med Caspofungin 50 mg/ Sodium (Chloride) 250 mls @ 250 mls/hr IV Q24H [facility] Last Infusion: 02/13/25 21:35 Dose: Infused Documented By: MALORIE Insulin Glargine (Insulin Glargine,Hum.Rec.Anlog 100 Unit/Ml 10 Ml Vial) 24 unit SUBCUT DAILY@1600 [facility] Last Admin: 02/13/25 17:09 Dose: 24 unit Documented By: SONI Insulin Human Lispro (Insulin Lispro 100 Unit/Ml 3 Ml Vial) 0 unit SUBCUT QIDACHS [facility]; Protocol Last Admin: 02/14/25 08:44 Dose: Not Given Documented By: JAI Non-Admin Reason: No Insulin Coverage Levalbuterol HCl (Levalbuterol Hcl 1.25 Mg/3 Ml Vial.Neb) 1.25 mg INHALE RTID [facility] Last Admin: 02/14/25 07:46 Dose: 1.25 mg Documented By: JULIO CESAR Magnesium Hydroxide (Milk Of Magnesia 30 Ml Oral.Susp) 30 ml PO DAILY PRN PRN Reason: Constipation Last Admin: 02/13/25 08:10 Dose: 30 ml Documented By: SONI Melatonin (Melatonin 3 Mg Tablet) 6 mg PO BEDTIME PRN PRN Reason: Insomnia Last Admin: 02/13/25 02:03 Dose: 6 mg Documented By: MIGUEL Metoprolol Tartrate (Metoprolol Tartrate 25 Mg Tablet) 25 mg PO BID [facility]; Protocol Last Admin: 02/14/25 08:49 Dose: 25 mg Documented By: JAI Multivitamins/Vitamin C (Multivitamin Tablet) 1 tab PO DAILY [facility] Last Admin: 02/14/25 08:49 Dose: 1 tab Documented By: JAI Nystatin (Nystatin Powder 15 Gm Bottle) 1 appl TOPICAL TID [facility]; Protocol Last Admin: 02/14/25 08:50 Dose: 1 appl Documented By: JAI Sodium Chloride (0.9 % Sodium Chloride Flush 3 Ml Syringe) 3 ml IVFLUSH QSHIFT [facility] Last Admin: 02/14/25 08:49 Dose: 3 ml Documented By: JAI Tamsulosin HCl (Tamsulosin Hcl 0.4 Mg Capsule) 0.4 mg PO BEDTIME [facility] Last Admin: 02/13/25 20:32 Dose: 0.4 mg Documented By: LAFLAMC Labs 02/14/25 06:20 02/14/25 06:20 Labs: Laboratory Results - last 24 hr 02/13/25 02/13/25 02/13/25 10:55 16:03 20:10 MCV MCH MCHC RDW Plt Count MPV Absolute Nucleated RBC Nucleated RBC % (auto) Anion Gap Estim Creat Clear Calc Estimated GFR POC Glucose 224 H 161 H 184 H Random Glucose Calcium Magnesium 02/14/25 02/14/25 06:20 07:07 MCV 91.9 MCH 28.1 MCHC 30.6 L RDW 16.3 H Plt Count 301 MPV 8.8 L Absolute Nucleated RBC 0.000 Nucleated RBC % (auto) 0.0 Anion Gap 11 L Estim Creat Clear Calc 54.5 Estimated GFR > 60 POC Glucose 111 Random Glucose 104 Calcium 9.3 Magnesium 2.0 Microbiology Microbiology Results: Microbiology 02/08/25 20:38 Blood Culture - Final Blood - Venous No growth after 5 days. 02/08/25 20:38 Blood Culture - Final Blood - Venous No growth after 5 days. Assessment and Plan (1) Hematuria: Status: Acute Plan 79M PMH DM, hld, glaucoma, anemia, presented with fall, found to have fever and uti sepsis due to UTI due to angel lusitaniae continue caspofungin, plan for 10 days total to be completed 02/17/25 completed 10 days empiric ceftriaxone flu A completed tamiflu course 02/09/25 -02/13/25 Gross hematuria with blood clots: Holding heparin monitor, improving sinus tachycardia -multifactorial (see above-fever ,spsis ) Seems improving SANDY ATN from sepsis and obstructive resolved dm insulin dvt prophylaxis - mechanical due to hematuria full code reason for continued hospitalization: hematuria, iv caspofungin Quality Stroke Does the patient have a stroke diagnosis?: No VTE Prior VTE?: No VTE Risk Level:: Medical - moderate - high VTE Device Contraindication: Treatment Not Indicated VTE Drug Contraindication: N/A - Med Ordered
[2025-02-14 11:08] LABS: Glucose, Whole Blood 124 mg/dL (60-115)
[2025-02-14 16:15] LABS: Glucose, Whole Blood 140 mg/dL (60-115)
[2025-02-14] MEDS: Insulin Glargine,Hum.rec.anlog 100 UNIT/ML 10 ML VIAL 24 UNIT SUBCUT (16:49)
[2025-02-14 19:30] LABS: Glucose, Whole Blood 294 mg/dL (60-115)
[2025-02-15] VITALS (11 sets, daily range): BP systolic 99–126; BP diastolic 55–61; PULSE 79–115; RESP 16–18; TEMP 36.6–37.4; O2SAT 93–97
[2025-02-15 07:30] LABS: Glucose, Whole Blood 87 mg/dL (60-115)
[2025-02-15] MEDS: Aspirin Enteric Coated 81 MG TABLET.DR PO (08:57)
[2025-02-15] MEDS: 0.9 % Sodium Chloride Flush 3 ML SYRINGE IVFLUSH ×2 (08:58→19:54)
[2025-02-15] MEDS: Ferrous Sulfate 324 MG TABLET.DR PO (08:58)
--- NOTE | 2025-02-15 09:36 | P.PNIM_ITS ---
Subjective Subjective Date of Service: 02/15/25 Interval History: hematuria improving Physical Exam 2 Vital Signs: Vital Signs: Last Vital Signs Temp 97.8 F 02/15/25 07:27 Pulse 115 H 02/15/25 08:57 Resp 16 02/15/25 07:47 BP 126/61 02/15/25 08:57 Pulse Ox 97 02/15/25 07:27 O2 Del Method Room Air 02/15/25 07:27 O2 Flow Rate 2 02/09/25 07:07 BMI result Body Mass Index 26.9 Const: General: cooperative, healthy appearing, comfortable and no acute distress Orientation/consciousness: patient oriented x3 HEENT: Face and sinus: Yes normal facial exam Mouth: moist mucous membranes Neck: Neck: Yes normal visual inspection, Yes full ROM and Yes trachea midline Chest: Chest palpation & inspection: normal inspection of the chest Resp: Effort & Inspection: normal respiratory effort, able to speak in complete sentences and no respiratory distress GI: Inspection: Yes normal to inspection Back/Spine/Pelvis: Cervical Spine: normal cervical lordosis Thoracic/Lumbar Spine: thoracic and lumbar spine normal to inspection Skin: General skin exam: no rashes or lesions noted Neuro: General: patient oriented x3, tone normal and moves all extremities Extrem: General: Yes normal to inspection and Yes capillary refill normal Objective Data Active Medications Acetaminophen (Acetaminophen 325 Mg Tablet) 975 mg PO Q6H PRN PRN Reason: Pain, Mild 1-3,fever,headache Last Admin: 02/14/25 21:15 Dose: 975 mg Documented By: MALORIE Aspirin (Aspirin Enteric Coated 81 Mg Tablet.) 81 mg PO DAILY [facility] Last Admin: 02/15/25 08:57 Dose: 81 mg Documented By: BERNARD Atorvastatin Calcium (Atorvastatin Calcium 80 Mg Tablet) 80 mg PO DAILY [facility] Last Admin: 02/15/25 08:58 Dose: 80 mg Documented By: BERNARD Benzonatate (Benzonatate 100 Mg Capsule) 100 mg PO TID PRN PRN Reason: Cough Last Admin: 02/10/25 20:57 Dose: 100 mg Documented By: GARY Comments: requested for cough Calcium Carbonate (Calcium Carbonate 750 Mg Tab.Chew) 750 mg PO Q4H PRN PRN Reason: Heartburn Dextrose (Dextrose 50 % 25 Gm/50 Ml Syringe) 25 gm IVPUSH Q15M PRN; Protocol PRN Reason: per Hypoglycemia Standing Ord. Ferrous Sulfate (Ferrous Sulfate 324 Mg Tablet.Dr) 324 mg PO DAILY [facility] Last Admin: 02/15/25 08:58 Dose: 324 mg Documented By: BERNARD Finasteride (Finasteride 5 Mg Tablet) 5 mg PO DAILY [facility] Last Admin: 02/15/25 08:58 Dose: 5 mg Documented By: BERNARD Glucose (Glucose Gel 15 Gm Gel..Gram.) 15 gm PO Q15M PRN; Protocol PRN Reason: per Hypoglycemia Standing Ord. Heparin Sodium (Porcine) (Heparin Sodium,Porcine 5,000 Unit/Ml Vial) 5,000 unit SUBCUT Q8H [facility] On Hold: 02/08/25 08:53 Last Admin: 02/08/25 05:27 Dose: Not Given Documented By: HOLLY Non-Admin Reason: Physician Held Med Caspofungin 50 mg/ Sodium (Chloride) 250 mls @ 250 mls/hr IV Q24H [facility] Last Infusion: 02/14/25 22:35 Dose: Infused Documented By: MALORIE Insulin Glargine (Insulin Glargine,Hum.Rec.Anlog 100 Unit/Ml 10 Ml Vial) 24 unit SUBCUT DAILY@1600 [facility] Last Admin: 02/14/25 16:49 Dose: 24 unit Documented By: JAI Insulin Human Lispro (Insulin Lispro 100 Unit/Ml 3 Ml Vial) 0 unit SUBCUT QIDACHS [facility]; Protocol Last Admin: 02/15/25 07:35 Dose: Not Given Documented By: BERNARD Non-Admin Reason: No Insulin Coverage Levalbuterol HCl (Levalbuterol Hcl 1.25 Mg/3 Ml Vial.Neb) 1.25 mg INHALE RTID [facility] Last Admin: 02/15/25 07:45 Dose: 1.25 mg Documented By: EUSEBIO Magnesium Hydroxide (Milk Of Magnesia 30 Ml Oral.Susp) 30 ml PO DAILY PRN PRN Reason: Constipation Last Admin: 02/13/25 08:10 Dose: 30 ml Documented By: SONI Melatonin (Melatonin 3 Mg Tablet) 6 mg PO BEDTIME PRN PRN Reason: Insomnia Last Admin: 02/13/25 02:03 Dose: 6 mg Documented By: MIGUEL Metoprolol Tartrate (Metoprolol Tartrate 25 Mg Tablet) 25 mg PO BID [facility]; Protocol Last Admin: 02/15/25 08:57 Dose: 25 mg Documented By: BERNARD Multivitamins/Vitamin C (Multivitamin Tablet) 1 tab PO DAILY [facility] Last Admin: 02/15/25 08:58 Dose: 1 tab Documented By: BERNARD Nystatin (Nystatin Powder 15 Gm Bottle) 1 appl TOPICAL TID [facility]; Protocol Last Admin: 02/15/25 08:59 Dose: 1 appl Documented By: BERNARD Sodium Chloride (0.9 % Sodium Chloride Flush 3 Ml Syringe) 3 ml IVFLUSH QSHIFT [facility] Last Admin: 02/15/25 08:58 Dose: 3 ml Documented By: BERNARD Tamsulosin HCl (Tamsulosin Hcl 0.4 Mg Capsule) 0.4 mg PO BEDTIME [facility] Last Admin: 02/14/25 21:15 Dose: 0.4 mg Documented By: LAFLAMC Labs 02/14/25 06:20 02/14/25 06:20 Labs: Laboratory Results - last 24 hr 02/14/25 02/14/25 02/14/25 10:56 16:05 19:26 POC Glucose 124 H 140 H 294 H 02/15/25 07:26 POC Glucose 87 Assessment and Plan (1) Hematuria: Status: Acute Plan 79M PMH DM, hld, glaucoma, anemia, presented with fall, found to have fever and uti sepsis due to UTI due to angel lusitaniae continue caspofungin, plan for 10 days total to be completed 02/17/25 completed 10 days empiric ceftriaxone flu A completed tamiflu course 02/09/25 -02/13/25 Gross hematuria with blood clots: Holding heparin monitor, improving sinus tachycardia -multifactorial (see above-fever ,spsis ) tsh normal, cta negative for PE, magnesium normal will give 1L NS SANDY ATN from sepsis and obstructive resolved dm insulin dvt prophylaxis - mechanical due to hematuria full code reason for continued hospitalization: iv caspofungin Quality Stroke Does the patient have a stroke diagnosis?: No VTE Prior VTE?: No VTE Risk Level:: Medical - moderate - high VTE Device Contraindication: Treatment Not Indicated VTE Drug Contraindication: N/A - Med Ordered
--- NOTE | 2025-02-15 11:00 | MHC.CM.PN ---
PER MD ROUNDS, PT HAS TWO MORE DAYS OF CASPOFUNGIN AND CAN DC ONCE COMPLETED. DCP: HOME WITH [facility] MAY NEED TRANSPORT ARRANGED
[2025-02-15 11:13] LABS: Glucose, Whole Blood 243 mg/dL (60-115)
--- NOTE | 2025-02-15 11:33 | MHC.CLN ---
F/U PO INTAKE CONSISTENTLY 75-100% DIET RX: 2000 DM ENSURE MAX BID IN PLACE PROVIDES 300 KCALS, 60G PROTEIN SUPPLEMENT TO PROMOTE WOUND HEALING CONTINUE TO MONITOR PO INTAKE AND ENCOURAGE SUPPLEMENTS RD TO FOLLOW WEEKLY
[2025-02-15 15:59] LABS: Glucose, Whole Blood 160 mg/dL (60-115)
[2025-02-15] MEDS: Insulin Glargine,Hum.rec.anlog 100 UNIT/ML 10 ML VIAL 24 UNIT SUBCUT (16:05)
[2025-02-15 19:56] LABS: Glucose, Whole Blood 219 mg/dL (60-115)
[2025-02-16] VITALS (7 sets, daily range): BP systolic 104–151; BP diastolic 55–71; PULSE 75–98; RESP 16–20; TEMP 36.5–36.7; O2SAT 96–97
[2025-02-16 07:34] LABS: Glucose, Whole Blood 99 mg/dL (60-115)
[2025-02-16 07:47] LABS: Hematocrit 30.8 % (42.0-52.0); Hemoglobin 9.5 g/dl (14.0-18.0); Mean Corpuscular HGB Conc 30.8 g/dl (31.0-36.0); Mean Corpuscular Hemoglobin 28.3 pg (27.0-33.0); Mean Corpuscular Volume 91.7 fL (80.0-98.0); NRBC Abs Auto 0.000 X10*3/uL (0.0-0.012); NRBC Pct Auto 0.0 /100WBC (0.0-0.2); Platelet Count 334 X10*3/uL (160-400); Red Blood Count 3.36 X10*6/uL (4.60-5.80); White Blood Count 5.3 X10*3/uL (4.8-10.8)
[2025-02-16] MEDS: Ferrous Sulfate 324 MG TABLET.DR PO (08:00)
[2025-02-16] MEDS: 0.9 % Sodium Chloride Flush 3 ML SYRINGE IVFLUSH ×3 (08:01→21:16)
[2025-02-16] MEDS: Aspirin Enteric Coated 81 MG TABLET.DR PO (08:01)
[2025-02-16 08:05] LABS: Anion Gap 10 (12-20); Blood Urea Nitrogen 21 mg/dL (9-16); Calcium 9.1 mg/dL (8.4-10.2); Carbon Dioxide 27 mmol/L (22-29); Chloride 108 mmol/L (96-108); Creatinine Clr Calc Pharmacy 55.1; Estimated Glomerular Filt Rate > 60; Magnesium 1.9 mg/dL (1.6-2.6); Potassium 4.2 mmol/L (3.3-5.1); Sodium 141 mmol/L (135-145)
--- NOTE | 2025-02-16 09:54 | P.PNIM_ITS ---
Subjective Subjective Date of Service: 02/16/25 Interval History: hematuria improving Physical Exam 2 Vital Signs: Vital Signs: Last Vital Signs Temp 98.1 F 02/16/25 07:33 Pulse 94 02/16/25 07:33 Resp 18 02/16/25 07:33 BP 130/60 02/16/25 07:33 Pulse Ox 96 02/16/25 07:33 O2 Del Method Room Air 02/16/25 07:33 O2 Flow Rate 2 02/09/25 07:07 BMI result Body Mass Index 26.9 Const: General: cooperative, healthy appearing, comfortable and no acute distress Orientation/consciousness: patient oriented x3 HEENT: Face and sinus: Yes normal facial exam Mouth: moist mucous membranes Neck: Neck: Yes normal visual inspection, Yes full ROM and Yes trachea midline Chest: Chest palpation & inspection: normal inspection of the chest Resp: Effort & Inspection: normal respiratory effort, able to speak in complete sentences and no respiratory distress GI: Inspection: Yes normal to inspection Back/Spine/Pelvis: Cervical Spine: normal cervical lordosis Thoracic/Lumbar Spine: thoracic and lumbar spine normal to inspection Skin: General skin exam: no rashes or lesions noted Neuro: General: patient oriented x3, tone normal and moves all extremities Extrem: General: Yes normal to inspection and Yes capillary refill normal Objective Data Active Medications Acetaminophen (Acetaminophen 325 Mg Tablet) 975 mg PO Q6H PRN PRN Reason: Pain, Mild 1-3,fever,headache Last Admin: 02/14/25 21:15 Dose: 975 mg Documented By: MALORIE Aspirin (Aspirin Enteric Coated 81 Mg Tablet.) 81 mg PO DAILY [facility] Last Admin: 02/16/25 08:01 Dose: 81 mg Documented By: DALE Atorvastatin Calcium (Atorvastatin Calcium 80 Mg Tablet) 80 mg PO DAILY [facility] Last Admin: 02/16/25 08:01 Dose: 80 mg Documented By: DALE Benzonatate (Benzonatate 100 Mg Capsule) 100 mg PO TID PRN PRN Reason: Cough Last Admin: 02/10/25 20:57 Dose: 100 mg Documented By: GARY Comments: requested for cough Calcium Carbonate (Calcium Carbonate 750 Mg Tab.Chew) 750 mg PO Q4H PRN PRN Reason: Heartburn Dextrose (Dextrose 50 % 25 Gm/50 Ml Syringe) 25 gm IVPUSH Q15M PRN; Protocol PRN Reason: per Hypoglycemia Standing Ord. Ferrous Sulfate (Ferrous Sulfate 324 Mg Tablet.) 324 mg PO DAILY [facility] Last Admin: 02/16/25 08:00 Dose: 324 mg Documented By: DALE Finasteride (Finasteride 5 Mg Tablet) 5 mg PO DAILY [facility] Last Admin: 02/16/25 08:01 Dose: 5 mg Documented By: DAEL Glucose (Glucose Gel 15 Gm Gel..Gram.) 15 gm PO Q15M PRN; Protocol PRN Reason: per Hypoglycemia Standing Ord. Heparin Sodium (Porcine) (Heparin Sodium,Porcine 5,000 Unit/Ml Vial) 5,000 unit SUBCUT Q8H [facility] On Hold: 02/08/25 08:53 Last Admin: 02/08/25 05:27 Dose: Not Given Documented By: HOLLY Non-Admin Reason: Physician Held Med Caspofungin 50 mg/ Sodium (Chloride) 250 mls @ 250 mls/hr IV Q24H [facility] Last Infusion: 02/15/25 20:57 Dose: Infused Documented By: LYNDSEY Insulin Glargine (Insulin Glargine,Hum.Rec.Anlog 100 Unit/Ml 10 Ml Vial) 24 unit SUBCUT DAILY@1600 [facility] Last Admin: 02/15/25 16:05 Dose: 24 unit Documented By: BERNARD Insulin Human Lispro (Insulin Lispro 100 Unit/Ml 3 Ml Vial) 0 unit SUBCUT QIDACHS [facility]; Protocol Last Admin: 02/16/25 09:04 Dose: Not Given Documented By: DALE Non-Admin Reason: No Insulin Coverage Magnesium Hydroxide (Milk Of Magnesia 30 Ml Oral.Susp) 30 ml PO DAILY PRN PRN Reason: Constipation Last Admin: 02/13/25 08:10 Dose: 30 ml Documented By: SONI Melatonin (Melatonin 3 Mg Tablet) 6 mg PO BEDTIME PRN PRN Reason: Insomnia Last Admin: 02/13/25 02:03 Dose: 6 mg Documented By: MIGUEL Metoprolol Tartrate (Metoprolol Tartrate 25 Mg Tablet) 25 mg PO BID [facility]; Protocol Last Admin: 02/16/25 08:01 Dose: 25 mg Documented By: DALE Multivitamins/Vitamin C (Multivitamin Tablet) 1 tab PO DAILY [facility] Last Admin: 02/16/25 08:01 Dose: 1 tab Documented By: DALE Nystatin (Nystatin Powder 15 Gm Bottle) 1 appl TOPICAL TID [facility]; Protocol Last Admin: 02/15/25 20:05 Dose: 1 appl Documented By: LYNDSEY Sodium Chloride (0.9 % Sodium Chloride Flush 3 Ml Syringe) 3 ml IVFLUSH QSHIFT [facility] Last Admin: 02/16/25 08:01 Dose: 3 ml Documented By: DALE Tamsulosin HCl (Tamsulosin Hcl 0.4 Mg Capsule) 0.4 mg PO BEDTIME [facility] Last Admin: 02/15/25 19:56 Dose: 0.4 mg Documented By: LYNDSEY Labs 02/16/25 06:53 02/16/25 06:53 Labs: Laboratory Results - last 24 hr 02/15/25 02/15/25 02/15/25 11:10 15:55 19:49 MCV MCH MCHC RDW Plt Count MPV Absolute Nucleated RBC Nucleated RBC % (auto) Anion Gap Estim Creat Clear Calc Estimated GFR POC Glucose 243 H 160 H 219 H Random Glucose Calcium Magnesium 02/16/25 02/16/25 06:53 07:27 MCV 91.7 MCH 28.3 MCHC 30.8 L RDW 16.7 H Plt Count 334 MPV 8.6 L Absolute Nucleated RBC 0.000 Nucleated RBC % (auto) 0.0 Anion Gap 10 L Estim Creat Clear Calc 55.1 Estimated GFR > 60 POC Glucose 99 Random Glucose 86 Calcium 9.1 Magnesium 1.9 Assessment and Plan (1) Hematuria: Status: Acute Plan 79M PMH DM, hld, glaucoma, anemia, presented with fall, found to have fever and uti sepsis due to UTI due to angel lusitaniae continue caspofungin, plan for 10 days total to be completed 02/17/25 completed 10 days empiric ceftriaxone flu A completed tamiflu course 02/09/25 -02/13/25 Gross hematuria with blood clots: Holding heparin resolved sinus tachycardia -multifactorial (see above-fever ,spsis ) tsh normal, cta negative for PE, magnesium normal will give 1L NS SANDY ATN from sepsis and obstructive resolved dm insulin dvt prophylaxis - mechanical due to hematuria full code reason for continued hospitalization: iv caspofungin Quality Stroke Does the patient have a stroke diagnosis?: No VTE Prior VTE?: No VTE Risk Level:: Medical - moderate - high VTE Device Contraindication: Treatment Not Indicated VTE Drug Contraindication: N/A - Med Ordered
[2025-02-16 11:13] LABS: Glucose, Whole Blood 160 mg/dL (60-115)
[2025-02-16 16:20] LABS: Glucose, Whole Blood 88 mg/dL (60-115)
[2025-02-16 20:29] LABS: Glucose, Whole Blood 136 mg/dL (60-115)
[2025-02-17] VITALS (7 sets, daily range): BP systolic 126–143; BP diastolic 61–67; PULSE 84–102; RESP 16–20; TEMP 36–36.8; O2SAT 96–98
[2025-02-17 07:54] LABS: Glucose, Whole Blood 103 mg/dL (60-115)
[2025-02-17] MEDS: Ferrous Sulfate 324 MG TABLET.DR PO (08:17)
[2025-02-17] MEDS: Aspirin Enteric Coated 81 MG TABLET.DR PO (08:17)
[2025-02-17] MEDS: Milk of Magnesia 30 ML ORAL.SUSP PO (08:17)
[2025-02-17] MEDS: 0.9 % Sodium Chloride Flush 3 ML SYRINGE IVFLUSH ×3 (08:17→20:40)
--- NOTE | 2025-02-17 09:43 | HO.PM.IMPN ---
Subjective Subjective Date of Service: 02/17/25 Interval History: no new complaints Physical Exam Vital Signs: Vital Signs: Last Vital Signs Temp 97.4 F 02/17/25 08:00 Pulse 102 H 02/17/25 08:00 Resp 20 02/17/25 08:00 BP 135/66 02/17/25 08:00 Pulse Ox 97 02/17/25 08:00 O2 Del Method Room Air 02/17/25 08:00 O2 Flow Rate 2 02/09/25 07:07 BMI result Body Mass Index 26.9 Const: General: cooperative, healthy appearing, comfortable and no acute distress Orientation/consciousness: patient oriented x3 HEENT: Face and sinus: Yes normal facial exam Mouth: moist mucous membranes Neck: Neck: Yes normal visual inspection, Yes full ROM and Yes trachea midline Chest: Chest palpation & inspection: normal inspection of the chest Resp: Effort & Inspection: normal respiratory effort, able to speak in complete sentences and no respiratory distress GI: Inspection: Yes normal to inspection Back/Spine/Pelvis: Cervical Spine: normal cervical lordosis Thoracic/Lumbar Spine: thoracic and lumbar spine normal to inspection Skin: General skin exam: no rashes or lesions noted Neuro: General: patient oriented x3, tone normal and moves all extremities Extrem: General: Yes normal to inspection and Yes capillary refill normal Objective Data Active Medications Acetaminophen (Acetaminophen 325 Mg Tablet) 975 mg PO Q6H PRN PRN Reason: Pain, Mild 1-3,fever,headache Last Admin: 02/16/25 21:23 Dose: 975 mg Documented By: LISA Aspirin (Aspirin Enteric Coated 81 Mg Tablet.) 81 mg PO DAILY [facility] Last Admin: 02/17/25 08:17 Dose: 81 mg Documented By: PILAR Atorvastatin Calcium (Atorvastatin Calcium 80 Mg Tablet) 80 mg PO DAILY [facility] Last Admin: 02/17/25 08:16 Dose: 80 mg Documented By: PILAR Benzonatate (Benzonatate 100 Mg Capsule) 100 mg PO TID PRN PRN Reason: Cough Last Admin: 02/17/25 08:26 Dose: 100 mg Documented By: PILAR Calcium Carbonate (Calcium Carbonate 750 Mg Tab.Chew) 750 mg PO Q4H PRN PRN Reason: Heartburn Dextrose (Dextrose 50 % 25 Gm/50 Ml Syringe) 25 gm IVPUSH Q15M PRN; Protocol PRN Reason: per Hypoglycemia Standing Ord. Ferrous Sulfate (Ferrous Sulfate 324 Mg Tablet.) 324 mg PO DAILY [facility] Last Admin: 02/17/25 08:17 Dose: 324 mg Documented By: PILAR Finasteride (Finasteride 5 Mg Tablet) 5 mg PO DAILY [facility] Last Admin: 02/17/25 08:17 Dose: 5 mg Documented By: PILAR Glucose (Glucose Gel 15 Gm Gel..Gram.) 15 gm PO Q15M PRN; Protocol PRN Reason: per Hypoglycemia Standing Ord. Heparin Sodium (Porcine) (Heparin Sodium,Porcine 5,000 Unit/Ml Vial) 5,000 unit SUBCUT Q8H [facility] On Hold: 02/08/25 08:53 Last Admin: 02/08/25 05:27 Dose: Not Given Documented By: HOLLY Non-Admin Reason: Physician Held Med Caspofungin 50 mg/ Sodium (Chloride) 250 mls @ 250 mls/hr IV Q24H [facility] Last Infusion: 02/16/25 22:52 Dose: Infused Documented By: LISA Insulin Glargine (Insulin Glargine,Hum.Rec.Anlog 100 Unit/Ml 10 Ml Vial) 24 unit SUBCUT DAILY@1600 [facility] Last Admin: 02/16/25 16:20 Dose: Not Given Documented By: DALE Non-Admin Reason: No Insulin Coverage Insulin Human Lispro (Insulin Lispro 100 Unit/Ml 3 Ml Vial) 0 unit SUBCUT QIDACHS [facility]; Protocol Last Admin: 02/17/25 07:56 Dose: Not Given Documented By: PILAR Non-Admin Reason: No Insulin Coverage Magnesium Hydroxide (Milk Of Magnesia 30 Ml Oral.Susp) 30 ml PO DAILY PRN PRN Reason: Constipation Last Admin: 02/17/25 08:17 Dose: 30 ml Documented By: PILAR Melatonin (Melatonin 3 Mg Tablet) 6 mg PO BEDTIME PRN PRN Reason: Insomnia Last Admin: 02/13/25 02:03 Dose: 6 mg Documented By: MIGUEL Metoprolol Tartrate (Metoprolol Tartrate 25 Mg Tablet) 25 mg PO BID [facility]; Protocol Last Admin: 02/17/25 08:17 Dose: 25 mg Documented By: PILAR Multivitamins/Vitamin C (Multivitamin Tablet) 1 tab PO DAILY [facility] Last Admin: 02/17/25 08:17 Dose: 1 tab Documented By: PILAR Nystatin (Nystatin Powder 15 Gm Bottle) 1 appl TOPICAL TID [facility]; Protocol Last Admin: 02/17/25 08:26 Dose: 1 appl Documented By: PILAR Sodium Chloride (0.9 % Sodium Chloride Flush 3 Ml Syringe) 3 ml IVFLUSH QSHIFT [facility] Last Admin: 02/17/25 08:17 Dose: 3 ml Documented By: PILAR Tamsulosin HCl (Tamsulosin Hcl 0.4 Mg Capsule) 0.4 mg PO BEDTIME [facility] Last Admin: 02/16/25 21:15 Dose: 0.4 mg Documented By: LISA Labs 02/16/25 06:53 02/16/25 06:53 Labs: Laboratory Results - last 24 hr 02/16/25 02/16/25 02/16/25 11:06 16:14 20:24 POC Glucose 160 H 88 136 H 02/17/25 07:39 POC Glucose 103 Assessment and Plan (1) Hematuria: Status: Acute Plan 79M PMH DM, hld, glaucoma, anemia, presented with fall, found to have fever and uti sepsis due to UTI due to angel lusitaniae continue caspofungin, plan for 10 days total to be completed tonight, 02/17/25 completed 10 days empiric ceftriaxone flu A completed tamiflu course 02/09/25 -02/13/25 Gross hematuria with blood clots: Holding heparin resolved sinus tachycardia -multifactorial (see above-fever ,spsis ) tsh normal, cta negative for PE, magnesium normal given 1L NS with improvement SANDY ATN from sepsis and obstructive resolved dm insulin dvt prophylaxis - mechanical due to hematuria full code reason for continued hospitalization: iv caspofungin Quality Stroke Does the patient have a stroke diagnosis?: No VTE Prior VTE?: No VTE Risk Level:: Medical - moderate - high VTE Device Contraindication: Treatment Not Indicated VTE Drug Contraindication: N/A - Med Ordered
[2025-02-17 12:01] LABS: Glucose, Whole Blood 134 mg/dL (60-115)
[2025-02-17 16:29] LABS: Glucose, Whole Blood 208 mg/dL (60-115)
[2025-02-17] MEDS: Insulin Glargine,Hum.rec.anlog 100 UNIT/ML 10 ML VIAL 24 UNIT SUBCUT (16:42)
[2025-02-17 20:26] LABS: Glucose, Whole Blood 127 mg/dL (60-115)
[2025-02-18 03:56] VITALS: BP 123/63; PULSE 94; RESP 16; TEMP 36.2; O2SAT 97
[2025-02-18 07:12] VITALS: BP 125/60; PULSE 90; RESP 18; TEMP 36.3; O2SAT 97
[2025-02-18 07:41] LABS: Glucose, Whole Blood 113 mg/dL (60-115)
[2025-02-18] MEDS: Ferrous Sulfate 324 MG TABLET.DR PO (08:55)
[2025-02-18] MEDS: Aspirin Enteric Coated 81 MG TABLET.DR PO (08:55)
[2025-02-18] MEDS: 0.9 % Sodium Chloride Flush 3 ML SYRINGE IVFLUSH ×2 (08:58→16:51)
[2025-02-18 11:31] LABS: Glucose, Whole Blood 129 mg/dL (60-115)
[2025-02-18 11:32] VITALS: BP 124/58; PULSE 86; RESP 18; TEMP 36.4; O2SAT 98
--- NOTE | 2025-02-18 13:38 | PM.DS ---
DS: Providers Provider Date of Service: 02/19/25 Date of admission: 02/02/25 21:20 Date of discharge: 02/19/25 Primary care physician: Tim Ji MD Consults: 02/03/25 01:48 Consult to Wound Care Routine Consulting Provider: [facility] Reason for consultation: redness to rectal/butt area 02/03/25 07:21 Consult to Urology Routine Consulting Provider: [facility] Reason for consultation: uti, chronic hydro 02/06/25 18:01 Consult to Cardiology Routine Consulting Provider: [facility] Reason for consultation: [place]/persitent tachycardia Has provider been notified: No 02/07/25 07:47 Consult to Infectious Diseases Routine Consulting Provider: [facility] Reason for consultation: uti/angel Has provider been notified: No DS: Diagnosis Discharge Diagnosis (1) Hematuria: Status: Acute DS: Summary Hospital Course Hospital Course: from initial hpi: 79-year-old male with a past medical history, HLD, DM, glaucoma, anemia; presented to the hospital today with a chief complaint of fall. Patient reported that he fell off his recliner and was not able to get up; laid on the floor for 5 hours. Mentioned that baseline he is fairly independent of his ADLs. Denies any neck pain, back pain, hip pain. Patient denied any chest pain or palpitations. Review of all other systems is negative except mentioned above ER course: Per ER team, patient exam was nonfocal; musculoskeletal exam benign; EMS team noted that patient was febrile. Urinalysis abnormal presents with UTI. Given ceftriaxone. CT head and CT C-spine showed no acute findings. hospital course: Patient was admitted for sepsis due to urinary tract infection. Was treated with ceftriaxone but then cultures grew angel lusitaniae. during hospitalization completed 10 day course of rocephin and caspofungin , noted to have chronic bilateral hydronephrosis was seen by Urology recommended placing Ramos catheter continuing Flomax adding Proscar. He will follow up outpatient for voiding trial. course complicated by hematuria which has resolved. For acute kidney injury combination of ATN from sepsis and obstructive improved with IV fluids and Ramos placement. For diabetes was continued on insulin. Patient will be discharged home with VNA. jardiance held due to funguria Time Attestation Discharge Coordination Time (in mins): 35 Quality: Safe Use of Opioids Does Pt have an Active Cancer Diagnosis on the Problem List?: No Quality: Stroke Does the patient have a stroke diagnosis?: No Physical Exam Vital Signs: Vital Signs: Last Vital Signs Temp 97.6 F 02/18/25 11:32 Pulse 86 02/18/25 11:32 Resp 18 02/18/25 11:32 BP 124/58 L 02/18/25 11:32 Pulse Ox 98 02/18/25 11:32 O2 Del Method Room Air 02/18/25 11:32 O2 Flow Rate 2 02/09/25 07:07 BMI result Body Mass Index 26.9 Const: Other: Awake alert no acute distress Resp: Other: Clear to auscultation bilaterally no rales rhonchi or wheezes Cardio: Other: No S4; positive S1-S2; no S3 murmurs rubs or gallops GI: Other: Soft nontender nondistended normoactive bowel sounds Extrem: Other: No edema bilaterally DS: Data Data Completed and Pending Labs on day of discharge: Laboratory Results - last 24 hr 02/17/25 02/17/25 02/18/25 16:23 20:23 07:36 POC Glucose 208 H 127 H 113 02/18/25 11:28 POC Glucose 129 H Discharge Plan Discharge Anticipated Discharge Date/Time: 02/05/25 10:16 Patient Disposition: Home Health Service Discharge Diagnosis: uti, fall Referrals: [facility] [Outside] - 1 Week Referral Note: HOME SERVICES FOR GROUP HOME- A NURSE WILL CALL YOU TO SET UP FIRST VISIT He Andersen MD [Physician, Urology] - 1 Week PhysicianMario [Physician, Medical] - 1 Week Discharge Medications: New finasteride 5 mg Tablet 5 mg PO DAILY 90 Days Qty: 90 0RF metoprolol tartrate 25 mg Tablet 25 mg PO BID 90 Days Qty: 180 0RF Protocol: Hold for SBP/HR < HOLD for SBP < : 90 HOLD for HR < : 60 Continued aspirin 81 mg tablet,delayed release (DR/EC) 81 mg PO DAILY Qty: 90 3RF (DME) OneTouch Ultra Test Strip See Rx Instructions .Route Qty: 100 3RF Rx Instructions: Check glucose 3 to 4 times a day with meals ferrous sulfate 325 mg (65 mg iron) tablet 325 mg PO DAILY Qty: 90 3RF Centrum Silver Men [id number] mcg tablet 1 tab PO DAILY Qty: 90 3RF (DME) pen needle, diabetic [Ultra-Thin II Ins Pen Decker] 29 gauge x 1/2 needle See Rx Instructions .Route Qty: 100 3RF Rx Instructions: To give insulin 3 times a day before meals and at bedtime tamsulosin 0.4 mg capsule 0.4 mg PO BEDTIME Qty: 90 3RF insulin glargine U-300 conc [Toujeo SoloStar U-300 Insulin] 300 unit/mL (1.5 mL) insulin pen 30 unit subcut DAILY@1600 metformin 1,000 mg tablet 1,000 mg PO BIDWM Rx Instructions: 1 tablet with a meal twice daily Discontinued Jardiance 25 mg tablet 25 mg PO DAILY Qty: 90 3RF lisinopril 5 mg tablet 5 mg PO DAILY Qty: 90 3RF No Action rosuvastatin 40 mg tablet 40 mg PO BEDTIME (DME) walker Misc See Rx Instructions .Route Qty: 1 0RF Rx Instructions: As directed Discharge Orders: Discharge Order (Routine); Ordered 02/19/25 Ordered By: Madhu Rebollar Diet: Advance to usual diet Activity on Discharge: As tolerated Stand Alone Forms: Patient Portal Discharge page Print Language: Mongolian Care Plan Goals: recovery Health Concerns: urinary retention, yeast uti, paradise Plan of Treatment: keep ramos for now, conitnue flomax, added proscar, follow up urology for eventual voiding trial may flush ramos cath with 30-60 cc sterile water as needed for blockage or increased sediment. May replace with ( size 16F) if becomes dislodged as needed and every 4 weeks routine Assessment: see above Discharge Date/Time: 02/19/25 15:00
--- NOTE | 2025-02-18 13:39 | P.F2F_ITS ---
Service Date Service Date: 02/18/25 Encounter Date of encounter: 02/18/25 Encounter: Acute hospitalization Reasons for Services Signs and symptoms assessed: Home physical therapy Reason for physical therapy: home safety and mobility, therapeutic exercises and gait/transfer training Homebound: Leaving the home is medically contraindicated at this time without the asist of a device and/or another person due th the listed conditions above and below. Reason homebound: unsteady gait / fall risk and unable to drive Certification: Based on the above findings, I certify that this patient is confined to the home and needs intermittent senior living care, physical therapy and/or speech therapy, or continues to need occupational therapy. The patient is under my care, and I have initiated the establishment of the plan of care. The patient will be followed by a physician who will periodically review the plan of care. Time Spent With Patient Time: Total time managing care of this patient today ____ minutes.
--- NOTE | 2025-02-18 13:47 | MHC.CM.PN ---
Patient has been medically cleared for dc to home today, with services. A referral was made to [facility], who is aware of today's dc. IMM was addressed with Patient and MD is aware that Patient is requesting a script for a walker.
--- NOTE | 2025-02-18 14:38 | MHC.CM.PN ---
Addendum entered by Sosa Grimm 02/19/25 12:56: Patient failed voiding trial and will dc to home today with a ramos and [facility], who is aware of today's dc.IMM was addressed yesterday. Original Note: Per head grinder, dc for today has been cancelled (ramos removed and voiding trial needed).
[2025-02-18 15:09] VITALS: BP 142/67; PULSE 100; RESP 18; TEMP 36.1; O2SAT 97
[2025-02-18 16:33] LABS: Glucose, Whole Blood 159 mg/dL (60-115)
[2025-02-18] MEDS: Insulin Glargine,Hum.rec.anlog 100 UNIT/ML 10 ML VIAL 24 UNIT SUBCUT (16:48)
[2025-02-18 19:13] VITALS: BP 132/64; PULSE 117; RESP 18; TEMP 36.9; O2SAT 95
[2025-02-18 20:18] LABS: Glucose, Whole Blood 201 mg/dL (60-115)
[2025-02-18 23:34] VITALS: BP 110/60; PULSE 70; RESP 17; TEMP 36.1; O2SAT 96
[2025-02-19] MEDS: 0.9 % Sodium Chloride Flush 3 ML SYRINGE IVFLUSH ×2 (00:50→09:17)
[2025-02-19 03:08] VITALS: BP 118/62; PULSE 99; RESP 18; TEMP 36.2; O2SAT 97
[2025-02-19 07:25] VITALS: BP 130/61; PULSE 98; RESP 18; TEMP 37.2; O2SAT 98
[2025-02-19 07:43] LABS: Glucose, Whole Blood 92 mg/dL (60-115)
[2025-02-19] MEDS: Ferrous Sulfate 324 MG TABLET.DR PO (09:13)
[2025-02-19] MEDS: Aspirin Enteric Coated 81 MG TABLET.DR PO (09:14)
[2025-02-19] MEDS: Milk of Magnesia 30 ML ORAL.SUSP PO (09:20)
[2025-02-19 11:19] VITALS: BP 137/71; PULSE 90; RESP 18; TEMP 36.3; O2SAT 97
[2025-02-19 11:20] LABS: Glucose, Whole Blood 126 mg/dL (60-115)
--- NOTE | 2025-02-19 12:27 | P.F2F_ITS ---
Service Date Service Date: 02/19/25 Encounter Date of encounter: 02/19/25 Reasons for Services Signs and symptoms assessed: Manage indwelling Caruso; flushes and education related to same Reason for group home: teach disease management, GI/ assessment and other (Caruso care as ordered) Homebound: Leaving the home is medically contraindicated at this time without the asist of a device and/or another person due th the listed conditions above and below. Reason homebound: unsteady gait / fall risk and unable to drive Certification: Based on the above findings, I certify that this patient is confined to the home and needs intermittent group home care, physical therapy and/or speech therapy, or continues to need occupational therapy. The patient is under my care, and I have initiated the establishment of the plan of care. The patient will be followed by a physician who will periodically review the plan of care. Time Spent With Patient Time: Total time managing care of this patient today ____ minutes.
== END 2025-02-19 15:00 | disposition home health service (06) | DRG 871 ==
LOC: HO.ED 20:14 → HO.EDOVER 21:57 → HO.S3 23:51 → HO.IMC 02-06 22:37
PROVIDERS: Internal Medicine; Physician Assistant; Admitting Provider Hospitalist; Emergency Provider Emergency Medicine; PCP Internal Medicine; Visit Provider Hospitalist
DX: A41.9 Sepsis, unspecified organism (principal); N17.0 Acute kidney failure with tubular necrosis; N13.6 Pyonephrosis; N13.8 Other obstructive and reflux uropathy; B37.49 Other urogenital candidiasis; Z66 Do not resuscitate; N40.1 Benign prostatic hyperplasia with lower urinary tract symptoms; I49.3 Ventricular premature depolarization; L89.156 Pressure-induced deep tissue damage of sacral region; E86.1 Hypovolemia; W19.XXXA Unspecified fall, initial encounter; J10.1 Influenza due to other identified influenza virus with other respiratory manifestations; R31.0 Gross hematuria; E11.9 Type 2 diabetes mellitus without complications; Z23 Encounter for immunization; Z87.891 Personal history of nicotine dependence; Z79.4 Long term (current) use of insulin; Z79.84 Long term (current) use of oral hypoglycemic drugs; Z79.899 Other long term (current) drug therapy
CPT/HCPCS: 36415; 70450; 71045; 71275; 72125; 74176; 80048; 80053; 81001; 82550; 82947; 83605; 83735; 84443; 84484; 85007; 85014; 85018; 85025; 85027; 85379; 85610; 86850; 86900; 86901; 87040; 87086; 87088; 87633; 90656; 93005; 93306; 93970; 94640; 97116; 97161; 99285; J0131; J0637; J0696; J1450; J1644; J7120; Q9957

== ENCOUNTER → 2025-02-02 18:32 | Outpatient (BNV) | payer MEDICARE, SELFPAY | PROVIDERS: Admitting Provider Hospitalist; Emergency Provider Emergency Medicine; Visit Provider Internal Medicine Cardiovascular Disease | DX: I49.3 Ventricular premature depolarization (principal); R00.0 Tachycardia, unspecified | CPT/HCPCS: 93010 ==

== ENCOUNTER → 2025-02-02 18:56 | Outpatient (BNV) | payer MEDICARE, SELFPAY | PROVIDERS: Emergency Provider Emergency Medicine; Visit Provider Radiology Diagnostic Radiology | DX: N13.2 Hydronephrosis with renal and ureteral calculous obstruction (principal); K80.20 Calculus of gallbladder without cholecystitis without obstruction; K40.90 Unilateral inguinal hernia, without obstruction or gangrene, not specified as recurrent; I70.0 Atherosclerosis of aorta; N28.1 Cyst of kidney, acquired; Z04.3 Encounter for examination and observation following other accident | CPT/HCPCS: 70450; 71045; 72125; 74176 ==

== ENCOUNTER 2025-02-02 21:20 | Outpatient (BNV) | payer MEDICARE, SELFPAY | END 2025-02-05 11:08 | PROVIDERS: Admitting Provider Hospitalist; Emergency Provider Emergency Medicine; PCP Internal Medicine; Visit Provider Internal Medicine Cardiovascular Disease | DX: I49.3 Ventricular premature depolarization (principal); I25.2 Old myocardial infarction; R00.0 Tachycardia, unspecified | CPT/HCPCS: 93010 ==

== ENCOUNTER 2025-02-02 21:20 | Outpatient (BNV) | payer OTHER, SELFPAY | END 2025-02-08 18:20 | PROVIDERS: Admitting Provider Hospitalist; Emergency Provider Emergency Medicine; PCP Internal Medicine; Visit Provider Radiology Diagnostic Radiology | DX: J43.8 Other emphysema (principal); R91.8 Other nonspecific abnormal finding of lung field; M79.604 Pain in right leg; M79.605 Pain in left leg | CPT/HCPCS: 71275; 93970 ==

== ENCOUNTER 2025-02-02 21:20 | Outpatient (BNV) | payer OTHER, SELFPAY | END 2025-02-07 17:58 | PROVIDERS: Admitting Provider Hospitalist; Emergency Provider Emergency Medicine; PCP Internal Medicine; Visit Provider Radiology Diagnostic Radiology | DX: R91.8 Other nonspecific abnormal finding of lung field (principal) | CPT/HCPCS: 71045 ==

== ENCOUNTER 2025-02-02 21:20 | Outpatient (BNV) | payer OTHER, SELFPAY | END 2025-02-06 17:10 | PROVIDERS: Admitting Provider Hospitalist; Emergency Provider Emergency Medicine; PCP Internal Medicine; Visit Provider Internal Medicine Cardiovascular Disease | DX: R00.0 Tachycardia, unspecified (principal); I49.3 Ventricular premature depolarization; I49.2 Junctional premature depolarization | CPT/HCPCS: 93010 ==

== ENCOUNTER 2025-02-02 21:20 | Outpatient (BNV) | payer OTHER, SELFPAY | END 2025-02-07 07:00 | PROVIDERS: Admitting Provider Hospitalist; Emergency Provider Emergency Medicine; PCP Internal Medicine; Visit Provider Internal Medicine Cardiovascular Disease | DX: I51.7 Cardiomegaly (principal) | CPT/HCPCS: 93306 ==

== ENCOUNTER → 2025-02-02 21:20 | Outpatient (BNV) | payer MEDICARE, SELFPAY | PROVIDERS: Admitting Provider Hospitalist; Emergency Provider Emergency Medicine; PCP Internal Medicine; Visit Provider Internal Medicine | DX: N39.0 Urinary tract infection, site not specified (principal); R31.9 Hematuria, unspecified; N40.0 Benign prostatic hyperplasia without lower urinary tract symptoms | CPT/HCPCS: 99222 ==

== ENCOUNTER → 2025-02-02 21:20 | Outpatient (BNV) | payer MEDICARE, SELFPAY | PROVIDERS: Admitting Provider Hospitalist; Emergency Provider Emergency Medicine; Visit Provider Internal Medicine | DX: R00.0 Tachycardia, unspecified (principal); N39.0 Urinary tract infection, site not specified; R31.9 Hematuria, unspecified | CPT/HCPCS: 99232; 99499 ==

== ENCOUNTER → 2025-02-02 21:20 | Outpatient (BNV) | payer MEDICARE, SELFPAY | PROVIDERS: Admitting Provider Hospitalist; Emergency Provider Emergency Medicine; PCP Internal Medicine; Visit Provider Internal Medicine Cardiovascular Disease | DX: R00.0 Tachycardia, unspecified (principal); I49.9 Cardiac arrhythmia, unspecified | CPT/HCPCS: 99233 ==

== ENCOUNTER → 2025-02-02 21:20 | Outpatient (BNV) | payer MEDICARE, SELFPAY | PROVIDERS: Admitting Provider Hospitalist; Emergency Provider Emergency Medicine; Visit Provider Urology | DX: R33.9 Retention of urine, unspecified (principal); N17.9 Acute kidney failure, unspecified | CPT/HCPCS: 99231 ==

== ENCOUNTER 2025-02-20 13:05 | Emergency (ER) | payer MEDICARE, SELFPAY ==
[2025-02-20 13:09] VITALS: BP 132/75; PULSE 110
[2025-02-20 13:11] VITALS: BP 120/64; PULSE 88; RESP 20; TEMP 37.1; O2SAT 97; BMI 26.0
--- NOTE | 2025-02-20 13:17 | ED.GENADULT ---
HPI - General Adult General Chief complaint: General Medical Stated complaint: Weakness,dark urine ramos bag ?sepsis Time Seen by Provider: 02/20/25 13:17 Source: patient and EMS Mode of arrival: EMS Limitations: no limitations History of Present Illness ED Provider: HPI narrative: 79-year-old male was just admitted for SANDY, UTI, has a Ramos catheter, came home yesterday he states when he was not in a hospital the staff want him to go to rehab but he did not want to but he did not take his medications, had a hard time walking around in his home with a Ramos bag, his DIGITAL PRODUCTION ARTIST came over and called EMS. Patient reports to be full code no new issues reported no trauma. Related Data Home Medications ?Medication ?Instructions ?Recorded ?Confirmed insulin glargine U-300 conc 300 30 unit subcut DAILY@1600 02/03/25 02/20/25 unit/mL (1.5 mL) subcutaneous pen ([employer] SoloStar U-300 Insulin) metformin 1,000 mg tablet 1,000 mg PO BIDWM 02/03/25 02/20/25 Previous Rx's ?Medication ?Instructions ?Recorded aspirin 81 mg tablet,delayed 81 mg PO DAILY #90 tabs 01/10/25 release blood sugar diagnostic (OneTouch #100 ea 01/10/25 Ultra Test strips) ferrous sulfate 325 mg (65 mg 325 mg PO DAILY #90 tabs 01/10/25 iron) tablet nxucmmzt-uh-fhquq 300 mcg-K 60 1 tab PO DAILY #90 tabs 01/10/25 mcg-lycop 600 mcg-lutein 300 mcg tablet (Centrum Silver Men) pen needle, diabetic 29 gauge x #100 ea 01/10/25 1 (Ultra-Thin II Insulin Pen [place]) rosuvastatin 40 mg tablet 40 mg PO DAILY #90 tabs 01/10/25 tamsulosin 0.4 mg capsule 0.4 mg PO BEDTIME #90 caps 01/10/25 finasteride 5 mg tablet 5 mg PO DAILY 90 days #90 tabs 02/05/25 metoprolol tartrate 25 mg tablet 25 mg PO BID 90 days #180 tabs 02/17/25 Allergies Allergy/AdvReac Type Severity Reaction Status Date / Time atorvastatin (Lipitor) Allergy Unknown rash Verified 02/20/25 13:13 From LIPITOR Allergy Unknown RASH Uncoded 02/02/25 18:04 Review of Systems Constitutional: Constitutional: Reports as per [facility] Past Medical History Medical History Anemia Hypertension Glaucoma UTI (urinary tract infection) Dysuria Chronic anemia DNI (do not intubate) DNR (do not resuscitate) discussion Encounter for annual wellness exam in Medicare patient Sinus tachycardia Shortness of breath on exertion Multiple rib fractures Cervical radiculopathy Cervical disc disease Tubular adenoma Leukopenia GERD (gastroesophageal reflux disease) Renal lithiasis Hypotestosteronism Vitamin D deficiency Mild hypercholesterolemia Type 2 diabetes mellitus CVA (cerebral vascular accident) BPH (benign prostatic hyperplasia) H/O: HTN (hypertension) Diabetes mellitus Surgical History History of bladder surgery Hx of knee surgery H/O inguinal hernia repair Family History Family History Father Lung cancer Heart attack Social History Social History Household Members: None Housing: Apartment Do you presently have visiting nurse or other home services: No Alcohol intake: never Patient Tobacco Use Status: Former Tobacco user Tobacco use type: Cigarette Cigarette Packs Per Day: 1.5 Advance Directives: No Advance Directives Information Provided: Yes service: No Current occupational status: retired Physical Exam ED Exam Exam: ?General: ??looks age appropriate ?PERRLA, EOMI, MMM, Neck: Supple, no LAD ?CV: RRR, no obvious murmurs appreciated ?Resp: ?No wheezing rales rhonchi no stridor moving air well Abd: ?Bowel sounds are present, no tenderness no rebound no rigidity Ramos catheter in place Skin: Warm, dry, intact, ?Neuro: ?Alert and oriented x3, moving upper and lower extremities symmetrically, no obvious facial asymmetry noted, cranial nerves 2-12 intact Vital Signs: Vital Signs - 24 hr 02/20/25 16:22 02/21/25 00:05 02/21/25 06:00 Temperature 97.7 F 98 F 97.5 F Pulse Rate 99 100 95 Respiratory Rate 15 18 16 Blood Pressure 102/58 L 101/61 117/55 L Pulse Oximetry 98 98 96 Oxygen Delivery Method Room Air Room Air Room Air 02/21/25 12:49 Temperature 98.7 F Pulse Rate 89 Respiratory Rate 14 Blood Pressure 132/69 Pulse Oximetry 95 Oxygen Delivery Method Room Air BMI result Body Mass Index 26.0 Course Reevaluation(s) Reevaluation #1: Date: 02/21/25 Time: 12:36 Provider: Martínez Root PA-C Patient and physician observation for case management needs. No acute events reported by nursing overnight. No current complaints. VSS. Currently awaiting insurance authorization for placement at [facility] a rehab for STR. Will contine to monitor as we await disposition. Time: 12:34 Medications Administered Generic Name Dose Route Start Last Admin Trade Name Herman PRN Reason Stop Dose Admin Aspirin 81 mg 02/21/25 09:00 02/21/25 08:25 Aspirin Enteric Coated 81 Mg Tablet. PO 81 mg DAILY TIBURCIO Administration Ferrous Sulfate 324 mg 02/20/25 19:30 02/21/25 08:25 Ferrous Sulfate 324 Mg Tablet. PO 324 mg DAILY TIBURCIO Administration Finasteride 5 mg 02/21/25 09:00 02/21/25 08:25 Finasteride 5 Mg Tablet PO 5 mg DAILY TIBURCIO Administration Metformin HCl 1,000 mg 02/21/25 08:00 02/21/25 08:25 Metformin Hcl 1,000 Mg Tablet PO 1,000 mg BIDWM TIBURCIO Administration Metoprolol Tartrate 25 mg 02/20/25 21:00 02/21/25 08:25 Metoprolol Tartrate 25 Mg Tablet PO 25 mg BID TIBURCIO Administration Protocol Multivitamins/Vitamin C 1 tab 02/21/25 09:00 02/21/25 08:25 Multivitamin Tablet PO 1 tab DAILY TIBURCIO Administration Tamsulosin HCl 0.4 mg 02/20/25 21:00 02/20/25 20:02 Tamsulosin Hcl 0.4 Mg Capsule PO 0.4 mg BEDTIME TIBURCIO Administration Medical Decision Making Medical Decision Making [facility] Narrative: 1:58 PM 02/20/2025 (Dr. Jefe Cisse): Patient was admitted for urinary retention, UTI, SANDY, has a Ramos catheter, states when he came home he realized he should have went to rehab as it was recommended Differential Diagnosis Differential Diagnoses: The differential diagnosis associated with the presentation includes (Failure to thrive, dehydration, trauma, electrolyte derangements) Admission/Observation Consideration of admission/observation: Escalation of care including admission/observation considered Lab Data MDM Lab Attestation statement: I reviewed the patient's lab results. 02/20/25 13:41 02/20/25 13:41 Labs: Lab Results 02/20/25 02/20/25 02/20/25 Range/Units 13:41 14:00 16:38 WBC 6.4 (4.8-10.8) X10*3/uL RBC 3.82 L (4.60-5.80) X10*6/uL Hgb 10.8 L (14.0-18.0) g/dl Hct 34.7 L (42.0-52.0) % MCV 90.8 (80.0-98.0) fL MCH 28.3 (27.0-33.0) pg MCHC 31.1 (31.0-36.0) g/dl RDW 17.2 H (11.0-16.0) % Plt Count 345 (160-400) X10*3/uL MPV 8.3 L (9.4-12.4) fL Immature Gran % (Auto) 0.3 (0.0-0.4) % Neut % (Auto) 65.3 (45-73) % Lymph % (Auto) 22.8 (20-40) % [place] % (Auto) 8.3 (2-11) % Eos % (Auto) 2.4 (0-4) % Baso % (Auto) 0.9 (0-2) % Lymph # (Auto) 1.5 (1.2-4.9) X10*3/uL [place] # (Auto) 0.5 (0.1-1.2) X10*3/uL Eos # (Auto) 0.2 (0.0-0.4) X10*3/uL Baso # (Auto) 0.1 (0.0-0.2) X10*3/uL Abs Immat Gran (auto) 0.02 (0.00-0.03) X10*3/uL Absolute Neuts (auto) 4.2 (2.0-8.3) x10*3/uL Absolute Nucleated RBC 0.000 (0.0-0.012) X10*3/uL Nucleated RBC % (auto) 0.0 (0.0-0.2) /100WBC Sodium 136 (135-145) mmol/L Potassium 4.1 (3.3-5.1) mmol/L Chloride 105 (96-108) mmol/L Carbon Dioxide 25 (22-29) mmol/L Anion Gap 10 L (12-20) BUN 33 H (9-16) mg/dL Creatinine 1.22 (0.5-1.4) mg/dL Estim Creat Clear Calc 42.0 Estimated GFR 57 POC Glucose 128 H (60-115) mg/dL Random Glucose 135 H (60-115) mg/dL Calcium 9.1 (8.4-10.2) mg/dL Total Bilirubin 0.5 (0.0-1.0) mg/dL AST 33 (5-37) U/L ALT 39 (0-40) U/L Alkaline Phosphatase 90 (39-117) U/L Total Protein 6.8 (6.5-8.0) g/dL Albumin 3.3 L (3.5-5.0) g/dL Urine Color Yellow Urine Appearance Turbid Urine pH 5.5 (5.0-9.0) Ur Specific [place] 1.015 (1.005-1.025) Urine Protein 100 (2+) H (Neg-Trace) mg/dL Urine Glucose (UA) Negative (Negative) mg/dL Urine Ketones Negative (Negative) mg/dL Urine Blood Large (3+) H (Negative) Urine Nitrite Negative (Negative) Ur Leukocyte Esterase Large (3+) H (Negative) Urine RBC >20 H (0-2) /HPF Urine WBC >50 H (0-5) /HPF Ur Squamous Epith Cells 0-2 (0-2) /HPF Urine Bacteria 1+ (None Seen) Hyaline Casts 11-20 (0-2) /LPF COVID-19 (BHASKAR) Negative (Negative) COVID-19 Clin Com See Note Independent Historian Clinical information obtained from an independent historian. History obtained from or confirmed by: EMS External Record Review External record reviewed: Inpatient record Prescription Management I considered prescription management with: Antibiotic Chronic Conditions Patient?s care impacted by: Hypertension Discharge Plan Discharge Clinical Impression: Adult failure to thrive Prescriptions: No Action aspirin 81 mg tablet,delayed release (DR/EC) 81 mg PO DAILY Qty: 90 3RF (DME) OneTouch Ultra Test Strip See Rx Instructions .Route Qty: 100 3RF Rx Instructions: Check glucose 3 to 4 times a day with meals ferrous sulfate 325 mg (65 mg iron) tablet 325 mg PO DAILY Qty: 90 3RF Centrum Silver Men [id number] mcg tablet 1 tab PO DAILY Qty: 90 3RF (DME) pen needle, diabetic [Ultra-Thin II Ins Pen [place]] 29 gauge x 1/2 needle See Rx Instructions .Route Qty: 100 3RF Rx Instructions: To give insulin 3 times a day before meals and at bedtime rosuvastatin 40 mg tablet 40 mg PO DAILY Qty: 90 3RF tamsulosin 0.4 mg capsule 0.4 mg PO BEDTIME Qty: 90 3RF insulin glargine U-300 conc [[employer] SoloStar U-300 Insulin] 300 unit/mL (1.5 mL) insulin pen 30 unit subcut DAILY@1600 metformin 1,000 mg tablet 1,000 mg PO BIDWM Rx Instructions: 1 tablet with a meal twice daily finasteride 5 mg Tablet 5 mg PO DAILY 90 Days Qty: 90 0RF metoprolol tartrate 25 mg Tablet 25 mg PO BID 90 Days Qty: 180 0RF Protocol: Hold for SBP/HR < HOLD for SBP < : 90 HOLD for HR < : 60 Print Language: South Korean
--- NOTE | 2025-02-20 13:30 | MHC.CM.ED ---
Patient is currently in ER. Was d/c'd from [facility] on 02/19.Short term rehab was recommended at that time. Patient declined and went home with [facility]. [facility] went to patient's home to admit patient to their service and patient was sent to the ER due to safety. [facility] so [facility] can follow for d/c need. Alejandra Plunkett RN aware. Work up pending. Continue to monitor for d/c needs.
[2025-02-20 13:44] LABS: MANUAL DIFF FLAG NO
[2025-02-20 13:45] LABS: Hematocrit 34.7 % (42.0-52.0); Hemoglobin 10.8 g/dl (14.0-18.0); Red Blood Count 3.82 X10*6/uL (4.60-5.80); White Blood Count 6.4 X10*3/uL (4.8-10.8)
[2025-02-20 13:46] LABS: Imm Gran Abs Auto 0.02 X10*3/uL (0.00-0.03); Imm Gran Pct Auto 0.3 % (0.0-0.4); Lymphocytes Absolute Auto 1.5 X10*3/uL (1.2-4.9); Mean Corpuscular HGB Conc 31.1 g/dl (31.0-36.0); Mean Corpuscular Hemoglobin 28.3 pg (27.0-33.0); Mean Corpuscular Volume 90.8 fL (80.0-98.0); NRBC Abs Auto 0.000 X10*3/uL (0.0-0.012); NRBC Pct Auto 0.0 /100WBC (0.0-0.2); Platelet Count 345 X10*3/uL (160-400)
[2025-02-20 14:07] LABS: Appearance Urine Turbid; Glucose Urine UA Negative (Negative); PH 5.5 (5.0-9.0); Specific Gravity - Urine 1.015 (1.005-1.025); UMIC TRIGGER UACC YES
[2025-02-20 14:15] LABS: Alanine Aminotransferase 39 U/L (0-40); Albumin Level 3.3 g/dL (3.5-5.0); Alkaline Phosphatase 90 U/L (39-117); Anion Gap 10 (12-20); Aspartate Amino Transferase 33 U/L (5-37); Blood Urea Nitrogen 33 mg/dL (9-16); Calcium 9.1 mg/dL (8.4-10.2); Carbon Dioxide 25 mmol/L (22-29); Chloride 105 mmol/L (96-108); Creatinine Clr Calc Pharmacy 42.0; Estimated Glomerular Filt Rate 57; Potassium 4.1 mmol/L (3.3-5.1); Sodium 136 mmol/L (135-145); Total Protein 6.8 g/dL (6.5-8.0)
[2025-02-20 14:17] LABS: COVID-19 Test Negative (Negative); IDNOW Serial# 55D5AD1C
[2025-02-20 14:19] LABS: UACC Culture Trigger YES
--- NOTE | 2025-02-20 14:52 | MHC.CM.ED ---
Physical therapy eval pending. Met with patient in regards to discharge planning. Patient is now agreeable to STR. Referral broadcasted in [facility]. [facility], [facility], [facility], [facility] [place], Toni Wick, Iliana Hubbard, [facility] and [facility] are able to offer a bed. Patient accepts bed at [facility]. [facility] aware and will need PT eval for auth. Continue to monitor for d/c needs.
[2025-02-20 16:22] VITALS: BP 102/58; PULSE 99; RESP 15; TEMP 36.5; O2SAT 98
[2025-02-20 16:45] LABS: Glucose, Whole Blood 128 mg/dL (60-115)
--- NOTE | 2025-02-20 16:58 | MHC.EDTECH ---
pt ate 25% of dinner joanne, RN aware
--- OUTSIDE RECORDS SUMMARY | 2025-02-20 17:03 | XMS_ITS | Encounter Summary ---
Author Organization [facility] Address [address] [facility] [address] [place] [address] Phone Care Team Providers Care Egg Grader Name Role Phone Tim Ji MD Primary Care Provider + Encounter Details Date Type Department Care Team (Late st Contact Info) Description 06/27/2020 Orders Only [facility] [address] [facility] [address] [place] [address] Sb Saenz MD [address] [address] Type 2 diabetes mellitus with [...] Visit [facility] [address] [facility] [address] [place] [id number] Sb Saenz MD [address] [address] documented as of this encounter Visit Diagnoses Diagnosis Type 2 diabetes mellitus with diabetic chronic kidney disease (HCC) Stage 3a chronic kidney disease (HCC) Vitamin B12 deficiency Hypercholesterolemia, not otherwise specified Elevated prostate specific antigen (PSA) Anemia, not otherwise specified documented in this encounter Care Teams Egg Grader Relationship Specialty Start Date End Date Tim Ji MD [address] [facility] [address] [place] [address] PCP - General Internal Medicine 10/16/24 documented as of this encounter
--- OUTSIDE RECORDS SUMMARY | 2025-02-20 17:03 | XMS_ITS | Continuity of Care Document ---
Author Organization [facility] [address] [place] [address] Phone [phone] Care Team Providers Care Apartment Maintenance Name Role Phone Claude Churchill M.D. Care Team Information Recei francisco j [phone] Problems Active Problems Provider Date Benign prostatic [...] SIG Qnty Indications Ordering Provider Date Toujeo Filnwmkk128Dvnm/ML Solution Pen-Inject inject 20 units under the skin once daily in am dx: e11.8 13.5ml Kaiden Retana M.D. 11/02/2023 Advocate Insulin Pen [place] 29GX12.7mm29G X 12.7mm Misc inject daily 100units Kaiden Retana M.D. 11/02/2023 Freestyle Mirella 3/Sensor/Glucose Monitoring Gqtlrh3Szefug Misc as directed 3units Kaiden Retana M.D. 11/02/2023 Freestyle Mirella 3/[place]/Glucose Monitoring Iytvoo4Xmpzaz Device use with sensors to check blood sugar dx:e11.9 1units Kaiden Retana M.D. 11/02/2023 Timolol Maleate0.5% Solution Instill 1 Drop In Right Eye Every Morning Arvin Leung M.D Frfpgnmed16pc Tablets Take 1 Tablet By Mouth Twice A Day 30 Minutes Before Meals Claude Churchill M.D. Metformin [id number] Tablets Take 1 Tablet By Mouth Twice A Day With A Meal For 90 Days 180tabs Kaiden Retana M.D. Jnuimabrbm5tg Tablets Take 1 Tablet By Mouth Every Day For 90 Days Claude Churchill M.D. Ferrous Rgjiekw584(65Fe) mg Tablets Take 1 Tablet By Mouth Every Day Ap Negron Rosuvastatin Agheisw15em Tablets Anish Churchill M.D. Tamsulosin HCL0.4mg Capsules [...] 587 Procedures Date Code Description Status 10/25/2023 36573 Glucose Monitori ng From Interstital Tissue Fluid [...]
--- OUTSIDE RECORDS SUMMARY | 2025-02-20 17:03 | XMS_ITS | Clinical Summary ---
Author Organization [facility] Address [address] [facility] [address] [place] [address] Phone Care Team Providers Care Supervisor Metalizing Name Role Phone Tim Ji MD Primary [...] 09/29/2022 Chronic kidney disease, stage 2 (mild) Renal osteodystrophy 01/28/2021 Acute nontraumatic kidney injury [...] Visit [facility] [address] [address] Sb Saenz MD [address] [address] Health Maintenance Due Date Last [...] patient's age to complete this topic Insurance [facility] Medicare [facility] Medicare Care Teams Supervisor Metalizing Relationship Specialty Start Date End Date Tim Ji MD [address] [place] [address] PCP - General Internal Medicine 10/16/24
--- NOTE | 2025-02-20 17:07 | PC.NURSE ---
Received pt from main ED to overflow room 6, ramos intact, pt able to ambulate to bed from stretcher to bed without diff. Pt given meal tray, pt denies any c/o's at this time.
[2025-02-20] MEDS: Ferrous Sulfate 324 MG TABLET.DR PO (20:02)
[2025-02-21 00:05] VITALS: BP 101/61; PULSE 100; RESP 18; TEMP 36.6; O2SAT 98
[2025-02-21 06:00] VITALS: BP 117/55; PULSE 95; RESP 16; TEMP 36.4; O2SAT 96
--- NOTE | 2025-02-21 06:42 | PC.NURSE ---
Caruso catheter emptied at 06:00 for 650mLs. Urine yellow
[2025-02-21] MEDS: Ferrous Sulfate 324 MG TABLET.DR PO (08:25)
[2025-02-21] MEDS: Aspirin Enteric Coated 81 MG TABLET.DR PO (08:25)
--- NOTE | 2025-02-21 08:32 | PC.NURSE ---
Addendum entered by Sarahy Saldaña RN 02/21/25 08:33: fall precautions intact Original Note: pt a&ox3, vss, rr equal/non labored, ramos cath patient/draining, pt denying pain/discomfort, ate 100% of breakfast, call mahan within reach, plan of care ongoing
[2025-02-21 12:49] VITALS: BP 132/69; PULSE 89; RESP 14; TEMP 37.1; O2SAT 95
--- NOTE | 2025-02-21 13:04 | MHC.CM.ED ---
Received notification from Cecelia SRIVASTAVA that patient believes he is leaving today. Met with patient. Reminded patient he was d/c'd home on 02/19 and returned on 02/20 and that he was agreeable to STR on 02/20. Patient states he's still agreeable but was hoping to leave today. Explained PT eval was needed for insurance auth for [facility]. Patient verbalized understanding. Cecelia SRIVASTAVA aware. Continue to monitor for d/c needs.
[2025-02-21] MEDS: Insulin Glargine,Hum.rec.anlog 100 UNIT/ML 10 ML VIAL 21 UNIT SUBCUT (16:31)
[2025-02-21 20:35] VITALS: BP 142/65; PULSE 113; RESP 18; TEMP 36.6; O2SAT 97
--- NOTE | 2025-02-22 06:13 | PC.NURSE ---
pt resting comfortably throughout the night, ambulated to the bathroom x, with assist for safety. call mahan w/in reach. no apparent distress noted at this time
[2025-02-22 08:55] VITALS: BP 141/74; PULSE 105; RESP 18; TEMP 36.8; O2SAT 98
[2025-02-22] MEDS: Aspirin Enteric Coated 81 MG TABLET.DR PO (08:55)
[2025-02-22] MEDS: Ferrous Sulfate 324 MG TABLET.DR PO (08:55)
--- NOTE | 2025-02-22 10:49 | PHA.MEDREC ---
Addendum entered by Pantera Villegas, PharmD 02/22/25 12:23: MED REC CHECKED BY [facility] Original Note: Pharmacy Consult ? Medication Reconciliation Pharmacy reviewed med rec done by nursing. Spoke with pt and he verified medications. Pt just DC 02/19 and confirmed medications from [facility] are up to date; pt was started on Finasteride and Metoprolol and was told to stop Lisinopril and Jardiance 02/19, and pt takes Rosuvastatin 40mg at bedtime; nurse confirmed daily.
[2025-02-22] MEDS: Insulin Glargine,Hum.rec.anlog 100 UNIT/ML 10 ML VIAL 21 UNIT SUBCUT (16:08)
[2025-02-22 16:09] VITALS: BP 134/80; PULSE 95; RESP 18; TEMP 36.7; O2SAT 97
[2025-02-22 19:15] VITALS: BP 138/72; PULSE 97; RESP 16; TEMP 36.6; O2SAT 98
[2025-02-22 20:55] VITALS: BP 111/67; PULSE 96
[2025-02-23 07:39] VITALS: BP 127/60; PULSE 97; RESP 18; TEMP 36.8; O2SAT 100
--- NOTE | 2025-02-23 07:40 | PC.NURSE ---
Resumed care of patient at 0700, he is resting in bed, ramos emptied at this time for 700cc yellow urine. this Rn called report to [facility] nurse as pt being moved to [facility], pt is A/Ox4, denies pain at this time, in hospital bed, call mahan within reach, awaiting dispo plans at this time.
--- NOTE | 2025-02-23 08:19 | MHC.EDTECH ---
Patient washed up and bed linen changed
[2025-02-23] MEDS: Ferrous Sulfate 324 MG TABLET.DR PO (08:48)
[2025-02-23] MEDS: Aspirin Enteric Coated 81 MG TABLET.DR PO (08:48)
[2025-02-23 14:00] VITALS: BP 115/64; PULSE 85; RESP 18; TEMP 36.2; O2SAT 98
[2025-02-23 15:39] LABS: Glucose, Whole Blood 97 mg/dL (60-115)
--- NOTE | 2025-02-23 15:39 | MHC.CM.PN ---
CM CONTINUES TO AWAIT INSURANCE AUTH APPROVAL FROM [facility] FOR ADMISSION.
[2025-02-23 20:50] VITALS: BP 115/67; PULSE 91; RESP 18; TEMP 36.1; O2SAT 99
[2025-02-23 22:00] VITALS: BP 130/68; PULSE 85; RESP 16; TEMP 36.6; O2SAT 100
[2025-02-24 05:53] VITALS: BP 118/64; PULSE 91; RESP 18; TEMP 36.1; O2SAT 97
[2025-02-24 06:29] LABS: Glucose, Whole Blood 94 mg/dL (60-115)
[2025-02-24] MEDS: Ferrous Sulfate 324 MG TABLET.DR PO (08:36)
[2025-02-24] MEDS: Aspirin Enteric Coated 81 MG TABLET.DR PO (08:36)
[2025-02-24 14:00] VITALS: BP 108/61; PULSE 82; RESP 18; TEMP 36.1; O2SAT 99
[2025-02-24 14:45] LABS: Glucose, Whole Blood 173 mg/dL (60-115)
[2025-02-24] MEDS: Insulin Glargine,Hum.rec.anlog 100 UNIT/ML 10 ML VIAL 21 UNIT SUBCUT (15:13)
[2025-02-24 20:41] VITALS: BP 119/63; PULSE 105
[2025-02-24 21:20] VITALS: BP 119/63; PULSE 105; O2SAT 97
[2025-02-25 05:42] VITALS: BP 108/58; PULSE 102; RESP 18; TEMP 36.2; O2SAT 98
[2025-02-25 07:41] LABS: Glucose, Whole Blood 123 mg/dL (60-115)
[2025-02-25] MEDS: Aspirin Enteric Coated 81 MG TABLET.DR PO (08:04)
[2025-02-25] MEDS: Ferrous Sulfate 324 MG TABLET.DR PO (08:05)
[2025-02-25 08:06] VITALS: BP 119/64; PULSE 110
--- NOTE | 2025-02-25 10:06 | MHC.CM.ED ---
Addendum entered by Ariadne Dias 02/25/25 13:45: Per Deysi GREEN, [facility] will deny STR. Waiting for denial letter so patient can be educated on appeal process. Original Note: Patient remains in ER overflow. Received notification that [facility] is requesting peer to peer. Mellisa GREEN aware. Continue to monitor for d/c needs.
--- NOTE | 2025-02-25 10:12 | PC.NURSE ---
pt alert and cooperative, complaining of 10/10 L hip chronic pain. lidocaine patch and heating packs applied, Proider aware and evaluating next steps. pt states she is ok for right now.
--- NOTE | 2025-02-25 10:44 | PC.NURSE ---
pt alert and oriented x4, Pt tolerated meds well and denies complaint at this time. He is OOB to chair and resting with no s/s distress
--- NOTE | 2025-02-25 11:40 | PC.NURSE ---
POC Glucose 101. Ramses GREEN notified. Eating lunch at this time.
[2025-02-25 11:42] LABS: Glucose, Whole Blood 101 mg/dL (60-115)
--- NOTE | 2025-02-25 11:57 | HO.WOUND ---
Over Flow Rounding completed 89yr old male present in [facility] ED / OverFlow area - See ED notes for detailed history.? Inpatient Skin Integrity Maintenance Rounding. Patient agreeable to assessment and skin assessment. Brief chart review completed.? Patient was recently discharged to home from [facility] on 02/19/25 back to ED on 02/20/25. During prior admission noted for DTI in evolution and MASD to sacral and buttock area. Sacrum assessed scar tissue to right sacrum and dark red blanchable tissue with Maceration noted to gluteal fold. No PI noted at this time, continued with MASD at this time. Of note while at bedside patient c/o pain to his sacral area.? Recommend Q 2 hr turns while in bed and waffle cushion is able to get up to recliner chair. Bilateral Heels assessed for blanchable redness, remain intact and floated off of bed surface with pillows. Bilateral Heels? - Elevate heels off of bed surface with pillows.? Float heels off of pillows.? Apply skin prep allow to dry.? Apply heel foam dressings, peel back and assess Q shift and change every 5-7 days and PRN. Buttock, Sacrum and Coccyx assessed - noted to be intact, reddened however remains blanchable. Sacrum? - Off Load Pressure with Q2 hr turns and use of pillows - Routine cleansing.? Apply skin prep allow to dry.? Cover with foam dressing to aid in off loading and protection from friction. Change every 3 days and PRN. May use preventative foam dressing application to protect from friction and injury development.? Recommend barrier cream twice daily and PRN after episodes of incontinence.? Patient on Hospital bed at this time recommend applying low air loss pump to mattress if available.? Waffle cushion when up to chair. Recommend SIPP Activation.
[2025-02-25 14:00] VITALS: BP 106/57; PULSE 83; RESP 12; TEMP 36.7; O2SAT 98
[2025-02-25 16:15] LABS: Glucose, Whole Blood 108 mg/dL (60-115)
[2025-02-25] MEDS: Insulin Glargine,Hum.rec.anlog 100 UNIT/ML 10 ML VIAL 21 UNIT SUBCUT (16:31)
[2025-02-25 20:18] VITALS: BP 106/57; PULSE 83
--- NOTE | 2025-02-25 20:35 | PC.NURSE ---
Patient medicated per [facility] orders. Denies complaints at this time. Given warm blanket as requested. Remains in recliner, no distress, watching TV. Care ongoing by this RN.
--- NOTE | 2025-02-25 22:06 | PC.NURSE ---
pt oob recliner into his bed, alarm set for fall risks.
[2025-02-26 05:44] VITALS: BP 136/65; PULSE 65; RESP 14; TEMP 36.4; O2SAT 97
--- NOTE | 2025-02-26 05:45 | PC.NURSE ---
700cc urine out from ramos
[2025-02-26 08:33] VITALS: BP 119/59; PULSE 110
[2025-02-26] MEDS: Aspirin Enteric Coated 81 MG TABLET.DR PO (08:33)
[2025-02-26] MEDS: Ferrous Sulfate 324 MG TABLET.DR PO (08:34)
--- NOTE | 2025-02-26 09:24 | PC.NURSE ---
Assumed care of pt at 0700. Pt resting quietly- transferred from hospital bed to recliner one assist. Respirations even and unlabored, no increased wob/sob noted- denies pain/appears in no distress. Medicated per MAR with morning medications, takes pills whole with water, sitting upright eating breakfast. Call mahan within reach, all needs met at this time.
[2025-02-26 13:01] VITALS: BP 103/53; PULSE 87; RESP 18; TEMP 36.1; O2SAT 97
[2025-02-26] MEDS: Insulin Glargine,Hum.rec.anlog 100 UNIT/ML 10 ML VIAL 21 UNIT SUBCUT (16:03)
--- NOTE | 2025-02-26 18:13 | MHC.CM.ED ---
CM met with patient to discuss discharge plan. Pt is aware that [facility] has denied STR. Waiting for denial letter. Pt will appeal decision. Aware that insurance with either approve or deny STR. Pt active with [facility]. Pt aware that he could private pay for STR. Pt does not have funds. NA is aware that insurance has denied STR. Following for discharge plan.
[2025-02-26 19:59] VITALS: BP 114/55; PULSE 101; RESP 19; TEMP 36.9; O2SAT 96
[2025-02-26 20:17] VITALS: BP 114/55; PULSE 101
[2025-02-27 03:12] VITALS: BP 102/54; PULSE 87; RESP 18; TEMP 37.1; O2SAT 95
--- NOTE | 2025-02-27 06:12 | PC.NURSE ---
Assumed care of pt at 1900 02/26/25, pt sat in recliner until 2100 and then was assisted to bed. PT slept very little throughout the night, encouraged pt to close eyes and turn tv off pt declined Foaming dressing on sacrum and bilateral ankles. Dressing intact. PT repositioned as per recommendations and pillow placed under ankles. Caruso intact and patent draining yellow urine. VSS. Plan for STR
[2025-02-27 07:32] VITALS: BP 117/56; PULSE 97; RESP 16; TEMP 36.6; O2SAT 98
[2025-02-27] MEDS: Ferrous Sulfate 324 MG TABLET.DR PO (08:01)
[2025-02-27] MEDS: Aspirin Enteric Coated 81 MG TABLET.DR PO (08:01)
[2025-02-27 12:30] LABS: Creatinine Clr Calc Pharmacy 61.7; Estimated Glomerular Filt Rate > 60
[2025-02-27 14:00] VITALS: BP 126/66; PULSE 92; RESP 16; TEMP 36.2; O2SAT 98
--- NOTE | 2025-02-27 14:49 | MHC.CM.ED ---
Patient remains in ER overflow. Denial letter has still not been provided by [facility]. T/W attempted to Ashleigh at [facility]. Left voicemail requesting return telephone call or copy of denial letter to be faxed. Continue to monitor for d/c needs.
[2025-02-27 16:45] LABS: Glucose, Whole Blood 95 mg/dL (60-115)
--- NOTE | 2025-02-27 19:54 | MHC.CM.ED ---
Awaiting denial letter from [facility]. Franchise Sales Director forms completed and signed by patient allowing CM to speak to insurance company on his behalf.
[2025-02-27 19:59] VITALS: BP 127/59; PULSE 105; RESP 16; TEMP 36.5; O2SAT 98
[2025-02-27 20:29] LABS: Glucose, Whole Blood 108 mg/dL (60-115)
[2025-02-28 06:06] VITALS: BP 129/62; PULSE 91; RESP 16; TEMP 36.6; O2SAT 97
[2025-02-28 07:30] LABS: Glucose, Whole Blood 87 mg/dL (60-115)
[2025-02-28] MEDS: Aspirin Enteric Coated 81 MG TABLET.DR PO (07:47)
[2025-02-28] MEDS: Ferrous Sulfate 324 MG TABLET.DR PO (07:47)
--- NOTE | 2025-02-28 11:37 | PC.NURSE ---
POC Glucose 98, lunch tray arrived/given. No acute distress. Sitting upright in recliner. Care ongoing by this RN.
[2025-02-28 11:39] LABS: Glucose, Whole Blood 98 mg/dL (60-115)
--- NOTE | 2025-02-28 12:02 | MHC.CM.ED ---
Patient remains in ER overflow. Denial letter received from [facility]. Provided to patient. Patient will call to file a fast appeal. Clinical info and Auth of Rep form will be faxed to [facility] at [phone]. Continue to monitor for d/c needs.
[2025-02-28 14:00] VITALS: BP 112/55; PULSE 86; RESP 18; TEMP 36.1; O2SAT 97
[2025-02-28 15:41] LABS: Glucose, Whole Blood 111 mg/dL (60-115)
[2025-02-28] MEDS: Insulin Glargine,Hum.rec.anlog 100 UNIT/ML 10 ML VIAL 21 UNIT SUBCUT (16:24)
--- NOTE | 2025-02-28 17:00 | MHC.CM.ED ---
Repeat PT recommending home with services. Pt is agreeable. Active with [facility]. Return referral placed. F2F completed. Pt will d/c home in the am via private car and friend transport.
[2025-02-28 21:15] VITALS: BP 112/55; PULSE 86
[2025-02-28 22:00] VITALS: BP 110/56; PULSE 81; RESP 16; TEMP 36.3; O2SAT 99
[2025-03-01 05:50] VITALS: BP 149/66; PULSE 92; RESP 16; TEMP 36.7; O2SAT 99
[2025-03-01 07:16] LABS: Glucose, Whole Blood 67 mg/dL (60-115)
[2025-03-01] MEDS: Aspirin Enteric Coated 81 MG TABLET.DR PO (07:43)
[2025-03-01] MEDS: Ferrous Sulfate 324 MG TABLET.DR PO (07:43)
--- NOTE | 2025-03-01 09:44 | MHC.CM.ED ---
Met w/pt and his friend re: transportation to home: Pt has one full flight of stairs to enter his apartment and friend is not physically able to assist pt. Discussed EMS transport: pt in agreement - arrangements made for Robbie to transport today at 1pm via BLS. Referral also made to [facility] for MOW and MANAGER TALENT services. Pt is also active w[facility]. Pt states he has a f/u on 03/19 for his urinary needs/ramos cath. Friend may be able to transport. ED CM to follow
[2025-03-01 11:43] LABS: Glucose, Whole Blood 81 mg/dL (60-115)
[2025-03-01 13:46] VITALS: BP 104/53; PULSE 97; RESP 16; TEMP 36.6; O2SAT 99
[2025-03-01 14:46] VITALS: BP 104/53; PULSE 97; RESP 16; TEMP 36.6; O2SAT 99
== END 2025-03-01 14:50 | disposition home or self-care (01) ==
PROVIDERS: Student in an Organized Health Care Education/Training Program; Emergency Provider Emergency Medicine; PCP Internal Medicine
DX: R62.7 Adult failure to thrive (principal); Z68.26 Body mass index [BMI] 26.0-26.9, adult; N39.0 Urinary tract infection, site not specified; I10 Essential (primary) hypertension; E11.9 Type 2 diabetes mellitus without complications; R33.9 Retention of urine, unspecified; Z86.73 Personal history of transient ischemic attack (TIA), and cerebral infarction without residual deficits; Z96.0 Presence of urogenital implants; Z66 Do not resuscitate; Z88.8 Allergy status to other drugs, medicaments and biological substances
CPT/HCPCS: 36415; 80053; 81001; 82565; 82947; 85025; 87086; 87635; 97161; 97530; 99285

== ENCOUNTER 2025-03-15 10:15 | Emergency (ER) | payer MEDICARE, SELFPAY ==
[2025-03-15 10:24] VITALS: BP 125/60; PULSE 94; RESP 18; TEMP 36.8; O2SAT 97
[2025-03-15 10:25] VITALS: BP 130/80; PULSE 86; O2SAT 98
[2025-03-15 10:28] VITALS: BMI 24.8
--- NOTE | 2025-03-15 11:39 | ED_ITS ---
HPI - Male Genitourinary General Chief complaint: Urogenital-Male Stated complaint: CATHETER ISSUES Time Seen by Provider: 03/15/25 11:03 History of Present Illness HPI Narrative: Author / Clinician: Jose Navas MD Chief Complaint Leakage from Caruso catheter. History of Present Illness Mr. Joshua Gutierrez presents to the Emergency Department for evaluation of leakage around and through his Caruso catheter. The catheter has been in place for approximately 2?3 weeks following a hospitalization in early January for a urinary tract infection complicated by sepsis with candidemia/bilateral hydronephrosis. He also reports a recent fall prior to his hospitalization, which contributed to his admission. He reports that urine leaks around the catheter and through the tubing, soaking his underclothes. He denies low back pain, abdominal pain, fevers, chills, or difficulty emptying the Caruso bag. He has been emptying the bag himself and notes that the urine appears normal in color without sediment. He is eating and drinking well. Dr. Escalante was scheduled to remove the catheter (originally thought to be on 02/17, appointment subsequently changed), but the exact date is unclear. The patient?s main concern today is the persistent leakage; he requests assessment and possible removal of the catheter once it is deemed safe. Review of Systems ? Constitutional: Denies fever or chills. Reports eating and drinking well. ? Gastrointestinal: Denies abdominal pain. ? Genitourinary: Reports leakage around Caruso catheter; denies dysuria (unable to assess due to catheter), denies sediment, notes normal appearing urine in bag. ? Musculoskeletal/Back: Denies low back pain. Physical Examination Vital Signs: Measure Value ------- ----- Physical Exam: - General: Alert, in no acute distress. - HEENT: Oral mucosa moist. - Cardiovascular: Not specifically examined/discussed. - Respiratory: Not specifically examined/discussed. - Abdomen: Soft, non-tender on palpation. - Back/Flanks: No reported pain. - Genitourinary: Caruso catheter in situ with noted leakage around catheter and tubing. - Extremities/Integumentary: Clothing noted wet from urine leakage; no other findings discussed. Emergency Department Course The patient was interviewed and examined. Plan discussed to assess renal status prior to any Caruso intervention. A [id number] renal ultrasound is planned today to evaluate for persistent hydronephrosis/obstruction. Laboratory evaluation of renal function is to be obtained prior to removal of the Caruso catheter. Assessment & Plan Diagnosis: 1. Caruso catheter malfunction with chelsea-catheter urine leakage. 2. History of bilateral hydronephrosis secondary to obstruction, status post hospitalization (January) with UTI, sepsis and candidemia ? resolved. 3. Indwelling urinary catheter, 2?3 weeks duration. Plan: - Obtain renal ultrasound today to assess for resolution of hydronephrosis/obstruction. - Based on imaging results, proceed with Caruso catheter removal if no obstruction is present. Disposition Related Data Home Medications ?Medication ?Instructions ?Recorded ?Confirmed insulin glargine U-300 conc 300 30 unit subcut DAILY@1 600 02/03/25 02/20/25 unit/mL (1.5 mL) subcutaneous pen ([employer] SoloStar U-300 Insulin) metformin 1,000 mg tablet 1,000 mg PO BIDWM 02/03/25 1 04/22/24 rosuvastatin 40 mg tablet 40 mg PO BEDTIME 02/22/25 Previous Rx's ?Medication ?Instructions ?Recorded aspirin 81 mg tablet,delayed 81 mg PO DAILY #90 tabs 1 release ferrous sulfate 325 mg (65 mg 325 mg PO DAILY #90 tabs 01/10/25 iron) tablet ksrfedqo-es-mjxqy 300 mcg-K 60 1 tab PO DAILY #90 tabs 01/10/25 mcg-lycop 600 mcg-lutein 300 mcg tablet (Centrum Silver Men) pen needle, diabetic 29 gauge x #100 ea 01/10/2503/29 (Ultra-Thin II Insulin Pen Ib[place]ah) tamsulosin 0.4 mg capsule 0.4 mg PO BEDTIME #90 caps 1 finasteride 5 mg tablet 5 mg PO DAILY 90 days #90 ta bs 02/05/25 walker #1 ea 02/28/25 blood sugar diagnostic (OneTouch #100 ea 03/07/25 Ultra Test strips) metoprolol tartrate 25 mg tablet 25 mg PO BID 90 days #180 tabs 03/13/25 oxybutynin chloride 5 mg tablet 5 mg PO DAILY #14 tabs 03/16/25 Allergies Allergy/AdvReac Type Severity Reaction Status Date / Time atorvastatin (Lipitor) Allergy Unknown rash Verified 03/16/25 14:48 From LIPITOR Allergy Unknown RASH Uncoded 03/16/25 14:48 [facility] Past Medical History Medical History (Updated 03/17/25 @ 00:00 by Layla Ravi) Urinary retention with incomplete bladder emptying Accident due to mechanical fall without injury Bladder cancer Adult failure to thrive Anemia Hypertension Glaucoma UTI (urinary tract infection) Dysuria Chronic anemia DNI (do not intubate) DNR (do not resuscitate) discussion Encounter for annual wellness exam in Medicare patient Sinus tachycardia Shortness of breath on exertion Multiple rib fractures Cervical radiculopathy Cervical disc disease Tubular adenoma Leukopenia GERD (gastroesophageal reflux disease) Renal lithiasis Hypotestosteronism Vitamin D deficiency Mild hypercholesterolemia Type 2 diabetes mellitus CVA (cerebral vascular accident) BPH (benign prostatic hyperplasia) H/O: HTN (hypertension) Diabetes mellitus Surgical History (Updated 03/13/25 @ 07:01 by Tsering Morrow) History of colonoscopy (~03/09/17) History of bladder surgery Hx of knee surgery H/O inguinal hernia repair Family History Family History Father Lung cancer Heart attack Social History Social History Household Members: None Housing: Apartment Do you presently have visiting nurse or other home services: No Alcohol intake: never Patient Tobacco Use Status: Former Tobacco user Tobacco use type: Cigarette Cigarette Packs Per Day: 1.5 service: No Current occupational status: retired Physical Exam 2 Vital Signs: Vital Signs: Last Vital Signs Temp 98.2 F 03/15/25 13:50 Pulse 72 03/15/25 13:50 Resp 15 03/15/25 13:50 BP 120/66 03/15/25 13:50 Pulse Ox 99 03/15/25 13:50 O2 Del Method Room Air 03/15/25 13:50 BMI result Body Mass Index 24.8 Medical Decision Making Medical Decision Making MDM Narrative: Medical Decision Makin-year-old male with indwelling Caruso for several weeks. Actively draining he appears to be completely draining all of his urine but was concerned about leakage. We have placed a larger Bruneian Caruso 20 Bruneian that appears to have improved this. He still does have persistent bilateral mild hydronephrosis creatinine is 1.3 range slightly up from previous but he has had fluctuating creatinines and is not in renal failure at this time. He should get a creatinine repeat when he follows up with Urology for the eventual discussion of voiding trial do not think it is safe to do this at this time. He is awake alert well-appearing well hydrated and comfortable no fever, tachycardia or suggestion of UTI at this time. Preliminary Favored Differential Diagnosis: Caruso complication, hydronephrosis, inadequate bladder drainage among additional considered etiologies Testing Interpreted Independently: ?See below for details Radiology or Lab testing Results Reviewed: ?See below for details Consults: ?See below for details Independent Historians/External Chart Reviews: ?See below for details Social Determinants of Health Impacting MDM/Planning: ?See below for details Lab Data 03/15/25 12:10 Labs: Lab Results 03/15/25 Range/Units 12:10 Sodium 140 (135-145) mmol/L Potassium 4.4 (3.3-5.1) mmol/L Chloride 105 (96-108) mmol/L Carbon Dioxide 28 (22-29) mmol/L Anion Gap 11 L (12-20) BUN 15 (9-16) mg/dL Creatinine 1.38 (0.5-1.4) mg/dL Estim Creat Clear Calc 37.1 Estimated GFR 50 Random Glucose 128 H (60-115) mg/dL Calcium 10.0 D (8.4-10.2) mg/dL Procedures Procedure Narrative Procedure Narrative: EMERGENCY ULTRASOUND INTERPRETATION-Limited Retroperitoneal (Renal) [This study was ordered, performed, and interpreted by myself. The study reveals: Impression: Mild bilateral hydronephrosis. Caruso balloon properly inflated with complete drainage of the bladder. Incidental gallstones and sludge without signs of cholecystitis or sonographic Dawn's were identified the patient was informed about this finding [Indication: FLANK PAIN Bladder: Complete bladder drainage with Caruso balloon in proper positioning Right Kidney: Mild hydronephrosis Left Kidney: Mild hydronephrosis Performed by: Jose Navas MD Images were stored CPT: 00874] Discharge Plan Discharge Clinical Impression: Bilateral hydronephrosis, Complication of Caruso catheter, Gallstones Patient Disposition: Home, Self-Care Instructions: Hydronephrosis (ED) Additional Instructions: Today in the emergency department we replaced your smaller catheter for a larger catheter to try to avoid leakage. An ultrasound showed persistent blockage in your kidneys called hydronephrosis therefore we were not comfortable removing your Caruso completely. Your kidney function test in the blood work showed: Continue with your previously scheduled follow up with your urologist. When you see them please make sure that they review our emergency department documentation from today and ultrasound note Prescriptions: No Action aspirin 81 mg tablet,delayed release (DR/EC) 81 mg PO DAILY Qty: 90 3RF ferrous sulfate 325 mg (65 mg iron) tablet 325 mg PO DAILY Qty: 90 3RF Centrum Silver Men 750-26-731-300 mcg tablet 1 tab PO DAILY Qty: 90 3RF (DME) pen needle, diabetic [Ultra-Thin II Ins Pen [place]ah] 29 gauge x 1/2 needle See Rx Instructions .Route Qty: 100 3RF Rx Instructions: To give insulin 3 times a day before meals and at bedtime tamsulosin 0.4 mg capsule 0.4 mg PO BEDTIME Qty: 90 3RF (DME) OneTouch Ultra Test Strip See Rx Instructions .Route Qty: 100 3RF Rx Instructions: Check glucose 3 to 4 times a day with meals metoprolol tartrate 25 mg tablet 25 mg PO BID 90 Days Qty: 180 0RF Protocol: Hold for SBP/HR < HOLD for SBP < : 90 HOLD for HR < : 60 insulin glargine U-300 conc [[employer] SoloStar U-300 Insulin] 300 unit/mL (1.5 mL) insulin pen 30 unit subcut DAILY@1600 metformin 1,000 mg tablet 1,000 mg PO BIDWM Rx Instructions: 1 tablet with a meal twice daily finasteride 5 mg Tablet 5 mg PO DAILY 90 Days Qty: 90 0RF rosuvastatin 40 mg tablet 40 mg PO BEDTIME (DME) luis f Olguinc See Rx Instructions .Route Qty: 1 0RF Rx Instructions: As directed oxybutynin chloride 5 mg tablet 5 mg PO DAILY Qty: 14 0RF Interventions: ED Discharge Assessment Last Done: 03/15/25 13:50 Discharge Date/Time: 03/15/25 13:51 Print Language: Mozambican
[2025-03-15 12:00] VITALS: BP 120/66; PULSE 72; RESP 15; O2SAT 99
[2025-03-15 12:30] LABS: Anion Gap 11 (12-20); Blood Urea Nitrogen 15 mg/dL (9-16); Calcium 10.0 mg/dL (8.4-10.2); Carbon Dioxide 28 mmol/L (22-29); Chloride 105 mmol/L (96-108); Creatinine Clr Calc Pharmacy 37.1; Estimated Glomerular Filt Rate 50; Potassium 4.4 mmol/L (3.3-5.1); Sodium 140 mmol/L (135-145)
--- OUTSIDE RECORDS SUMMARY | 2025-03-15 13:10 | XMS_ITS | Encounter Summary ---
Author Organization [facility] Address [address] [facility] [address] [place] [address] Phone Care Team Providers Care Talk Show Host Name Role Phone Tim Ji MD Primary Care Provider + Encounter Details Date Type Department Care Team (Late Contact Info) Description 06/27/2020 Orders Only [facility] [address] [facility] [address] [place] [address] Sb Saenz MD [address] [id number] Type 2 diabetes mellitus with [...] Visit [facility] [address] [facility] [address] [place] [id number] Sb Saenz MD [address] [id number] documented as of this encounter Visit Diagnoses Diagnosis Type 2 diabetes mellitus with diabetic chronic kidney disease (HCC) Stage 3a chronic kidney disease (HCC) Vitamin B12 deficiency Hypercholesterolemia, not otherwise specified Elevated prostate specific antigen (PSA) Anemia, not otherwise specified documented in this encounter Care Teams Talk Show Host Relationship Specialty Start Date End Date Tim Ji MD [address] [facility] [address] [place] [address] PCP - General Internal Medicine 10/16/24 documented as of this encounter
--- OUTSIDE RECORDS SUMMARY | 2025-03-15 13:11 | XMS_ITS | Clinical Summary ---
Author Organization [facility] Address [address] [facility] [address] [place] [address] Phone Care Team Providers Care Checker Loader Name Role Phone Tim Ji MD Primary [...] [facility] [address] [address] Sb Saenz MD [address] [address] Health Maintenance Due Date Last [...] patient's age to complete this topic Insurance [facility] Medicare [facility] Medicare Care Teams Checker Loader Relationship Specialty Start Date End Date Tim Ji MD [address] [place] [address] PCP - General Internal Medicine 10/16/24
[2025-03-15 13:50] VITALS: BP 120/66; PULSE 72; RESP 15; TEMP 36.8; O2SAT 99
== END 2025-03-15 13:51 | disposition home or self-care (01) ==
PROVIDERS: Emergency Provider Emergency Medicine; PCP Internal Medicine
DX: N13.30 Unspecified hydronephrosis (principal); K80.20 Calculus of gallbladder without cholecystitis without obstruction; E11.9 Type 2 diabetes mellitus without complications; Z87.440 Personal history of urinary (tract) infections; Z86.73 Personal history of transient ischemic attack (TIA), and cerebral infarction without residual deficits; Z79.899 Other long term (current) drug therapy
CPT/HCPCS: 36415; 51702; 76775; 80048; 99284

== ENCOUNTER 2025-03-16 14:41 | Emergency (ER) | payer OTHER, SELFPAY ==
[2025-03-16 14:46] VITALS: BP 137/67; BP 141/68; PULSE 109; PULSE 110; RESP 18; TEMP 36.6; O2SAT 97; O2SAT 98; BMI 24.5
--- NOTE | 2025-03-16 15:19 | ED.MALEGU ---
HPI - Male Genitourinary General Chief complaint: Urogenital-Male Stated complaint: RODRIGUEZ LEAKING PER EMS Time Seen by Provider: 03/16/25 15:12 Source: patient, EMS, RN notes reviewed and old records reviewed Mode of arrival: EMS Limitations: no limitations History of Present Illness ED Provider: Bakari WILLS Narrative: Patient is an 79-year-old male with past medical history of bladder cancer, BPH, indwelling urinary catheter presenting to the emergency department for leakage from his meatus around the catheter. Patient was seen here yesterday for same and catheter was changed out to a larger size. He reports this morning he noticed that his underwear was still wet. Urine in drainage bag noted to be cloudy and pink tinged, patient states he had not noticed this. He denies any abdominal pain, back or flank pain. Denies any nausea or vomiting, fevers. Related Data Home Medications ?Medication ?Instructions ?Recorded ?Confirmed insulin glargine U-300 conc 300 30 unit subcut DAILY@1600 02/03/25 02/20/25 unit/mL (1.5 mL) subcutaneous pen (TouSpinTheCam SoloStar U-300 Insulin) metformin 1,000 mg tablet 1,000 mg PO BIDWM 02/03/25 02/20/25 rosuvastatin 40 mg tablet 40 mg PO BEDTIME 02/22/25 02/22/25 Previous Rx's ?Medication ?Instructions ?Recorded aspirin 81 mg tablet,delayed 81 mg PO DAILY #90 tabs 01/10/25 release ferrous sulfate 325 mg (65 mg 325 mg PO DAILY #90 tabs 01/10/25 iron) tablet csftfhke-yc-alwpc 300 mcg-K 60 1 tab PO DAILY #90 tabs 01/10/25 mcg-lycop 600 mcg-lutein 300 mcg tablet (Centrum Silver Men) pen needle, diabetic 29 gauge x #100 ea 01/10/2503/29 (Ultra-Thin II Insulin Pen [place]) tamsulosin 0.4 mg capsule 0.4 mg PO BEDTIME #90 caps 01/10/25 finasteride 5 mg tablet 5 mg PO DAILY 90 days #90 tabs 02/05/25 walker #1 ea 02/28/25 blood sugar diagnostic (OneTouch #100 ea 03/07/25 Ultra Test strips) metoprolol tartrate 25 mg tablet 25 mg PO BID 90 days #180 tabs 03/13/25 oxybutynin chloride 5 mg tablet 5 mg PO DAILY #14 tabs 03/16/25 Allergies Allergy/AdvReac Type Severity Reaction Status Date / Time atorvastatin (Lipitor) Allergy Unknown rash Verified 03/16/25 14:48 From LIPITOR Allergy Unknown RASH Uncoded 03/16/25 14:48 Review of Systems Review of Systems: As per HPI Yes all other systems are reviewed and are negative Constitutional: Constitutional: Reports as [facility] Past Medical History Medical History (Updated 03/16/25 @ 17:06 by Sussy Villegas NP) Urinary retention with incomplete bladder emptying Accident due to mechanical fall without injury Bladder cancer Adult failure to thrive Anemia Hypertension Glaucoma UTI (urinary tract infection) Dysuria Chronic anemia DNI (do not intubate) DNR (do not resuscitate) discussion Encounter for annual wellness exam in Medicare patient Sinus tachycardia Shortness of breath on exertion Multiple rib fractures Cervical radiculopathy Cervical disc disease Tubular adenoma Leukopenia GERD (gastroesophageal reflux disease) Renal lithiasis Hypotestosteronism Vitamin D deficiency Mild hypercholesterolemia Type 2 diabetes mellitus CVA (cerebral vascular accident) BPH (benign prostatic hyperplasia) H/O: HTN (hypertension) Diabetes mellitus Surgical History (Updated 03/13/25 @ 07:01 by Tsering Morrow) History of colonoscopy (~03/09/17) History of bladder surgery Hx of knee surgery H/O inguinal hernia repair Family History Family History Father Lung cancer Heart attack Social History Social History Household Members: None Housing: Apartment Do you presently have visiting nurse or other home services: No Alcohol intake: never Patient Tobacco Use Status: Former Tobacco user Tobacco use type: Cigarette Cigarette Packs Per Day: 1.5 Advance Directives: No Advance Directives Information Provided: No Do you have a plan to hurt others: No Plan service: No Current occupational status: retired Physical Exam Vital Signs: Vital Signs: Last Vital Signs Temp 97.8 F 03/16/25 14:46 Pulse 110 H 03/16/25 14:46 Resp 18 03/16/25 14:46 BP 141/68 H 03/16/25 14:46 Pulse Ox 97 03/16/25 14:46 O2 Del Method Room Air 03/16/25 14:46 BMI result Body Mass Index 24.5 Vital signs have been reviewed and appear to be correct. Blood pressure normal. Heart rate mildly tachycardic. Respiratory rate normal. Temperature normal. Oxygen saturation normal. Const: General: cooperative and no acute distress Orientation/consciousness: oriented to person, oriented to place, oriented to time and patient oriented x3 Limitations: no limitations HEENT: Head: Yes normocephalic and Yes atraumatic Ears: external ears normal General nose exam: Normal external nose present Face and sinus: Yes face symmetric Mouth: oropharynx normal and moist mucous membranes Throat: Yes uvula midline Eyes: Pupils: Equal, round and reactive pupils present Neck: Neck: Yes normal visual inspection and Yes supple Resp: Effort & Inspection: normal respiratory effort and able to speak in complete sentences Auscultation: clear to auscultation bilaterally Cardio: Rate: regular rate Rhythm: regular rhythm Heart sounds: S1 normal heart sound present and S2 normal heart sound present GI: Palpation (GI): Soft to palpation and nontender Auscultation: normoactive bowel sounds : Other: Exam chaperoned by ATIF Rooney General: Yes no CVA tenderness Penis: other (scant amount of drainage around urethral meatus, indwelling catheter insitu) Back/Spine/Pelvis: Back: no CVA tenderness Skin: General skin exam: elasticity normal and turgor normal Neuro: General: oriented to person, oriented to place, oriented to time, patient oriented x3, moves all extremities, no focal motor deficits and CN's II-XI intact bilaterally Cranial nerves: Yes Equal, round and reactive pupils present Cognition (Neuro): normal cognition Extrem: General: Yes full ROM, Yes no pedal edema and Yes no calf tenderness Psych: Mental Status: mental status grossly normal Affect: normal affect Thought process: Normal thought process present Medical Decision Making Medical Decision Making MDM Narrative: Patient is an 79-year-old male with past medical history of bladder cancer, BPH, indwelling urinary catheter presenting to the emergency department for leakage from his meatus around the catheter. On exam patient is awake, A+Ox3, mildly tachycardic, VS otherwise WNL, afebrile, normal neurological exam without focal deficits, physical exam findings as above. Given reported symptoms and physical exam findings, initial differential includes but is not limited to bladder spasms, UTI, blocked drainage tube. Labs grossly within normal limits, no SANDY. UA results similar to 02/20 visit where no infection present on urine culture. Will wait for culture prior to initiation of treatment with antibiotics. Case discussed with Dr. Delgado from urology who recommends keeping current catheter in place and starting patient on oxybutynin, outpatient follow up. Patient updated on and agreeable to plan. Return precautions discussed. Patient verbalized understanding of and agreement with plan. Differential Diagnosis Differential Diagnoses: The differential diagnosis associated with the presentation includes as per [facility] Admission/Observation Consideration of admission/observation: Escalation of care including admission/observation considered Patient would have been admitted to the hospital and transferred to appropriate facility had their clinical presentation warranted hospital admission. Consult Healthcare Provider Management of the patient was discussed with: Octave Board Assembler (Dr. Delgado) Lab Data [facility] Lab Attestation statement: I reviewed the patient's lab results. as per [facility] 03/16/25 15:57 03/16/25 15:57 Labs: Lab Results 03/16/25 03/16/25 Range/Units 15:54 15:57 WBC 5.8 (4.8-10.8) X10*3/uL RBC 3.92 L (4.60-5.80) X10*6/uL Hgb 11.0 L (14.0-18.0) g/dl Hct 34.2 L (42.0-52.0) % MCV 87.2 (80.0-98.0) fL MCH 28.1 (27.0-33.0) pg MCHC 32.2 (31.0-36.0) g/dl RDW 15.9 (11.0-16.0) % Plt Count 216 D (160-400) X10*3/uL MPV 8.8 L (9.4-12.4) fL Immature Gran % (Auto) 0.3 (0.0-0.4) % Neut % (Auto) 66.2 (45-73) % Lymph % (Auto) 20.9 (20-40) % Towner % (Auto) 8.0 (2-11) % Eos % (Auto) 3.9 (0-4) % Baso % (Auto) 0.7 (0-2) % Lymph # (Auto) 1.2 (1.2-4.9) X10*3/uL [place] # (Auto) 0.5 (0.1-1.2) X10*3/uL Eos # (Auto) 0.2 (0.0-0.4) X10*3/uL Baso # (Auto) 0.0 (0.0-0.2) X10*3/uL Abs Immat Gran (auto) 0.02 (0.00-0.03) X10*3/uL Absolute Neuts (auto) 3.9 (2.0-8.3) x10*3/uL Absolute Nucleated RBC 0.000 (0.0-0.012) X10*3/uL Nucleated RBC % (auto) 0.0 (0.0-0.2) /100WBC Sodium 141 (135-145) mmol/L Potassium 3.9 (3.3-5.1) mmol/L Chloride 107 (96-108) mmol/L Carbon Dioxide 27 (22-29) mmol/L Anion Gap 11 L (12-20) BUN 15 (9-16) mg/dL Creatinine 1.37 (0.5-1.4) mg/dL Estim Creat Clear Calc 37.4 Estimated GFR 50 Random Glucose 207 H (60-115) mg/dL Calcium 9.4 (8.4-10.2) mg/dL Total Bilirubin 0.3 (0.0-1.0) mg/dL AST 22 (5-37) U/L ALT 11 (0-40) U/L Alkaline Phosphatase 89 (39-117) U/L Total Protein 6.1 L (6.5-8.0) g/dL Albumin 3.0 L (3.5-5.0) g/dL Urine Color RED Urine Appearance Hazy Urine pH 6.0 (5.0-9.0) Ur Specific [place] 1.020 (1.005-1.025) Urine Protein See Note (Neg-Trace) mg/dL Urine Glucose (UA) See Note (Negative) mg/dL Urine Ketones Negative (Negative) mg/dL Urine Blood Large (3+) H (Negative) Urine Nitrite See Note (Negative) Ur Leukocyte Esterase Moderate (2+) H (Negative) Urine RBC >20 H (0-2) /HPF Urine WBC >50 H (0-5) /HPF Ur Squamous Epith Cells 6-10 (0-2) /HPF Urine Bacteria 1+ (None Seen) Hyaline Casts 3-5 (0-2) /LPF Urine Yeast Present External Record Review External record reviewed: Inpatient record, Office record and Outpatient record Prescription Management I considered prescription management with: Other Discharge Plan Discharge Clinical Impression: Leakage from urinary catheter Patient Disposition: Home, Self-Care Instructions: Oxybutynin (By mouth), Rodriguez Catheter Care Additional Instructions: You were evaluated in the emergency department today for leakage from your urinary catheter. You are being started on a medication called oxybutynin to help control bladder spasms which will hopefully help to decrease the leakage. Follow up with Urology outpatient. Return to the emergency department if you develop increased drainage /leakage, blood in your urine, fever 100.4? F or greater, abdominal pain or any other new or concerning symptoms. [facility] will be contacting you within 2 business?days after being discharged from the Emergency?Department.? During this?phone call, they will inform you when your follow up appointment will be scheduled. If you have not received a call from [facility] after 2 business?days, please call the?office at [phone]. Prescriptions: New oxybutynin chloride 5 mg tablet 5 mg PO DAILY Qty: 14 0RF No Action aspirin 81 mg tablet,delayed release (DR/EC) 81 mg PO DAILY Qty: 90 3RF ferrous sulfate 325 mg (65 mg iron) tablet 325 mg PO DAILY Qty: 90 3RF Centrum Silver Men [id number] mcg tablet 1 tab PO DAILY Qty: 90 3RF (DME) pen needle, diabetic [Ultra-Thin II Ins Pen [place]] 29 gauge x 1/2 needle See Rx Instructions .Route Qty: 100 3RF Rx Instructions: To give insulin 3 times a day before meals and at bedtime tamsulosin 0.4 mg capsule 0.4 mg PO BEDTIME Qty: 90 3RF (DME) OneTouch Ultra Test Strip See Rx Instructions .Route Qty: 100 3RF Rx Instructions: Check glucose 3 to 4 times a day with meals metoprolol tartrate 25 mg tablet 25 mg PO BID 90 Days Qty: 180 0RF Protocol: Hold for SBP/HR < HOLD for SBP < : 90 HOLD for HR < : 60 insulin glargine U-300 conc [Toujeo SoloStar U-300 Insulin] 300 unit/mL (1.5 mL) insulin pen 30 unit subcut DAILY@1600 metformin 1,000 mg tablet 1,000 mg PO BIDWM Rx Instructions: 1 tablet with a meal twice daily finasteride 5 mg Tablet 5 mg PO DAILY 90 Days Qty: 90 0RF rosuvastatin 40 mg tablet 40 mg PO BEDTIME (DME) [facility] See Rx Instructions .Route Qty: 1 0RF Rx Instructions: As directed Referrals: [facility] [Provider Group, Urology] - 1 week Referral Note: Started on oxybutynin per Dr. Delgado Clinical Impression: Leakage from urinary catheter Print Language: Sudanese
--- OUTSIDE RECORDS SUMMARY | 2025-03-16 15:41 | XMS_ITS ---
Continuity of Care Document (CCD) Created on: March 16, 2025 Joshua Gutierrez External Reference #: [id number] : [id number] Sex: Male Author Organization [facility] [address] [place] [address] Phone [phone] Care Team Providers Care Equipment Operation Instructor Name Role Phone Claude Churchill M.D. Care Team Information Recei francisco j [phone] Problems Active Problems Provider Date Benign prostatic [...] SIG Qnty Indications Ordering Provider Date Toujeo Yxmieawo481Jwtz/ML Solution Pen-Inject inject 20 units under the skin once daily in am dx: e11.8 13.5ml Kaiden Retana M.D. 11/02/2023 Advocate Insulin Pen [place] 29GX12.7mm29G X 12.7mm Misc inject daily 100units Kaiden Retana M.D. 11/02/2023 Freestyle Mirella 3/Sensor/Glucose Monitoring Idsdsx7Egpwqs Misc as directed 3units Kaiden Retana M.D. 11/02/2023 Freestyle Mirella 3/[place]/Glucose Monitoring Nlpgal5Aqrimr Device use with sensors to check blood sugar dx:e11.9 1units Kaiden Retana M.D. 11/02/2023 Timolol Maleate0.5% Solution Instill 1 Drop In Right Eye Every Morning Arvin Leung M.D Dbpdbegnc03ew Tablets Take 1 Tablet By Mouth Twice A Day 30 Minutes Before Meals Claude Churchill M.D. Metformin [id number] Tablets Take 1 Tablet By Mouth Twice A Day With A Meal For 90 Days 180tabs Kaiden Retana M.D. Gjxhvscsbl9ii Tablets Take 1 Tablet By Mouth Every Day For 90 Days Claude Churchill M.D. Ferrous Jzcsius579(65Fe) mg Tablets Take 1 Tablet By Mouth Every Day Ap Negron Rosuvastatin Vebfdrb45nh Tablets Anish Churchill M.D. Tamsulosin HCL0.4mg Capsules [...] 587 Procedures Date Code Description Status 10/25/2023 59090 Glucose Monitori ng From Interstital Tissue Fluid [...]
--- OUTSIDE RECORDS SUMMARY | 2025-03-16 15:41 | XMS_ITS | Encounter Summary ---
Author Organization [facility] Address [address] [facility] [address] [place] [address] Phone Care Team Providers Care Wardrobe Assistant Name Role Phone Tim Ji MD Primary Care Provider + Encounter Details Date Type Department Care Team (Late Contact Info) Description 06/27/2020 Orders Only [facility] [address] [facility] [address] [place] [address] Sb Saenz MD [address] [address] Type 2 diabetes mellitus with [...] Encounters Date Type Department Care Team (Late Contact Info) Description 10/16/2025 1:15 PM EDT Office Visit [facility] [address] [facility] [address] [place] [id number] Sb Saenz MD [address] [address] documented as of this encounter Visit Diagnoses Diagnosis Type 2 diabetes mellitus with diabetic chronic kidney disease (HCC) Stage 3a chronic kidney disease (HCC) Vitamin B12 deficiency Hypercholesterolemia, not otherwise specified Elevated prostate specific antigen (PSA) Anemia, not otherwise specified documented in this encounter Care Teams Wardrobe Assistant Relationship Specialty Start Date End Date Tim Ji MD [address] [facility] [address] [place] [address] PCP - General Internal Medicine 10/16/24 documented as of this encounter
--- OUTSIDE RECORDS SUMMARY | 2025-03-16 15:41 | XMS_ITS ---
Author Organization Unknown ENCOUNTERS Encounter Performer Location Date Diagnosis Diagnosis Status Pre Admit [facility] [address] [place] [address] [id number] Emergency [facility] [address] [place] [address] [id number] JOHN Pre Admit [facility] [address] [place] [address] [id number] Emergency [facility] [address] [place] [address] [id number] JOHN Pre Admit [facility] [address] [place] [address] [id number] Inpatient [facility] [address] [place] [address] [id number] [facility] Pre Admit [facility] [address] [place] [address] [id number] AIP Emergency [facility] [address] [place] [address] [id number] JOHN Pre Admit [facility] [address] [place] [address] [id number] Outpatient [facility] [address] [place] [address] [id number] JOHN [facility] ED Physician [facility] [address] [place] [address] [id number] [facility] *Note: Encounters from your own facility or health system may be excluded. Allergies, Adverse Reactions, Alerts Allergen Type Severity Identification Date atorvastatin drug allergy [id number] Medications Name Date Quantity Days Supplied GPI Number
--- OUTSIDE RECORDS SUMMARY | 2025-03-16 15:41 | XMS_ITS | Clinical Summary ---
Author Organization [facility] Address [address] [facility] [address] [place] [address] Phone Care Team Providers Care Head Silverman Name Role Phone Tim Ji MD Primary [...] [facility] [address] [address] Sb Saenz MD [address] [address] Health Maintenance Due Date Last [...] patient's age to complete this topic Insurance [facility] Medicare [facility] Medicare Care Teams Head Silverman Relationship Specialty Start Date End Date Tim Ji MD [address] [place] [address] PCP - General Internal Medicine 10/16/24
[2025-03-16 16:06] LABS: MANUAL DIFF FLAG NO
[2025-03-16 16:07] LABS: Hematocrit 34.2 % (42.0-52.0); Hemoglobin 11.0 g/dl (14.0-18.0); Imm Gran Abs Auto 0.02 X10*3/uL (0.00-0.03); Imm Gran Pct Auto 0.3 % (0.0-0.4); Lymphocytes Absolute Auto 1.2 X10*3/uL (1.2-4.9); Mean Corpuscular HGB Conc 32.2 g/dl (31.0-36.0); Mean Corpuscular Hemoglobin 28.1 pg (27.0-33.0); Mean Corpuscular Volume 87.2 fL (80.0-98.0); NRBC Abs Auto 0.000 X10*3/uL (0.0-0.012); NRBC Pct Auto 0.0 /100WBC (0.0-0.2); Platelet Count 216 X10*3/uL (160-400); Red Blood Count 3.92 X10*6/uL (4.60-5.80); White Blood Count 5.8 X10*3/uL (4.8-10.8)
[2025-03-16 16:12] LABS: Appearance Urine Hazy; PH 6.0 (5.0-9.0); Specific Gravity - Urine 1.020 (1.005-1.025); UMIC TRIGGER UACC YES
[2025-03-16 16:25] LABS: Alanine Aminotransferase 11 U/L (0-40); Albumin Level 3.0 g/dL (3.5-5.0); Alkaline Phosphatase 89 U/L (39-117); Anion Gap 11 (12-20); Aspartate Amino Transferase 22 U/L (5-37); Blood Urea Nitrogen 15 mg/dL (9-16); Calcium 9.4 mg/dL (8.4-10.2); Carbon Dioxide 27 mmol/L (22-29); Chloride 107 mmol/L (96-108); Creatinine Clr Calc Pharmacy 37.4; Estimated Glomerular Filt Rate 50; Potassium 3.9 mmol/L (3.3-5.1); Sodium 141 mmol/L (135-145); Total Protein 6.1 g/dL (6.5-8.0)
[2025-03-16 16:34] LABS: UACC Culture Trigger YES
[2025-03-16] MEDS: oxyBUTYnin chloride ER 5 MG TAB.ER.24 PO (17:32)
[2025-03-16 17:44] VITALS: BP 121/70; PULSE 98; RESP 18; TEMP 36.6; O2SAT 98
[2025-03-16 18:05] VITALS: BP 121/70; PULSE 98; RESP 18; TEMP 36.6; O2SAT 98
--- NOTE | 2025-03-16 18:07 | MHC.EDTECH ---
300mL of urine emptied from ramos cath bag
== END 2025-03-16 18:42 | disposition home or self-care (01) ==
PROVIDERS: Registered Nurse Emergency; Emergency Provider Emergency Medicine
DX: T83.038A Leakage of other urinary catheter, initial encounter (principal); R00.0 Tachycardia, unspecified; Z85.51 Personal history of malignant neoplasm of bladder; Z87.440 Personal history of urinary (tract) infections; Z79.899 Other long term (current) drug therapy; Z86.73 Personal history of transient ischemic attack (TIA), and cerebral infarction without residual deficits
CPT/HCPCS: 36415; 80053; 81001; 85025; 87086; 99283; 99285